=== PATIENT | female | born 1945 | race Caucasian/White ===

== ENCOUNTER 2016-04-16 10:14 | Emergency (ER) | payer MEDICARE, OTHER ==
[~2016-04-16] VITALS: Ht 165.1 cm; Wt 87.0 kg
[~2016-04-16 10:14] MED LIST: ADVI200C9 PO; NOVO7030P2 SQ
[2016-04-16 10:34] VITALS: BP 184/84; PULSE 76; RESP 18; TEMP 98; O2SAT 95
--- NOTE | 2016-04-16 10:34 | PD ---
HPI Chief Complaint: low blood sugar Time Seen by Provider: 10:22 Travel History International Travel<30 days: No Contact w/Intl Traveler<30days: No History of Present Illness HPI This is a 71-year-old female who has a history of dialysis dependence who presents to the emergency department having felt unwell at dialysis with palpitations, shortness of breath and tingling and numbness in her hands and face, constant, severe. Her blood sugar was checked at dialysis and it was 40. They had completed dialysis at that point. Patient was sent to the emergency department for further evaluation. Here she still reports that she doesn't feel well. History is obtained through her daughter who speaks Libyan. I offered the patient a creel hand but she declined. Patient denies any chest pain, fevers or chills and says she was feeling fine yesterday until dialysis. PFSH Past Medical History Arthritis: Yes (HANDS) Asthma: No Autoimmune Disease: No Blood Disorders: No Anxiety: No Depression: No Heart Rhythm Problems: No Cancer: No Cardiovascular Problems: Yes (CHEST PAIN, HTN) High Cholesterol: No Chest Pain: No Congestive Heart Failure: No Cerebrovascular Accident: No Diabetes: Yes Dialysis: Yes (M-W-) Diminished Hearing: No Endocrine: Yes (TYPE 2) Gastrointestinal Disorders: No GERD: No Glaucoma: No Genitourinary: No Headaches: No Hepatitis: No Hiatal Hernia: Yes ( ) Hypertension: Yes Immune Disorder: No Implanted Vascular Access Dvce: Yes Kidney Stones: No Musculoskeletal: No Neurologic: No Psychiatric: No Reproductive: No Immunizations Current: Yes Migraines: No Myocardial Infarction: No Radiation Therapy: No Renal Failure: Yes (DIALYSIS MWF) Seizures: No Sickle Cell Disease: No Thyroid Disease: Yes Ulcer: No Menopausal: Yes : 14 Para: 3 Miscarriage: 11 Past Surgical History Abdominal Surgery: Yes (HERNIA WITH MESH) AICD: No Appendectomy: No Arteriovenous Shunt: No Body Medical Devices: FISTULAS IN BOTH ARMS Cardiac Surgery: No Section: Yes Cholecystectomy: Yes Ear Surgery: No Endocrine Surgery: No Eye Surgery: No Genitourinary Surgery: No Gynecologic Surgery: No Insulin Pump: No Joint Replacement: No Neurologic Surgery: No Pacemaker: No Thoracic Surgery: No Tonsillectomy: Yes Other Surgery: Yes (RIGHT BKA, CHOLEY, HERNIA, 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, GLUCOMA SURG) Social History Alcohol Use: No Tobacco Use: No Substance Use: No Allergies-Medications (Allergen,Severity, Reaction): Coded Allergies: Contrast Media (Verified Allergy, Severe, CAN'T BREATHE, 09/17/15) Epogen (Verified Allergy, Severe, Headache, 09/17/15) Iodine (Verified Allergy, Severe, Hives, 09/17/15) PATIENT NEEDS TO BE PREMEDICATED Morphine (Verified Allergy, Severe, RESPIRATORY DISTRESS, 09/17/15) Vancomycin (Verified Allergy, Severe, 09/17/15) Uncoded Allergies: plastic tape (Allergy, Severe, 01/21/15) blisters Reported Meds & Prescriptions Reported Meds & Active Scripts Active Reported Lovenox Inj (Enoxaparin Sodium) 30 Mg/0.3 Ml Syr Unknown Dose SQ EVERY 15 DAYS Review of Systems Except as stated in HPI: all other systems reviewed are Neg Physical Exam Narrative GENERAL: Unwell appearing, moaning SKIN: Warm and dry. HEAD: Atraumatic. Normocephalic. EYES: Pupils equal and round. No injection or drainage. ENT: Moist mucous membranes NECK: Trachea midline. CARDIOVASCULAR: Regular rate and rhythm. No murmur appreciated. RESPIRATORY: Clear to auscultation. Breath sounds equal bilaterally. GASTROINTESTINAL: Abdomen soft, non-tender, nondistended. MUSCULOSKELETAL: Right BKA. NEUROLOGICAL: Awake and alert. No obvious cranial nerve deficits. Moving all extremities. PSYCHIATRIC: Appropriate mood and affect; insight and judgment normal. Data Data Last Documented VS Vital Signs Date Time Temp Pulse Resp B/P Pulse Ox O2 Delivery O2 Flow Rate FiO2 04/16/16 10:40 73 18 96 Nasal Cannula 2 04/16/16 10:34 98.0 184/84 Orders Electrocardiogram (04/16/16 ) Complete Blood Count With Diff (04/16/16 10:31) Comprehensive Metabolic Panel (04/16/16 10:31) Prothrombin Time / Inr (Pt) (04/16/16 10:31) Act Partial Throm Time (Ptt) (04/16/16 10:31) Troponin I (04/16/16 10:31) Urinalysis - C+S If Indicated (04/16/16 10:31) Chest, Single Ap (04/16/16 10:31) Ct Brain W/O Iv Contrast(Rout) (04/16/16 10:31) Blood Glucose (04/16/16 10:31) Ecg Monitoring (04/16/16 10:31) Iv Access Insert/Monitor (04/16/16 10:31) Oximetry (04/16/16 10:31) Sodium Chloride 0.9% Flush (Ns Flush) (04/16/16 10:45) Aspirin Chew (Aspirin Chew) (04/16/16 10:45) Labs Laboratory Tests Test 04/16/16 10:46 White Blood Count 7.8 TH/MM3 Red Blood Count 3.67 MIL/MM3 Hemoglobin 10.6 GM/DL Hematocrit 32.0 % Mean Corpuscular Volume 87.2 FL Mean Corpuscular Hemoglobin 28.7 PG Mean Corpuscular Hemoglobin 33.0 % Concent Red Cell Distribution Width 14.6 % Platelet Count 201 TH/MM3 Mean Platelet Volume 7.3 FL Neutrophils (%) (Auto) 65.2 % Lymphocytes (%) (Auto) 17.7 % Monocytes (%) (Auto) 5.3 % Eosinophils (%) (Auto) 10.7 % Basophils (%) (Auto) 1.1 % Neutrophils # (Auto) 5.1 TH/MM3 Lymphocytes # (Auto) 1.4 TH/MM3 Monocytes # (Auto) 0.4 TH/MM3 Eosinophils # (Auto) 0.8 TH/MM3 Basophils # (Auto) 0.1 TH/MM3 CBC Comment DIFF FINAL Differential Comment Prothrombin Time 10.4 SEC Prothromb Time International 0.9 RATIO Ratio Activated Partial 27.9 SEC Thromboplast Time Sodium Level 136 MEQ/L Potassium Level 3.8 MEQ/L Chloride Level 99 MEQ/L Carbon Dioxide Level 29.5 MEQ/L Anion Gap 8 MEQ/L Blood Urea Nitrogen 17 MG/DL Creatinine 2.80 MG/DL Estimat Glomerular Filtration 17 ML/MIN Rate Random Glucose 119 MG/DL Calcium Level 9.3 MG/DL Total Bilirubin 0.3 MG/DL Aspartate Amino Transf 9 U/L (AST/SGOT) Alanine Aminotransferase 15 U/L (ALT/SGPT) Alkaline Phosphatase 210 U/L Troponin I 0.02 NG/ML Total Protein 7.6 GM/DL Albumin 3.3 GM/DL [facility] Medical Decision Making Medical Screen Exam Complete: Yes Emergency Medical Condition: Yes Interpretation(s) Afebrile, no tachycardia, hypertensive Mild anemia Creatinine is 2.8 Troponin is 0.02 Normal EKG: Normal sinus rhythm, right bundle branch block, no ST changes CT of the head: No acute process Chest x-ray: No acute process Differential Diagnosis Arrhythmia, hypoglycemia, infection, acute coronary syndrome Narrative Course This is a 71-year-old female who presents the emergency department sent from dialysis for a blood sugar in the 40s. Patient is describing palpitations, numbness and tingling in her hands and generalized fatigue. She is very well- appearing on exam. Labs are all reassuring and she's had a normal blood sugar during her 2 hour stay in the emergency department. Electrolytes are all reassuring and she has no evidence of infection. Patient denies any chest pain. I suspect the patient had a transiently low blood sugar in the setting of dialysis. I advised her family to continue check her blood sugar every 4 hours at home for the rest of the day. I don't think the patient warrants admission at this time as she appears back to baseline. Diagnosis Primary Impression: Hypoglycemia Patient Instructions: General Instructions Additional Instructions: If you develop severe chest pain, shortness of breath, sweating, lightheadedness , dizziness or difficulty breathing return to the emergency department immediately. Followup with your primary care physician in 2-3 days if your symptoms are not resolved. Med/Other Pt SpecificInfo: No Change to Meds Disposition: 01 DISCHARGE HOME Condition: Stable Marly Chery MD Apr 16, 2016 10:34
[2016-04-16 10:39] VITALS: O2SAT 97
[2016-04-16] MEDS ORDERED: ASPIRIN 81 MG CHEW TAB CHEW ONE (10:45)
[2016-04-16] MEDS ORDERED: SODIUM CHLORIDE 0.9% FLUSH 5 ML FLUSH IVF PRN (10:45)
[2016-04-16] MEDS ORDERED: ENOX30P SQ (10:46)
[2016-04-16 11:00] LABS: AUTOMATED NEUTROPHIL # 5.1 TH/MM3 (1.8-7.7); BASOPHIL # 0.1 TH/MM3 (0-0.2); BASOPHIL % 1.1 % (0.0-2.0); EOSINOPHIL # 0.8 TH/MM3 (0-0.4); EOSINOPHIL % 10.7 % (0.0-4.0); HEMO FLAGS DIFF FINAL; LYMPH % 17.7 % (9.0-44.0); LYMPHOCYTE # 1.4 TH/MM3 (1.0-4.8); MEAN CELL VOLUME 87.2 FL (80.0-100.0); MEAN CORPUSCULAR HEMOGLOBIN 28.7 PG (27.0-34.0); MONO % 5.3 % (0.0-8.0); NEUT % 65.2 % (16.0-70.0); PLATELET COUNT 201 TH/MM3 (150-450); RED BLOOD COUNT 3.67 MIL/MM3 (4.00-5.30); RED CELL DISTRIBUTION WIDTH 14.6 % (11.6-17.2); WHITE BLOOD COUNT 7.8 TH/MM3 (4.0-11.0)
[2016-04-16 11:09] LABS: APTT (PATIENT) 27.9 SEC (24.3-30.1); INTERNATIONAL NORMALIZED RATIO 0.9 RATIO; PROTHROMBIN TIME - PATIENT 10.4 SEC (9.8-11.6)
[2016-04-16 11:16] LABS: ALT (GPT) 15 U/L (10-53); ANION GAP 8 MEQ/L (5-15); AST (GOT) 9 U/L (15-37); BICARBONATE 29.5 MEQ/L (21.0-32.0); BLOOD UREA NITROGEN 17 MG/DL (7-18); CHLORIDE 99 MEQ/L (98-107); GLOMERULAR FILTRATION RATE 17 ML/MIN (>89); POTASSIUM 3.8 MEQ/L (3.5-5.1); SODIUM (NA) 136 MEQ/L (136-145)
[2016-04-16 11:19] LABS: ALKALINE PHOSPHATASE 210 U/L (45-117); TOTAL BILIRUBIN ADULT 0.3 MG/DL (0.2-1.0)
--- NOTE | 2016-04-16 11:43 | RADRPT ---
EXAM DATE/TIME: 04/16/2016 10:53 [facility] COMPARISON: CT BRAIN W/O CONTRAST, May 28, 2015, 11:28. INDICATIONS : Sudden onset of numbness and tingling in hands and face during dialysis. RADIATION DOSE: 40.23 CTDIvol (mGy) MEDICAL HISTORY : Renal failure, chronic. Hypertension. Diabetes mellitus type 2. SURGICAL HISTORY : Tonsillectomy. ENCOUNTER: Initial ACUITY: 1 day PAIN SCALE: 0/10 LOCATION: cranial TECHNIQUE: Multiple contiguous axial images were obtained of the head. Using automated exposure control and adj ustment of the mA and/or kV according to patient size, radiation dose was kept as low as reasonably a chievable to obtain optimal diagnostic quality images. FINDINGS: CEREBRUM: The ventricles are normal for age. No evidence of midline shift, mass lesion, hemorrhage or acute in farction. No extra-axial fluid collections are seen. POSTERIOR FOSSA: The cerebellum and brainstem are intact. The 4th ventricle is midline. The cerebellopontine angle i s unremarkable. EXTRACRANIAL: The visualized portion of the orbits is intact. SKULL: The calvaria is intact. No evidence of skull fracture. CONCLUSION: 1. No acute intracranial abnormality. No change from May 2015. Fabrizio Hatfield MD on April 16, 2016 at 11:24 Board Certified Radiologist. This report was verified electronically.
--- NOTE | 2016-04-16 12:32 | RADRPT ---
EXAM DATE/TIME: 04/16/2016 11:33 [facility] COMPARISON: CHEST SINGLE AP, September 17, 2015, 6:33. INDICATIONS : Syncope MEDICAL HISTORY : None. SURGICAL HISTORY : None. ENCOUNTER: Initial ACUITY: 1 day PAIN SCORE: Non-responsive. LOCATION: Bilateral chest FINDINGS: A single view of the chest demonstrates minimal basilar atelectasis. No effusion. No pneumothorax. Ca rdiomegaly. CONCLUSION: 1. Minimal basilar atelectasis. No change from September 2015. Fabrizio Hatfield MD on April 16, 2016 at 12:29 Board Certified Radiologist. This report was verified electronically.
--- NOTE | 2016-04-16 14:35 | EKG ---
Date Performed: 04/16/2016 Time Performed: 10:36:59 PTAGE: 71 years EKG: Sinus rhythm RIGHT BUNDLE BRANCH BLOCK LEFT ANTERIOR FASCICULAR BLOCK ABNORMAL ECG PREVIOUS TRACING : 09/17/2015 07.25 Since previous tracing, no significant change noted DOCTOR: Zaria Chery Interpretating Date/Time 04/16/2016 14:27:26
== END 2016-04-16 13:20 | disposition home or self-care (01) ==
LOC: NEPE 10:14
DX: E16.2 Hypoglycemia, unspecified (principal); R94.31 Abnormal electrocardiogram [ECG] [EKG]; I10 Essential (primary) hypertension; E11.9 Type 2 diabetes mellitus without complications; Z99.2 Dependence on renal dialysis
CPT/HCPCS: 70450; 71010; 80053; 84484; 85025; 85610; 85730; 93005

== ENCOUNTER 2016-04-19 13:08 | Day surgery (SDC) | payer MEDICARE, OTHER ==
[~2016-04-19 13:08] MED LIST changes: -ADVI200C9 PO; +ENOX30P SQ; -NOVO7030P2 SQ
[2016-04-19 13:47] VITALS: BP 196/81; PULSE 86; RESP 20; TEMP 99; O2SAT 94
[2016-04-19 14:15] VITALS: BP 189/77; PULSE 84; RESP 16; TEMP 98.2; O2SAT 84
[2016-04-19 14:30] VITALS: BP 166/71; PULSE 83; RESP 18; O2SAT 98
--- NOTE | 2016-04-19 14:41 | RADRPT ---
EXAM DATE/TIME: 04/19/2016 13:39 [facility] COMPARISON: No previous studies available for comparison. EXTERNAL COMPARISON : [facility], US THYROID, September 20, 2015 INDICATIONS : Enlarged right thyroid. MEDICAL HISTORY : Hypertension. Thyroid disease. SURGICAL HISTORY : Tonsillectomy. Cholecystectomy. Right below knee amputation. Herniarrepair. Facial tumor. A-V fistu las bilateral arms. Glucoma surgery. Hx of blood transfusions. ENCOUNTER: Initial ACUITY: 1 day PAIN SCORE: 0/10 LOCATION: Right neck ORGAN: Right thyroid lobe SPECIMENS: Three fine needle aspirate(s) submitted for pathologic evaluation. DEVICE: 18 gauge needle Post procedure scanning reveals no hematoma or other complication. The possibility does exist that the tissue obtained will be non-diagnostic. If the sample is non-diag nostic, a repeat biopsy or surgical biopsy may need to be performed. TECHNIQUE: 1. Ultrasound guidance for needle biopsy. 2. Needle biopsy. The risks, benefits, and alternatives to ultrasound guided needle biopsy were explained to the patien t in detail including the risk of bleeding and infection. Written and verbal informed consent was ob tained. With the patient on the ultrasound table, images were obtained. Overlying skin was prepped and drape d in the usual sterile fashion and Lidocaine was utilized as a local anesthetic. Under direct ultrasound guidance 3 aspirates were obtained and submitted for pathologic evaluation. The patient tolerated the procedure well and left the ultrasound suite in stable condition. CONCLUSION: Uncomplicated ultrasound guided needle biopsy. Kin Balderas MD FACR on April 19, 2016 at 14:39 Board Certified Radiologist. This report was verified electronically.
[2016-04-19] MEDS ORDERED: SODIUM BICARBONATE 8.4% INJ 50 ML ONE (14:45)
[2016-04-19] MEDS ORDERED: LIDOCAINE HCL 1% 30 ML VIAL ONE (14:45)
== END 2016-04-19 14:45 | disposition home or self-care (01) ==
LOC: HRAD 13:08 → HRIP 13:14 → HRAD 14:45
PROVIDERS: ATTEND Surgery Vascular Surgery
DX: E04.2 Nontoxic multinodular goiter (principal); E07.9 Disorder of thyroid, unspecified; I10 Essential (primary) hypertension
CPT/HCPCS: 10022; 76942; 88172; 88173

== ENCOUNTER 2016-05-14 11:20 | Emergency (ER) | payer MEDICARE, OTHER ==
[~2016-05-14] VITALS: Ht 165.1 cm; Wt 85.0 kg
[2016-05-14 11:24] VITALS: BP 195/85; PULSE 78; RESP 20; TEMP 97.9; O2SAT 93
--- NOTE | 2016-05-14 15:32 | PD ---
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 However she mentioned to the nurse that she's been having pain in her fistula site. The dialysis nurse told her to come to the emergency room. No fever or injury. No bleeding. The dialysis went off without any problems. Duration is one day. PFSH Past Medical History Arthritis: Yes (HANDS) Asthma: No Autoimmune Disease: No Blood Disorders: No Anxiety: No Depression: No Heart Rhythm Problems: No Cancer: No Cardiovascular Problems: Yes (CHEST PAIN, HTN) High Cholesterol: No Chest Pain: No Congestive Heart Failure: No Cerebrovascular Accident: No Diabetes: Yes Patient Takes Glucophage: No Dialysis: Yes (--) Diminished Hearing: No Endocrine: Yes (TYPE 2) Gastrointestinal Disorders: No GERD: No Glaucoma: No Genitourinary: No Headaches: No Hepatitis: No Hiatal Hernia: Yes ( ) Hypertension: Yes Immune Disorder: No Implanted Vascular Access Dvce: Yes Kidney Stones: No Musculoskeletal: No Neurologic: No Psychiatric: No Reproductive: No Immunizations Current: Yes Migraines: No Myocardial Infarction: No Radiation Therapy: No Renal Failure: Yes (DIALYSIS MWF) Seizures: No Sickle Cell Disease: No Thyroid Disease: Yes Ulcer: No Tetanus Vaccination: < 5 Years ?: Not Menopausal: Yes : 14 Para: 3 Miscarriage: 11 Past Surgical History Abdominal Surgery: Yes (HERNIA WITH MESH) AICD: No Appendectomy: No Arteriovenous Shunt: No Body Medical Devices: FISTULAS IN BOTH ARMS Cardiac Surgery: No Section: Yes Cholecystectomy: Yes Ear Surgery: No Endocrine Surgery: No Eye Surgery: No Genitourinary Surgery: No Gynecologic Surgery: No Insulin Pump: No Joint Replacement: No Neurologic Surgery: No Pacemaker: No Thoracic Surgery: No Tonsillectomy: Yes Other Surgery: Yes (RIGHT BKA, CHOLEY, HERNIA, 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, GLUCOMA SURG) Social History Alcohol Use: No Tobacco Use: No Substance Use: No Allergies-Medications (Allergen,Severity, Reaction): Coded Allergies: Contrast Media (Verified Allergy, Severe, CAN'T BREATHE, 05/14/16) Epogen (Verified Allergy, Severe, Headache, 05/14/16) Iodine (Verified Allergy, Severe, Hives, 05/14/16) PATIENT NEEDS TO BE PREMEDICATED Morphine (Verified Allergy, Severe, RESPIRATORY DISTRESS, 05/14/16) Vancomycin (Verified Allergy, Severe, 05/14/16) Uncoded Allergies: plastic tape (Allergy, Severe, 01/21/15) blisters Reported Meds & Prescriptions Reported Meds & Active Scripts Active No Active Prescriptions or Reported Medications Review of Systems General / Constitutional: No: Fever HENT: No: Headaches Cardiovascular: No: Chest Pain or Discomfort Physical Exam Narrative SKIN: Inspection shows no rash or ulcers. Palpation shows no induration or nodules. Psych: Normal mood and affect. Normal insight and judgment. Right arm: Antecubital fossa shows no sign of infection or injury. There is no bruising or swelling or redness or warmth. No drainage or bleeding. Pain is located in the fistula itself Arm is neurovascularly intact Data Data Last Documented VS Vital Signs Date Time Temp Pulse Resp B/P Pulse Ox O2 Delivery O2 Flow Rate FiO2 05/14/16 11:24 97.9 78 20 195/85 93 Room Air MDM Medical Decision Making Medical Screen Exam Complete: Yes Emergency Medical Condition: Yes Medical Record Reviewed: Yes Differential Diagnosis Partial occlusion, soft tissue injury, cellulitis Narrative Course I have reviewed the patient's electronic medical record. No objective findings here. She seems basically asymptomatic and when she tries to straighten her arm out fully and then has some pain I reviewed the case in detail with nephrology coverage Dr. Banda He recommends an outpatient radiology consult for evaluation of fistula I discussed this with patient and bilingual case manager She researched and basically the patient's tree feller operator has to order this She has contacted her tree feller operator's office and they are working on it Stable for outpatient follow-up Diagnosis Primary Impression: Right arm pain Additional Impression: ESRD (end stage renal disease) on dialysis Additional Instructions: Follow-up tree feller operator and outpatient radiology evaluation of fistula Med/Other Pt SpecificInfo: Other Scripts No Active Prescriptions or Reported Meds Disposition: 01 DISCHARGE HOME Condition: Stable Farhat Narvaez MD May 14, 2016 15:32
== END 2016-05-14 16:49 | disposition home or self-care (01) ==
LOC: NEPD 11:20
DX: M79.601 Pain in right arm (principal); N18.6 End stage renal disease; I12.0 Hypertensive chronic kidney disease with stage 5 chronic kidney disease or end stage renal disease; E11.22 Type 2 diabetes mellitus with diabetic chronic kidney disease; Z99.2 Dependence on renal dialysis; Z95.828 Presence of other vascular implants and grafts
CPT/HCPCS: 99283

== ENCOUNTER 2016-06-15 07:14 | Inpatient (IN) | payer MEDICARE, OTHER ==
[~2016-06-15] VITALS: Ht 165.1 cm; Wt 89.6 kg
[2016-06-15] VITALS (9 sets, daily range): BP systolic 126–182; BP diastolic 60–65; PULSE 80–88; RESP 14–18; TEMP 98–99.5; O2SAT 99–100
[2016-06-15] MEDS ORDERED: SODIUM CHLORID 0.9% 500 ML IV SCH (07:45)
[2016-06-15] MEDS ORDERED: ceFAZolin 1,000 MG/NS 100 ML IV SCH ×2 (07:45)
[2016-06-15] MEDS ORDERED: METOPROLOL TARTRATE 25 MG TAB PO PRN (07:45)
[2016-06-15] MEDS ORDERED: LACTATED RINGER'S 1000 ML IV SCH (07:45)
[2016-06-15] MEDS ORDERED: INSULIN HUMAN REGULAR 1,000 UNITS/10 ML VIAL SQ PRN (07:45)
[2016-06-15 08:40] LABS: AUTOMATED NEUTROPHIL # 5.5 TH/MM3 (1.8-7.7); BASOPHIL # 0.1 TH/MM3 (0-0.2); BASOPHIL % 1.2 % (0.0-2.0); EOSINOPHIL # 2.8 TH/MM3 (0-0.4); EOSINOPHIL % 25.7 % (0.0-4.0); HEMO FLAGS DIFF FINAL; LYMPH % 17.3 % (9.0-44.0); LYMPHOCYTE # 1.9 TH/MM3 (1.0-4.8); MEAN CELL VOLUME 89.5 FL (80.0-100.0); MEAN CORPUSCULAR HEMOGLOBIN 29.2 PG (27.0-34.0); MEAN CORPUSCULAR HGB CONC 32.6 % (32.0-36.0); MONO % 4.7 % (0.0-8.0); NEUT % 51.1 % (16.0-70.0); PLATELET COUNT 199 TH/MM3 (150-450); RED BLOOD COUNT 3.01 MIL/MM3 (4.00-5.30); RED CELL DISTRIBUTION WIDTH 15.3 % (11.6-17.2); WHITE BLOOD COUNT 10.8 TH/MM3 (4.0-11.0)
[2016-06-15] MEDS ORDERED: SODIUM CHLORID 0.9% 500 ML INJ 500 ML IV ONE (08:51)
[2016-06-15] MEDS ORDERED: ONDANSETRON HCL 4 MG/2 ML VIAL IV PUSH ONE (08:51)
[2016-06-15] MEDS ORDERED: NEOSTIGMINE 3 MG/3 ML SYR IV ONE (08:51)
[2016-06-15] MEDS ORDERED: PROPOFOL 200 MG/20 ML AMP IV ONE (08:51)
[2016-06-15 09:08] LABS: BICARBONATE 26.5 MEQ/L (21.0-32.0); POTASSIUM 4.8 MEQ/L (3.5-5.1)
[2016-06-15] MEDS ORDERED: CINA30 PO (09:26)
[2016-06-15] MEDS ORDERED: NIFE60TA58 PO (09:26)
[2016-06-15] MEDS ORDERED: BUPIVACAINE/EPINEPHRINE 0.5% PF 30 ML VIAL ONE (10:08)
[2016-06-15] MEDS ORDERED: FAMOTIDINE 20 MG/2 ML VIAL ONE (10:26)
[2016-06-15] MEDS ORDERED: MIDAZOLAM HCL 2 MG/2 ML VIAL ONE (10:27)
[2016-06-15] MEDS ORDERED: DEXAMETHASONE SOD PHOS 4 MG/ML VIAL ONE (10:27)
[2016-06-15] MEDS ORDERED: *ENALAPRILAT 1.25 MG/ML VIAL PERIprocedural Use ONLY ONE ×2 (13:42→14:04)
[2016-06-15] MEDS ORDERED: fentaNYL CITRATE 250 MCG/5 ML AMP ONE (13:44)
[2016-06-15] MEDS ORDERED: *PROMETHAZINE 25 MG/ML VIAL PERIprocedural use ONLY ONE (13:46)
[2016-06-15] MEDS ORDERED: *ONDANSETRON 4 MG VIAL PERIprocedural Use ONLY ONE (13:47)
[2016-06-15] MEDS ORDERED: *HYDROmorphone PF 1 MG VIAL PERIprocedural Use ONLY ONE (13:53)
[2016-06-15] MEDS ORDERED: *LABETALOL HCL 100 MG/20 ML VIAL PERIprocedural Use ONLY ONE (14:04)
[2016-06-15] MEDS ORDERED: hydrALAZINE HCL 20 MG/ML VIAL ONE (14:48)
[2016-06-15] MEDS ORDERED: ONDANSETRON HCL 4 MG/2 ML VIAL IV PUSH PRN (18:15)
[2016-06-15] MEDS ORDERED: SODIUM CHLORIDE FLUSH PRN IVF (18:15)
[2016-06-15] MEDS ORDERED: LABETALOL HCL 100 MG/20 ML VIAL IV PRN (18:15)
[2016-06-15] MEDS ORDERED: CALCIUM CHLORIDE IV PRN ×4 (18:30)
[2016-06-15] MEDS ORDERED: WATE IV PRN ×4 (18:30)
[2016-06-15] MEDS ORDERED: DEXTROSE 5% IV PRN ×4 (18:30)
[2016-06-15] MEDS: CALCIUM CARBONATE 500 MG CHEWABLE TAB PO SCH (18:46)
[2016-06-15] MEDS: MEDIUM DOSE INSULIN NOVOLIN REGULAR SUPPLEMENTAL SCALE SQ SCH (21:00)
[2016-06-15] MEDS: SODIUM CHLORIDE FLUSH BID IVF SCH (21:09)
[2016-06-15] MEDS ORDERED: GLUCAGON 1 MG/ML VIAL OTHER PRN (21:15)
[2016-06-15] MEDS ORDERED: DEXTROSE 50% IN WATER 50 ML VIAL(D50) IV PUSH PRN (21:15)
[2016-06-16] VITALS (22 sets, daily range): BP systolic 113–161; BP diastolic 46–81; PULSE 78–105; RESP 16–18; TEMP 98.2–99.5; O2SAT 93–100
[2016-06-16] MEDS: HYDROmorphone HCL PF 1 MG/ML VIAL IV PRN ×4 (00:36→17:29)
[2016-06-16] MEDS: CALCIUM CARBONATE 500 MG CHEWABLE TAB PO SCH ×3 (02:02→18:21)
[2016-06-16] MEDS ORDERED: BENZOCAINE-MENTHOL (SUGAR FREE) 15 MG-3.6 MG LOZENGE BUCCAL PRN (03:30)
[2016-06-16] MEDS ORDERED: LEVOTHYROXINE SODIUM 100 MCG TAB PO SCH (06:00)
[2016-06-16] MEDS: MEDIUM DOSE INSULIN NOVOLIN REGULAR SUPPLEMENTAL SCALE SQ SCH ×3 (06:24→16:00)
[2016-06-16] MEDS: SODIUM CHLORIDE FLUSH BID IVF SCH (08:16)
[2016-06-16] MEDS ORDERED: NIFEdipine 60 MG SUSTAINED RELEASE TAB PO SCH (09:00)
[2016-06-16] MEDS ORDERED: SODIUM CHLOR 0.9% 1000 ML INJ 1,000 ML IV PRN ×3 (13:51)
[2016-06-16] MEDS ORDERED: NITROGLYCERIN 0.4 MG SL 25 TABS/BTL SL PRN (14:00)
[2016-06-16] MEDS ORDERED: cloNIDine HCL 0.1 MG TAB PO PRN (14:00)
[2016-06-16] MEDS ORDERED: HEPARIN SODIUM - IV 10,000 UNITS/10 ML VIAL PRN (14:00)
[2016-06-16] MEDS ORDERED: diphenhydrAMINE HCL 25 MG CAP PO PRN (14:00)
[2016-06-16] MEDS ORDERED: ONDANSETRON HCL 4 MG/2 ML VIAL IV PRN (14:00)
[2016-06-16] MEDS ORDERED: ACETAMINOPHEN 325 MG TAB PO PRN (14:00)
[2016-06-16] MEDS ORDERED: GENTAMICIN SULFATE (DIALYSIS USE ONLY) 20 MG/2 ML VIAL IV PRN (14:00)
[2016-06-16] MEDS ORDERED: ALBUMIN HUMAN 25% 25 GM/100 ML BAGP IV PRN (14:00)
[2016-06-16] MEDS ORDERED: GELATIN 12 MM/7 MM FOAM TOP PRN (14:00)
[2016-06-16] MEDS ORDERED: SODIUM CHLORIDE 0.9% FLUSH 5 ML FLUSH IVF PRN (14:00)
[2016-06-16] MEDS ORDERED: MANNITOL 12.5 GM/50 ML VIAL IV PRN (14:00)
[2016-06-16] MEDS ORDERED: HEPARIN SODIUM - IV 10,000 UNITS/10 ML VIAL IVF PRN (14:00)
[2016-06-16] MEDS ORDERED: TUMS500C CHEW (14:05)
[2016-06-16] MEDS ORDERED: NIFE60TA58 PO (14:05)
[2016-06-16] MEDS ORDERED: LEVO.05 PO (14:05)
[2016-06-16] MEDS ORDERED: HYDR2TAB PO (14:05)
--- NOTE | 2016-06-16 17:41 | MB ---
cc: KURTIS FISHER MD DATE OF CONSULTATION: 06/16/2016 REASON FOR CONSULTATION: End-stage renal disease on hemodialysis for management. HISTORY OF PRESENT ILLNESS This is a 71-year-old female known to me from before with past medical history of hypertension, diabetes mellitus, peripheral vascular disease post right below-knee amputation, history of end-stage renal disease on hemodialysis three times per week, history of chronic anemia, history of hyperparathyroidism was admitted for parathyroidectomy. I was called to see the patient for the management of dialysis. The patient was referred to Dr. Cottrell for parathyroidectomy since her parathyroid hormone level has been elevated despite all the treatment and Dr. Cottrell also found that her thyroid gland was enlarged and she underwent complete parathyroidectomy and partial thyroidectomy yesterday. The patient tolerated the procedure where she has drainage tube in her neck. She denies any shortness of breath. No chest pain. No palpitation. No nausea or vomiting. Her last calcium level was 7.3. The patient is now on hemodialysis. She has been getting hemodialysis Tuesday, Tuesday and Tuesday. She has history of anemia and she is allergic to Epogen so she is getting Aranesp in [facility], when she was seen by hematology/oncology. PAST MEDICAL HISTORY: 1. Hypertension. 2. Diabetes mellitus. 3. Peripheral vascular disease. 4. Hyperparathyroidism. 5. End-stage renal disease on hemodialysis 3x per week. 6. Chronic anemia. PAST SURGICAL HISTORY: 1. Left arm AV fistula surgery. 2. Right below-knee amputation. 3. Cholecystectomy. 4. section. 5. She just underwent complete parathyroidectomy and partial thyroidectomy. REVIEW OF SYSTEMS There is no history of fever. No sore throat. No headache, dizziness or blurring of vision. Denies any shortness of breath. She has some pain at the site of surgery. There is no nausea or vomiting. No history of diarrhea. No abdominal pain. SOCIAL HISTORY The patient is lives with and son. There is no history of smoking or alcoholism. FAMILY HISTORY: Noncontributory. ALLERGIES She is allergic to multiple medications including: CONTRAST MEDIA EPOGEN IODINE MORPHINE VANCOMYCIN MEDICATIONS: 1. Currently she is on cefazolin but she got one dose. 2. Nifedipine 60 milligrams once a day. 3. Levothyroxine 100 micrograms daily. 4. Tums one gram q8 hours. 5. Insulin sliding scale. 6. Labetalol p.r.n. PHYSICAL EXAMINATION: The patient is awake, alert. She is on hemodialysis right now, the last blood pressure recorded is 113/46, temperature is 98.4, oxygen saturation 97% on room air. HEENT: Pupils equally reacting to light. Nonicteric sclera. Conjunctiva pale. Neck: Supple. JVD is not elevated. Lungs: The patient has bilateral decreased air entry at the bases with occasional wheezing. Heart: S1-S2, regular. Abdomen is obese, soft, lax. There is no tenderness. Bowel sounds positive. Extremities: She has edema in the left leg. On the right she has below-knee amputation. INVESTIGATIONS: WBC count is 10.8, hemoglobin 8.8, platelet count 199. Sodium 137. Potassium 4.8, chloride 102, bicarb 26.5, BUN 48, creatinine 5.7. Calcium, the last we have is 7.3. ASSESSMENT/PLAN 1. Post parathyroidectomy and partial thyroidectomy. 2. End-stage renal disease on hemodialysis. 3. Hypocalcemia. 4. Anemia. 5. Hypertension 6. Diabetes mellitus The patient has severe hyperparathyroidism. The PTH level has been very high despite all the treatment. She was recommended to go and get parathyroidectomy. She underwent the procedure well and the thyroid was also removed. She had biopsy of the thyroid done in April and it shows normal thyroid follicular tissues. She was started on thyroxin and will need to monitor TSH level. Her hemoglobin is low. She is allergic to Epogen and has been getting Aranesp in the infusion center. Will continue that and will follow the hemoglobin. Will follow the calcium level, and phosphorus level as an outpatient. The patient will be discharged after dialysis. So far she is tolerating dialysis well and we will be removing only 1 liter. Continue the same medications that she was taking before except giving more Tums and calcium supplement and follow the calcium level. Thank you for the consultation. I will follow the patient once she is discharged. MD PEACE Alexander/BHAVYA /3:40 PM /5:28 PM
--- NOTE | 2016-06-16 21:13 | MP ---
cc: DIVYA HOLLIS M.D. DATE OF SURGERY: 06/15/2016 PREOPERATIVE DIAGNOSIS: Hyperparathyroidism secondary to chronic renal failure. Dysphagia secondary to goiter/markedly enlarged right thyroid lobe. POSTOPERATIVE DIAGNOSIS Hyperparathyroidism secondary to chronic renal failure. Dysphagia secondary to goiter/markedly enlarged right thyroid lobe. OPERATIVE PROCEDURE Total parathyroidectomy, right thyroid lobectomy. SURGEON Darryl Hollis MD. FREIGHT SORTER: MARCY Mcpherson. ANESTHESIA: General endotracheal anesthesia/local. DESCRIPTION OF OPERATIVE PROCEDURE: With the patient in the supine position, general endotracheal anesthesia was induced, the cervical spine extended and anterior cervical region prepped with Betadine and draped in a sterile fashion. Following a protocol time-out, the skin and subcutaneous tissue along the proposed incisional area was preemptively infiltrated with 0.5% Marcaine with epinephrine. A curvilinear "collar type" incision was performed along the anterior cervical region 2 cm cephalad to the suprasternal notch. Subplatysmal flaps were then dissected superiorly to the thyroid notch and inferiorly to the suprasternal notch. The strap muscle fascia was incised within the midline and strap muscles mobilized laterally. The right and left thyroid lobes were carefully mobilized superomedially. The right lower thyroid lobe was markedly enlarged consistent with benign goiter (as established by preoperative imaging studies and fine needle aspiration). The lobe extended posteriorly into the thyrocervical recess compressing both the esophagus, trachea and causing deviation to the left. All four parathyroid glands were identified in their usual anatomical locations. Each was mobilized on its vascular pedicle. The vascular pedicles were ligated with small hemoclips and all four glands removed, submitted for frozen section confirming parathyroid tissue which appeared to be hypercellular / hyperplastic. Attention was then directed to the right thyroid lobectomy. The superior and inferior pole arterial and venous branches were individually ligated as they entered the thyroid capsule with small hemoclips with free ties of 4-0 silk and divided. The lobe was mobilized superomedially upon its isthmus, care taken to identify and protect the recurrent laryngeal nerves. The isthmus was divided and bleeding controlled with electrocautery. Strict hemostasis was assured. A 7 mm Tyson-Allen drain was placed within the right thyrocervical recess. The strap muscle fascia was reapproximated in the midline with continuous 4-0 Monocryl. The platysmal fascia was reapproximated with continuous 4-0 Monocryl. Skin was reapproximated with continuous subcuticular 5-0 Monocryl, reinforced with Steri-Strips and covered with sterile gauze. Instrument, needle, sponge count were correct x2. No operative complications. The patient returned to the recovery room in stable condition having tolerated the procedure well. MD LILIANA Meadows/BHAVYA /8:05 AM /9:04 PM
== END 2016-06-16 20:28 | disposition home or self-care (01) | DRG 674 ==
LOC: HSDC 07:14 → HCIN 17:12
PROVIDERS: ADMIT Surgery Vascular Surgery; ATTEND Surgery Vascular Surgery
PROC: 0GBH0ZZ Excision of Right Thyroid Gland Lobe, Open Approach (ICD-10-PCS; 2016-06-15)
PROC: 0GTQ0ZZ Resection of Multiple Parathyroid Glands, Open Approach (ICD-10-PCS; principal; 2016-06-15 10:40)
PROC: 5A1D00Z (ICD-10-PCS; 2016-06-16)
DX: N25.81 Secondary hyperparathyroidism of renal origin (principal); I12.0 Hypertensive chronic kidney disease with stage 5 chronic kidney disease or end stage renal disease; N18.6 End stage renal disease; R13.10 Dysphagia, unspecified; E04.2 Nontoxic multinodular goiter; E11.22 Type 2 diabetes mellitus with diabetic chronic kidney disease; Z99.2 Dependence on renal dialysis; I73.9 Peripheral vascular disease, unspecified; Z89.511 Acquired absence of right leg below knee
CPT/HCPCS: 78808; 80048; 82310; 82948; 85025; 88305; 88307; 88331; 90935; A9500; J0360; J0690; J1100; J1170; J2250; J2405; J2550; J2710; J3010; J7040; J7060

== ENCOUNTER 2016-06-18 23:11 | Observation (INO) | payer MEDICARE, OTHER ==
[~2016-06-18] VITALS: Ht 160 cm; Wt 87.5 kg
[~2016-06-18 23:11] MED LIST changes: -ENOX30P SQ; +HYDR2TAB PO; +LEVO.05 PO; +NIFE60TA58 PO; +TUMS500C CHEW
[2016-06-18 23:13] VITALS: BP 191/79; PULSE 83; RESP 22; TEMP 98.2; O2SAT 97
[2016-06-18 23:24] VITALS: BP 154/70; PULSE 90; RESP 26; TEMP 99; O2SAT 98
[2016-06-18] MEDS ORDERED: SODIUM CHLORIDE 0.9% FLUSH 5 ML FLUSH IVF PRN (23:45)
[2016-06-18 23:50] VITALS: O2SAT 98
[2016-06-19] VITALS (10 sets, daily range): BP systolic 145–200; BP diastolic 60–84; PULSE 76–101; RESP 18–22; TEMP 98.5–99.5; O2SAT 93–99
[2016-06-19] LABS: AUTOMATED NEUTROPHIL # 6.7 TH/MM3 (1.8-7.7); BASOPHIL # 0.1 TH/MM3 (0-0.2); BASOPHIL % 0.6 % (0.0-2.0); EOSINOPHIL # 1.8 TH/MM3 (0-0.4); EOSINOPHIL % 16.5 % (0.0-4.0); HEMATOCRIT 22.7 % (35.0-46.0); HEMO FLAGS DIFF FINAL; LYMPH % 12.9 % (9.0-44.0); LYMPHOCYTE # 1.4 TH/MM3 (1.0-4.8); MEAN CELL VOLUME 89.4 FL (80.0-100.0); MEAN CORPUSCULAR HEMOGLOBIN 29.8 PG (27.0-34.0); MEAN CORPUSCULAR HGB CONC 33.4 % (32.0-36.0); MONO % 8.1 % (0.0-8.0); NEUT % 61.9 % (16.0-70.0); PLATELET COUNT 180 TH/MM3 (150-450); RED BLOOD COUNT 2.54 MIL/MM3 (4.00-5.30); RED CELL DISTRIBUTION WIDTH 15.8 % (11.6-17.2); WHITE BLOOD COUNT 10.8 TH/MM3 (4.0-11.0)
[2016-06-19 00:11] LABS: APTT (PATIENT) 30.6 SEC (24.3-30.1); PROTHROMBIN TIME - PATIENT 10.8 SEC (9.8-11.6)
[2016-06-19 00:35] LABS: ALKALINE PHOSPHATASE 200 U/L (45-117); ALT (GPT) 6 U/L (10-53); ANION GAP 11 MEQ/L (5-15); AST (GOT) 11 U/L (15-37); BICARBONATE 24.6 MEQ/L (21.0-32.0); BLOOD UREA NITROGEN 73 MG/DL (7-18); CHLORIDE 100 MEQ/L (98-107); CREATINE KINASE 102 U/L (26-192); GLOMERULAR FILTRATION RATE 4 ML/MIN (>89); MAGNESIUM 1.6 MG/DL (1.5-2.5); POTASSIUM 5.7 MEQ/L (3.5-5.1); SODIUM (NA) 136 MEQ/L (136-145); TOTAL BILIRUBIN ADULT 0.3 MG/DL (0.2-1.0)
[2016-06-19 00:38] LABS: CALCIUM-PROTEIN CORRECTED 5.3 MG/DL (8.5-10.1)
--- NOTE | 2016-06-19 00:46 | RADRPT ---
EXAM DATE/TIME: 06/19/2016 00:13 [facility] COMPARISON: CHEST SINGLE AP, April 16, 2016, 11:33. INDICATIONS : Shortness of breath. MEDICAL HISTORY : Hypertension. Arthritis. Diabetes mellitus type II. Renal failure. SURGICAL HISTORY : Tonsillectomy. ENCOUNTER: Initial ACUITY: 1 day PAIN SCORE: 0/10 LOCATION: Bilateral chest FINDINGS: The patient is rotated towards the left. There is increasing consolidation at the left base with los s of delineation left hemidiaphragm. The right lung is stable in appearance with indistinctness of t he central bronchopulmonary markings but no focal infiltrates. CONCLUSION: Interval development of consolidation left lower lung. William Toro MD on June 19, 2016 at 0:44 Board Certified Radiologist. This report was verified electronically.
[2016-06-19] MEDS ORDERED: CALCIUM GLUCONATE INJ 2 GM in DEXTROSE 5% IN WATER 100ML INJ 100 ML IV ONE ×2 (01:00)
[2016-06-19] MEDS: ACETAMINOPHEN 500 MG CPLT PO ONE ×2 (01:30→01:55)
[2016-06-19] MEDS: NIFEdipine 60 MG SUSTAINED RELEASE TAB PO SCH ×2 (02:00→09:52)
[2016-06-19] MEDS ORDERED: CALCIUM CARBONATE 500 MG CHEWABLE TAB CHEW PRN (02:15)
[2016-06-19] MEDS ORDERED: AZITHROMYCIN INJ 500 MG in SODIUM CHLOR 0.9% 250 ML INJ 250 ML IV ONE (02:15)
[2016-06-19] MEDS ORDERED: SODIUM CHLORIDE 0.9% FLUSH 5 ML FLUSH FLUSH PRN (02:15)
[2016-06-19] MEDS ORDERED: NALOXONE HCL 0.4 MG/ML AMP IV PRN (02:15)
[2016-06-19] MEDS ORDERED: cefTRIAXone INJ 1,000 MG in SODIUM CHLORIDE 0.9% INJ 100 ML IV ONE (02:15)
--- NOTE | 2016-06-19 03:10 | PD ---
HPI Chief Complaint: Respiratory Distress Time Seen by Provider: 23:41 Travel History International Travel<30 days: No Contact w/Intl Traveler<30days: No Traveled to known affect area: No History of Present Illness HPI This is a 71-year-old female who had a parathyroidectomy performed by Dr. Cottrell on June 15 also with a history of end-stage renal disease who presents to the emergency department with body aches, malaise and generalized weakness. Her family member reports that she spent most of today in bed. She feels aches and all of her joints, the pain is constant, severe and has been worsening throughout the week. Patient was discharged and instructed to take Tums but her family didn't fill it because they didn't realize what it was for so she's not been taking any calcium supplementation since her surgery. She was supposed to go to dialysis today but didn't feel well enough so she didn't. PFSH Past Medical History Arthritis: Yes (HANDS) Asthma: No Autoimmune Disease: No Blood Disorders: No Anxiety: No Depression: No Heart Rhythm Problems: No Cancer: No Cardiovascular Problems: No (CHEST PAIN per daughter usually related to dialysis) High Cholesterol: No Chest Pain: No Congestive Heart Failure: No Cerebrovascular Accident: No Diabetes: Yes (Type II) Patient Takes Glucophage: No Dialysis: Yes (-W-) Diminished Hearing: No Endocrine: Yes Gastrointestinal Disorders: No GERD: No Glaucoma: No Genitourinary: No Headaches: No Hepatitis: No Hiatal Hernia: Yes ( ) Immune Disorder: Yes (RA) Implanted Vascular Access Dvce: Yes Kidney Stones: No Musculoskeletal: Yes (rheumatoid arthritis hands) Neurologic: No Psychiatric: No Reproductive: No Immunizations Current: Yes Migraines: No Myocardial Infarction: No Radiation Therapy: No Renal Failure: Yes (DIALYSIS MWF) Seizures: No Sickle Cell Disease: No Thyroid Disease: Yes Ulcer: No ?: Not Menopausal: Yes : 14 Para: 3 Miscarriage: 11 Past Surgical History Abdominal Surgery: Yes (HERNIA WITH MESH, tu, ) AICD: No Appendectomy: No Arteriovenous Shunt: No Body Medical Devices: FISTULAS IN BOTH ARMS Cardiac Surgery: No Section: Yes Cholecystectomy: Yes Ear Surgery: No Endocrine Surgery: No Eye Surgery: Yes (L eye cataract and poss glaucoma? ) Genitourinary Surgery: No Gynecologic Surgery: No Insulin Pump: No Joint Replacement: No Neurologic Surgery: No Oral Surgery: Yes (for dentures, tonsillectomy) Pacemaker: No Thoracic Surgery: No Tonsillectomy: Yes Other Surgery: Yes (RIGHT BKA, CHOLEY, HERNIA, 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, GLUCOMA SURG) Social History Alcohol Use: No Tobacco Use: No Substance Use: No Allergies-Medications (Allergen,Severity, Reaction): Coded Allergies: Contrast Media (Verified Allergy, Severe, CAN'T BREATHE, 06/18/16) Epogen (Verified Allergy, Severe, Headache, 06/18/16) Iodine (Verified Allergy, Severe, Hives, 06/18/16) PATIENT NEEDS TO BE PREMEDICATED Morphine (Verified Allergy, Severe, RESPIRATORY DISTRESS, 06/18/16) Vancomycin (Verified Allergy, Severe, 06/18/16) Uncoded Allergies: plastic tape (Allergy, Severe, 01/21/15) blisters Reported Meds & Prescriptions Reported Meds & Active Scripts Active Reported Tums (Calcium Carbonate (Antacid)) 500 Mg Chew 1,000 Mg CHEW TID PRN Synthroid (Levothyroxine Sodium) 50 Mcg Tab 50 Mcg PO DAILY Hydromorphone (Hydromorphone HCl) 2 Mg Tab 1 Mg PO Q6H PRN Nifedipine ER 24 HR (Nifedipine) 60 Mg Tab 60 Mg PO DAILY Review of Systems Except as stated in HPI: all other systems reviewed are Neg Physical Exam Narrative History is obtained via family member translating. GENERAL: Chronically ill-appearing. SKIN: Small mid neck incisional wound which is well-appearing with no surrounding hematoma, erythema or induration. HEAD: Atraumatic. Normocephalic. EYES: Pupils equal and round. No injection or drainage. ENT: Moist mucous membranes NECK: Trachea midline. CARDIOVASCULAR: Regular rate and rhythm. No murmur appreciated. RESPIRATORY: Clear to auscultation. Breath sounds equal bilaterally. GASTROINTESTINAL: Abdomen soft, non-tender, nondistended. MUSCULOSKELETAL: No obvious deformities. NEUROLOGICAL: Awake and alert. No obvious cranial nerve deficits. Moving all extremities. PSYCHIATRIC: Appropriate mood and affect; insight and judgment normal. Data Data Last Documented VS Vital Signs Date Time Temp Pulse Resp B/P Pulse Ox O2 Delivery O2 Flow Rate FiO2 06/18/16 23:50 98 Nasal Cannula 2 06/18/16 23:28 26 06/18/16 23:24 99.0 90 Orders Complete Blood Count With Diff (06/18/16 23:41) Comprehensive Metabolic Panel (06/18/16:) B-Type Natriuretic Peptide (06/18/16:) Act Partial Throm Time (Ptt) (06/18/16:41) Prothrombin Time / Inr (Pt) (06/18/16:41) Magnesium (Mg) (06/18/16:) Troponin I (06/18/16:) Iv Access Insert/Monitor (06/18/16:) Ecg Monitoring (06/18/16) Oximetry (06/18/16:) Oxygen Administration (06/18/16:) Chest, Single Ap (06/18/16:) Sodium Chloride 0.9% Flush (Ns Flush) (06/18/16 23:45) Phosphorus (Po4) (06/18/16:) Creatine Kinase (Cpk) (06/18/16:41) Calcium Gluconate Inj (Calcium Gluconate (06/19/16 01:00) Admit Order (Ed Use Only) (06/19/16 01:08) Labs Laboratory Tests Test 06/18/16 23:45 White Blood Count 10.8 TH/MM3 Red Blood Count 2.54 MIL/MM3 Hemoglobin 7.6 GM/DL Hematocrit 22.7 % Mean Corpuscular Volume 89.4 FL Mean Corpuscular Hemoglobin 29.8 PG Mean Corpuscular Hemoglobin 33.4 % Concent Red Cell Distribution Width 15.8 % Platelet Count 180 TH/MM3 Mean Platelet Volume 8.0 FL Neutrophils (%) (Auto) 61.9 % Lymphocytes (%) (Auto) 12.9 % Monocytes (%) (Auto) 8.1 % Eosinophils (%) (Auto) 16.5 % Basophils (%) (Auto) 0.6 % Neutrophils # (Auto) 6.7 TH/MM3 Lymphocytes # (Auto) 1.4 TH/MM3 Monocytes # (Auto) 0.9 TH/MM3 Eosinophils # (Auto) 1.8 TH/MM3 Basophils # (Auto) 0.1 TH/MM3 CBC Comment DIFF FINAL Differential Comment Prothrombin Time 10.8 SEC Prothromb Time International 1.0 RATIO Ratio Activated Partial 30.6 SEC Thromboplast Time Sodium Level 136 MEQ/L Potassium Level 5.7 MEQ/L Chloride Level 100 MEQ/L Carbon Dioxide Level 24.6 MEQ/L Anion Gap 11 MEQ/L Blood Urea Nitrogen 73 MG/DL Creatinine 9.10 MG/DL Estimat Glomerular Filtration 4 ML/MIN Rate Random Glucose 116 MG/DL Calcium Level 5.3 MG/DL Protein Corrected Calcium 5.3 MG/DL Phosphorus Level 2.4 MG/DL Magnesium Level 1.6 MG/DL Total Bilirubin 0.3 MG/DL Aspartate Amino Transf 11 U/L (AST/SGOT) Alanine Aminotransferase 6 U/L (ALT/SGPT) Alkaline Phosphatase 200 U/L Total Creatine Kinase 102 U/L Troponin I LESS THAN 0.02 NG/ML B-Type Natriuretic Peptide 84 PG/ML Total Protein 7.1 GM/DL Albumin 3.0 GM/DL [place] Medical Decision Making Medical Screen Exam Complete: Yes Emergency Medical Condition: Yes Interpretation(s) Anemia which is chronic Hypocalcemia Mildly low phosphorus Magnesium is normal Mild hyperkalemia Differential Diagnosis Symptomatic hypocalcemia, electrolyte abnormality, hematoma, volume overload Narrative Course This is a 71-year-old female who has a history of end-stage renal disease and who recently had a parathyroidectomy who presents to the emergency department with body aches and fatigue. She failed to supplement her calcium at home following her surgery. She was placed on a monitor and an IV was established. Labs were obtained which demonstrate significant hypocalcemia as well as mild hyperkalemia. She has no EKG changes. I spoke to Dr. Cottrell who agrees the patient should be admitted for calcium supplementation to the hospitalist service. Dr. Doshi is the patient's central service tech. She was given 2 g of calcium gluconate and was admitted to the hospitalist. Diagnosis Primary Impression: Hypocalcemia Admitting Information Admitting Physician Requests: Admit Marly Chery MD Jun 19, 2016 03:10
[2016-06-19] MEDS: LEVOTHYROXINE SODIUM 50 MCG TAB PO SCH (07:01)
[2016-06-19] MEDS ORDERED: SODIUM CHLOR 0.9% 1000 ML INJ 1,000 ML IV PRN ×6 (08:46→09:00)
[2016-06-19] MEDS ORDERED: GELATIN 12 MM/7 MM FOAM TOP PRN ×2 (09:00)
[2016-06-19] MEDS ORDERED: NITROGLYCERIN 0.4 MG SL 25 TABS/BTL SL PRN ×2 (09:00)
[2016-06-19] MEDS ORDERED: HEPARIN SODIUM - IV 10,000 UNITS/10 ML VIAL PRN ×2 (09:00)
[2016-06-19] MEDS ORDERED: GENTAMICIN SULFATE (DIALYSIS USE ONLY) 20 MG/2 ML VIAL IV PRN ×2 (09:00)
[2016-06-19] MEDS ORDERED: SODIUM CHLORIDE 0.9% FLUSH 5 ML FLUSH IVF PRN ×2 (09:00)
[2016-06-19] MEDS ORDERED: ALBUMIN HUMAN 25% 25 GM/100 ML BAGP IV PRN ×2 (09:00)
[2016-06-19] MEDS ORDERED: diphenhydrAMINE HCL 25 MG CAP PO PRN ×2 (09:00)
[2016-06-19] MEDS ORDERED: ACETAMINOPHEN 325 MG TAB PO PRN ×2 (09:00)
[2016-06-19] MEDS ORDERED: ONDANSETRON HCL 4 MG/2 ML VIAL IV PRN ×2 (09:00)
[2016-06-19] MEDS ORDERED: MANNITOL 12.5 GM/50 ML VIAL IV PRN ×2 (09:00)
[2016-06-19] MEDS ORDERED: cloNIDine HCL 0.1 MG TAB PO PRN ×2 (09:00)
[2016-06-19] MEDS ORDERED: HEPARIN SODIUM - IV 10,000 UNITS/10 ML VIAL IVF PRN ×2 (09:00)
[2016-06-19] MEDS ORDERED: NIFEdipine 60 MG SUSTAINED RELEASE TAB PO SCH (09:00)
[2016-06-19] MEDS: SODIUM CHLORIDE 0.9% FLUSH 5 ML FLUSH FLUSH SCH ×2 (09:52→21:07)
[2016-06-19] MEDS: CALCIUM CARBONATE 500 MG CHEWABLE TAB CHEW SCH ×3 (09:52→17:00)
[2016-06-19 10:18] LABS: AUTOMATED NEUTROPHIL # 8.1 TH/MM3 (1.8-7.7); BASOPHIL # 0.1 TH/MM3 (0-0.2); BASOPHIL % 0.4 % (0.0-2.0); EOSINOPHIL # 1.4 TH/MM3 (0-0.4); EOSINOPHIL % 11.8 % (0.0-4.0); HEMO FLAGS DIFF FINAL; LYMPHOCYTE # 1.3 TH/MM3 (1.0-4.8); MEAN CELL VOLUME 90.4 FL (80.0-100.0); MEAN CORPUSCULAR HGB CONC 32.1 % (32.0-36.0); MONO % 7.4 % (0.0-8.0); NEUT % 69.4 % (16.0-70.0); PLATELET COUNT 180 TH/MM3 (150-450); RED BLOOD COUNT 2.55 MIL/MM3 (4.00-5.30); RED CELL DISTRIBUTION WIDTH 15.8 % (11.6-17.2); WHITE BLOOD COUNT 11.6 TH/MM3 (4.0-11.0)
--- NOTE | 2016-06-19 10:24 | MH ---
DATE OF ADMISSION: 06/19/2016 ADMITTING PHYSICIAN ENRIQUE PATRICK MD CHIEF COMPLAINT Generalised body aches malaise Acute weakness ESRD on dialysis HISTORY OF PRESENT ILLNESS This is a pleasant 71-year-old female who had a parathyroidectomy performed by Dr. Cottrell on June 15. The patient was sent home from the hospital and given outpatient medications which included Tums to be taken. The daughter picked up the patient's medicines but states that she did not realize that this was a medication. Within the past 24 hours the patient has started complaining of severe body aches generalized weakness and malaise. She felt so bad she was unable to get out of the bed. She states that all of her joints ached, and rated her pain a 10 out of 10. The patient was unable to sleep and was brought into the emergency room for evaluation. The patient still is complaining of severe body aches. Most of her medical information is being gathered from the record and her daughter who is at her side. The patient [place] language is Greek. Daughter is doing interpreting for her. The patient can answer simple questions yes or no. The patient is an end stage renal disease patient. She usually gets her diagnosis on Tuesday, Tuesday, Tuesday. She did not have dialysis yesterday because of her generalized weakness. PAST MEDICAL HISTORY: 1. end-stage renal disease dialysis Tuesday, Tuesday, Tuesday 2. osteoarthritis. 3. History of cardiovascular problems and chest pain. 4. Diabetes. 5. Rheumatoid arthritis 6. Thyroid disease. 7. Influenza. 8. Fluid and volume overload. PAST SURGICAL HISTORY 1. Abdominal hernia with mesh. 2. Fistulas for her dialysis in both arms 3. section 4. Cholecystectomy. 5. Left eye cataract 6. Tonsillectomy. 7. Oral surgery, right BKA ALLERGIES CONTRAST MEDIA. EPOGEN IODINE MORPHINE VANCOMYCIN PLASTIC TAPE. REPORTED MEDICATIONS: 1. Tums which she was not taking. 2. Synthroid. 3. Hydromorphone 4. Procardia REVIEW OF SYSTEMS Limited review secondary to patients language barrier and her current pain level. Positives are noted to be generalized weakness, malaise joint pain, generalized peripheral edema. Other systems negative or unremarkable. PHYSICAL EXAMINATION VITAL SIGNS: Temperature is 98.9, 99 on admission. Pulse 81, respirations 18, blood pressure 178/84. Initially on admission 154/70, O2 sat 95 on room air. The patient has used O2 at 2 liters during the night. IN GENERAL: Mild obese female looks to be her stated age resting in the bed, positive for facial grimace restless. HEAD, EYES, EARS, NOSE, AND THROAT: Atraumatic, normocephalic. Pupils equal, round, reactive to light and accommodation. Mucous membranes are pale, dry. NECK: The neck is supple. CARDIOVASCULAR SYSTEM: Heart sounds S1-S2 regular rate and rhythm. No murmurs, rubs or gallops. She does have some mild peripheral edema in her lower left leg and her hands. ABDOMEN: The abdomen is round, soft, nontender, nondistended. Active bowel sounds in all four quads. PULMONARY: Essentially clear in her anterior and upper baptiste, diminished breath sounds in her lower lobes. MUSCULOSKELETAL: She can move her extremities with purpose. She below-knee amputation right leg. NEUROLOGICALLY: She is alert, no neurological deficits. PSYCHIATRIC: Psychiatry appropriate mood for her current condition. DIAGNOSTIC DATA Sodium 136, potassium 5.7, chloride 100, carbon dioxide 24.6, amnion gap 11, BUN 73, creatinine 9.1, GFR 4, random glucose 116, calcium is 5.3, phosphorous 2.4, AST 11, ALT 6, alkaline phosphatase 200, troponin less than 0.02, albumin 3, total protein 7.1, BNP 84, PT/INR 1, hemoglobin, white count 10.8, RBC 2.54, hemoglobin 7.6, hematocrit 22.7, platelet count 180, monocyte auto count 8.1, eosinophils 16.5. IMAGING STUDIES Chest x-ray, some consolidation seen in the left lower lobe. ASSESSMENT/PLAN 1. Hypocalcemia severe 2. End-stage renal disease 3. Acute pain 4. hypocalcemia 5. Acute musculoskeletal pain 6. Hypertension. 7. Anemia. 8. Diabetes mellitus. PLAN: 1. The plan is to admit, the patients code status is full code, full aggressive care. 2. We will monitor her vital signs every 4 hours and note any abnormal. 3. We will monitor her labs. 4. In the emergency room the patient did receive IV calcium gluconate 2 grams. 5. We have also placed her back on her p.o. Tums three times a day. Patient's medications have been reconciled. 6. The patient was also given a dose of azithromycin and Rocephin in the emergency room. 7. We will consult nephrology for their expert opinion. 8. The patient missed her dialysis yesterday so we will need Nephrology to see if she possibly needs a dialysis treatment today. 9. The patient will be on renal diet. 10. DVT prophylaxis with SCDs 11. Cardiac monitoring 12. We will follow her needs. Dictated by MARK Miller MD MTDD
[2016-06-19 10:40] LABS: BICARBONATE 22.4 MEQ/L (21.0-32.0)
[2016-06-19 10:47] LABS: POTASSIUM 6.7 MEQ/L (3.5-5.1)
[2016-06-19] MEDS: CALCITRIOL 0.25 MCG CAP PO SCH (11:00)
[2016-06-19 11:04] LABS: CALCIUM-PROTEIN CORRECTED 5.2 MG/DL (8.5-10.1)
[2016-06-19] MEDS ORDERED: DEXTROSE 5% IV SCH ×2 (12:00)
[2016-06-19] MEDS ORDERED: WATE IV SCH ×2 (12:00)
[2016-06-19] MEDS ORDERED: CALCIUM CHLORIDE IV SCH ×2 (12:00)
[2016-06-19] MEDS ORDERED: SODIUM POLYSTYRENE SULFONATE SUSP 15 GM/60 ML CUP PO ONE (15:00)
[2016-06-19] MEDS ORDERED: cloNIDine HCL 0.3 MG TAB PO ONE (17:00)
[2016-06-19] MEDS ORDERED: hydrALAZINE HCL 25 MG TAB PO PRN (17:00)
[2016-06-19] MEDS ORDERED: ACETAMINOPHEN/HYDROcodone 325 MG/5 MG TAB PO PRN (17:00)
--- NOTE | 2016-06-19 17:00 | MB ---
cc: MICHAEL HAYNES MD DATE OF CONSULTATION 06/19/16 REASON FOR CONSULTATION Hypocalcemia and ESRD. HISTORY OF PRESENT ILLNESS This is a 71-year-old female with a history of end-stage renal disease on hemodialysis. She normally followed up Tuesday, Tuesday, Tuesday as an outpatient with Dr. Doshi. The patient was recently admitted on June 15 when she had a complete parathyroidectomy and partial thyroidectomy. 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 The patient was instructed to take Tums p.o. for calcium supplementation postoperatively when she went home. However, apparently the family and the patient did not understand that this was for calcium supplementation given that Tums was an [id number] drug. Subsequently, over the next two days she developed progressive weakness and muscle aches and got to the point where she actually missed her last hemodialysis treatment on Tuesday. She came to the emergency room with generalized fatigue and was found to have significant hypocalcemia with a corrected calcium level of 5.3 in the emergency room. The patient was given an infusion of 2 grams of calcium IV and nephrology was consulted for further evaluation. The patient apparently has had significant body aches for several days. However, she has reported some improvement since her arrival here to the hospital. She does speak [place]ian, but I did get the history from her in [place]ian. She reports she is feeling much better. Otherwise, she does have some ongoing nausea which has persisted, however, her muscle aches have improved. Her potassium was also elevated with a potassium of 6.7 on presentation here and I went ahead and ordered dialysis and she is tolerating dialysis at this point. Other laboratory findings were remarkable for a negative troponin value, otherwise, the patient was seen on dialysis and was tolerating dialysis at this point. REVIEW OF SYSTEMS The patient reports nausea, muscle weakness. No headaches. No dizziness or loss of consciousness. No chest pain, shortness of breath. However, has had some abdominal discomfort, otherwise, review of systems negative. PAST MEDICAL HISTORY 1. End-stage renal disease on hemodialysis Tuesday, Tuesday, Tuesday followed up with Dr. Doshi. 2. Osteoarthritis 3. History of chest pains in the past with cardiac history 4. Diabetes, 5. Rheumatoid arthritis, 6. Thyroid disease 7. Influenza 8. History of volume overload in the past PAST SURGICAL HISTORY 1. Abdominal hernia with mesh 2. Dialysis access fistulas 3. , 4. Cholecystectomy, 5. Left eye cataract 6. Tonsillectomy 7. Oral surgery 8. Right BKA 9. The patient also has complete parathyroidectomy and partial thyroidectomy performed on June 15. ALLERGIES CONTRAST MEDIA EPOGEN IODINE MORPHINE VANCOMYCIN PLASTIC TAPE MEDICATIONS At home included 1. Tums 2. Synthroid. 3. Hydromorphone. 4. Procardia. She was not taking her times apparently. 5. The patient had been receiving Aranesp in the outpatient infusion center with Hem/Onc for her anemia given her allergy to Epogen. PHYSICAL EXAMINATION VITAL SIGNS: At time of evaluation temperature 98.6, respiratory rate 18, pulse 76, blood pressure 149/60. GENERAL: Awake, alert, oriented in no apparent distress. HEENT/NECK: Neck soft supple. No lymphadenopathy. CARDIAC: Regular rate and rhythm. No murmurs, rubs, gallops. PULMONARY: Lungs clear to auscultation bilaterally. ABDOMEN: Soft, nontender, nondistended. EXTREMITIES: No edema. LABORATORY FINDINGS Sodium 135, potassium 6.7, chloride 101, bicarb 22.4, BUN 81, creatinine 9.49 with glucose 129, calcium of 5.2 corrected, phosphorus 2.4, magnesium 1.6, AST 11, ALT 6, alk phos 200, CK 102, troponin less than 0.02, albumin 3.0. White count 11.6, hemoglobin 7.4, hematocrit 23, platelet count of 180. IMAGING STUDIES Chest x-ray with some left lower consolidation noted. ASSESSMENT/PLAN 1. End-stage renal disease. The patient missed her last hemodialysis treatment on Tuesday. She has presented with significant hypocalcemia and hyperkalemia and is tolerating dialysis today. We will do dialysis today with increased calcium bath at 3.5 calcium and lower 1 K potassium. Volume status is otherwise stable. We will recheck labs tomorrow and plan for next dialysis on Tuesday. Continue to monitor and renal dose medications. 2. Hypocalcemia status post parathyroidectomy and partial thyroidectomy. The patient is presenting with apparent hungry bone syndrome and hypocalcemia, although this is primarily due to noncompliance with p.o. calcium supplementation. The patient was prescribed to take Tums, however, family did not realize the importance of calcium supplementation given that this was an [id number] drug and she had not been taking it. I suspect all of her muscle weakness and pain is due to this hypocalcemia and this is why she was dialysis yesterday. At this point, a calcium infusion has been ordered. The patient did earlier receive 2 grams of calcium IV and also did receive of 3.5 calcium bath with dialysis. Calcium infusion has been ordered with orders to check calcium levels every six hours and make adjustments as needed. Agree with this for now. Over the next 12-24 hours, should her calcium levels stabilize. Continue PO supplmentation as well for now, and will be weaned off calcium infusion as her levels stabilize. In addition, we will follow phosphorus and magnesium levels which were stable at this time. Continue p.o. medications otherwise and continue to monitor. 3. Anemia. The patient has a history of ALLERGY TO EPOGEN and apparently has been receiving Aranesp as an outpatient. Her hemoglobin is 7.6 today, which is slightly lower than her level of 9.4 several months ago and a level of 8.8 on June 15. Continue to monitor at this point. If here for more than several days , may need further Aranesp dosing here. 4. Hyperkalemia. This is likely due to missed dialysis. The patient had a 1 K potassium bath today. Continue to follow up electrolytes. 5. Status post parathyroidectomy and partial thyroidectomy. We will continue to monitor. Continue Synthroid. MD AGA Stoner/ /3:33 PM /4:33 PM [facility]
--- NOTE | 2016-06-19 17:06 | EKG ---
Date Performed: 06/18/2016 Time Performed: 23:32:22 PTAGE: 71 years EKG: Sinus rhythm MARKED LEFT AXIS DEVIATION RIGHT BUNDLE BRANCH BLOCK Compared to prior tracing no significant change ABNORMAL ECG PREVIOUS TRACING 04/16/16 @ 10.36.59 DOCTOR: Doug Barahona Interpretating Date/Time 06/19/2016 17:05:00
--- NOTE | 2016-06-19 20:35 | RADRPT ---
EXAM DATE/TIME: 06/19/2016 20:11 [facility] COMPARISON: No previous studies available for comparison. INDICATIONS : Swelling with pain MEDICAL HISTORY : Hypertension. Arthritis. Diabetes mellitus type II. Renal failure SURGICAL HISTORY : Tonsillectomy. ENCOUNTER: Subsequent ACUITY: 4 - 6 days PAIN SCORE: 10/10 LOCATION: Left Hand FINDINGS: Severe, Danisha of arthropathy is seen of the interphalangeal joints of the fingers, especially proximal third and fourth and distal second and third. The features are most typical of erosive osteoarthriti s. There is associated soft tissue swelling. No fracture or acute appearing malalignment. There is evidence of diffuse soft tissue swelling, nonsp ecific. No radiopaque foreign body seen. CONCLUSION: 1. Fairly generalized soft tissue swelling, nonspecific. 2. Chronic erosive osteoarthritis of the fingers, especially the pointer, long and ring fingers. 3. No fracture or acute subluxation demonstrated. Sumeet Calloway MD on June 19, 2016 at 20:31 Board Certified Radiologist. This report was verified electronically.
--- NOTE | 2016-06-19 22:25 | PD.CAR.PN ---
CVT Progress Note Subjective/Hospital Course: Patient with hypocalcemia status post total parathyroidectomy few days ago Patient has improved since the arrival here No tetany, not carpopedal spasm. Calcium 6 mEq per liter. Given 2 g of calcium gluconate Patient will probably need the permanent the vitamin D and by mouth calcium replacement therapy, but the acute calcium deficit is temporary Incision is clean and dry Patient doing very well at this time Objective: Vital Signs Date Time Temp Pulse Resp B/P Pulse Ox O2 Delivery O2 Flow Rate FiO2 06/19/16 18:10 159/69 06/19/16 16:30 98.5 101 22 200/84 96 06/19/16 12:00 98.6 76 18 149/60 95 06/19/16 11:29 95 21 06/19/16 08:00 Room Air 06/19/16 08:00 99.5 86 18 158/65 95 06/19/16 06:19 Room Air 06/19/16 06:19 81 18 178/84 95 06/19/16 06:15 98.9 93 20 145/66 93 06/19/16 03:51 80 20 188/84 99 Nasal Cannula 2 06/18/16 23:50 98 Nasal Cannula 2 06/18/16 23:50 98 Nasal Cannula 2 06/18/16 23:28 26 98 Room Air 06/18/16 23:24 99.0 90 26 154/70 98 06/18/16 23:13 98.2 83 22 191/79 97 Room Air Result Diagram: 06/19/16 1006 06/19/16 1006 Dagmar Hoyt MD Jun 19, 2016 22:25
[2016-06-19 23:08] LABS: ALKALINE PHOSPHATASE 235 U/L (45-117); ALT (GPT) 6 U/L (10-53); ANION GAP 11 MEQ/L (5-15); AST (GOT) 11 U/L (15-37); BICARBONATE 31.3 MEQ/L (21.0-32.0); BLOOD UREA NITROGEN 46 MG/DL (7-18); CHLORIDE 98 MEQ/L (98-107); GLOMERULAR FILTRATION RATE 6 ML/MIN (>89); POTASSIUM 4.3 MEQ/L (3.5-5.1); SODIUM (NA) 140 MEQ/L (136-145); TOTAL BILIRUBIN ADULT 0.4 MG/DL (0.2-1.0)
[2016-06-20] VITALS: BP 141/60; PULSE 80; RESP 18; TEMP 98.6; O2SAT 93
[2016-06-20 04:00] VITALS: BP 159/74; PULSE 70; RESP 18; TEMP 98; O2SAT 98
[2016-06-20] MEDS: LEVOTHYROXINE SODIUM 50 MCG TAB PO SCH (05:42)
[2016-06-20 08:02] VITALS: BP 159/70; PULSE 74; RESP 20; TEMP 98.7; O2SAT 95
[2016-06-20 08:31] LABS: HEMATOCRIT 24.1 % (35.0-46.0); MEAN CELL VOLUME 89.2 FL (80.0-100.0); MEAN CORPUSCULAR HEMOGLOBIN 29.5 PG (27.0-34.0); MEAN CORPUSCULAR HGB CONC 33.1 % (32.0-36.0); PLATELET COUNT 202 TH/MM3 (150-450); RED BLOOD COUNT 2.71 MIL/MM3 (4.00-5.30); RED CELL DISTRIBUTION WIDTH 15.2 % (11.6-17.2); WHITE BLOOD COUNT 9.1 TH/MM3 (4.0-11.0)
[2016-06-20] MEDS: CALCITRIOL 0.25 MCG CAP PO SCH (08:43)
[2016-06-20] MEDS: SODIUM CHLORIDE 0.9% FLUSH 5 ML FLUSH FLUSH SCH (08:43)
[2016-06-20] MEDS: CALCIUM CARBONATE 500 MG CHEWABLE TAB CHEW SCH ×2 (08:43→14:02)
[2016-06-20] MEDS: NIFEdipine 60 MG SUSTAINED RELEASE TAB PO SCH (08:43)
[2016-06-20 08:51] LABS: ALKALINE PHOSPHATASE 239 U/L (45-117); ALT (GPT) 7 U/L (10-53); ANION GAP 12 MEQ/L (5-15); AST (GOT) 11 U/L (15-37); BICARBONATE 28.8 MEQ/L (21.0-32.0); BLOOD UREA NITROGEN 49 MG/DL (7-18); CHLORIDE 99 MEQ/L (98-107); GLOMERULAR FILTRATION RATE 6 ML/MIN (>89); MAGNESIUM 1.8 MG/DL (1.5-2.5); POTASSIUM 4.3 MEQ/L (3.5-5.1); SODIUM (NA) 140 MEQ/L (136-145); TOTAL BILIRUBIN ADULT 0.5 MG/DL (0.2-1.0)
[2016-06-20 08:57] LABS: REVIEW FLAG FINAL
[2016-06-20 09:55] VITALS: O2SAT 95
--- NOTE | 2016-06-20 10:26 | HHI.PR ---
Subjective Remarks Up in chair Smiling, states she is feeling better Muscle cramps much improved Appetite good No nausea vomiting (Aiyana Saavedra) Objective Objective Results - Vital Signs Date Time Temp Pulse Resp B/P Pulse Ox O2 Delivery O2 Flow Rate FiO2 06/20/16 08:02 98.7 74 20 159/70 95 06/20/16 08:00 Room Air 06/20/16 04:00 Room Air 06/20/16 04:00 98.0 70 18 159/74 98 06/20/16 00:00 98.6 80 18 141/60 93 06/20/16 00:00 Room Air 06/19/16 20:04 85 06/19/16 20:00 98.6 88 18 161/71 93 06/19/16 20:00 Room Air 06/19/16 18:10 159/69 06/19/16 16:30 98.5 101 22 200/84 96 06/19/16 12:00 98.6 76 18 149/60 95 06/19/16 11:29 95 21 I/O 06/19/16 06/19/16 06/19/16 06/20/16 06/20/16 06/20/16 07:00 15:00 23:00 07:00 15:00 23:00 Intake Total 480 ml 169 ml 289 ml Output Total 2500 ml 0 ml Balance 480 ml -2331 ml 289 ml Intake Oral 480 ml 120 ml IV Total 169 ml 169 ml Output Urine Total 0 ml Hemodialysis 2500 ml # Voids 0 1 # Bowel Movements 0 0 (Aiyana Saavedra) Result Diagram: 06/20/16 0650 06/20/16 0650 Other Results Last Impressions Hand X-Ray 06/19/16 0000 Signed Impressions: Service Date/Time: Sunday, June 19, 2016 20:11 - CONCLUSION: 1. Fairly generalized soft tissue swelling, nonspecific. 2. Chronic erosive osteoarthritis of the fingers, especially the pointer, long and ring fingers. 3. No fracture or acute subluxation demonstrated. Sumeet Calloway MD Chest X-Ray 06/18/16 2341 Signed Impressions: Service Date/Time: Sunday, June 19, 2016 00:13 - CONCLUSION: Interval development of consolidation left lower lung. William Toro MD Medications and IVs Active Medications Acetaminophen/ Hydrocodone Bitart ([place] 5-325 Mg) 1 tab Q6H PRN PO Last administered on 06/19/16 21:07; Admin Dose 1 TAB; Start 06/19/16 at 17:00 Calcitriol (Rocaltrol) 0.25 mcg DAILY PO Last administered on 06/20/16 08:43; Admin Dose 0.25 MCG; Start 06/19/16 at 11:00 Calcium Chloride/ Dextrose (Calcium Chloride Inj/D5W 500 ml Inj) 600 ml @ 0 mls/ hr Q0M IV Last administered on 06/19/16 17:01; Admin Dose 0 MLS/HR; Start 06/19 at 12:00 Clonidine (Catapres) 0.3 mg NOW ONCE PO Last administered on 06/19/16 17:00; Admin Dose 0.3 MG; Start 06/19/16 at 17:00; Stop 06/19/16 at 17:01; Status DC Epoetin Nabil (Epogen Inj) 20,000 units MoWeFr SQ; Start 06/21/16 at 15:00; Status Cancel Hydralazine HCl (Apresoline) 25 mg Q6H PRN PO Last administered on 06/19/16 17 :00; Admin Dose 25 MG; Start 06/19/16 at 17:00 Sodium Polystyrene Sulfonate (Kayexalate Liq) 45 gm ONCE ONCE PO Last administered on 06/19/16 17:01; Admin Dose 45 GM; Start 06/19/16 at 15:00; Stop 06/19/16 at 15:01; Status DC (Aiyana Saavedra) Physical Exam Physical Exam PHYSICAL EXAMINATION GENERAL: This is a well-developed, well-nourished female who appears to be in no acute distress. She is alert and awake, smiling HEAD: Normocephalic without any lesion or mass noted. Facial features appear symmetric. OROPHARYNGEAL: Oropharynx without erythema or edema. NECK: Supple. No nuchal rigidity or lymphadenopathy. Trachea midline without deviation. Dry dressing over recent surgical incision, clean dry and intact CARDIAC: Regular rhythm, regular rate, S1 and S2 are heard. Murmur none; no gallops or rubs. LUNGS: Clear to auscultation bilaterally. No wheeze, no rhonchi or rale. No use of accessory muscles on inspiration or expiration. ABDOMEN: Soft, nontender, no organomegaly or masses. Bowel sounds are heard in all four quadrants. No rebound. No guarding. EXTREMITIES: Trace edema. Pulses equal bilateral. No cyanosis. NEUROLOGICAL: Patient mood and affect appropriate. No focal deficit SKIN:Warm and moist, dry to touch Objective Remarks I'm doing better today (Aiyana Saavedra) A/P Assessment and Plan ASSESSMENT/PLAN 1. Hypocalcemia severe 2. End-stage renal disease 3. Acute pain 4. hypocalcemia 5. Acute musculoskeletal pain 6. Hypertension. 7. Anemia. 8. Diabetes mellitus. PLAN: 1.code status is full code, full aggressive care. 2. vital signs at least every 4 hours and note any abnormal. Afebrile stable this a.m. 3. We will monitor her labs. Protein level 2.9 discussed nutritional status and the need to increase her protein intake when she goes home 4. Currently patient is on by mouth calcium, labs show normal calcium level today 5. Plan is for patient to hand picker her dialysis Tuesday echo on her schedule. Labs monitored, which included hyperkalemia. Nephrology aware 7. We will consult nephrology for their expert opinion. 8. No dialysis needed per nephrology yesterday 9. Patient's main language is Maltese. Daughter in to help with interpretation 10. The patient will be on renal diet. 11. DVT prophylaxis with SCDs 12. Cardiac monitoring, telemetry shows sinus rhythm bundle branch block 13. IV access 14. Patient is alert and up in chair this a.m. states her muscular aches are much improved. No facial grimace smiling and seems to feel better. Discharge soon. Discussed with nurse Discussed with patient, daughter in room sleeping Discussed with Dr. Moses, patient seen on her behalf (Aiyana Saavedra) Assessment and Plan 71yr old female seen and examined today. Improved calcium level. Improved potassium level: 4.3 Clinically patient is better. Requesting to go home. Daughter in room: would take her home. Will dc to home today. Follow-up with pcp in 1 week. Needs to have BMP repeated. Follow-up with nephrology as scheduled. Needs to be compliant with meds.dialysis. (Shane Moses MD) Aiyana Saavedra Jun 20, 2016 10:26 Shane Moses MD Jun 20, 2016 14:01
--- NOTE | 2016-06-20 16:37 | HHI.NPPN ---
Subjective Additional Remarks Feels better today Objective Data Data 06/19/16 06/20/16 19:00 07:00 Intake Total 480 ml 458 ml Output Total 2500 ml 0 ml Balance -2020 ml 458 ml Intake Oral 480 ml 120 ml IV Total 338 ml Output Urine Total 0 ml Hemodialysis 2500 ml # Voids 0 1 # Bowel Movements 0 0 Vital Signs Date Time Temp Pulse Resp B/P Pulse Ox O2 Delivery O2 Flow Rate FiO2 06/20/16 09:55 95 21 06/20/16 08:02 98.7 74 20 159/70 95 06/20/16 08:00 Room Air 06/20/16 04:00 Room Air 06/20/16 04:00 98.0 70 18 159/74 98 06/20/16 00:00 98.6 80 18 141/60 93 06/20/16 00:00 Room Air 06/19/16 20:04 85 06/19/16 20:00 98.6 88 18 161/71 93 06/19/16 20:00 Room Air 06/19/16 18:10 159/69 -: 06/20/16 0650 06/20/16 0650 Physical Exam General Appearance: Well Developed, Well Nourished, No Acute Distress Eyes Eye Exam: Pupils Equal Throat Throat Exam: Oral Mucosa Goodwell & Moist Neck Neck Exam: Neck Supple Pulmonary Resp Exam: Clear Bilaterally Cardiology CV Exam: Regular, Normal Sinus Rhythm Gastrointestinal/Abdomen GI Exam: Soft, Non-Tender, Bowel Sounds Present Musculoskeletal MS Exam: Joints Intact Integumentary Skin Exam: Warm, Dry, Intact Extremeties Extremities Exam: No Edema Neurologic Neuro Exam: Alert, Awake, Oriented, Speech Clear Assessment/Plan Problem List: (1) ESRD (end stage renal disease) on dialysis Plan: Missed HD Tuesday, HD done here yesterday. Plan for D/C today, continue MWF HD Volume status, electrolytes stable. 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 Educated on need for this over the counter medication to supplement calcium, in setting of hungry bone syndrome post parathroidectomy. Calcium levels stable off IV infusion, continue to follow outpatient. (3) Hyperkalemia Plan: Missed Tuesday HD due to muscle pains with hypocalcemia. K+ improved after HD yesterday. Ok for d/c, can follow as outpatient. For HD tomorrow. (4) DM (diabetes mellitus) Plan: continue to monitor glucose (5) Anemia Plan: Epogen allergy, continue Aranesp outpatient. Hgb stable today Problem Qualifiers (1) DM (diabetes mellitus): Qualified Code: E13.22 - Other specified diabetes mellitus with chronic kidney disease on chronic dialysis, unspecified terminal operations manager insulin use status (2) Anemia: Taqueria Montoya MD Jun 20, 2016 16:37
[2016-06-21] MEDS ORDERED: EPOETIN ALFA 20,000 UNITS/ML VIAL SQ SCH (15:00)
== END 2016-06-20 17:30 | disposition home or self-care (01) ==
LOC: NEPC 23:11 → INTOOBSV 06-19 01:09 → NEDA 06-19 01:09 → N04B 06-19 06:19 → UNDODISIN 06-20 17:30
PROVIDERS: ADMIT Specialist; ATTEND Specialist
DX: E11.22 Type 2 diabetes mellitus with diabetic chronic kidney disease (principal); R52 Pain, unspecified; I12.0 Hypertensive chronic kidney disease with stage 5 chronic kidney disease or end stage renal disease; N18.6 End stage renal disease; M79.1 Myalgia; D64.9 Anemia, unspecified; M19.042 Primary osteoarthritis, left hand; M19.041 Primary osteoarthritis, right hand; Z99.2 Dependence on renal dialysis; E07.9 Disorder of thyroid, unspecified; E89.0 Postprocedural hypothyroidism; E87.5 Hyperkalemia; E83.51 Hypocalcemia; M06.9 Rheumatoid arthritis, unspecified; M19.90 Unspecified osteoarthritis, unspecified site; E66.9 Obesity, unspecified; Z68.34 Body mass index [BMI] 34.0-34.9, adult; Z89.511 Acquired absence of right leg below knee; Z88.1 Allergy status to other antibiotic agents; Z91.041 Radiographic dye allergy status; Z88.5 Allergy status to narcotic agent; Z88.8 Allergy status to other drugs, medicaments and biological substances; Z91.048 Other nonmedicinal substance allergy status
CPT/HCPCS: 71010; 73120; 80048; 80053; 82310; 82330; 82550; 83735; 83880; 84100; 84155; 84484; 85025; 85027; 85610; 85730; 93005; 96374; 99285; G0257; J0456; J0610; J0696; J2405; J7030; J7050; J7060; 90935; G0378

== ENCOUNTER 2016-07-25 11:00 | Inpatient (IN) | payer MEDICARE, OTHER ==
[2016-07-25] VITALS (7 sets, daily range): BP systolic 161–198; BP diastolic 81–88; PULSE 74–90; RESP 17–20; TEMP 97.7–98.6; O2SAT 94–98
[~2016-07-25] VITALS: Ht 165.1 cm; Wt 86.0 kg
--- NOTE | 2016-07-25 11:13 | PD ---
HPI Chief Complaint: Pain: Acute or Chronic Time Seen by Provider: 11:13 Travel History International Travel<30 days: No Contact w/Intl Traveler<30days: No Traveled to known affect area: No History of Present Illness HPI 71-year-old female presents the emergency department with family with reports of right arm pain and swelling since receiving dialysis 2 days prior to arrival. Patient is Greek-speaking only, but refuses computer physician practice administrator and wants to use family. 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 Patient states increasing pain, swelling in the right forearm from the elbow to the hand and reports numbness in the fingers since receiving dialysis on Tuesday. Patient denies fever, chills, or other constitutional symptoms. Patient also has a wound to the left dorsal hand which has been present since an IV last week. Patient is currently using Bactroban to this area. The left hand is swollen and tender but not as bad as the right arm. Patient has multiple allergies including contrast media, Epogen, iodine, morphine, vancomycin, and plastic tape. Patient states morphine makes her itchy and makes her want to run from the building. Patient has had Dilaudid in the past for pain. Patient's pain is reported to be a 9 out of 10, and the patient's son states the patient does not normally complain of pain. PFSH Past Medical History Arthritis: Yes (HANDS) Asthma: No Autoimmune Disease: No Blood Disorders: No Anxiety: No Depression: No Heart Rhythm Problems: No Cancer: No Cardiovascular Problems: Yes High Cholesterol: No Chest Pain: Yes (WITH DIALYSIS) Congestive Heart Failure: No Cerebrovascular Accident: No Diabetes: Yes (Type II) Dialysis: Yes (M-W-) Diminished Hearing: No Endocrine: Yes Gastrointestinal Disorders: No GERD: No Glaucoma: No Genitourinary: Yes Headaches: No Hepatitis: No Immune Disorder: Yes (RA) Implanted Vascular Access Dvce: Yes Kidney Stones: No Musculoskeletal: Yes (rheumatoid arthritis hands) Neurologic: No Psychiatric: No Reproductive: No Respiratory: Yes ( ) Immunizations Current: Yes Migraines: No Myocardial Infarction: No Radiation Therapy: No Renal Failure: Yes (DIALYSIS MWF) Seizures: No Sickle Cell Disease: No Thyroid Disease: Yes Ulcer: No Menopausal: Yes : 14 Para: 3 Miscarriage: 11 Past Surgical History Abdominal Surgery: Yes (HERNIA WITH MESH, tu, ) AICD: No Appendectomy: No Arteriovenous Shunt: Yes Body Medical Devices: FISTULAS IN BOTH ARMS Cardiac Surgery: No Section: Yes Cholecystectomy: Yes Ear Surgery: No Endocrine Surgery: No Eye Surgery: Yes (L eye cataract and poss glaucoma? ) Genitourinary Surgery: No Gynecologic Surgery: No Insulin Pump: No Joint Replacement: No Neurologic Surgery: No Oral Surgery: Yes (for dentures, tonsillectomy) Pacemaker: No Thoracic Surgery: No Tonsillectomy: Yes Other Surgery: Yes (RIGHT BKA, CHOLEY, HERNIA, 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, GLUCOMA SURG) Social History Alcohol Use: No Tobacco Use: No Substance Use: No Allergies-Medications (Allergen,Severity, Reaction): Coded Allergies: Contrast Media (Verified Allergy, Severe, CAN'T BREATHE, 07/25/16) Epogen (Verified Allergy, Severe, Headache, 07/25/16) Iodine (Verified Allergy, Severe, Hives, 07/25/16) PATIENT NEEDS TO BE PREMEDICATED Morphine (Verified Allergy, Severe, RESPIRATORY DISTRESS, 07/25/16) Vancomycin (Verified Allergy, Severe, 07/25/16) Uncoded Allergies: plastic tape (Allergy, Severe, 01/21/15) blisters Reported Meds & Prescriptions Reported Meds & Active Scripts Active Reported Cipro (Ciprofloxacin HCl) Unknown Strength Tab 1 Tab PO BID Advil (Ibuprofen) 200 Mg Tab 200-400 Mg PO Q4H PRN Tums (Calcium Carbonate (Antacid)) 500 Mg Chew 1,000 Mg CHEW TID PRN Synthroid (Levothyroxine Sodium) 50 Mcg Tab 50 Mcg PO DAILY Nifedipine ER 24 HR (Nifedipine) 60 Mg Tab 60 Mg PO DAILY Review of Systems Except as stated in HPI: all other systems reviewed are Neg General / Constitutional: No: Fever, Chills Eyes: No: Visual changes HENT: No: Headaches Cardiovascular: No: Chest Pain or Discomfort Respiratory: No: Shortness of Breath Gastrointestinal: No: Abdominal Pain Genitourinary: No: Dysuria Musculoskeletal: Positive: Myalgias, Arthralgias, Limited ROM, Edema (see history present illness), Pain Skin: No Rash Neurologic: No: Weakness Psychiatric: No: Depression Endocrine: No: Polydipsia Hematologic/Lymphatic: No: Easy Bruising Physical Exam Narrative GENERAL: Patient appears in moderate distress. SKIN: Warm and dry. Normal color. Normal turgor. Patient has an open ulcerous type wound to the left dorsal hand measuring approximately 4 mm in diameter. No localized erythema is noted. Right arm appears normal without significant erythema, or signs of cellulitis. HEAD: Atraumatic. Normocephalic. EYES: Pupils equal and round. No scleral icterus. No injection or drainage. ENT: No nasal bleeding or discharge. Mucous membranes pink and moist. NECK: Trachea midline. No JVD. CARDIOVASCULAR: Regular rate and rhythm. Right AV fistula has a palpable from and pulse and is nontender with palpation. Right arm has bounding pulses in the right radial artery. RESPIRATORY: No accessory muscle use. Clear to auscultation. Breath sounds equal bilaterally. MUSCULOSKELETAL: Extremities without clubbing, cyanosis. No obvious deformities. The right arm from the elbow to the hand has generalized edema and induration with generalized tenderness with palpation or movement. Unit Receptionist strength is reduced secondary to pain not lito weakness. NEUROLOGICAL: Awake and alert. No obvious cranial nerve deficits. Motor grossly within normal limits. Five out of 5 muscle strength in the arms and legs except is limited by pain.. Normal speech. PSYCHIATRIC: Appropriate mood and affect; insight and judgment normal. Data Data Last Documented VS Vital Signs Date Time Temp Pulse Resp B/P Pulse Ox O2 Delivery O2 Flow Rate FiO2 07/25/16 12:58 75 17 192/87 97 Room Air 07/25/16 11:03 98.6 Orders Complete Blood Count With Diff (07/25/16 11:20) Comprehensive Metabolic Panel (07/25/16 11:20) Lactic Acid (07/25/16 11:20) Prothrombin Time / Inr (Pt) (07/25/16 11:20) Act Partial Throm Time (Ptt) (07/25/16 11:20) Iv Access Insert/Monitor (07/25/16 11:20) Oximetry (07/25/16 11:20) Ondansetron Inj (Zofran Inj) (07/25/16 11:30) Sodium Chloride 0.9% Flush (Ns Flush) (07/25/16 11:30) Hydromorphone Pf Inj (Dilaudid Pf Inj) (07/25/16 11:30) Blood Culture (07/25/16 11:20) Us Arm Venous Doppler (07/25/16 11:20) Wound Culture And Gram Stain (07/25/16 11:20) Vascular Access Team Consult PRN (07/25/16 12:02) Vascular Poc Ultrasound (07/25/16 ) Ondansetron Odt (Zofran Odt) (07/25/16 12:45) Hydromorphone Pf Inj (Dilaudid Pf Inj) (07/25/16 12:45) Calcium Gluconate Inj (Calcium Gluconate (07/25/16 14:00) Admit Order (Ed Use Only) (07/25/16 14:53) Labs Laboratory Tests Test 07/25/16 12:00 White Blood Count 11.5 TH/MM3 Red Blood Count 2.57 MIL/MM3 Hemoglobin 7.4 GM/DL Hematocrit 22.9 % Mean Corpuscular Volume 88.9 FL Mean Corpuscular Hemoglobin 28.9 PG Mean Corpuscular Hemoglobin 32.5 % Concent Red Cell Distribution Width 15.0 % Platelet Count 198 TH/MM3 Mean Platelet Volume 7.2 FL Neutrophils (%) (Auto) 70.5 % Lymphocytes (%) (Auto) 11.1 % Monocytes (%) (Auto) 4.4 % Eosinophils (%) (Auto) 13.5 % Basophils (%) (Auto) 0.5 % Neutrophils # (Auto) 8.1 TH/MM3 Lymphocytes # (Auto) 1.3 TH/MM3 Monocytes # (Auto) 0.5 TH/MM3 Eosinophils # (Auto) 1.6 TH/MM3 Basophils # (Auto) 0.1 TH/MM3 CBC Comment DIFF FINAL Differential Comment Prothrombin Time 11.2 SEC Prothromb Time International 1.0 RATIO Ratio Activated Partial 27.0 SEC Thromboplast Time Sodium Level 139 MEQ/L Potassium Level 4.5 MEQ/L Chloride Level 103 MEQ/L Carbon Dioxide Level 25.0 MEQ/L Anion Gap 11 MEQ/L Blood Urea Nitrogen 65 MG/DL Creatinine 7.88 MG/DL Estimat Glomerular Filtration 5 ML/MIN Rate Random Glucose 123 MG/DL Lactic Acid Level 1.0 mmol/L Calcium Level 6.0 MG/DL Protein Corrected Calcium 5.9 MG/DL Total Bilirubin 0.3 MG/DL Aspartate Amino Transf 9 U/L (AST/SGOT) Alanine Aminotransferase 15 U/L (ALT/SGPT) Alkaline Phosphatase 130 U/L Total Protein 7.4 GM/DL Albumin 3.1 GM/DL [place] Medical Decision Making Medical Screen Exam Complete: Yes Emergency Medical Condition: Yes Medical Record Reviewed: Yes Differential Diagnosis DVT. A fistula issue. Cellulitis. Electrolyte abnormality. Narrative Course Patient is medically stable at time of exam. Wound culture of the left hand is obtained. Labs ordered including CBC, CMP, lactic acid, blood cultures 2. PT PTT and INR. IV access is obtained patient is given 1 mg Dilantin IV as well as 4 mg Zofran IV. Ultrasound of the right upper extremity is ordered to rule out DVT. Patient is discussed with Dr. Enamorado who sees the patient as well. CBC shows slight leukocytosis of 11.5. Hemoglobin is somewhat decreased at 7.4 but this is typical for the patient. CMP shows BUN 65, creatinine of 7.88. Calcium is 6.0 with a corrected calcium of 5.9. This is typical for the patient. Coagulation studies are within normal limits. Ultrasound shows no DVT or other significant findings per radiologist. Patient is given 2 A of calcium bicarbonate IV. 1420 hrs. patient is reassessed and found to have no improvement in her pain, and the patient is discussed with Dr. Enamorado. Dr. Enamorado recommends admission for the patient for her hypocalcemia as well as intractable pain in the right arm. Call was placed to the [facility] hospitalist for admission. Dr. Enamorado spoke with the hospitalist who agreed to admit the patient. Diagnosis Primary Impression: Hypocalcemia Additional Impression: Right arm pain Admitting Information Admitting Physician Requests: Admit Condition: Stable Eriberto Cabrera Jul 25, 2016 11:13
[2016-07-25] MEDS ORDERED: HYDROmorphone HCL PF 1 MG/ML VIAL IVS ONE (11:30)
[2016-07-25] MEDS ORDERED: ONDANSETRON HCL 4 MG/2 ML VIAL IVP ONE (11:30)
[2016-07-25] MEDS ORDERED: SODIUM CHLORIDE 0.9% FLUSH 10 ML FLUSH IV FLUSH PRN (11:30)
[2016-07-25] MEDS ORDERED: CIPR250T52 PO (12:00)
[2016-07-25] MEDS ORDERED: IBUP-988 PO (12:00)
[2016-07-25 12:17] LABS: AUTOMATED NEUTROPHIL # 8.1 TH/MM3 (1.8-7.7); BASOPHIL # 0.1 TH/MM3 (0-0.2); BASOPHIL % 0.5 % (0.0-2.0); EOSINOPHIL # 1.6 TH/MM3 (0-0.4); EOSINOPHIL % 13.5 % (0.0-4.0); HEMATOCRIT 22.9 % (35.0-46.0); HEMO FLAGS DIFF FINAL; LYMPH % 11.1 % (9.0-44.0); LYMPHOCYTE # 1.3 TH/MM3 (1.0-4.8); MEAN CELL VOLUME 88.9 FL (80.0-100.0); MEAN CORPUSCULAR HEMOGLOBIN 28.9 PG (27.0-34.0); MEAN CORPUSCULAR HGB CONC 32.5 % (32.0-36.0); MONO % 4.4 % (0.0-8.0); NEUT % 70.5 % (16.0-70.0); PLATELET COUNT 198 TH/MM3 (150-450); RED BLOOD COUNT 2.57 MIL/MM3 (4.00-5.30); WHITE BLOOD COUNT 11.5 TH/MM3 (4.0-11.0)
[2016-07-25 12:28] LABS: PROTHROMBIN TIME - PATIENT 11.2 SEC (9.8-11.6)
[2016-07-25 12:42] LABS: POTASSIUM 4.5 MEQ/L (3.5-5.1); TOTAL BILIRUBIN ADULT 0.3 MG/DL (0.2-1.0)
[2016-07-25] MEDS ORDERED: HYDROmorphone HCL PF 1 MG/ML VIAL IV PUSH ONE ×2 (12:45→17:00)
[2016-07-25] MEDS ORDERED: ONDANSETRON ODT 4 MG TAB PO ONE (12:45)
[2016-07-25 12:56] LABS: CALCIUM-PROTEIN CORRECTED 5.9 MG/DL (8.5-10.1)
--- NOTE | 2016-07-25 13:10 | PD ---
Data Data Last Documented VS Vital Signs Date Time Temp Pulse Resp B/P Pulse Ox O2 Delivery O2 Flow Rate FiO2 07/25/16 12:58 75 17 192/87 97 Room Air 07/25/16 11:03 98.6 Orders Complete Blood Count With Diff (07/25/16 11:20) Comprehensive Metabolic Panel (07/25/16 11:20) Lactic Acid (07/25/16 11:20) Prothrombin Time / Inr (Pt) (07/25/16 11:20) Act Partial Throm Time (Ptt) (07/25/16 11:20) Iv Access Insert/Monitor (07/25/16 11:20) Oximetry (07/25/16 11:20) Ondansetron Inj (Zofran Inj) (07/25/16 11:30) Sodium Chloride 0.9% Flush (Ns Flush) (07/25/16 11:30) Hydromorphone Pf Inj (Dilaudid Pf Inj) (07/25/16 11:30) Blood Culture (07/25/16 11:20) Us Arm Venous Doppler (07/25/16 11:20) Wound Culture And Gram Stain (07/25/16 11:20) Vascular Access Team Consult PRN (07/25/16 12:02) Vascular Poc Ultrasound (07/25/16 ) Ondansetron Odt (Zofran Odt) (07/25/16 12:45) Hydromorphone Pf Inj (Dilaudid Pf Inj) (07/25/16 12:45) Calcium Gluconate Inj (Calcium Gluconate (07/25/16 13:15) Labs Laboratory Tests Test 07/25/16 12:00 White Blood Count 11.5 TH/MM3 Red Blood Count 2.57 MIL/MM3 Hemoglobin 7.4 GM/DL Hematocrit 22.9 % Mean Corpuscular Volume 88.9 FL Mean Corpuscular Hemoglobin 28.9 PG Mean Corpuscular Hemoglobin 32.5 % Concent Red Cell Distribution Width 15.0 % Platelet Count 198 TH/MM3 Mean Platelet Volume 7.2 FL Neutrophils (%) (Auto) 70.5 % Lymphocytes (%) (Auto) 11.1 % Monocytes (%) (Auto) 4.4 % Eosinophils (%) (Auto) 13.5 % Basophils (%) (Auto) 0.5 % Neutrophils # (Auto) 8.1 TH/MM3 Lymphocytes # (Auto) 1.3 TH/MM3 Monocytes # (Auto) 0.5 TH/MM3 Eosinophils # (Auto) 1.6 TH/MM3 Basophils # (Auto) 0.1 TH/MM3 CBC Comment DIFF FINAL Differential Comment Prothrombin Time 11.2 SEC Prothromb Time International 1.0 RATIO Ratio Activated Partial 27.0 SEC Thromboplast Time Sodium Level 139 MEQ/L Potassium Level 4.5 MEQ/L Chloride Level 103 MEQ/L Carbon Dioxide Level 25.0 MEQ/L Anion Gap 11 MEQ/L Blood Urea Nitrogen 65 MG/DL Creatinine 7.88 MG/DL Estimat Glomerular Filtration 5 ML/MIN Rate Random Glucose 123 MG/DL Lactic Acid Level 1.0 mmol/L Calcium Level 6.0 MG/DL Protein Corrected Calcium 5.9 MG/DL Total Bilirubin 0.3 MG/DL Aspartate Amino Transf 9 U/L (AST/SGOT) Alanine Aminotransferase 15 U/L (ALT/SGPT) Alkaline Phosphatase 130 U/L Total Protein 7.4 GM/DL Albumin 3.1 GM/DL MDM Supervised Visit with [facility]: Yes Narrative Course I, Dr. Neves, have reviewed the advance practice practioner's documentation and am in agreement, met with the patient face to face, made the diagnosis, and the medical decision making was done by me. *My assessment and Findings: 71-year-old female with history of ESRD on HD here with right arm pain since receiving dialysis 2 days ago. Notes increasing swelling. On exam the arm is swollen and diffusely tender but not erythematous. No palpable cords. Her AV fistula has palpable thrill and excellent distal pulses, capillary refill. Differential includes DVT, electrolyte abnormality, muscle cramps. There is no evidence of trauma and clinically her AV fistula appears to be properly functioning. Laboratory workup shows hypocalcemia, history of hypoparathyroidism, replaced with 2 g of calcium gluconate. Given the focality of her symptoms my suspicion that her hypocalcemia is causing her localize right upper extremity pain is low. Condition: Stable Reina Neves MD Jul 25, 2016 13:10
[2016-07-25] MEDS ORDERED: CALCIUM GLUCONATE 10% 1 GM/10 ML VIAL SLOW IVP ONE (13:15)
--- NOTE | 2016-07-25 13:55 | RADRPT ---
EXAM DATE/TIME: 07/25/2016 13:02 [place] COMPARISON: No previous studies available for comparison. INDICATIONS : Right arm pain. MEDICAL HISTORY : Hypothyroidism. Hypertension. Hernia, hiatal. Renal failure. Arthritis. Diabetes. Dialysis. SURGICAL HISTORY : Tonsillectomy. section. Cholecystectomy. AV shunt. AV Fistula right arm. ENCOUNTER: Initial ACUITY: 2 day PAIN SCORE: 10/10 LOCATION: Right arm. FINDINGS: There is spontaneous flow documented in the brachial, basilic, cephalic, axillary, and subclavian vei ns. The vessels are compressible and augmentation response is documented. No filling defects are se en. The flow is phasic with respiration. Direction of flow in the jugular vein is caudal. There is no DVT and there is arteriovenous fistula from brachial to cephalic vein appears patent. CONCLUSION: No DVT. Valerie Cool MD on July 25, 2016 at 13:53 Board Certified Radiologist. This report was verified electronically.
[2016-07-25] MEDS ORDERED: CALCIUM GLUCONATE INJ 2 GM in SODIUM CHLORIDE 0.9% INJ 100 ML IV ONE (14:00)
[2016-07-25] MEDS ORDERED: NALOXONE HCL 0.4 MG/ML AMP IV PRN (15:15)
[2016-07-25] MEDS ORDERED: DEXTROSE 50% IN WATER 50 ML VIAL(D50) IV PUSH PRN (15:15)
[2016-07-25] MEDS ORDERED: GLUCAGON 1 MG/ML VIAL OTHER PRN (15:15)
[2016-07-25] MEDS ORDERED: IBUPROFEN 400 MG TAB PO PRN (15:30)
--- NOTE | 2016-07-25 15:41 | HHI.HP ---
[facility] Eddie Collier MD Admission Diagnosis hypocalcemia, right upper extremity pain Diagnoses: Travel History International Travel<30 Days: No Contact w/Intl Traveler <30 Da: No Traveled to Known Affected Are: No History of Present Illness This 71-year-old female with a history of end-stage renal disease on hemodialysis who presented to the emergency department at [facility] with 2 days of right upper extremity pain. An ultrasound was done in the emergency department and was negative for DVT . She was seen by the undersigned in room 1718 earlier today. She is alert and verbal but in significant distress secondary to the nausea and severe pain in her right upper extremity. She received 3 different doses of intravenous Dilaudid 1 mg at bedtime earlier today. The patient had a recent parathyroidectomy. She was found to have a low calcium level with a corrected calcium of 5.9. She received 2 g intravenous calcium gluconate. No reported tetany. No reported spasm. No fever chills or diaphoresis. Review of Systems Other Severe right upper extremity pain, nausea with recurrent vomiting Past Family Social History Past Medical History End-stage renal disease, on hemodialysis Tuesday Anemia of chronic disease for which she receives erythropoietin Status post multiple transfusions Hyperparathyroidism, status post recent surgery Left eye cataract Possible glaucoma Hypertension Hernia Gallbladder disease obesity Rheumatoid arthritis Diabetes PTSD Past Surgical History AV fistula, both upper extremities Left cataract surgery Tonsillectomy Abdominal hernia with mesh placement Right BKA Parathyroidectomy Surgery for facial tumor Cholecystectomy Reported Medications Reported Meds & Active Scripts Active Reported Cipro (Ciprofloxacin HCl) Unknown Strength Tab 1 Tab PO BID Advil (Ibuprofen) 200 Mg Tab 200-400 Mg PO Q4H PRN Tums (Calcium Carbonate (Antacid)) 500 Mg Chew 1,000 Mg CHEW TID PRN Synthroid (Levothyroxine Sodium) 50 Mcg Tab 50 Mcg PO DAILY Nifedipine ER 24 HR (Nifedipine) 60 Mg Tab 60 Mg PO DAILY Allergies: Coded Allergies: Contrast Media (Verified Allergy, Severe, CAN'T BREATHE, 07/25/16) Epogen (Verified Allergy, Severe, Headache, 07/25/16) Iodine (Verified Allergy, Severe, Hives, 07/25/16) PATIENT NEEDS TO BE PREMEDICATED Morphine (Verified Allergy, Severe, RESPIRATORY DISTRESS, 07/25/16) Vancomycin (Verified Allergy, Severe, 07/25/16) Uncoded Allergies: plastic tape (Allergy, Severe, 01/21/15) blisters Family History Reviewed but not contributory Social History No current smoking alcohol or illicit drug use Physical Exam Vital Signs Vital Signs Date Time Temp Pulse Resp B/P Pulse Ox O2 Delivery O2 Flow Rate FiO2 07/25/16 12:58 75 17 192/87 97 Room Air 07/25/16 11:58 98 Room Air 07/25/16 11:03 98.6 76 18 198/82 98 Physical Exam GENERAL: This is a pleasant, obese, well-developed patient, in distress secondary to the pain and the nausea. SKIN: No rashes, ecchymoses or lesions. Cool and dry. HEAD: Atraumatic. Normocephalic. No temporal or scalp tenderness. EYES: Pupils equal round and reactive. Extraocular motions intact. No scleral icterus. No injection or drainage. ENT: Nose without bleeding, purulent drainage or septal hematoma. Throat without erythema, tonsillar hypertrophy or exudate. Uvula midline. Airway patent. NECK: Trachea midline. No JVD or lymphadenopathy. Supple, nontender, no meningeal signs. CARDIOVASCULAR: Regular rate and rhythm without murmurs, gallops, or rubs. RESPIRATORY: Clear to auscultation. Breath sounds equal bilaterally. No wheezes , rales, or rhonchi. GASTROINTESTINAL: Abdomen soft, non-tender, nondistended. No hepato-splenomegaly , or palpable masses. No guarding. MUSCULOSKELETAL: Right upper extremity very swollen, particularly refill is normal. The skin is warm throughout. Strong right radial pulse present. Strong thrill and bruit found over the right upper extremity AV fistula. Minimal movement of the right upper extremity induces severe pain The pain is throughout the arm from the shoulder down to the fingers NEUROLOGICAL: Awake and alert. Cranial nerves II through XII intact. Normal speech. Laboratory Laboratory Tests Test 07/25/16 12:00 White Blood Count 11.5 Red Blood Count 2.57 Hemoglobin 7.4 Hematocrit 22.9 Mean Corpuscular Volume 88.9 Mean Corpuscular Hemoglobin 28.9 Mean Corpuscular Hemoglobin 32.5 Concent Red Cell Distribution Width 15.0 Platelet Count 198 Mean Platelet Volume 7.2 Neutrophils (%) (Auto) 70.5 Lymphocytes (%) (Auto) 11.1 Monocytes (%) (Auto) 4.4 Eosinophils (%) (Auto) 13.5 Basophils (%) (Auto) 0.5 Neutrophils # (Auto) 8.1 Lymphocytes # (Auto) 1.3 Monocytes # (Auto) 0.5 Eosinophils # (Auto) 1.6 Basophils # (Auto) 0.1 CBC Comment DIFF FINAL Differential Comment Prothrombin Time 11.2 Prothromb Time International 1.0 Ratio Activated Partial 27.0 Thromboplast Time Sodium Level 139 Potassium Level 4.5 Chloride Level 103 Carbon Dioxide Level 25.0 Anion Gap 11 Blood Urea Nitrogen 65 Creatinine 7.88 Estimat Glomerular Filtration 5 Rate Random Glucose 123 Lactic Acid Level 1.0 Calcium Level 6.0 Protein Corrected Calcium 5.9 Total Bilirubin 0.3 Aspartate Amino Transf 9 (AST/SGOT) Alanine Aminotransferase 15 (ALT/SGPT) Alkaline Phosphatase 130 Total Protein 7.4 Albumin 3.1 Date/Time Procedure Status Source Growth 07/25/16 12:00 Gram Stain - Final Resulted Wound Hand 07/25/16 12:00 Wound Culture Resulted Wound Hand Pending 07/25/16 12:00 Aerobic Blood Culture Received Blood Peripheral Pending 07/25/16 12:00 Anaerobic Blood Culture Received Blood Peripheral Pending Result Diagram: 07/25/16 1200 07/25/16 1200 Assessment and Plan Assessment and Plan Assessment Severe hypocalcemia Recent parathyroidectomy Severe right upper extremity pain, no clear etiology Recurrent vomiting Intractable Nausea Management Patient was admitted to telemetry Already received 2 g of IV calcium gluconate Emergent MRI of the right upper extremity is ordered to investigate the reason for her pain pain control Anti-emetics Protonix intravenously X-ray abdomen Sliding scale of insulin Accu-Cheks Consult nephrology Consult to vascular surgery Follow calcium levels Discussed with patient Discussed with nurse Discussed with emergency physician 45 minutes Discussed With: Nurse Saray Wall MD Jul 25, 2016 15:41
[2016-07-25] MEDS: INSULIN ASPART SUPPLEMENTAL SCALE SQ SCH ×2 (16:00→21:00)
[2016-07-25] MEDS: HEPARIN SODIUM - SQ 10,000 UNITS/ML VIAL SQ SCH (16:26)
[2016-07-25] MEDS: NIFEdipine 60 MG SUSTAINED RELEASE TAB PO SCH (16:26)
[2016-07-25] MEDS: CALCIUM CARBONATE 500 MG CHEWABLE TAB CHEW SCH ×2 (16:26→21:12)
[2016-07-25] MEDS: ONDANSETRON HCL 4 MG/2 ML VIAL IV PUSH PRN (18:42)
--- NOTE | 2016-07-25 20:53 | PD.CAR.PN ---
CVT Progress Note Subjective/Hospital Course: 71-year-old female with multiple medical problems on long-term dialysis presents to the hospital with sudden onset of pain in her right arm radiating to her hand as the dialysis was started today. Physical exam reveals excellent flow in the right upper arm fistula, no swelling or bleeding. Patient has excellent radial and ulnar pulse and hand is warm and well perfused with normal capillary refill Patient is tender on extension of the arm and this is deep inside with radiating down the volar surface of the arm. This is consistent with inadvertent puncture injury to the median nerve as a technical issue during dialysis. This will resolve spontaneously and patient only needs supportive therapy with pain medication No other therapy is necessary for this and no further workup is warranted Thanks J Objective: Vital Signs Date Time Temp Pulse Resp B/P Pulse Ox O2 Delivery O2 Flow Rate FiO2 07/25/16 17:33 89 18 174/88 95 07/25/16 17:30 97.7 89 18 196/81 94 07/25/16 16:00 74 18 188/85 96 Room Air 07/25/16 12:58 75 17 192/87 97 Room Air 07/25/16 11:58 98 Room Air 07/25/16 11:03 98.6 76 18 198/82 98 Labs: Laboratory Tests Test 07/25/16 12:00 White Blood Count 11.5 TH/MM3 (4.0-11.0) Red Blood Count 2.57 MIL/MM3 (4.00-5.30) Hemoglobin 7.4 GM/DL (11.6-15.3) Hematocrit 22.9 % (35.0-46.0) Mean Corpuscular Volume 88.9 FL (80.0-100.0) Mean Corpuscular Hemoglobin 28.9 PG (27.0-34.0) Mean Corpuscular Hemoglobin 32.5 % Concent (32.0-36.0) Red Cell Distribution Width 15.0 % (11.6-17.2) Platelet Count 198 TH/MM3 (150-450) Mean Platelet Volume 7.2 FL (7.0-11.0) Neutrophils (%) (Auto) 70.5 % (16.0-70.0) Lymphocytes (%) (Auto) 11.1 % (9.0-44.0) Monocytes (%) (Auto) 4.4 % (0.0-8.0) Eosinophils (%) (Auto) 13.5 % (0.0-4.0) Basophils (%) (Auto) 0.5 % (0.0-2.0) Neutrophils # (Auto) 8.1 TH/MM3 (1.8-7.7) Lymphocytes # (Auto) 1.3 TH/MM3 (1.0-4.8) Monocytes # (Auto) 0.5 TH/MM3 (0-0.9) Eosinophils # (Auto) 1.6 TH/MM3 (0-0.4) Basophils # (Auto) 0.1 TH/MM3 (0-0.2) CBC Comment DIFF FINAL Differential Comment Prothrombin Time 11.2 SEC (9.8-11.6) Prothromb Time International 1.0 RATIO Ratio Activated Partial 27.0 SEC Thromboplast Time (24.3-30.1) Sodium Level 139 MEQ/L (136-145) Potassium Level 4.5 MEQ/L (3.5-5.1) Chloride Level 103 MEQ/L (98-107) Carbon Dioxide Level 25.0 MEQ/L (21.0-32.0) Anion Gap 11 MEQ/L (5-15) Blood Urea Nitrogen 65 MG/DL (7-18) Creatinine 7.88 MG/DL (0.50-1.00) Estimat Glomerular Filtration 5 ML/MIN (>89) Rate Random Glucose 123 MG/DL (74-106) Lactic Acid Level 1.0 mmol/L (0.4-2.0) Calcium Level 6.0 MG/DL (8.5-10.1) Protein Corrected Calcium 5.9 MG/DL (8.5-10.1) Total Bilirubin 0.3 MG/DL (0.2-1.0) Aspartate Amino Transf 9 U/L (15-37) (AST/SGOT) Alanine Aminotransferase 15 U/L (10-53) (ALT/SGPT) Alkaline Phosphatase 130 U/L (45-117) Total Protein 7.4 GM/DL (6.4-8.2) Albumin 3.1 GM/DL (3.4-5.0) Result Diagram: 07/25/16 1200 07/25/16 1200 Dagmar Hoyt MD Jul 25, 2016 20:53
[2016-07-25] MEDS: SCOPOLAMINE 1.5 MG PATCH T-DERMAL SCH (21:11)
[2016-07-25] MEDS: SODIUM CHLORIDE 0.9% FLUSH 10 ML FLUSH IV FLUSH SCH (21:13)
[2016-07-25] MEDS: PANTOPRAZOLE SODIUM 40 MG VIAL IV PUSH SCH (21:13)
[2016-07-25] MEDS ORDERED: LORazepam 2 MG/ML VIAL IV PRN (23:45)
[2016-07-26] VITALS: BP 156/82; PULSE 84; RESP 20; TEMP 97.8; O2SAT 96
[2016-07-26] MEDS: SODIUM CHLORIDE 0.9% FLUSH 10 ML FLUSH IV FLUSH PRN (03:23)
[2016-07-26] MEDS: HYDROmorphone HCL PF 1 MG/ML VIAL IV PRN ×2 (03:23→09:39)
[2016-07-26] MEDS: HEPARIN SODIUM - SQ 10,000 UNITS/ML VIAL SQ SCH ×2 (03:23→16:44)
[2016-07-26 06:25] LABS: BICARBONATE 22.9 MEQ/L (21.0-32.0); POTASSIUM 4.7 MEQ/L (3.5-5.1)
[2016-07-26] MEDS: LEVOTHYROXINE SODIUM 50 MCG TAB PO SCH (06:29)
[2016-07-26] MEDS: INSULIN ASPART SUPPLEMENTAL SCALE SQ SCH ×4 (06:30→21:00)
[2016-07-26 06:42] LABS: CALCIUM-PROTEIN CORRECTED 6.1 MG/DL (8.5-10.1)
[2016-07-26 08:00] VITALS: BP_SYST 134; BP_SYST 154; BP_DIAS 60; BP_DIAS 78; PULSE 81; PULSE 88; RESP 17; RESP 20; TEMP 98.4; TEMP 98.7; O2SAT 95; O2SAT 96
[2016-07-26] MEDS ORDERED: NIFEdipine 60 MG SUSTAINED RELEASE TAB PO SCH (09:00)
[2016-07-26] MEDS: NIFEdipine 60 MG SUSTAINED RELEASE TAB PO SCH (09:38)
[2016-07-26] MEDS: CALCIUM CARBONATE 500 MG CHEWABLE TAB CHEW SCH ×3 (09:38→23:06)
[2016-07-26] MEDS: SODIUM CHLORIDE 0.9% FLUSH 10 ML FLUSH IV FLUSH SCH ×2 (09:39→23:06)
[2016-07-26] MEDS ORDERED: CALCIUM GLUCONATE 10% 1 GM/10 ML VIAL IV ONE (10:45)
[2016-07-26 12:00] VITALS: BP 137/59; PULSE 76; RESP 17; TEMP 97.7; O2SAT 95
--- NOTE | 2016-07-26 12:39 | HHI.PR ---
Subjective Subjective Remarks Right antecubital area extremely painful, indicates she has shooting pain going up and down the arm Intact sensation It is painful to make fist Right radial pulses intact No fever No chest pain No shortness of breath Son at bedside Review of Systems Constitutional Constitutional Remarks 12 point review of systems completed, negative except as noted above Vitals/Results Intake & Output 07/25/16 07/25/16 07/26/16 15:00 23:00 07:00 Intake Total 360 ml 220 ml Output Total 550 ml 400 ml Balance -190 ml -180 ml Intake Oral 360 ml 220 ml Output Urine Total 500 ml 400 ml Emesis 50 ml # Bowel Movements 0 0 Vital Signs Vital Signs Date Time Temp Pulse Resp B/P Pulse Ox O2 Delivery O2 Flow Rate FiO2 07/26/16 08:00 98.7 81 17 134/60 96 07/26/16 00:00 97.8 84 20 156/82 96 07/25/16 20:00 98.0 90 20 161/81 95 07/25/16 17:33 89 18 174/88 95 07/25/16 17:30 97.7 89 18 196/81 94 07/25/16 16:00 74 18 188/85 96 Room Air 07/25/16 12:58 75 17 192/87 97 Room Air CBC/BMP: 07/25/16 1200 07/26/16 0534 Lab Results Laboratory Tests Test 07/26/16 05:34 Sodium Level 138 MEQ/L Potassium Level 4.7 MEQ/L Chloride Level 103 MEQ/L Carbon Dioxide Level 22.9 MEQ/L Anion Gap 12 MEQ/L Blood Urea Nitrogen 75 MG/DL Creatinine 8.60 MG/DL Estimat Glomerular Filtration 5 ML/MIN Rate Random Glucose 139 MG/DL Calcium Level 6.2 MG/DL Protein Corrected Calcium 6.1 MG/DL Total Protein 7.5 GM/DL Physical Exam General General Appearance: Well Developed, Well Nourished, Comfortable, Anxious, Painful, Obese Eyes Eye Exam: Pupils Equal, Pupils Reactive Ears & Nose Ears & Nose Exam: Nasal Mucosa [place] Throat Throat Exam: Oral Mucosa [place] & Moist Neck Neck Exam: Neck Supple, Trachea Midline Pulmonary Resp Exam: Clear Bilaterally, No Distress Cardiology CV Exam: Regular, Good Perfusion Gastrointestinal/Abdomen GI Exam: Soft, Non-Tender, Bowel Sounds Present, Non-Distended Musculoskeletal MS Remarks Right BKA Integumentary Skin Exam: Warm, Dry Extremeties Extremities Exam: Pedal Pulses Palpable, Trace Edema Extremeties Remarks Left pedal pulses 1+ Right upper extremity with AV fistula, positive bruit and thrill Right arm tender to palpation, very painful with any movement. There is some bruising over AV fistula, radial pulse 2+ Intact sensation to the right hand fingertips Neurologic Neuro Exam: Alert, Awake, Oriented, Speech Clear, No Focal Deficits Psychiatric Psych Exam: Appropriate Responses VTE Prophylaxis VTE Prophylaxis Meds: Heparin PUD Prophylasis PUD Prophylaxis: Protonix Assessment/Plan Problem List: (1) Right arm pain (2) Hypocalcemia (3) ESRD (end stage renal disease) on dialysis (4) Hypertension (5) Dialysis patient (6) DM (diabetes mellitus) (7) Anemia (8) Hx of parathyroidectomy Assessment/Plan Status post parathyroidectomy Remains hypocalcemic despite IV calcium gluconate and Tums Nephrology consultation in place for hemodialysis management in hypocalcemia, pending Right arm pain remains significant, continue with Dilaudid when necessary Ultrasound right arm negative for DVT Appreciate vascular input, per Dr. Aguirre's input -no vascular compromise to right arm, believes the pain is consistent with inadvertent puncture injury to the median nerve during hemodialysis access. This should resolve spontaneously, recommends to continue with supportive therapy with pain management. Initially with intractable nausea, now resolved Continue with antiemetics when necessary Protonix 40 mg IV daily KUB pending Blood glucose stable, continue with sliding scale and Accu-Cheks Anemia, hemoglobin 7.5, secondary to chronic kidney disease Follow H&H Labs in the morning Heparin for DVT prophylaxis Protonix for GI prophylaxis If pain is better control tomorrow, possible discharge Discussed with patient Discussed with nurse Discussed with Dr. Wall This patient was seen by myself and Dr. Wall, this note is written on his behalf Problem Qualifiers (1) Hypertension: Qualified Code: I10 - Essential hypertension (2) DM (diabetes mellitus): (3) Anemia: Priscilla Forte Jul 26, 2016 12:39
[2016-07-26] MEDS ORDERED: CALCIUM CARBONATE 500 MG CHEWABLE TAB CHEW SCH (13:00)
[2016-07-26] MEDS ORDERED: CALCIUM GLUCONATE INJ 1 GM in SODIUM CHLORIDE 0.9% INJ 100 ML IV ONE (13:00)
[2016-07-26] MEDS ORDERED: ACETAMINOPHEN 325 MG TAB PO PRN (15:30)
[2016-07-26] MEDS ORDERED: [UNRECOGNIZED DRUG - OTHER] SQ SCH (15:30)
[2016-07-26] MEDS ORDERED: diphenhydrAMINE HCL 25 MG CAP PO PRN (15:30)
[2016-07-26] MEDS ORDERED: MANNITOL 12.5 GM/50 ML VIAL IV PRN (15:30)
[2016-07-26] MEDS ORDERED: cloNIDine HCL 0.1 MG TAB PO PRN (15:30)
[2016-07-26] MEDS ORDERED: NITROGLYCERIN 0.4 MG SL 25 TABS/BTL SL PRN (15:30)
[2016-07-26] MEDS ORDERED: HEPARIN SODIUM - IV 10,000 UNITS/10 ML VIAL IVF PRN (15:30)
[2016-07-26] MEDS ORDERED: ONDANSETRON HCL 4 MG/2 ML VIAL IV PRN (15:30)
[2016-07-26] MEDS ORDERED: DARBEPOETIN ALFA SQ SCH ×3 (15:30→18:00)
[2016-07-26] MEDS ORDERED: SODIUM CHLOR 0.9% 1000 ML INJ 1,000 ML IV PRN ×3 (15:30)
[2016-07-26] MEDS ORDERED: ALBUMIN HUMAN 25% 25 GM/100 ML BAGP IV PRN (15:30)
[2016-07-26] MEDS ORDERED: SODIUM CHLORIDE 0.9% FLUSH 10 ML FLUSH IV FLUSH PRN (15:30)
[2016-07-26] MEDS ORDERED: GELATIN 12 MM/7 MM FOAM TOP PRN (15:30)
[2016-07-26 16:00] VITALS: BP 113/54; PULSE 75; RESP 20; TEMP 98.8; O2SAT 95
--- NOTE | 2016-07-26 16:15 | MB ---
cc: KURTIS FISHER MD DATE OF CONSULTATION 07/26/2016 REASON FOR CONSULTATION End-stage renal disease on hemodialysis for management. HISTORY OF PRESENT ILLNESS This is 71-year-old female known to me from before with past medical history of hypertension, history of diabetes mellitus, rheumatoid arthritis, hyperparathyroidism with post parathyroidectomy, history of hypothyroidism with partial thyroid removal came to the hospital with complaint of right arm pain and swelling. I was called to see the patient because for management of hemodialysis. She has been on hemodialysis Tuesday, Tuesday and Tuesday. She had hemodialysis done last week on Tuesday and she was supposed to go today but she came to the hospital because she has more pain in the right arm. The pain started after her last hemodialysis on Tuesday and the patient has this pain increasing and getting worse. She has more and more pain going from her right wrist and all the way to her shoulder and she is not able to move her arm at the shoulder and also has restricted movement in other hand. There is no history of trauma. There was no problem with access cannulation during her dialysis was reported on Tuesday. She does not have any shortness of breath, currently she is on room air. She has a history of parathyroidectomy and since been running low calcium and has been on calcium and vitamin D supplement. PAST MEDICAL HISTORY 1. Hypertension. 2. Diabetes mellitus. 3. Hyperparathyroidism. 4. Hypothyroidism. 5. Rheumatoid arthritis. PAST SURGICAL HISTORY 1. A-V fistula surgery in both arms. 2. Cataract surgery. 3. Tonsillectomy. 4. Parathyroidectomy. 5. Partial thyroidectomy. 6. Cholecystectomy. 7. Surgery for the facial tumor. REVIEW OF SYSTEMS The patient denies any headache, dizziness or blurring of vision. She has no shortness of breath. No chest pain. She has this pain in the right arm going all the way from her shoulder to her hand and increased with the movement especially at the shoulder. She has restricted movement at shoulder and also at her elbow and wrist joint. There is some swelling. There is no history of trauma. No abdominal pain. No nausea, vomiting. She has an IV line in the left arm. During her last admission there was some infection and she was given ciprofloxacin by her primary physician last week. SOCIAL HISTORY The patient is . There is no history of smoking or alcoholism. FAMILY HISTORY Noncontributory. ALLERGIES SHE HAS AN ALLERGY TO CONTRAST MEDIA, EPOGEN, IODINE, MORPHINE, VANCOMYCIN AND PLASTIC TAPE. MEDICATIONS Currently she is on following medications: 1. Nifedipine 60 mg once a day. 2. Levothyroxine 50 mcg daily. 3. Heparin 5000 units subcu q. 12-hour. 4. Protonix 40 mg q. 24-hour. 5. Tums 500 mg q.i.d. PHYSICAL EXAMINATION GENERAL: On examination the patient is awake, alert. She is not in acute distress. VITAL SIGNS: Her last blood pressure 137/59, temperature 97.7, oxygen saturation 95-96%. HEENT: Pupils equally reacting to light. Nonicteric sclera, conjunctiva pale. NECK: Supple. JVD is not elevated. LUNGS: The patient has bilateral good air entry with occasional wheezing. HEART: S1-S2, regular rhythm. ABDOMEN: Soft. Lax. There is no tenderness. EXTREMITIES: The right arm AV fistula site is having good bruit. There is no redness. The whole arm is swollen with some edema but there is no definite tenderness and no swelling at the wrist joint. She has restricted movement at the shoulder, elbow and the wrist joint. Also restricted movement of her fingers. The fingers are not cold and the radial pulse is palpable. LABORATORY DATA Investigation, WBC count 11.5, hemoglobin 7.4, platelet count of 198. Sodium 138, potassium 4.7, chloride 103, bicarb 22.9, BUN 75, creatinine 8.6 Calcium corrected is 6.2, AST 9. ALT is 15, alkaline phosphatase is 138, total protein 7.4. Albumin is 3.1. INR 1.0. IMAGING Ultrasound of the right arm done yesterday which shows there is no DVT. ASSESSMENT/PLAN 1. Right arm pain, possible neuropathy or nerve related. 2. End-stage renal disease on hemodialysis. 3. Anemia. 4. Diabetes mellitus. 5. Severe hypocalcemia with parathyroidectomy. 6. Hypothyroidism. The patient has low calcium and she was given IV calcium. I will increase her calcium supplement to 1 gram. Also give her PhosLo with the meal and calcitriol. I will also check the phosphorus level. For the right arm she has been seen by vascular surgery and the impression was it could be related to nerve pain. At this point there was no deep vein thrombosis. This arm needs to be rested for some time to see if the pain improves, so I will get her a PermCath and she has refused dialysis today because she does not want anybody to touch her arm because of the pain, so we will dialyze her tomorrow. Her potassium has been normal. She is not in fluid overload status. The hemoglobin has been low. She has been following with hematology and supposed to get Aranesp, the last dose apparently was given on July 06 and the recommendation to give every two weeks. I will give her one dose now. She is allergic to Epogen. Also I will get the iron studies. Thank you for the consultation. Kurtis Fisher MD AQJ/[id number] /3:28 PM /3:55 PM
[2016-07-26] MEDS: CALCIUM ACETATE 667 MG CAP PO SCH (16:44)
[2016-07-26] MEDS ORDERED: POLYSORBATE SQ SCH ×2 (17:06→18:00)
[2016-07-26 21:52] VITALS: O2SAT 98
[2016-07-26] MEDS: PANTOPRAZOLE SODIUM 40 MG VIAL IV PUSH SCH (23:06)
[2016-07-27] VITALS (7 sets, daily range): BP systolic 117–182; BP diastolic 56–77; PULSE 79–88; RESP 17–20; TEMP 97.7–98.7; O2SAT 93–96
[2016-07-27] MEDS: SODIUM CHLORIDE 0.9% FLUSH 10 ML FLUSH IV FLUSH PRN (04:33)
[2016-07-27] MEDS: HEPARIN SODIUM - SQ 10,000 UNITS/ML VIAL SQ SCH ×2 (04:33→14:47)
[2016-07-27] MEDS: HYDROmorphone HCL PF 1 MG/ML VIAL IV PRN ×2 (04:33→15:35)
[2016-07-27] MEDS: LEVOTHYROXINE SODIUM 50 MCG TAB PO SCH (04:33)
[2016-07-27 06:28] LABS: HEMO FLAGS DIFF FINAL; MEAN CELL VOLUME 88.4 FL (80.0-100.0); MEAN CORPUSCULAR HEMOGLOBIN 29.8 PG (27.0-34.0); MEAN CORPUSCULAR HGB CONC 33.7 % (32.0-36.0); PLATELET COUNT 213 TH/MM3 (150-450); RED BLOOD COUNT 2.38 MIL/MM3 (4.00-5.30); WHITE BLOOD COUNT 12.1 TH/MM3 (4.0-11.0)
[2016-07-27 06:29] LABS: AUTOMATED NEUTROPHIL # 8.9 TH/MM3 (1.8-7.7); BASOPHIL # 0.1 TH/MM3 (0-0.2); BASOPHIL % 0.7 % (0.0-2.0); EOSINOPHIL # 1.1 TH/MM3 (0-0.4); LYMPH % 11.5 % (9.0-44.0); LYMPHOCYTE # 1.4 TH/MM3 (1.0-4.8); MONO % 5.6 % (0.0-8.0); NEUT % 73.2 % (16.0-70.0)
[2016-07-27] MEDS: INSULIN ASPART SUPPLEMENTAL SCALE SQ SCH ×4 (06:41→21:00)
[2016-07-27 06:51] LABS: ALKALINE PHOSPHATASE 125 U/L (45-117); ALT (GPT) 11 U/L (10-53); ANION GAP 13 MEQ/L (5-15); AST (GOT) 6 U/L (15-37); BICARBONATE 24.1 MEQ/L (21.0-32.0); BLOOD UREA NITROGEN 89 MG/DL (7-18); CHLORIDE 100 MEQ/L (98-107); FERRITIN 910 NG/ML (8-252); GLOMERULAR FILTRATION RATE 4 ML/MIN (>89); POTASSIUM 4.9 MEQ/L (3.5-5.1); SODIUM (NA) 137 MEQ/L (136-145); TOTAL BILIRUBIN ADULT 0.3 MG/DL (0.2-1.0); TRANSFERRIN IRON PROFILE 122 MG/DL (200-360)
[2016-07-27 07:03] LABS: CALCIUM-PROTEIN CORRECTED 6.2 MG/DL (8.5-10.1)
[2016-07-27] MEDS: SODIUM CHLORIDE 0.9% FLUSH 10 ML FLUSH IV FLUSH SCH ×2 (09:00→21:37)
[2016-07-27] MEDS: CALCIUM CARBONATE 500 MG CHEWABLE TAB CHEW SCH ×4 (10:39→21:37)
[2016-07-27] MEDS: CALCIUM ACETATE 667 MG CAP PO SCH ×3 (10:40→17:42)
[2016-07-27] MEDS: NIFEdipine 60 MG SUSTAINED RELEASE TAB PO SCH (10:40)
[2016-07-27] MEDS: CALCITRIOL 0.25 MCG CAP PO SCH (10:41)
--- NOTE | 2016-07-27 15:05 | HHI.PR ---
Subjective Subjective Remarks c/o severe rt. arm pain with touch or movement speaks Samoan, family in rm, interpreting anxious Upset over having no IV meds for pain now no SOB ESRD pt. Review of Systems Constitutional Constitutional: Weakness Musculoskeletal MS: Weakness, Stiffness, Swelling (mild rt. arm, shunt inflamed possible,) Neurologic Neurologic Remarks anxious Psychiatric Psychiatric: Agitation, Anxiety Vitals/Results Intake & Output 07/26/16 07/26/16 07/27/16 15:00 23:00 07:00 Intake Total 360 ml 240 ml Output Total 200 ml Balance 160 ml 240 ml Intake Oral 360 ml 240 ml Output Urine Total 200 ml # Voids 0 # Bowel Movements 0 0 Vital Signs Vital Signs Date Time Temp Pulse Resp B/P Pulse Ox O2 Delivery O2 Flow Rate FiO2 07/27/16 12:00 97.9 82 17 134/63 93 07/27/16 08:37 93 21 07/27/16 08:00 97.7 80 18 127/62 93 07/27/16 00:00 98.7 79 18 117/56 95 07/26/16 21:52 98 21 07/26/16 16:00 98.8 75 20 113/54 95 CBC/BMP: 07/27/16 0602 07/27/16 0602 Lab Results Laboratory Tests Test 07/27/16 06:02 White Blood Count 12.1 TH/MM3 Red Blood Count 2.38 MIL/MM3 Hemoglobin 7.1 GM/DL Hematocrit 21.0 % Mean Corpuscular Volume 88.4 FL Mean Corpuscular Hemoglobin 29.8 PG Mean Corpuscular Hemoglobin 33.7 % Concent Red Cell Distribution Width 15.0 % Platelet Count 213 TH/MM3 Mean Platelet Volume 7.4 FL Neutrophils (%) (Auto) 73.2 % Lymphocytes (%) (Auto) 11.5 % Monocytes (%) (Auto) 5.6 % Eosinophils (%) (Auto) 9.0 % Basophils (%) (Auto) 0.7 % Neutrophils # (Auto) 8.9 TH/MM3 Lymphocytes # (Auto) 1.4 TH/MM3 Monocytes # (Auto) 0.7 TH/MM3 Eosinophils # (Auto) 1.1 TH/MM3 Basophils # (Auto) 0.1 TH/MM3 CBC Comment DIFF FINAL Differential Comment Sodium Level 137 MEQ/L Potassium Level 4.9 MEQ/L Chloride Level 100 MEQ/L Carbon Dioxide Level 24.1 MEQ/L Anion Gap 13 MEQ/L Blood Urea Nitrogen 89 MG/DL Creatinine 10.47 MG/DL Estimat Glomerular Filtration 4 ML/MIN Rate Random Glucose 117 MG/DL Calcium Level 6.2 MG/DL Protein Corrected Calcium 6.2 MG/DL Phosphorus Level 4.2 MG/DL Iron Level 38 MCG/DL Total Iron Binding Capacity 171 MCG/DL Percent Iron Saturation 22.2 % Ferritin 910 NG/ML Total Bilirubin 0.3 MG/DL Aspartate Amino Transf 6 U/L (AST/SGOT) Alanine Aminotransferase 11 U/L (ALT/SGPT) Alkaline Phosphatase 125 U/L Total Protein 7.3 GM/DL Albumin 3.0 GM/DL Imaging Remarks Last Impressions Upper Extremity Ultrasound 07/25/16 1120 Signed Impressions: Service Date/Time: Monday, July 25, 2016 13:02 - CONCLUSION: No DVT. K. Trey Cool MD Current Medications Active Medications Acetaminophen (Tylenol) 650 mg UNSCH PRN PO; Start 07/26/16 at 15:30 Albumin Human (Albumin 25% Inj) 25 gm UNSCH PRN IV; Start 07/26/16 at 15:30 Calcitriol (Rocaltrol) 1 mcg DAILY PO Last administered on 07/27/16 10:41; Admin Dose 1 MCG; Start 07/27/16 at 09:00 Calcium Acetate (Phoslo) 1,334 mg TID PO Last administered on 07/27/16 10:40; Admin Dose 1,334 MG; Start 07/26/16 at 18:00 Calcium Carbonate (Tums Chew) 1,000 mg QID CHEW Last administered on 07/27/16 10:39; Admin Dose 1,000 MG; Start 07/26/16 at 18:00 Cephalexin Monohydrate (Keflex) 250 mg Q12HR PO; Start 07/27/16 at 09:00 Clonidine (Catapres) 0.1 mg UNSCH PRN PO; Start 07/26/16 at 15:30 Darbepoetin Nabil (Aranesp Inj) 200 mcg Q14D SQ; Start 07/26/16 at 17:06; Status Cancel Darbepoetin Nabil (Aranesp Inj) 200 mcg Q14D SQ Last administered on 07/26/16 18 :00; Admin Dose 200 MCG; Start 07/26/16 at 18:00 Darbepoetin Nabil 200 mcg 200 mcg Q14D SQ; Start 07/26/16 at 15:30; Stop at 17:06; Status DC Diphenhydramine HCl (Benadryl) 25 mg UNSCH PRN PO; Start 07/26/16 at 15:30 Gelatin (Gelfoam 12 Mm/7 Mm Top) 1 foam UNSCH PRN TOP; Start 07/26/16 at 15:30 Gentamicin Sulfate (Gentamicin (Dialysis) Inj) 20 mg UNSCH PRN IV; Start at 15:30 Heparin Sodium (Porcine) (Heparin Inj) UNSCH PRN .XX; Start 07/26/16 at 15:30 Heparin Sodium (Porcine) 8000 units 8,000 units UNSCH PRN IVF; Start 07/26/16 at 15:30 Mannitol (Mannitol Inj) 12.5 gm UNSCH PRN IV; Start 07/26/16 at 15:30 Miscellaneous Information 1 Q3D T-DERMAL; Start 07/28/16 at 20:00 Nitroglycerin (Nitrostat Sl) 0.4 mg UNSCH PRN SL; Start 07/26/16 at 15:30 Ondansetron HCl (Zofran Inj) 4 mg UNSCH PRN IV; Start 07/26/16 at 15:30 Sodium Chloride 1,000 ml @ 200 mls/hr Q5H PRN IV; Start 07/26/16 at 15:30 Sodium Chloride (NS 1000 ml Inj) 1,000 ml @ 0 mls/hr Q0M PRN IV; Start at 15:30 Sodium Chloride (NS 1000 ml Inj) 1,000 ml @ 0 mls/hr Q0M PRN IV; Start at 15:30 Sodium Chloride (NS Flush) 5 ml UNSCH PRN IV FLUSH; Start 07/26/16 at 15:30 Physical Exam General General Appearance: Well Developed, Well Nourished, Comfortable, Anxious, Painful, Obese Eyes Eye Exam: Pupils Equal, Pupils Reactive Ears & Nose Ears & Nose Exam: Nasal Mucosa [place] Throat Throat Exam: Oral Mucosa [place] & Moist Neck Neck Exam: Neck Supple, Trachea Midline Pulmonary Resp Exam: Clear Bilaterally, No Distress Cardiology CV Exam: Regular, Good Perfusion Gastrointestinal/Abdomen GI Exam: Soft, Non-Tender, Bowel Sounds Present, Non-Distended Integumentary Skin Exam: Warm, Dry Extremeties Extremities Exam: Pedal Pulses Palpable, Trace Edema Neurologic Neuro Exam: Alert, Awake, Oriented, Speech Clear, No Focal Deficits Psychiatric Psych Exam: Appropriate Responses VTE Prophylaxis VTE Prophylaxis Meds: Heparin PUD Prophylasis PUD Prophylaxis: Protonix Assessment/Plan Problem List: (1) Right arm pain (2) Hypocalcemia (3) ESRD (end stage renal disease) on dialysis (4) Hypertension (5) Dialysis patient (6) DM (diabetes mellitus) (7) Anemia (8) Hx of parathyroidectomy Assessment/Plan Status post parathyroidectomy Nephrology consultation in place for hemodialysis management in hypocalcemia, plan for temporary access in am for dialysis. Rt. arm pain, severe tenderness and pain with movement, No DVT seen labs reviewed, still has hypocalemia with medical management. Per renal Appreciate vascular input, per Dr. Aguirre's input -no vascular compromise to right arm, believes the pain is consistent with inadvertent puncture injury to the median nerve during hemodialysis access. Transition to PO meds, non relieved. Initially with intractable nausea, now resolved Blood glucose stable, continue with sliding scale and Accu-Cheks Anemia, hemoglobin 7.1, secondary to chronic kidney disease Follow H&H, awaiting for dialysis tomorrow. Heparin for DVT prophylaxis Protonix for GI prophylaxis Pt. not ready for dc. pain management and dialysis for am. Discussed with patient Discussed with family Discussed with Dr. Wall Problem Qualifiers (1) Hypertension: Qualified Code: I10 - Essential hypertension (2) DM (diabetes mellitus): (3) Anemia: Aiynaa Saavedra Jul 27, 2016 15:05 Problem Qualifiers (1) Hypertension: Qualified Code: I10 - Essential hypertension (2) DM (diabetes mellitus): (3) Anemia: Aiyana Saavedra Jul 27, 2016 15:05
[2016-07-27] MEDS: CEPHALEXIN MONOHYDRATE 250 MG CAP PO SCH ×2 (15:36→21:37)
--- NOTE | 2016-07-27 17:18 | HHI.NPPN ---
Subjective General Problems: Anemia, Edema, Heart Disease, Hypertension Renal Failure: End Stage Renal Disease History of Present Illness 71-year-old female known to me from before with past medical history of hypertension, history of diabetes mellitus, rheumatoid arthritis, hyperparathyroidism with post parathyroidectomy, history of hypothyroidism with partial thyroid removal came to the hospital with complaint of right arm pain and swelling. I was called to see the patient because for management of hemodialysis. She has been on hemodialysis Tuesday, Tuesday and Tuesday. Additional Remarks Patient is alert, still has pain in Rt. arm, more on movement. Review of Systems General Constitutional: Fatigue Cardiovascular Cardiac: Edema, FUNK Objective Data Data 07/26/16 07/27/16 19:00 07:00 Intake Total 360 ml 240 ml Output Total 200 ml Balance 160 ml 240 ml Intake Oral 360 ml 240 ml Output Urine Total 200 ml # Voids 0 # Bowel Movements 0 0 Vital Signs Date Time Temp Pulse Resp B/P Pulse Ox O2 Delivery O2 Flow Rate FiO2 07/27/16 16:00 97.7 81 17 161/70 95 07/27/16 12:00 97.9 82 17 134/63 93 07/27/16 08:37 93 21 07/27/16 08:00 97.7 80 18 127/62 93 07/27/16 00:00 98.7 79 18 117/56 95 07/26/16 21:52 98 21 -: 07/27/16 0602 07/27/16 0602 Physical Exam General Appearance: Well Developed, Well Nourished, Comfortable, Anxious, Painful, Obese Eyes Eye Exam: Pupils Equal, Pupils Reactive Ears & Nose Ears & Nose Exam: Nasal Mucosa [place] Throat Throat Exam: Oral Mucosa [place] & Moist Neck Neck Exam: Neck Supple, Trachea Midline Pulmonary Resp Exam: Clear Bilaterally, No Distress Cardiology CV Exam: Regular, Normal Sinus Rhythm Gastrointestinal/Abdomen GI Exam: Soft, Non-Tender, Bowel Sounds Present, Non-Distended Integumentary Skin Exam: Warm, Dry Extremeties Extremities Exam: Trace Edema (Rt. arm is edmeatous, AVF with good Bruit, has good radial pulse.) Neurologic Neuro Exam: Alert, Awake, Oriented, Speech Clear, No Focal Deficits Psychiatric Psych Exam: Appropriate Responses PUD Prophylasis PUD Prophylaxis: Protonix Assessment/Plan Assessment Summary: Anemia of CKD, Hypertension, End Stage Renal Disease Electrolyte Assessment: Hypocalcemia Problem List: (1) CELLULITIS OF HAND (2) Hypocalcemia (3) Hypertension (4) Right arm pain (5) ESRD (end stage renal disease) on dialysis (6) DM (diabetes mellitus) (7) Anemia Plan Patient still has pain and swelling in Rt. arm. It is non vascular. Need to rule out nerve dysfunction. I will ask Neurology for evaluation. Also to get PermCath for HD. Not done today as she got Heparin. K was normal , and O2 sat. is normal. No urgent need for HD today. Will get HD going in AM, after the PermCath. Problem Qualifiers (1) Hypertension: Qualified Code: I10 - Essential hypertension (2) DM (diabetes mellitus): (3) Anemia: Jennie Doshi MD Jul 27, 2016 17:18
[2016-07-27] MEDS ORDERED: CALCIUM GLUCONATE INJ 1 GM in DEXTROSE 5% IN WATER 100ML INJ 100 ML IV PRN ×2 (18:15)
[2016-07-27] MEDS: PANTOPRAZOLE SODIUM 40 MG VIAL IV PUSH SCH (21:37)
[2016-07-28] VITALS (9 sets, daily range): BP systolic 144–190; BP diastolic 23–94; PULSE 78–98; RESP 16–20; TEMP 97.5–98.8; O2SAT 93–98
[2016-07-28] MEDS: LEVOTHYROXINE SODIUM 50 MCG TAB PO SCH (05:15)
[2016-07-28] MEDS: INSULIN ASPART SUPPLEMENTAL SCALE SQ SCH ×4 (05:15→21:00)
[2016-07-28] MEDS: CALCITRIOL 0.25 MCG CAP PO SCH (08:15)
[2016-07-28] MEDS: NIFEdipine 60 MG SUSTAINED RELEASE TAB PO SCH (08:15)
[2016-07-28] MEDS: CALCIUM CARBONATE 500 MG CHEWABLE TAB CHEW SCH ×4 (08:15→21:00)
[2016-07-28] MEDS: CEPHALEXIN MONOHYDRATE 250 MG CAP PO SCH ×2 (08:15→21:00)
[2016-07-28] MEDS: CALCIUM ACETATE 667 MG CAP PO SCH ×3 (08:15→17:56)
[2016-07-28] MEDS: SODIUM CHLORIDE 0.9% FLUSH 10 ML FLUSH IV FLUSH SCH ×2 (08:16→21:36)
[2016-07-28] MEDS ORDERED: GABAPENTIN 300 MG CAP PO SCH (09:30)
--- NOTE | 2016-07-28 10:03 | MB ---
cc: ROSA ELENA VIERA DATE OF CONSULTATION 07/28/2016 REASON FOR CONSULTATION This is a 71-year-old right-handed woman with a history of diabetes on dialysis, hypothyroidism. Since Tuesday when she had dialysis, she says the needle was put in the wrong way and she started to have pain and numbness in the right upper extremity, feels like it is heavy from the elbow down. She never had this before. I am asked to see her for the same. I am asked to see her for the same. She was admitted on 07/25/2016. She has never been seen by neurology here before. She came in on the with right arm pain and swelling. She had some parathyroid disease, anemia, hypocalcemia. Her daughter does not feel that the fistula site has any more changes in shape than it usually is. ALLERGIES ALLERGIC TO CONTRAST MEDIA, EPOGEN, IODINE, MORPHINE, AND VANCOMYCIN. MEDICATIONS Meds at home: 1. Cipro 2. Advil 3. TUMS 4. Synthroid 5. Nifedipine REVIEW OF SYSTEMS According to the daughter, no history of hypertension, hypercholesterolemia, HI, stenting, angioplasty, A. fib, Coumadin, hepatic or pulmonary disease, lupus, ulcer, cancer seizure, or stroke. SOCIAL HISTORY Not a smoker or a drinker. Lives with daughter. FAMILY HISTORY Negative for cancer, seizure, or stroke. PHYSICAL EXAM On exam, afebrile, blood pressure 184/79, respiratory rate 18, pulse 78. NECK: There were no carotid bruits. HEART: Regular rhythm. I did not detect a murmur. NEUROLOGIC: Pupils are equal. Visual baptiste are full. Extraocular intact without nystagmus. Face is symmetrical with normal sensation. Tongue was midline. She had normal strength in the left upper extremity occluding FDI an APB and bilateral lower extremities although the right lower extremity is a below-knee amp. Toe was equivocal on the left withdrawing. DTRs are absent throughout left upper and bilateral lower extremities. Pinprick was diminished just below the knee on the left and to about the knee on the right, but intact in the fingers and face bilaterally, intact in the chest region on the right, but from the shoulder down, she has decreased pinprick she says until I get to the hand where she says pinprick is intact in the median, ulnar and radial distribution. She has a good radial pulse on the right. She is in a lot of discomfort and cannot move the elbow very much. Also, the fingers, if you move the fingers too much, that is painful for her. She has some mild diffuse swelling of the arm from the elbow down. She can, however, wiggle her thumb and she can exert some force on the finger flexors. She can also pushed down into the bed slightly using a triceps and also seems to move her deltoid well. She says she cannot move the biceps and I cannot facilitate that as the arm is to painful which limits the exam overall. LABORATORY DATA She has some anemia. Hematocrit is only 21, platelet count normal, white count is 12,000. Basic metabolic profile shows a BUN of 89 and creatinine of 10. Corrected calcium 6.2, phosphorus 4.2, iron is low at 38, ferritin is high at 910. LFTs are normal. She had a normal S-PEP back in 2006. B12 was been generally low-normal in the past, not checked recently. Thyroid was normal back in 2006, not checked recently. CPK was normal last month. Sed rate was 75 this time last year and always has been up in the 70s. Coags normal. REBEKA has been negative. Rheumatoid factor has been negative in the past. Hepatitis screen has been normal in the past. She had an ultrasound of her right upper extremity that was negative for DVT. She had an x-ray of her hand and a chest x-ray. She had a left lower lung consolidation. This was done last month. She had an x-ray of the left hand which shows some soft tissue swelling last month. IMPRESSION She is not fit because of anatomically she is not really be numb above the elbow if she hit her nerve doing a dialysis. I would think there would not be pain all the nurse and not cause weakness per say. It does not in general fit nicely anatomically. I think the best thing we can do is try her on some Gabapentin to see if that helps her pain. I think a lot of her "weakness" is probably just pain limited. I can say 100% for sure. She certainly could not tolerate an EMG on the arm due to her dysesthesias and hypersensitivity. We will check a B12 level on her and we can check an MRI of her cervical spine and the right brachial plexus and of the right upper arm and elbow region. MD HERMANN Corbett/NED /9:11 AM /9:32 AM
[2016-07-28] MEDS ORDERED: fentaNYL CITRATE 250 MCG/5 ML AMP ONE (10:32)
[2016-07-28] MEDS ORDERED: MIDAZOLAM HCL 5 MG/5 ML VIAL ONE (10:32)
[2016-07-28] MEDS ORDERED: ceFAZolin 2 GM PREMIX 50 ML ONE (10:32)
[2016-07-28] MEDS ORDERED: LIDOCAINE 1%/EPINEPHrine 1:100,000 SOLN 20 ML VIAL ONE (10:43)
[2016-07-28] MEDS: ONDANSETRON HCL 4 MG/2 ML VIAL IV PUSH PRN ×3 (10:54→22:51)
--- NOTE | 2016-07-28 11:22 | PD.RAD ---
Post Procedure Progress Note Pre Procedure Diagnosis: (1) Renal failure (2) ESRD (end stage renal disease) on dialysis Post Procedure Diagnosis: (1) Renal failure (2) ESRD (end stage renal disease) on dialysis Procedure Date: Jul 28, 2016 Supervising Radiologist: Mick Mejia Proceduralist/Assist: Kimber Shah, RT(R)(CV), Brittany Hargrove RT(R)() Anesthesia: Local, Conscious Sedation Plan of Activity Patient to Unit: Nursing Unit Patient Condition: Fair See PACS Report for procedural detail/treatment Central Venous Access Device Procedure 1 Left Internal Jugular Hemodialysis Catheter Tunneled Placement dual lumen Mick Mejia MD Jul 28, 2016 11:22
--- NOTE | 2016-07-28 12:37 | RADRPT ---
EXAM DATE/TIME: 07/28/2016 10:56 [facility] COMPARISON: No previous studies available for comparison. INDICATIONS : Patient with Esrd. Right arm fistula painful. MEDICAL HISTORY : 1. ESRD 2. Anemia3. Hyperparathyoidism 3. HTN 4. Left eye cataract 5. PTSD 6. DM 7. RA SURGICAL HISTORY : 1. AV fistula 2. Cataract surgery 3. Right BKA 4. Cholecystectomy 5. Parathyroidectomy ENCOUNTER: Initial ACUITY: 4-6 days PAIN SCORE: 10/10 LOCATION: Right arm FLUORO TIME: 2.1 minutes IMAGE SERIES: 2 SEDATION TIME: 45 minutes ACCESS: Left internal jugular vein SEDATION: 1.) 0.5 mg midazolam (Versed) IV 2.) 25 mcg fentanyl (Sublimaze) IV Prophylactic antibiotics were administered with appropriate pre-procedure timing. Vancomycin within 2 hours of procedure, Ancef (or alternative) within 1 hour of procedure. DEVICE: 1. 15 Lao dual lumen 27 cm Sanchez II Plus catheter PROCEDURE : 1. Ultrasound-guided venipuncture. 2. PermaCath placement. 3. Conscious sedation with continuous EKG and oximetry monitoring. The risks, benefits and alternatives to the procedure were explained and verbal and written consent w as obtained. The site was prepped in sterile fashion. Full sterile technique was used, including ca p, mask, sterile gloves and gown and a large sterile sheet. Hand hygiene and 2% chlorhexidine and/or betadine/alcohol prep was utilized per protocol for cutaneous antisepsis. The skin and subcutaneous tissues were infiltrated with local anesthetic solution. With ultrasound and fluoroscopic guidance a dermatotomy was created over the prescribed vein. A micr opuncture set was used to access the targeted vein and serial dilatation was performed to accept the prescribed length catheter. A subcutaneous tunnel was created in a retrograde fashion the catheter w as pulled through the tunnel. The catheter was flushed and assembled and locked with heparin. The c atheter was sutured in place. Conscious sedation was performed with the prescribed dosages and duration as above in the presence of an independent trained radiology nurse to assist in the monitoring of the patient. EKG and oximetry remained stable throughout the procedure. The patient tolerated the procedure well and there were n o complications. The patient was sent to post anesthesia recovery in stable condition. CONCLUSION: Uncomplicated PermaCath placement as above. Mick Mejia MD on July 28, 2016 at 12:35 Board Certified Radiologist. This report was verified electronically.
--- NOTE | 2016-07-28 13:31 | HHI.PR ---
Subjective Subjective Remarks awake in dialysis rm. for hemodialysis low back pain labs reviewed no family present. afebrile Review of Systems Constitutional Constitutional: Weakness Musculoskeletal MS: Weakness, Stiffness, Swelling (mild rt. arm, shunt inflamed possible,) Neurologic Neurologic Remarks anxious Psychiatric Psychiatric: Agitation, Anxiety Vitals/Results Intake & Output 07/27/16 07/27/16 07/28/16 15:00 23:00 07:00 Intake Total 240 ml 0 ml Balance 240 ml 0 ml Intake Oral 240 ml IV Total 0 ml 0 ml # Voids 2 2 # Bowel Movements 0 0 Vital Signs Vital Signs Date Time Temp Pulse Resp B/P Pulse Ox O2 Delivery O2 Flow Rate FiO2 07/28/16 12:45 98 17 150/56 98 07/28/16 12:29 96 Nasal Cannula 2.00 07/28/16 12:15 96 18 149/52 96 07/28/16 11:45 96 20 144/23 98 07/28/16 11:30 98.3 96 20 148/55 94 07/28/16 08:00 97.5 78 18 184/79 95 07/28/16 00:00 98.8 82 20 157/70 95 07/27/16 20:00 97.7 88 20 182/77 96 07/27/16 18:21 95 Nasal Cannula 2.00 07/27/16 16:00 97.7 81 17 161/70 95 CBC/BMP: 07/27/16 0602 07/27/16 0602 Imaging Remarks Last Impressions Catheter Placement X-Ray 07/28/16 0000 Signed Impressions: Service Date/Time: Thursday, July 28, 2016 10:56 - CONCLUSION: Uncomplicated PermaCath placement as above. Mick Mejia MD Upper Extremity Ultrasound 07/25/16 1120 Signed Impressions: Service Date/Time: Monday, July 25, 2016 13:02 - CONCLUSION: No DVT. K. Trey Cool MD Current Medications Active Medications Calcium Gluconate/ Dextrose (Calcium Gluconate Inj/D5W 100 ml Inj) 110 ml @ 110 mls/hr DAILY PRN IV; Start 07/27/16 at 18:15 Cefazolin Sodium/ Dextrose (Ancef 2 Gm Premix) 50 ml @ As Directed STK-MED ONCE .ROUTE Last administered on 07/28/16t 10:32; Admin Dose 100 MLS/HR; Start at 10:32; Stop 07/28/16 at 10:33; Status DC Fentanyl Citrate (fentaNYL INJ) 250 mcg STK-MED ONCE .ROUTE Last administered on 07/28/16 10:32; Admin Dose 25 MCG; Start 07/28/16 at 10:32; Stop 07/28/16 at 10:33; Status DC Gabapentin 300 mg 300 mg DAILY PO; Start 07/28/16 at 09:30; Status UNV Heparin Sodium (Porcine) (*HEPARIN INJ Periprocedural ONLY) 10,000 units STK- MED ONCE .ROUTE Last administered on 07/28/16 10:43; Admin Dose 5,000 UNITS; Start 07/28/16 at 10:43; Stop 07/28/16 at 10:44; Status DC Lidocaine/ Epinephrine (Xylocaine-Epi 1%-1:100,000 Inj) 20 ml STK-MED ONCE .ROUTE Last administered on 07/28/16 10:43; Admin Dose 20 ML; Start 07/28/16 at 10:43; Stop 07/28/16 at 10:44; Status DC Midazolam HCl (Versed Inj) 5 mg STK-MED ONCE .ROUTE Last administered on 10:32; Admin Dose 0.5 MG; Start 07/28/16 at 10:32; Stop 07/28/16 at 10:33; Status DC Miscellaneous Information 1 1 Q3D T-DERMAL; Start 07/28/16 at 20:00 Physical Exam General General Appearance: Well Developed, Well Nourished, Comfortable, Anxious, Painful, Obese Eyes Eye Exam: Pupils Equal, Pupils Reactive Ears & Nose Ears & Nose Exam: Nasal Mucosa [place] Throat Throat Exam: Oral Mucosa [place] & Moist Neck Neck Exam: Neck Supple, Trachea Midline Pulmonary Resp Exam: Clear Bilaterally, No Distress Cardiology CV Exam: Regular, Normal Sinus Rhythm Gastrointestinal/Abdomen GI Exam: Soft, Non-Tender, Bowel Sounds Present, Non-Distended Integumentary Skin Exam: Warm, Dry Extremeties Extremities Exam: Trace Edema (Rt. arm is edmeatous, AVF with good Bruit, has good radial pulse.) Neurologic Neuro Exam: Alert, Awake, Oriented, Speech Clear, No Focal Deficits Psychiatric Psych Exam: Appropriate Responses VTE Prophylaxis VTE Prophylaxis Meds: Heparin PUD Prophylasis PUD Prophylaxis: Protonix Assessment/Plan Problem List: (1) Right arm pain (2) Hypocalcemia (3) ESRD (end stage renal disease) on dialysis (4) Hypertension (5) Dialysis patient (6) DM (diabetes mellitus) (7) Anemia (8) Hx of parathyroidectomy Assessment/Plan Status post parathyroidectomy Nephrology consultation in place for hemodialysis management in hypocalcemia, temporary access done this am dual lumen for dialysis today. Appreciate vascular input, per Dr. Aguirre's input -no vascular compromise to right arm, believes the pain is consistent with inadvertent puncture injury to the median nerve during hemodialysis access. Pain management back to IV meds. Acute pain management, IV pain meds prn. Blood glucose stable, continue with sliding scale and Accu-Cheks Anemia, hemoglobin 7.1, secondary to chronic kidney disease dialysis today Heparin for DVT prophylaxis Protonix for GI prophylaxis Pt. not ready for dc. pain management and dialysis today. Discussed with patient Discussed with family Discussed with Dr. Wall Problem Qualifiers (1) Hypertension: Qualified Code: I10 - Essential hypertension (2) DM (diabetes mellitus): (3) Anemia: Aiyana Saavedra Jul 28, 2016 13:31
--- NOTE | 2016-07-28 13:55 | RADRPT ---
EXAM DATE/TIME: 07/28/2016 13:08 [place] COMPARISON: [facility] ([facility]), January 31, 2013, 9:37. INDICATIONS : Right arm pain. MEDICAL HISTORY : Diabetes mellitus type 2. Renal failure, chronic. SURGICAL HISTORY : BKA right, AV fistula. ENCOUNTER: Subsequent ACUITY: 3 day PAIN SCORE: 6/10 LOCATION: Neck/Right arm. TECHNIQUE: Multiplanar, multisequence MRI examination of the cervical spine was performed. FINDINGS: Image quality is mildly degraded, presumably on the basis of body habitus. There is normal alignment of the vertebral bodies of the cervical spine. There is an abnormal appearance the C5-6 interspace with narrowing and possible Schmorl's node invagination into C5. No evidence of spondylolisthesis. There is some loss of CSF about the cervical cord from C3-C6. The visualized posterior fossa structu res are intact.. C2-C3: There is evidence of T2 prolongation and T1 shortening in the dens without signal abnormality within the dens on the STIR images. The contour of the dens appears to be intact. There is questionable ve rtical lucency through the dens on the axial T2 images, but no sternotomy seen on the axial gradient echo images. The thecal sac is normal in configuration. No evidence of disc bulge or protrusion. T he neural foramen are patent. C3-C4: The thecal sac has a normal configuration. There is no evidence of disc herniation or spinal canal s tenosis. The neural foramina are patent bilaterally. C4-C5: Minor central bulging of the dose which causes indentation on the thecal sac. No cord compression. There is mild right-sided bony neural foraminal stenosis. C5-C6: Broad-based bulging of the disc causes indentation on the thecal sac but no evidence of cord compress ion. There is mild bony neural foraminal narrowing on the right side. C6-C7: The thecal sac has a normal configuration. There is no evidence of disc herniation or spinal canal s tenosis. The neural foramina are patent bilaterally. C7-T1: The thecal sac has a normal configuration. There is no evidence of disc herniation or spinal canal s tenosis. The neural foramina are patent bilaterally. CONCLUSION: 1. There is signal abnormality in the dens without alteration of contour and without signal abnormali ty in the STIR images. This of uncertain significance. Recommend performing thin section CT specifi [place] to evaluate the integrity of the dens.. 2. Narrowing of the C5-6 interspace and possible Schmorl's node with broad-based bulging of the C4-5 and C5-6 discs causing narrowing of the bony spinal canal, but no definite cord compression. Recomme nd further assessment of the osseous structures at the C5-[address] 3. Multilevel bony neural foraminal stenosis, more severe on the right left. William Toro MD on July 28, 2016 at 13:46 Board Certified Radiologist. This report was verified electronically.
[2016-07-28] MEDS: GENTAMICIN SULFATE (DIALYSIS USE ONLY) 20 MG/2 ML VIAL IV PRN (17:18)
[2016-07-28] MEDS: HEPARIN SODIUM - IV 10,000 UNITS/10 ML VIAL PRN (17:19)
[2016-07-28] MEDS: HYDROmorphone HCL PF 1 MG/ML VIAL IV PRN (17:48)
--- NOTE | 2016-07-28 19:58 | HHI.NPPN ---
Subjective General Problems: Anemia, Edema, Heart Disease, Hypertension Renal Failure: End Stage Renal Disease History of Present Illness 71-year-old female known to me from before with past medical history of hypertension, history of diabetes mellitus, rheumatoid arthritis, hyperparathyroidism with post parathyroidectomy, history of hypothyroidism with partial thyroid removal came to the hospital with complaint of right arm pain and swelling. I was called to see the patient because for management of hemodialysis. She has been on hemodialysis Tuesday, Tuesday and Tuesday. Additional Remarks Patient is alert, still has pain in Rt. arm, with restricted movement. Review of Systems General Constitutional: Fatigue Cardiovascular Cardiac: Edema, FUNK Objective Data Data 07/27/16 07/28/16 19:00 07:00 Intake Total 240 ml Balance 240 ml Intake Oral 240 ml IV Total 0 ml # Voids 4 # Bowel Movements 0 Vital Signs Date Time Temp Pulse Resp B/P Pulse Ox O2 Delivery O2 Flow Rate FiO2 07/28/16 18:03 93 Nasal Cannula 2.00 07/28/16 12:45 98 17 150/56 98 07/28/16 12:29 96 Nasal Cannula 2.00 07/28/16 12:15 96 18 149/52 96 07/28/16 11:45 96 20 144/23 98 07/28/16 11:30 98.3 96 20 148/55 94 07/28/16 08:00 97.5 78 18 184/79 95 07/28/16 00:00 98.8 82 20 157/70 95 07/27/16 20:00 97.7 88 20 182/77 96 -: 07/27/16 0602 07/27/16 0602 Physical Exam General Appearance: Well Developed, Well Nourished, Comfortable, Anxious, Painful, Obese Eyes Eye Exam: Pupils Equal, Pupils Reactive Ears & Nose Ears & Nose Exam: Nasal Mucosa [place] Throat Throat Exam: Oral Mucosa [place] & Moist Neck Neck Exam: Neck Supple, Trachea Midline Pulmonary Resp Exam: Clear Bilaterally, No Distress Cardiology CV Exam: Regular, Normal Sinus Rhythm Gastrointestinal/Abdomen GI Exam: Soft, Non-Tender, Bowel Sounds Present, Non-Distended Integumentary Skin Exam: Warm, Dry Extremeties Extremities Exam: Trace Edema (Rt. arm is edmeatous, AVF with good Bruit, has good radial pulse.) Neurologic Neuro Exam: Alert, Awake, Oriented, Speech Clear, No Focal Deficits Psychiatric Psych Exam: Appropriate Responses PUD Prophylasis PUD Prophylaxis: Protonix Assessment/Plan Assessment Summary: Anemia of CKD, Hypertension, End Stage Renal Disease Electrolyte Assessment: Hypocalcemia Problem List: (1) CELLULITIS OF HAND (2) Hypocalcemia (3) Hypertension (4) Right arm pain (5) ESRD (end stage renal disease) on dialysis (6) DM (diabetes mellitus) (7) Anemia Plan Patient still has pain and swelling in Rt. arm. It is non vascular. Neurology consult noted. MRI of C-spine seen. Will wait for further neurology rec. HD done today after getting PermCath. D/W the son at bed side. Problem Qualifiers (1) Hypertension: Qualified Code: I10 - Essential hypertension (2) DM (diabetes mellitus): (3) Anemia: Jennie Doshi MD Jul 28, 2016 19:58
[2016-07-28] MEDS ORDERED: REMOVE OLD PATCH T-DERMAL SCH (20:00)
[2016-07-28] MEDS: SCOPOLAMINE 1.5 MG PATCH T-DERMAL SCH (21:34)
[2016-07-28] MEDS: PANTOPRAZOLE SODIUM 40 MG VIAL IV PUSH SCH (21:36)
[2016-07-28] MEDS: cloNIDine HCL 0.1 MG TAB PO PRN (22:51)
[2016-07-29] VITALS (9 sets, daily range): BP systolic 111–202; BP diastolic 60–82; PULSE 73–84; RESP 17–20; TEMP 96.4–99.9; O2SAT 93–98
[2016-07-29] MEDS: INSULIN ASPART SUPPLEMENTAL SCALE SQ SCH ×4 (05:03→21:09)
[2016-07-29] MEDS: LEVOTHYROXINE SODIUM 50 MCG TAB PO SCH (05:03)
[2016-07-29 05:33] LABS: HEMATOCRIT 24.5 % (35.0-46.0); MEAN CELL VOLUME 87.6 FL (80.0-100.0); MEAN CORPUSCULAR HEMOGLOBIN 29.2 PG (27.0-34.0); MEAN CORPUSCULAR HGB CONC 33.3 % (32.0-36.0); PLATELET COUNT 248 TH/MM3 (150-450); RED CELL DISTRIBUTION WIDTH 14.5 % (11.6-17.2); REVIEW FLAG FINAL; WHITE BLOOD COUNT 9.9 TH/MM3 (4.0-11.0)
[2016-07-29] MEDS: cloNIDine HCL 0.1 MG TAB PO PRN ×2 (05:38→18:26)
[2016-07-29 05:59] LABS: BICARBONATE 26.7 MEQ/L (21.0-32.0); POTASSIUM 4.6 MEQ/L (3.5-5.1)
[2016-07-29 06:00] LABS: TOTAL BILIRUBIN ADULT 0.3 MG/DL (0.2-1.0)
[2016-07-29 06:09] LABS: CALCIUM-PROTEIN CORRECTED 6.4 MG/DL (8.5-10.1)
--- NOTE | 2016-07-29 07:43 | HHI.PR ---
Subjective Remarks pain much better Objective Vital Signs Date Time Temp Pulse Resp B/P Pulse Ox O2 Delivery O2 Flow Rate FiO2 07/29/16 04:00 98.8 73 20 185/72 93 07/29/16 00:00 99.9 84 18 192/76 93 07/28/16 20:00 98.8 81 16 190/94 95 07/28/16 18:03 93 Nasal Cannula 2.00 07/28/16 12:45 98 17 150/56 98 07/28/16 12:29 96 Nasal Cannula 2.00 07/28/16 12:15 96 18 149/52 96 07/28/16 11:45 96 20 144/23 98 07/28/16 11:30 98.3 96 20 148/55 94 07/28/16 08:00 97.5 78 18 184/79 95 I/O 07/28/16 07/28/16 07/28/16 07/29/16 07/29/16 07/29/16 07:00 15:00 23:00 07:00 15:00 23:00 Intake Total 0 ml 0 ml 2400 ml 240 ml Output Total 0 ml 4800 ml Balance 0 ml 0 ml -2400 ml 240 ml Intake Oral 0 ml 2400 ml 240 ml IV Total 0 ml 0 ml 0 ml Output Urine Total 0 ml Hemodialysis 4800 ml # Voids 2 2 2 # Bowel Movements 0 0 0 0 Result Diagram: 07/29/16 0517 07/29/16 0510 Other Results mri c spine ok esr>140 Objective Remarks much less pain but still some moving bicep now and making half fist finger flexor strength appears nl Assessment and Plan Assessment and Plan imp much better on neurontin as pain wanes can dc it esr> 140 defer to med team if indicates infxt vs esrd Marcello Gómez MD Jul 29, 2016 07:43
[2016-07-29] MEDS: NIFEdipine 60 MG SUSTAINED RELEASE TAB PO SCH (10:02)
[2016-07-29] MEDS: SODIUM CHLORIDE 0.9% FLUSH 10 ML FLUSH IV FLUSH SCH ×2 (10:02→21:00)
[2016-07-29] MEDS: CALCIUM CARBONATE 500 MG CHEWABLE TAB CHEW SCH ×4 (10:02→20:56)
[2016-07-29] MEDS: CEPHALEXIN MONOHYDRATE 250 MG CAP PO SCH ×2 (10:02→20:56)
[2016-07-29] MEDS: CALCIUM ACETATE 667 MG CAP PO SCH ×3 (10:03→17:29)
[2016-07-29] MEDS: CALCITRIOL 0.25 MCG CAP PO SCH (10:03)
--- NOTE | 2016-07-29 15:40 | HHI.PR ---
Subjective Subjective Remarks Right antecubital area less painful, able to flex and extend arm, able to make fist. Intact sensation Right radial pulses intact No fever No chest pain No shortness of breath Blood pressure elevated, was given clonidine Review of Systems Constitutional Constitutional: Weakness Constitutional Remarks 12 point review of systems completed, negative except as noted above Musculoskeletal MS: Weakness, Stiffness, Swelling (mild rt. arm, shunt inflamed possible,) Psychiatric Psychiatric: Agitation, Anxiety Vitals/Results Intake & Output 07/28/16 07/28/16 07/29/16 15:00 23:00 07:00 Intake Total 0 ml 2400 ml 240 ml Output Total 0 ml 4800 ml Balance 0 ml -2400 ml 240 ml Intake Oral 0 ml 2400 ml 240 ml IV Total 0 ml 0 ml Output Urine Total 0 ml Hemodialysis 4800 ml # Voids 2 2 # Bowel Movements 0 0 0 Vital Signs Vital Signs Date Time Temp Pulse Resp B/P Pulse Ox O2 Delivery O2 Flow Rate FiO2 07/29/16 12:32 95 21 07/29/16 12:00 98.8 79 17 168/72 95 07/29/16 09:06 82 18 170/60 07/29/16 08:00 98.2 78 17 202/82 96 07/29/16 04:00 98.8 73 20 185/72 93 07/29/16 00:00 99.9 84 18 192/76 93 07/28/16 20:00 98.8 81 16 190/94 95 07/28/16 18:03 93 Nasal Cannula 2.00 CBC/BMP: 07/29/16 0517 07/29/16 0510 Lab Results Laboratory Tests Test 07/29/16 07/29/16 05:10 05:17 Sodium Level 136 MEQ/L Potassium Level 4.6 MEQ/L Chloride Level 98 MEQ/L Carbon Dioxide Level 26.7 MEQ/L Anion Gap 11 MEQ/L Blood Urea Nitrogen 55 MG/DL Creatinine 7.68 MG/DL Estimat Glomerular Filtration 5 ML/MIN Rate Random Glucose 123 MG/DL Calcium Level 6.8 MG/DL Protein Corrected Calcium 6.4 MG/DL Total Bilirubin 0.3 MG/DL Aspartate Amino Transf 11 U/L (AST/SGOT) Alanine Aminotransferase 10 U/L (ALT/SGPT) Alkaline Phosphatase 128 U/L Total Protein 8.1 GM/DL Albumin 3.2 GM/DL Vitamin B12 Level 482 PG/ML White Blood Count 9.9 TH/MM3 Red Blood Count 2.80 MIL/MM3 Hemoglobin 8.2 GM/DL Hematocrit 24.5 % Mean Corpuscular Volume 87.6 FL Mean Corpuscular Hemoglobin 29.2 PG Mean Corpuscular Hemoglobin 33.3 % Concent Red Cell Distribution Width 14.5 % Platelet Count 248 TH/MM3 Mean Platelet Volume 7.2 FL Erythrocyte Sedimentation Rate GREATER THAN 140 mm/hr Physical Exam General General Appearance: Well Developed, Well Nourished, Comfortable, Obese Eyes Eye Exam: Pupils Equal, Pupils Reactive Ears & Nose Ears & Nose Exam: Nasal Mucosa [place] Throat Throat Exam: Oral Mucosa [place] & Moist Neck Neck Exam: Neck Supple, Trachea Midline Pulmonary Resp Exam: Clear Bilaterally, No Distress Cardiology CV Exam: Regular, Normal Sinus Rhythm Gastrointestinal/Abdomen GI Exam: Soft, Non-Tender, Bowel Sounds Present, Non-Distended Musculoskeletal MS Remarks Right BKA Integumentary Skin Exam: Warm, Dry Extremeties Extremeties Remarks Left pedal pulses 1+ Right upper extremity with AV fistula, positive bruit and thrill Right arm is tender, able to flex and extend, able to make a fist There is some bruising over AV fistula, radial pulse 2+ Intact sensation to the right hand fingertips Neurologic Neuro Exam: Alert, Awake, Oriented, Speech Clear, No Focal Deficits Psychiatric Psych Exam: Appropriate Responses VTE Prophylaxis VTE Prophylaxis Meds: Heparin PUD Prophylasis PUD Prophylaxis: Protonix Assessment/Plan Problem List: (1) Right arm pain (2) Hypocalcemia (3) ESRD (end stage renal disease) on dialysis (4) Hypertension (5) Dialysis patient (6) DM (diabetes mellitus) (7) Anemia (8) Hx of parathyroidectomy Assessment/Plan Status post parathyroidectomy Nephrology input appreciated Continue with calcium supplement-Calcitriol and Tums chews slight improvement, remains hypocalcemic follow calcium daily Continue with dialysis per renal management Patient refusing to have dialysis done through AV fistula due to pain Status post permacath placement, 07/28/2016 Continue with hemodialysis per schedule Right arm pain better Ultrasound right arm negative for DVT Appreciate vascular input, per Dr. Aguirre's input -no vascular compromise to right arm, believes the pain is consistent with inadvertent puncture injury to the median nerve during hemodialysis access. This should resolve spontaneously, recommends to continue with supportive therapy with pain management. Evaluated per Dr. Claudio. Cervical spine MRI, no significant findings, no cord compression Right arm pain markedly improved Has been started on gabapentin 300 mg daily, dosing has not been cleared by nephrology Initially with intractable nausea, now resolved Continue with antiemetics when necessary Continue with PPI Blood glucose stable, continue with sliding scale and Accu-Cheks Anemia, stable, hemoglobin 8, secondary to chronic kidney disease Follow H&H No active bleeding Blood pressure at times elevated, continue with home medication as well as when necessary clonidine Heparin for DVT prophylaxis Protonix for GI prophylaxis Overall patient improved, pain is lessened considerably, able to move right arm better, intact sensation and pulses Will discharge tomorrow Discussed with patient Discussed with nurse Discussed with Dr. Wall This patient was seen by myself and Dr. Wall, this note is written on his behalf Problem Qualifiers (1) Hypertension: Qualified Code: I10 - Essential hypertension (2) DM (diabetes mellitus): (3) Anemia: Priscilla Forte Jul 29, 2016 15:40
--- NOTE | 2016-07-29 18:36 | HHI.NPPN ---
Subjective General Problems: Anemia, Edema, Heart Disease, Hypertension Renal Failure: End Stage Renal Disease History of Present Illness 71-year-old female known to me from before with past medical history of hypertension, history of diabetes mellitus, rheumatoid arthritis, hyperparathyroidism with post parathyroidectomy, history of hypothyroidism with partial thyroid removal came to the hospital with complaint of right arm pain and swelling. I was called to see the patient because for management of hemodialysis. She has been on hemodialysis Tuesday, Tuesday and Tuesday. Additional Remarks Patient is alert, Rt. arm pain is much better, no SOB. Review of Systems General Constitutional: Fatigue Cardiovascular Cardiac: Edema, FUNK Objective Data Data 07/28/16 07/29/16 19:00 07:00 Intake Total 0 ml 2640 ml Output Total 4800 ml Balance -4800 ml 2640 ml Intake Oral 0 ml 2640 ml IV Total 0 ml Output Urine Total 0 ml Hemodialysis 4800 ml # Voids 4 # Bowel Movements 0 0 Vital Signs Date Time Temp Pulse Resp B/P Pulse Ox O2 Delivery O2 Flow Rate FiO2 07/29/16 16:00 96.4 77 17 165/80 97 07/29/16 12:32 95 21 07/29/16 12:00 98.8 79 17 168/72 95 07/29/16 09:06 82 18 170/60 07/29/16 08:00 98.2 78 17 202/82 96 07/29/16 04:00 98.8 73 20 185/72 93 07/29/16 00:00 99.9 84 18 192/76 93 07/28/16 20:00 98.8 81 16 190/94 95 -: 07/29/16 0517 07/29/16 0510 Physical Exam General Appearance: Well Developed, Well Nourished, Comfortable, Obese Eyes Eye Exam: Pupils Equal, Pupils Reactive Ears & Nose Ears & Nose Exam: Nasal Mucosa [place] Throat Throat Exam: Oral Mucosa [place] & Moist Neck Neck Exam: Neck Supple, Trachea Midline Pulmonary Resp Exam: Clear Bilaterally, No Distress Cardiology CV Exam: Regular, Normal Sinus Rhythm Gastrointestinal/Abdomen GI Exam: Soft, Non-Tender, Bowel Sounds Present, Non-Distended Integumentary Skin Exam: Warm, Dry Neurologic Neuro Exam: Alert, Awake, Oriented, Speech Clear, No Focal Deficits Psychiatric Psych Exam: Appropriate Responses PUD Prophylasis PUD Prophylaxis: Protonix Assessment/Plan Assessment Summary: Anemia of CKD, Hypertension, End Stage Renal Disease Electrolyte Assessment: Hypocalcemia Problem List: (1) CELLULITIS OF HAND (2) Hypocalcemia (3) Hypertension (4) Right arm pain (5) ESRD (end stage renal disease) on dialysis (6) DM (diabetes mellitus) (7) Anemia Plan Patient has significant improvement in Rt. arm pain. BP is elevated, will increase Nifedipine. HD is due in AM. Will use PermCath for 2 weeks , and then get AVF mapping before using again. Problem Qualifiers (1) Hypertension: Qualified Code: I10 - Essential hypertension (2) DM (diabetes mellitus): (3) Anemia: Jennie Doshi MD Jul 29, 2016 18:36
[2016-07-29] MEDS: PANTOPRAZOLE SODIUM 40 MG VIAL IV PUSH SCH (20:56)
[2016-07-30] MEDS: LEVOTHYROXINE SODIUM 50 MCG TAB PO SCH (05:17)
[2016-07-30] MEDS: INSULIN ASPART SUPPLEMENTAL SCALE SQ SCH ×2 (06:13→11:00)
--- NOTE | 2016-07-30 07:49 | HHI.PR ---
Subjective Remarks pain essentiall gone Objective Vital Signs Date Time Temp Pulse Resp B/P Pulse Ox O2 Delivery O2 Flow Rate FiO2 07/29/16 23:44 97.3 75 18 141/65 96 07/29/16 20:00 98.9 74 18 111/64 98 07/29/16 16:00 96.4 77 17 165/80 97 07/29/16 12:32 95 21 07/29/16 12:00 98.8 79 17 168/72 95 07/29/16 09:06 82 18 170/60 07/29/16 08:00 98.2 78 17 202/82 96 I/O 07/29/16 07/29/16 07/29/16 07/30/16 07/30/16 07/30/16 07:00 15:00 23:00 07:00 15:00 23:00 Intake Total 240 ml 338 ml 480 ml 240 ml Balance 240 ml 338 ml 480 ml 240 ml Intake Oral 240 ml 240 ml 480 ml 240 ml IV Total 0 ml 98 ml # Voids 2 1 1 1 # Bowel Movements 0 0 0 0 Result Diagram: 07/29/16 0517 07/29/16 0510 Objective Remarks minimal pain moving bicep near nl strength now and makingfist finger flexor strength appears nl tricep ok picks up well Assessment and Plan Assessment and Plan imp much better and i will dc neurontin and if pain returns med team can always restart it will signoff esr> 140 defer to med team if indicates infxt vs esrd Marcello Gómez MD Jul 30, 2016 07:49
[2016-07-30 08:00] VITALS: BP 155/69; PULSE 70; RESP 18; TEMP 97.5; O2SAT 99
[2016-07-30 08:50] VITALS: O2SAT 99
[2016-07-30] MEDS: CEPHALEXIN MONOHYDRATE 250 MG CAP PO SCH (09:00)
[2016-07-30] MEDS: SODIUM CHLORIDE 0.9% FLUSH 10 ML FLUSH IV FLUSH SCH (09:00)
[2016-07-30] MEDS: CALCITRIOL 0.25 MCG CAP PO SCH (09:00)
[2016-07-30] MEDS: CALCIUM CARBONATE 500 MG CHEWABLE TAB CHEW SCH ×2 (09:00→13:00)
[2016-07-30] MEDS: CALCIUM ACETATE 667 MG CAP PO SCH ×2 (09:00→13:00)
[2016-07-30] MEDS ORDERED: NIFEdipine 90 MG SUSTAINED RELEASE TAB PO SCH (09:00)
[2016-07-30] MEDS: HEPARIN SODIUM - IV 10,000 UNITS/10 ML VIAL PRN (12:31)
[2016-07-30] MEDS: GENTAMICIN SULFATE (DIALYSIS USE ONLY) 20 MG/2 ML VIAL IV PRN (12:32)
[2016-07-30] MEDS ORDERED: NIFE90TA2 PO (13:55)
[2016-07-30] MEDS ORDERED: CALC.25 PO (13:55)
[2016-07-30] MEDS ORDERED: CALC500C16 CHEW (13:55)
--- NOTE | 2016-07-30 13:56 | HHI.DCPOC ---
Discharge Care Plan Diagnosis: (1) Hypertension (2) Right arm pain (3) Hx of parathyroidectomy Your Health Problems Are: Anxiety Difficulty with ADL Inflammation Swelling Goals to Promote Your Health * To prevent worsening of your condition and complications * To maintain your health at the optimal level Directions to Meet Your Goals Take your medications as prescribed Follow your dietary instruction Follow activity as directed Keep your appointments as scheduled Take your immunizations and boosters as scheduled If your symptoms worsen call your PCP, if no PCP go to Urgent Care Center or Emergency Room Smoking is Dangerous to Your Health. Avoid second hand smoke Call the 24-hour hour crisis hotline for domestic abuse at Priscilla Forte. [facility] Jul 30, 2016 13:56
[2016-07-30] MEDS ORDERED: CEPH250C PO (13:58)
[2016-07-30] MEDS ORDERED: CALC667C PO (14:01)
--- NOTE | 2016-07-30 14:05 | HHI.PR ---
Subjective Subjective Remarks able to more right arm, pain markedly improved no fever no cp no sob daughter at [facility] anxious to go home Review of Systems Constitutional Constitutional: Weakness Constitutional Remarks 12 point review of systems completed, negative except as noted above Musculoskeletal MS: Weakness, Stiffness, Swelling (mild rt. arm, shunt inflamed possible,) Psychiatric Psychiatric: Agitation, Anxiety Vitals/Results Intake & Output 07/29/16 07/29/16 07/30/16 15:00 23:00 07:00 Intake Total 338 ml 480 ml 240 ml Balance 338 ml 480 ml 240 ml Intake Oral 240 ml 480 ml 240 ml IV Total 98 ml # Voids 1 1 1 # Bowel Movements 0 0 0 Vital Signs Vital Signs Date Time Temp Pulse Resp B/P Pulse Ox O2 Delivery O2 Flow Rate FiO2 07/30/16 08:50 99 07/30/16 08:00 97.5 70 18 155/69 99 07/29/16 23:44 97.3 75 18 141/65 96 07/29/16 20:00 98.9 74 18 111/64 98 07/29/16 16:00 96.4 77 17 165/80 97 CBC/BMP: 07/29/16 0517 07/29/16 0510 Physical Exam General General Appearance: Well Developed, Well Nourished, Comfortable, Obese Eyes Eye Exam: Pupils Equal, Pupils Reactive Ears & Nose Ears & Nose Exam: Nasal Mucosa [place] Throat Throat Exam: Oral Mucosa [place] & Moist Neck Neck Exam: Neck Supple, Trachea Midline Pulmonary Resp Exam: Clear Bilaterally, No Distress Cardiology CV Exam: Regular, Normal Sinus Rhythm Gastrointestinal/Abdomen GI Exam: Soft, Non-Tender, Bowel Sounds Present, Non-Distended Musculoskeletal MS Remarks Right BKA Integumentary Skin Exam: Warm, Dry Extremeties Extremeties Remarks Left pedal pulses 1+ Right upper extremity with AV fistula, positive bruit and thrill Right arm is tender, able to flex and extend, able to make a fist There is some bruising over AV fistula, radial pulse 2+ Intact sensation to the right hand fingertips Neurologic Neuro Exam: Alert, Awake, Oriented, Speech Clear, No Focal Deficits Psychiatric Psych Exam: Appropriate Responses VTE Prophylaxis VTE Prophylaxis Meds: Heparin PUD Prophylasis PUD Prophylaxis: Protonix Assessment/Plan Problem List: (1) Right arm pain (2) Hypocalcemia (3) ESRD (end stage renal disease) on dialysis (4) Hypertension (5) Dialysis patient (6) DM (diabetes mellitus) (7) Anemia (8) Hx of parathyroidectomy Assessment/Plan Status post parathyroidectomy Nephrology input appreciated Continue with calcium supplement-Calcitriol and Tums chews slight improvement, remains hypocalcemic Continue with dialysis per renal management Patient refusing to have dialysis done through AV fistula due to pain Status post permacath placement, 07/28/2016 Continue with hemodialysis per schedule Right arm pain better Ultrasound right arm negative for DVT Appreciate vascular input, per Dr. Aguirre's input -no vascular compromise to right arm, believes the pain is consistent with inadvertent puncture injury to the median nerve during hemodialysis access. This should resolve spontaneously, recommends to continue with supportive therapy with pain management. Evaluated per Dr. Claudio. Cervical spine MRI, no significant findings, no cord compression Right arm pain markedly improved ok to DC gabapentin per neuro right arm culture, anaerobic gram neg. taylor, stated on Keflex per renal per nephrology, will use permacath x 2 weeks, and then will do AVF mapping before using. N/V resolved Continue with antiemetics when necessary and PPI Blood glucose stable, continue with sliding scale and Accu-Cheks Anemia, stable, hemoglobin 8, secondary to chronic kidney disease Follow H&H No active bleeding Blood pressure at times elevated, continue with home medication as well as when necessary clonidine Meds adjusted per nephrology Refused PT eval, ambulating in room. Lives with family Heparin for DVT prophylaxis Protonix for GI prophylaxis Plan to discharge home today keep permacath covered F/U Dr. Doshi next week Diet-renal Activity as tolerated. Discussed with patient Discussed with nurse Discussed with Dr. Wall This patient was seen by myself and Dr. Wall, this note is written on his behalf Discharge Minutes: 45 Problem Qualifiers (1) Hypertension: Qualified Code: I10 - Essential hypertension (2) DM (diabetes mellitus): (3) Anemia: Priscilla Forte Jul 30, 2016 14:05
--- NOTE | 2016-07-30 14:08 | HHI.DS ---
Discharge Summary Admission Date Jul 25, 2016 at 14:55 Discharge Date: Jul 30, 2016 Admitting Diagnosis hypocalcemia, right upper extremity pain (1) Right arm pain (2) Hypocalcemia (3) Hypertension (4) ESRD (end stage renal disease) on dialysis (5) CELLULITIS OF HAND (6) DM (diabetes mellitus) (7) Renal failure (8) Dialysis patient (9) Anemia (10) Hx of parathyroidectomy CBC/BMP: 07/29/16 0517 07/29/16 0510 Significant Findings Laboratory Tests Test 07/29/16 07/29/16 05:10 05:17 Blood Urea Nitrogen 55 MG/DL (7-18) Creatinine 7.68 MG/DL (0.50-1.00) Estimat Glomerular Filtration 5 ML/MIN (>89) Rate Random Glucose 123 MG/DL (74-106) Calcium Level 6.8 MG/DL (8.5-10.1) Protein Corrected Calcium 6.4 MG/DL (8.5-10.1) Aspartate Amino Transf 11 U/L (15-37) (AST/SGOT) Alkaline Phosphatase 128 U/L (45-117) Albumin 3.2 GM/DL (3.4-5.0) Red Blood Count 2.80 MIL/MM3 (4.00-5.30) Hemoglobin 8.2 GM/DL (11.6-15.3) Hematocrit 24.5 % (35.0-46.0) Erythrocyte Sedimentation Rate GREATER THAN 140 mm/hr (0-30) Hospital Course This 71-year-old female with a history of end-stage renal disease on hemodialysis who presented to the emergency department at [facility] with 2 days of right upper extremity pain. An ultrasound was done in the emergency department and was negative for DVT . She was alert and verbal but in significant distress secondary to the nausea and severe pain in her right upper extremity. She received 3 different doses of intravenous Dilaudid 1 mg at bedtime earlier today. The patient had a recent parathyroidectomy. She was found to have a low calcium level with a corrected calcium of 5.9. She received 2 g intravenous calcium gluconate.No reported tetany. No reported spasm. No fever chills or diaphoresis. Request was made to admit. Pt. admitted for the following: (1) Right arm pain (2) Hypocalcemia (3) ESRD (end stage renal disease) on dialysis (4) Hypertension (5) Dialysis patient (6) DM (diabetes mellitus) (7) Anemia (8) Hx of parathyroidectomy During the course of the hospitalization, the following took place: Patient admitted, she was put on appropriate pain management. Nephrology was consulted for hemodialysis management and Status post parathyroidectomy with hypocalcemia calcium supplement adjusted her nephrology.-Calcitriol and Tums chews slight improvement, remained hypocalcemic, no tetany Continue with dialysis per renal management Patient refused to have dialysis done through AV fistula due to pain Patient went to IR for permacath placement Status post permacath placement, 07/28/2016 Continued with hemodialysis per schedule Right arm pain, consultations put in place for neurology and vascular surgery Ultrasound right arm negative for DVT Appreciate vascular input, per Dr. Aguirre's input -no vascular compromise to right arm, believed the pain was consistent with inadvertent puncture injury to the median nerve during hemodialysis access. This should resolve spontaneously, recommended to continue with supportive therapy with pain management. Evaluated per Dr. Claudio. Recommended further workup. Had Cervical spine MRI, no significant findings, no cord compression Right arm pain markedly improved Initially neurology had recommended gabapentin, he was not started because of dosing and renal dysfunction. ok to DC gabapentin per neuro Had culture right arm. Right arm culture, anaerobic gram neg. taylor, stated on Keflex per renal per nephrology, will use permacath x 2 weeks, and then will do AVF mapping before using. N/V resolved Continued with antiemetics when necessary and PPI Blood glucose stable, continue with sliding scale and Accu-Cheks Anemia, stable, hemoglobin 8, secondary to chronic kidney disease Follow H&H No active bleeding Blood pressure at times elevated, continued with home medication as well as when necessary clonidine Meds adjusted per nephrology Refused PT eval, ambulating in room. Lives with family Heparin for DVT prophylaxis Protonix for GI prophylaxis Patient stable, right arm pain improved. No fever, WBC stable. Patient stable for discharge Patient discharge home in stable condition Instructed to: keep permacath site covered F/U Dr. Doshi next week Diet-renal Activity as tolerated. Pt Condition on Discharge: Stable Discharge Disposition: Discharge Home Discharge Instructions DIET: Follow Instructions for: Renal Failure Diet Speech Therapy-Diet Recommends: Regular Activities you can perform: Weight Bearing as Shala Other Activity Instructions: no weight bearing to right arm Follow up Referrals: Nephrology PCP Follow-up New Medications: Calcitriol (Rocaltrol) 0.25 Mcg Cap 1 MCG PO DAILY low calcium #30 Ref 1 CAP Calcium Acetate (Phosphate Bin (Calcium Acetate) 667 Mg Cap 1334 MG PO TID Calcium Supplement #90 Ref 1 CAP Calcium Carbonate (Antacid) (Calcium Carbonate (Antacid)) 500 Mg Chew 1000 MG CHEW QID low calcium #120 Ref 1 EA Cephalexin (Cephalexin) 250 Mg Cap 250 MG PO Q12HR Infection #14 Ref 0 CAP Nifedipine (Nifedipine ER) 90 Mg Tab 90 MG PO DAILY Blood Pressure Management #30 Ref 1 TAB Continued Medications: Levothyroxine (Synthroid) 50 Mcg Tab 50 MCG PO DAILY Thyroid #30 Ref 0 TAB Discontinued Medications: Calcium Carbonate (Antacid) (Tums) 500 Mg Chew 1000 MG CHEW TID PRN HEARTBURN Ref 0 TAB Ciprofloxacin (Cipro) Unknown Strength Tab 1 TAB PO BID Infection Ref 0 TAB Ibuprofen (Advil) 200 Mg Tab 200-400 MG PO Q4H PRN Ref 0 TAB Nifedipine ER 24 HR (Nifedipine ER 24 HR) 60 Mg Tab 60 MG PO DAILY #30 Ref 0 TAB Priscilla Forte Jul 30, 2016 14:08 Priscilla Forte Jul 30, 2016 14:08
[2016-07-31 10:28] LABS: TOTAL PROTEIN SPE 7.2 GM/DL (6.0-7.6)
[2016-08-02 13:18] LABS: ALBUMIN SPE 3.27 GM/DL (3.50-5.00); ALPHA 1 GLOBULIN 0.3 GM/DL (0.11-0.29); ALPHA 2 GLOBULIN 0.96 GM/DL (0.22-1.00); BETA GLOBULINS (SPE) 0.76 GM/DL (0.53-1.03)
== END 2016-07-30 16:07 | disposition home or self-care (01) | DRG 73 ==
LOC: NEPE 11:00 → NEDA 14:54 → OBSVTOIN 14:55 → UNDOADMOB 14:55 → INTOOBSV 14:55 → NEDA 14:55 → N07B 17:23 → NEDA 17:23 → N07B 17:23 → UNDODISIN 07-30 16:07
PROVIDERS: ADMIT Specialist; ATTEND Specialist
PROC: 05HN33Z Insertion of Infusion Device into Left Internal Jugular Vein, Percutaneous Approach (ICD-10-PCS; principal; 2016-07-28)
PROC: 5A1D00Z (ICD-10-PCS; 2016-07-28)
DX: S54.11XA Injury of median nerve at forearm level, right arm, initial encounter (principal); N18.6 End stage renal disease; E11.22 Type 2 diabetes mellitus with diabetic chronic kidney disease; I12.0 Hypertensive chronic kidney disease with stage 5 chronic kidney disease or end stage renal disease; E83.51 Hypocalcemia; D63.1 Anemia in chronic kidney disease; M06.9 Rheumatoid arthritis, unspecified; Z99.2 Dependence on renal dialysis; E66.9 Obesity, unspecified; M19.041 Primary osteoarthritis, right hand; M19.042 Primary osteoarthritis, left hand; E89.0 Postprocedural hypothyroidism; R11.2 Nausea with vomiting, unspecified; Z68.31 Body mass index [BMI] 31.0-31.9, adult; Z89.511 Acquired absence of right leg below knee; Y65.8 Other specified misadventures during surgical and medical care; Y73.1 Therapeutic (nonsurgical) and rehabilitative gastroenterology and urology devices associated with adverse incidents
CPT/HCPCS: 36558; 72141; 76937; 77001; 80048; 80053; 82607; 82728; 82948; 83540; 83550; 83605; 84100; 84155; 84165; 84425; 85025; 85027; 85610; 85652; 85730; 86403; 87040; 87070; 87185; 90935; 93971; 96365; 96374; 96375; 99152; 99153; C1750; C1769; C9113; G0257; J0610; J0690; J0881; J1170; J1580; J1644; J1815; J2060; J2250; J2405; J3010

== ENCOUNTER 2016-08-02 09:28 | Emergency (ER) | payer MEDICARE, OTHER ==
[~2016-08-02] VITALS: Ht 165.1 cm; Wt 86.0 kg
[~2016-08-02 09:28] MED LIST changes: +CALC.25 PO; +CALC500C16 CHEW; +CALC667C PO; +CEPH250C PO; -HYDR2TAB PO; -NIFE60TA58 PO; +NIFE90TA2 PO; -TUMS500C CHEW
[2016-08-02 09:31] VITALS: BP 233/102; PULSE 83; RESP 18; TEMP 98.2; O2SAT 98
== END 2016-08-02 11:47 | disposition left against medical advice (07) ==
LOC: NED 09:28
DX: M79.662 Pain in left lower leg (principal); Z95.828 Presence of other vascular implants and grafts
CPT/HCPCS: 99281

== ENCOUNTER 2016-08-02 17:51 | Inpatient (IN) | payer MEDICARE, OTHER ==
[~2016-08-02] VITALS: Ht 165.1 cm; Wt 93.1 kg
[2016-08-02 17:55] VITALS: BP 102/48; PULSE 88; RESP 28; TEMP 99.4; O2SAT 97
--- NOTE | 2016-08-02 18:04 | PD ---
Physical Exam Time Seen by Provider: 18:03 Narrative 71yo F c/o left arm and left vas cath pain since Tuesday. Denies fever, vomiting. Patient stable. Patient seen in triage. Awaiting bed placement. Data Data Last Documented VS Vital Signs Date Time Temp Pulse Resp B/P Pulse Ox O2 Delivery O2 Flow Rate FiO2 08/02/16 17:55 99.4 88 28 102/48 97 MDM Supervised Visit with TIRSO: Pat Marte Aug 02, 2016 18:04
[2016-08-02] MEDS ORDERED: SODIUM CHLORIDE 0.9% FLUSH 10 ML FLUSH IV FLUSH PRN ×2 (18:30→21:45)
[2016-08-02 18:34] VITALS: BP 153/87; PULSE 82; RESP 18; O2SAT 95
--- NOTE | 2016-08-02 18:40 | PD ---
HPI Chief Complaint: Pain: Acute or Chronic Time Seen by Provider: 18:26 Travel History International Travel<30 days: No Contact w/Intl Traveler<30days: No Traveled to known affect area: No History of Present Illness HPI Patient is a 71-year-old female with history of chronic hypocalcemia, ESRD on HD here with complaint of left upper extremity pain. Daughter used as ED deaf interpreter for this encounter per patient request. Patient seen by myself and admitted recently with a right upper extremity pain around her AV fistula site. She had duplex ultrasound that was negative. It was felt that she may have had a median nerve injury when been accessed during hemodialysis. Because they wanted to rest her right upper extremity and AV fistula she had a tunneled hemodialysis catheter placed in the left subclavian. Patient last dialyzed on Tuesday. She presents today with complaint of now left upper extremity pain, swelling very similar to her right upper extremity. She has an old AV fistula in the left upper extremity but this has not been accessed for 2+ years. Patient has been compliant with her calcium supplementation since home. She also states that ever since her time on catheter was placed she has been having pain. PFSH Past Medical History Arthritis: Yes Asthma: No Autoimmune Disease: No Blood Disorders: No Anxiety: No Depression: No Heart Rhythm Problems: No Cancer: No Cardiovascular Problems: Yes High Cholesterol: No Chest Pain: Yes Congestive Heart Failure: No Cerebrovascular Accident: No Diabetes: Yes Dialysis: Yes (M-W-F) Diminished Hearing: No Endocrine: Yes Gastrointestinal Disorders: No GERD: No Glaucoma: No Genitourinary: Yes Headaches: No Hepatitis: No Immune Disorder: Yes (RA) Implanted Vascular Access Dvce: Yes Kidney Stones: No Musculoskeletal: Yes (rheumatoid arthritis hands) Neurologic: No Psychiatric: No Reproductive: No Immunizations Current: Yes Migraines: No Myocardial Infarction: No Radiation Therapy: No Renal Failure: Yes Seizures: No Sickle Cell Disease: No Thyroid Disease: Yes Ulcer: No ?: Not Menopausal: Yes : 14 Para: 3 Miscarriage: 11 Past Surgical History Abdominal Surgery: Yes (HERNIA WITH MESH) AICD: No Appendectomy: No Arteriovenous Shunt: Yes Body Medical Devices: FISTULAS IN BOTH ARMS Cardiac Surgery: No Section: Yes Cholecystectomy: Yes Ear Surgery: No Endocrine Surgery: No Eye Surgery: Yes (L eye cataract and poss glaucoma? ) Genitourinary Surgery: No Gynecologic Surgery: No Insulin Pump: No Joint Replacement: No Neurologic Surgery: No Oral Surgery: Yes (for dentures, tonsillectomy) Pacemaker: No Thoracic Surgery: No Tonsillectomy: Yes Other Surgery: Yes (RIGHT BKA, CHOLEY, HERNIA, 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, GLUCOMA SURG) Social History Alcohol Use: No Tobacco Use: No Substance Use: No Allergies-Medications (Allergen,Severity, Reaction): Coded Allergies: Contrast Media (Verified Allergy, Severe, CAN'T BREATHE, 08/02/16) Epogen (Verified Allergy, Severe, Headache, 08/02/16) Iodine (Verified Allergy, Severe, Hives, 08/02/16) PATIENT NEEDS TO BE PREMEDICATED Morphine (Verified Allergy, Severe, RESPIRATORY DISTRESS, 08/02/16) Vancomycin (Verified Allergy, Severe, 08/02/16) Uncoded Allergies: plastic tape (Allergy, Severe, 01/21/15) blisters Reported Meds & Prescriptions Reported Meds & Active Scripts Active Calcium Acetate (Calcium Acetate (Phosphate Bin) 667 Mg Cap 1,334 Mg PO TID Cephalexin 250 Mg Cap 250 Mg PO Q12HR Nifedipine ER (Nifedipine) 90 Mg Tab 90 Mg PO DAILY Calcium Carbonate (Antacid) 500 Mg Chew 1,000 Mg CHEW QID Rocaltrol (Calcitriol) 0.25 Mcg Cap 1 Mcg PO DAILY Reported Synthroid (Levothyroxine Sodium) 50 Mcg Tab 50 Mcg PO DAILY Review of Systems Except as stated in HPI: all other systems reviewed are Neg Physical Exam Narrative GENERAL: Elderly Female in no acute distress SKIN: Focused skin assessment warm/dry. HEAD: Normocephalic. EYES: No scleral icterus. No injection or drainage. ENT: Mucous membranes pink and moist. NECK: Supple CARDIOVASCULAR: Regular rate and rhythm. No murmur appreciated. RESPIRATORY: No accessory muscle use. Clear to auscultation. Breath sounds equal bilaterally. GASTROINTESTINAL: Abdomen soft, non-tender, nondistended. MUSCULOSKELETAL: Bilateral upper extremity with AV fistulas a palpable thrill. Child catheter in the left subclavian. Left upper extremity with diffuse swelling compared to right, multiple small old ecchymoses. Distal sensation, pulses intact. Patient has exquisite pain with any range of motion of the left upper extremity, even with light touch. NEUROLOGICAL: Awake and alert. Normal speech. PSYCHIATRIC: Appropriate mood and affect; insight and judgment normal. Data Data Last Documented VS Vital Signs Date Time Temp Pulse Resp B/P Pulse Ox O2 Delivery O2 Flow Rate FiO2 08/02/16 18:34 82 18 153/87 95 Room Air 08/02/16 17:55 99.4 Orders Basic Metabolic Panel (Bmp) (08/02/16 18:26) Complete Blood Count With Diff (08/02/16 18:26) Iv Access Insert/Monitor (08/02/16 18:26) Ecg Monitoring (08/02/16 18:26) Oximetry (08/02/16 18:26) Sodium Chloride 0.9% Flush (Ns Flush) (08/02/16 18:30) Chest, Single Ap (08/02/16 ) Electrocardiogram (08/02/16 18:27) MDM Medical Decision Making Medical Screen Exam Complete: Yes Emergency Medical Condition: Yes Medical Record Reviewed: Yes Differential Diagnosis 71-year-old female with history of parathyroidectomy, chronic hypocalcemia, ESRD on HD here with left upper extremity pain, swelling, and pain around her tunneled catheter in the left chest wall. Differential includes DVT, venous congestion from indwelling catheter, pneumothorax, electrolyte abnormality. There is no evidence of infectious signs around the tunneled catheter. Narrative Course Patient placed on monitor, given 1 mg IM Dilaudid. IV established, blood obtained. X-ray of the chest, ultrasound the left upper extremity, CBC, BMP obtained and are pending at the time of dictation. Patient signed out to oncoming provider waiting results of same. Reina Neves MD Aug 02, 2016 18:40
[2016-08-02] MEDS ORDERED: HYDROmorphone HCL PF 1 MG/ML VIAL IM ONE (18:45)
--- NOTE | 2016-08-02 19:10 | RADRPT ---
EXAM DATE/TIME: 08/02/2016 18:47 [facility] COMPARISON: CHEST SINGLE AP, June 19, 2016, 0:13. INDICATIONS : Chest pain. MEDICAL HISTORY : Diabetes mellitus type II. Renal failure, chronic. SURGICAL HISTORY : Av fistula. Below knee amputation, right. ENCOUNTER: Subsequent ACUITY: 1 day PAIN SCORE: 4/10 LOCATION: Left upper chest FINDINGS: Dialysis catheter from a left subclavian approach with tip overlying expected location of the right a trium. Cardiomegaly. Clear lungs. CONCLUSION: No acute disease. David Dahl MD on August 02, 2016 at 19:08 Board Certified Radiologist. This report was verified electronically.
[2016-08-02 20:05] VITALS: BP 127/56; PULSE 78; RESP 16; O2SAT 97
--- NOTE | 2016-08-02 20:18 | PD ---
Physical Exam Date Seen by Provider: Aug 02, 2016 Time Seen by Provider: 20:17 Narrative 71-year-old female came to the emergency room with history of left-sided upper extremity pain. Patient recently had a vas catheter inserted on the left side for hemodialysis. She was seen by the previous ER physician. Please refer to her history and physical for additional information. The sign out was to follow -up on her labs and ultrasound of her upper extremity. As per the previous ER physician she thought patient would require to be admitted. Still waiting for the blood test and the ultrasound to be done and resulted. Data Data Last Documented VS Vital Signs Date Time Temp Pulse Resp B/P Pulse Ox O2 Delivery O2 Flow Rate FiO2 08/02/16 20:05 78 16 127/56 97 Nasal Cannula 2 08/02/16 17:55 99.4 Orders Basic Metabolic Panel (Bmp) (08/02/16 18:26) Complete Blood Count With Diff (08/02/16 18:26) Iv Access Insert/Monitor (08/02/16 18:26) Ecg Monitoring (08/02/16 18:26) Oximetry (08/02/16 18:26) Sodium Chloride 0.9% Flush (Ns Flush) (08/02/16 18:30) Chest, Single Ap (08/02/16 ) Electrocardiogram (08/02/16 18:27) Hydromorphone Pf Inj (Dilaudid Pf Inj) (08/02/16 18:45) Us Arm Venous Doppler (08/02/16 ) Ondansetron Inj (Zofran Inj) (08/02/16 20:30) Protein Corrected Calcium(Pcc) (08/02/16 19:55) Calcium Gluconate Inj (Calcium Gluconate (08/02/16 21:15) Insulin Human Regular Inj (Novolin R Inj (08/02/16 21:15) Dextrose 50% In [place] (Vial) Inj (D50w (Vi (08/02/16 21:15) Sodium Bicarbonate 8.4% Inj (Sodium Bica (08/02/16 21:15) Albuterol Concentrated Neb (Albuterol Co (08/02/16 21:15) Sodium Polysty Sulfate Liq (Kayexalate L (08/02/16 21:15) Blood Culture (08/02/16 21:03) Lactic Acid (08/02/16 21:03) Piperacil-Tazo 4.5 Gm Premix (Zosyn 4.5 (08/02/16 21:15) Linezolid 600 Mg Premix (Zyvox 600 Mg Pr (08/02/16 21:15) Sodium Bicarbonate 8.4% Inj (Sodium Bica (08/02/16 21:34) Admit Order (Ed Use Only) (08/02/16 21:37) Labs Laboratory Tests Test 08/02/16 19:55 White Blood Count 15.9 TH/MM3 Red Blood Count 2.56 MIL/MM3 Hemoglobin 7.4 GM/DL Hematocrit 22.7 % Mean Corpuscular Volume 88.8 FL Mean Corpuscular Hemoglobin 29.1 PG Mean Corpuscular Hemoglobin 32.8 % Concent Red Cell Distribution Width 15.0 % Platelet Count 276 TH/MM3 Mean Platelet Volume 7.3 FL Neutrophils (%) (Auto) 81.9 % Lymphocytes (%) (Auto) 7.5 % Monocytes (%) (Auto) 5.3 % Eosinophils (%) (Auto) 4.7 % Basophils (%) (Auto) 0.6 % Neutrophils # (Auto) 13.0 TH/MM3 Lymphocytes # (Auto) 1.2 TH/MM3 Monocytes # (Auto) 0.8 TH/MM3 Eosinophils # (Auto) 0.7 TH/MM3 Basophils # (Auto) 0.1 TH/MM3 CBC Comment DIFF FINAL Differential Comment Sodium Level 133 MEQ/L Potassium Level 6.5 MEQ/L Chloride Level 96 MEQ/L Carbon Dioxide Level 26.3 MEQ/L Anion Gap 11 MEQ/L Blood Urea Nitrogen 95 MG/DL Creatinine 11.29 MG/DL Estimat Glomerular Filtration 3 ML/MIN Rate Random Glucose 183 MG/DL Calcium Level 6.5 MG/DL Protein Corrected Calcium 6.3 MG/DL Total Protein 7.7 GM/DL MDM Supervised Visit with T[facility]SO: No Interpretation(s) Twelve-lead EKG was reviewed by me. Normal sinus rhythm, right axis deviation, right bundle branch block. Heart rate of 78 bpm. Narrative Course 9:25 PM blood test results is back and grossly abnormal. Patient has hyperkalemia and hypocalcemia. I have ordered correction as well as replacement to take care of both. Patient currently is getting her upper extremity ultrasound done. I was told by the prosthetics lab technician that so far they have found blood clot in the cephalic vein which is a superficial vein of the upper extremity. I am waiting for the official report once the studies completed. Patient will need to be dialyzed as urgently as possible. She had her last dialysis on Tuesday and was due for her dialysis today but could not be done due to her upper extremity pain. She seems uncomfortable still. I'll order something more for her pain. The pain is probably related to the superficial thrombophlebitis at this point. I have added antibiotic for wide spectrum coverage given the leukocytosis. Awaiting for the hospitalist to call back for admission. I will also put a call out for the boxing trainer Dr. Doshi. 9:34 PM I discussed the case with Dr. Doshi and he agreed with urgent dialysis. He is putting some orders in for that. I discussed the case with Sumeet Story from [facility] hospitalist group. Patient will be admitted. Critical Care Narrative Aggregate critical care time was 45 minutes. Time to perform other separately billable procedures was not included in the critical care time. My time did not include minutes spent treating any other patients simultaneously or on activities that did not directly contribute to the patient's treatment. The services I provided to this patient were to treat and/or prevent clinically significant deterioration that could result in: Hyperkalemia, hypocalcemia, leukocytosis I provided critical care services requiring my management, as noted below: Chart data review, documentation time, medication orders and management, vital sign assessments/reviewing monitor data, ordering and reviewing lab tests, ordering and interpreting/reviewing x-rays and diagnostic studies, care of the patient and discussion of the patient with the admitting physicians. Physician Communication Physician Communication Dr. Doshi Diagnosis Primary Impression: Superficial thrombophlebitis Qualified Code: I80.8 - Superficial thrombophlebitis of left upper extremity Additional Impressions: Hyperkalemia Hypocalcemia Upper extremity pain, diffuse Qualified Code: M79.602 - Upper extremity pain, diffuse, left Leukocytosis Qualified Code: D72.829 - Leukocytosis, unspecified type Anemia Qualified Code: D64.9 - Anemia, unspecified type Admitting Information Admitting Physician Requests: Admit Claire Fernández MD Aug 02, 2016 20:18 Claire Fernández MD Aug 02, 2016 20:18
[2016-08-02 20:29] LABS: BASOPHIL # 0.1 TH/MM3 (0-0.2); BASOPHIL % 0.6 % (0.0-2.0); EOSINOPHIL # 0.7 TH/MM3 (0-0.4); EOSINOPHIL % 4.7 % (0.0-4.0); HEMATOCRIT 22.7 % (35.0-46.0); HEMO FLAGS DIFF FINAL; LYMPH % 7.5 % (9.0-44.0); LYMPHOCYTE # 1.2 TH/MM3 (1.0-4.8); MEAN CELL VOLUME 88.8 FL (80.0-100.0); MEAN CORPUSCULAR HEMOGLOBIN 29.1 PG (27.0-34.0); MEAN CORPUSCULAR HGB CONC 32.8 % (32.0-36.0); MONO % 5.3 % (0.0-8.0); NEUT % 81.9 % (16.0-70.0); PLATELET COUNT 276 TH/MM3 (150-450); RED BLOOD COUNT 2.56 MIL/MM3 (4.00-5.30); WHITE BLOOD COUNT 15.9 TH/MM3 (4.0-11.0)
[2016-08-02] MEDS ORDERED: ONDANSETRON HCL 4 MG/2 ML VIAL IV PUSH ONE (20:30)
[2016-08-02 20:38] LABS: BICARBONATE 26.3 MEQ/L (21.0-32.0); POTASSIUM 6.5 MEQ/L (3.5-5.1)
[2016-08-02 21:07] LABS: CALCIUM-PROTEIN CORRECTED 6.3 MG/DL (8.5-10.1)
[2016-08-02] MEDS ORDERED: SODIUM BICARBONATE 8.4% SOLN 50 MEQ/50 ML VIAL SLOW IVP ONE (21:15)
[2016-08-02] MEDS ORDERED: RESP: ALBUTEROL CONC 2.5 MG/0.5 ML NEB INH ONE (21:15)
[2016-08-02] MEDS ORDERED: CALCIUM GLUCONATE 10% 1 GM/10 ML VIAL SLOW IVP ONE (21:15)
[2016-08-02] MEDS ORDERED: PIPERACIL-TAZO 4.5 GM PREMIX 100 ML IV ONE (21:15)
[2016-08-02] MEDS ORDERED: INSULIN HUMAN REGULAR 1,000 UNITS/10 ML VIAL IV PUSH ONE (21:15)
[2016-08-02] MEDS ORDERED: SODIUM POLYSTYRENE SULFONATE SUSP 15 GM/60 ML CUP PO ONE (21:15)
[2016-08-02] MEDS ORDERED: DEXTROSE 50% IN WATER 50 ML VIAL(D50) IV PUSH ONE (21:15)
[2016-08-02] MEDS ORDERED: LINEZOLID 600 MG PREMIX 300 ML IV ONE (21:15)
[2016-08-02] MEDS ORDERED: SODIUM BICARBONATE 8.4% INJ 50 MEQ/50 ML SYR ONE (21:34)
[2016-08-02] MEDS ORDERED: SODIUM CHLOR 0.9% 1000 ML INJ 1,000 ML IV PRN ×3 (21:43)
[2016-08-02] MEDS ORDERED: diphenhydrAMINE HCL 25 MG CAP PO PRN (21:45)
[2016-08-02] MEDS ORDERED: HEPARIN SODIUM - IV 10,000 UNITS/10 ML VIAL IVF PRN (21:45)
[2016-08-02] MEDS ORDERED: NITROGLYCERIN 0.4 MG SL 25 TABS/BTL SL PRN (21:45)
[2016-08-02] MEDS ORDERED: ACETAMINOPHEN 325 MG TAB PO PRN (21:45)
[2016-08-02] MEDS ORDERED: GELATIN 12 MM/7 MM FOAM TOP PRN (21:45)
[2016-08-02] MEDS ORDERED: MANNITOL 12.5 GM/50 ML VIAL IV PRN (21:45)
--- NOTE | 2016-08-02 21:57 | RADRPT ---
EXAM DATE/TIME: 08/02/2016 20:50 [facility] COMPARISON: US ARM LEFT VENOUS DOPPLER, January 23, 2014, 14:42. INDICATIONS : Left arm pain. MEDICAL HISTORY : Hypothyroidism. Hypertension. Hernia, hiatal. Renal failure. Rheumatoid arthritis. Diabetes. Dialysis . . SURGICAL HISTORY : Tonsillectomy. Cholecystectomy. section. AV fistula. Left cataract removal. Right below the knee amputation. ENCOUNTER: Subsequent ACUITY: 1 day PAIN SCORE: 8/10 LOCATION: Left arm. FINDINGS: There is spontaneous flow documented in the brachial, basilic, axillary, and subclavian veins. The v essels are compressible and augmentation response is documented. No filling defects are seen. The f low is phasic with respiration. Direction of flow in the jugular vein is caudal. There is occlusive thrombus in the cephalic vein. The patient has a nonfunctional fistula which is incompletely imaged on this study. CONCLUSION: Cephalic vein thrombosis. David Dahl MD on August 02, 2016 at 21:54 Board Certified Radiologist. This report was verified electronically.
[2016-08-02 22:05] VITALS: BP 134/56; PULSE 87; RESP 18; O2SAT 96
[2016-08-02] MEDS ORDERED: RESP: ALBUTEROL 2.5 MG/3 ML NEB (SCH) INH (22:30)
[2016-08-02] MEDS ORDERED: RESP: ALBUTEROL 2.5 MG/3 ML NEB (SCH) INH ONE (22:30)
[2016-08-03] VITALS (8 sets, daily range): BP systolic 129–164; BP diastolic 56–69; PULSE 83–93; RESP 16–22; TEMP 98–99.5; O2SAT 94–100
[2016-08-03] MEDS ORDERED: ACETAMINOPHEN 325 MG TAB PO PRN
[2016-08-03] MEDS ORDERED: BISACODYL 10 MG SUPP RECTAL PRN
[2016-08-03] MEDS ORDERED: SENNOSIDES 8.6 MG TAB PO PRN
[2016-08-03] MEDS ORDERED: NALOXONE HCL 0.4 MG/ML AMP IV PRN
[2016-08-03] MEDS ORDERED: Custom Consult Pharmacy 1 EA OTHER SCH
[2016-08-03] MEDS ORDERED: LINEZOLID 600 MG PREMIX 300 ML IV SCH
[2016-08-03] MEDS ORDERED: HYDROmorphone HCL PF 1 MG/ML VIAL IV PRN ×2 (00:15)
[2016-08-03] MEDS: HEPARIN SODIUM - IV 10,000 UNITS/10 ML VIAL PRN (00:15)
[2016-08-03] MEDS: GENTAMICIN SULFATE (DIALYSIS USE ONLY) 20 MG/2 ML VIAL IV PRN (00:16)
[2016-08-03 03:29] LABS: AUTOMATED NEUTROPHIL # 12.8 TH/MM3 (1.8-7.7); BASOPHIL # 0.1 TH/MM3 (0-0.2); BASOPHIL % 0.5 % (0.0-2.0); EOSINOPHIL % 0.2 % (0.0-4.0); HEMATOCRIT 21.8 % (35.0-46.0); HEMO FLAGS DIFF FINAL; LYMPH % 3.4 % (9.0-44.0); LYMPHOCYTE # 0.5 TH/MM3 (1.0-4.8); MEAN CELL VOLUME 89.5 FL (80.0-100.0); MEAN CORPUSCULAR HGB CONC 32.4 % (32.0-36.0); MONO % 5.9 % (0.0-8.0); PLATELET COUNT 222 TH/MM3 (150-450); RED BLOOD COUNT 2.43 MIL/MM3 (4.00-5.30); RED CELL DISTRIBUTION WIDTH 14.4 % (11.6-17.2); WHITE BLOOD COUNT 14.2 TH/MM3 (4.0-11.0)
[2016-08-03] MEDS: ONDANSETRON HCL 4 MG/2 ML VIAL IV PRN ×3 (03:47→18:32)
[2016-08-03 04:01] LABS: BICARBONATE 29.1 MEQ/L (21.0-32.0); POTASSIUM 3.7 MEQ/L (3.5-5.1)
[2016-08-03 04:15] LABS: CALCIUM-PROTEIN CORRECTED 7.3 MG/DL (8.5-10.1)
[2016-08-03] MEDS: SODIUM CHLORIDE 0.9% FLUSH 10 ML FLUSH IV FLUSH SCH ×2 (08:29→21:00)
[2016-08-03] MEDS: CALCIUM CARBONATE 1.25 GM (CA 500 MG) TAB PO SCH ×2 (08:29→21:00)
[2016-08-03] MEDS: HEPARIN SODIUM - SQ 10,000 UNITS/ML VIAL SQ SCH ×2 (08:29→21:00)
--- NOTE | 2016-08-03 08:50 | EKG ---
Date Performed: 08/02/2016 Time Performed: 20:13:51 PTAGE: 71 years EKG: Sinus rhythm RIGHT BUNDLE BRANCH BLOCK LEFT ANTERIOR FASCICULAR BLOCK ABNORMAL ECG PREVIOUS TRACING : 06/18/2016 23.32 No significant change from previous tracing noted. DOCTOR: Ernesto Cowan Interpretating Date/Time 08/03/2016 08:49:37
--- NOTE | 2016-08-03 10:41 | HHI.PR ---
Objective Objective Results - Vital Signs Date Time Temp Pulse Resp B/P Pulse Ox O2 Delivery O2 Flow Rate FiO2 08/03/16 08:20 96 Nasal Cannula 3.00 08/03/16 08:06 99.5 93 20 164/69 98 08/03/16 06:35 94 Nasal Cannula 3.00 08/03/16 04:37 16 08/03/16 04:06 83 08/03/16 04:00 99.5 93 20 129/56 96 08/03/16 02:05 88 22 134/58 99 Nasal Cannula 3 08/02/16 22:05 87 18 134/56 96 Nasal Cannula 3 08/02/16 20:05 78 16 127/56 97 Nasal Cannula 2 08/02/16 19:15 16 08/02/16 18:34 82 18 153/87 95 Room Air 08/02/16 18:34 83 18 08/02/16 17:55 99.4 88 28 102/48 97 I/O 08/02/16 08/02/16 08/02/16 08/03/16 08/03/16 08/03/16 07:00 15:00 23:00 07:00 15:00 23:00 Intake Total 120 ml Output Total 2000 ml Balance -1880 ml Intake Oral 120 ml Output Hemodialysis 2000 ml Result Diagram: 08/03/16 0302 08/03/16 0302 Other Results Laboratory Tests Test 08/02/16 08/02/16 08/03/16 19:55 22:00 03:02 White Blood Count 15.9 14.2 Red Blood Count 2.56 2.43 Hemoglobin 7.4 7.1 Hematocrit 22.7 21.8 Mean Corpuscular Volume 88.8 89.5 Mean Corpuscular Hemoglobin 29.1 29.0 Mean Corpuscular Hemoglobin 32.8 32.4 Concent Red Cell Distribution Width 15.0 14.4 Platelet Count 276 222 Mean Platelet Volume 7.3 7.2 Neutrophils (%) (Auto) 81.9 90.0 Lymphocytes (%) (Auto) 7.5 3.4 Monocytes (%) (Auto) 5.3 5.9 Eosinophils (%) (Auto) 4.7 0.2 Basophils (%) (Auto) 0.6 0.5 Neutrophils # (Auto) 13.0 12.8 Lymphocytes # (Auto) 1.2 0.5 Monocytes # (Auto) 0.8 0.8 Eosinophils # (Auto) 0.7 0.0 Basophils # (Auto) 0.1 0.1 CBC Comment DIFF FINAL DIFF FINAL Differential Comment Sodium Level 133 136 Potassium Level 6.5 3.7 Chloride Level 96 98 Carbon Dioxide Level 26.3 29.1 Anion Gap 11 9 Blood Urea Nitrogen 95 40 Creatinine 11.29 5.80 Estimat Glomerular Filtration 3 7 Rate Random Glucose 183 218 Calcium Level 6.5 7.3 Protein Corrected Calcium 6.3 7.3 Total Protein 7.7 7.3 Lactic Acid Level 0.9 Date/Time Procedure Status Source Growth 08/02/16 22:00 Aerobic Blood Culture Received Blood Peripheral Pending 08/02/16 22:00 Anaerobic Blood Culture Received Blood Peripheral Pending Physical Exam Physical Exam pt is seen & examined d/w PT , language barrier L arm superficial thrombophlebitis/ possible cellulitis Vanco allergy Hx L arm Permacath , prev left arm fistula prev R arm AVF recent Neuropathy R arm ESRD on HD Anemia of ch disease , [allergic to Epogen] HTN obesity d/w Aiyana d/w Dr gómez see orders see H&P will f/u Romina Quintana MD Aug 03, 2016 10:41
[2016-08-03] MEDS: LINEZOLID 600 MG PREMIX 300 ML IV SCH (12:00)
--- NOTE | 2016-08-03 12:54 | MH ---
cc: ANDRE STARK MD DATE OF ADMISSION: 08/02/2016 CHIEF COMPLAINT Left upper extremity and left arm pain, No travel in the last 30 days. HISTORY OF PRESENT ILLNESS This is a 71 year-old female who speaks very little Lithuanian, currently there is no family in the room. Most of the information that I am obtaining is coming from the record. She can answer simple questions and is given some basic information. The patient is a chronic end-stage renal disease patient, proceed with hemodialysis. She also has issues with chronic hypocalcemia and was recently hospitalized for right upper extremity pain around her AV site, it was felt that she had some median nerve injury and therefore had a temporary catheter placed in for dialysis on 08/03/2016. According to the patient the patient as dialyzed this past Tuesday but now complains of pain in the left upper extremity, similar to the right extremity pain last admission. Please note that the left upper extremity has not been accessed for two years. The patient is moving that arm, is not complaining of any acute pain on the right side. Left upper arm is bruised 2+ edema throughout the left arm including the hand, it is very painful to touch. She is guarding that left arm and is not moving it hardly at all. The patient is noted to have a low grade fever, 99.5, in the past 24 hours. Denies any chest pain, no shortness of breath or cough. No headache. No other symptoms nonrelated to her current left arm pain. The patient states that she does pee a little, her bowels moved approximately two days ago. She does hae a current right above-knee amputation and does note some nausea but no vomiting from the pain medications. PAST MEDICAL HISTORY: 1. Arthritis. 2. Peripheral vascular disease. 3. End-stage renal disease renal failure with hemodialysis on Tuesday, Tuesday and Tuesday. 4. Diabetes type 2. 5. History of cardiovascular disease and chest pain. 6. Implanted vascular accesses. 7. Rheumatoid arthritis in her hands. 8. Thyroid disease. PAST SURGICAL HISTORY: 1. Abdominal hernia with mesh. 2. AV shunts. 3. Fistulas in both arms. 4. section. 5. Cholecystectomy, right eye cataract. 6. Tonsillectomy. 7. Oral surgery for dentures. 8. Right below-knee amputation. 9. Cholecystectomy. 10. Facial tumor. 11. Glaucoma surgery. SOCIAL HISTORY: The patient currently has children with family support. She denies any alcohol, tobacco or illicit drug use. O MEDICATIONS: 1. Her active medication records show calcium. 2. Nifedipine 3. Calcium carbonate. 4. Calcitriol 5. Synthroid 6. Cephalexin antibiotic 250 mg p.o. q 12 I do not know how long she has been on that. REVIEW OF SYSTEMS A 12 point review was attempted, minimal information was obtained secondary to patients Lithuanian. The patient does note fever, pain in the left arm, bruising in the left arm, edema in the left arm, bowel movement times two days ago. Mild fever at 99.5, other systems are negative or unremarkable. PHYSICAL EXAMINATION: VITAL SIGNS: Temperature 99.5, pulse 93, respirations 20, blood pressure 164/69. Pulse oximetry 98.0, three liters nasal cannula. IN GENERAL: Mildly obese, female looks to be her stated age, resting on stretcher, no facial grimace for now. Guarding her left arm. SKIN: Pale pink mucous membranes. NECK: Neck is supple. CARDIOVASCULAR SYSTEM: S1, s2, distant heart sounds, no murmurs, rubs or gallops audible. RESPIRATORY: Essentially clear, anteriorly and posteriorly with no wheezes, rales or rhonchi. ABDOMEN: The abdomen is round, soft, obese, nontender, nondistended. MUSCULOSKELETAL: The patient can move her legs. Both legs. The patient has right above-knee amputation, she has 2+ edema in left lower extremity with very dry cracked skin. Bilateral upper extremity AV fistulas with thrills on the right arm, did not check the left Catheter in the left subclavian area for hemodialysis. Upper extremity swelling in the left arm with some ecchymosis and bruising. The patient grimaces with pain with any touch or movement to the left arm. NEUROLOGIC: She is alert and oriented, her speech is clear. PSYCHIATRIC: Slight anxiety but appropriate mood. DIAGNOSTIC DATA: On 08/03/2016 White blood cell count 14.2, red blood cells, 2.43, hemoglobin 7.1, hematocrit 21.8, Neutrophil count 90. Lymphocytes 3.4. Sodium 136, potassium 3.7, chloride 98, carbon dioxide 29.1. Amnion gap 9, BUN 40, creatinine 5.8. Glomerular filtration rate 7, glucose 218, calcium 7.3. Total protein 7.3. IMAGING STUDIES: Show chest x-ray to be essentially clear with no acute process. Left upper extremity, shows cephalic vein thrombosis. ASSESSMENT AND PLAN: 1. Left arm cephalic vein thrombosis, lactic acid sepsis. 2. End-stage renal disease. 3. Hypocalcemia. 4. Anemia. 5. Hyperkalemia. 6. Hypertension. 7. Hyperparathyroidism due to renal insufficiency and renal failure. 8. Noncompliance with her renal dialysis. 9. Low grade fever. PLAN: 1. Our plan is to admit to in patient status, her vital signs will be Q four hours and as needed. Cardiac monitoring. Renal diet, IV access, blood cultures. The patient will be on Accu-checks with sliding scale. Her medications will be reconciled in the emergency room, the patient received Zosyn, Linezolid IV once. Pain management. Blood cultures are pending. Calcium gluconate has been given IV. As needed medications for any blood pressure issues, chest pain, nausea, vomiting and bowel regimen. Deep venous thrombosis Prophylaxis with heparin. Nephrology consultation for dialysis and his expert opinion to follow for renal failure needs. The patient will be maintained on p.o. calcium as well as IV until her levels are corrected. To my knowledge the patient is full code, full aggressive care and we will continue to follow her needs. DICTATED BY: MARK Miller MD ABY Arrieta/julius /8:56 AM /12:53 PM
[2016-08-03] MEDS: ACETAMINOPHEN/HYDROcodone 325 MG/7.5 MG TAB PO PRN (16:23)
[2016-08-03] MEDS ORDERED: HYDROmorphone HCL PF 1 MG/ML VIAL IV PUSH PRN (19:00)
[2016-08-03] MEDS: GABAPENTIN 100 MG CAP PO SCH (21:00)
[2016-08-04] VITALS (12 sets, daily range): BP systolic 107–200; BP diastolic 51–101; PULSE 72–82; RESP 18–20; TEMP 97.9–98.6; O2SAT 98–100
[2016-08-04] MEDS: cloNIDine HCL 0.1 MG TAB PO PRN ×3 (04:27→23:35)
[2016-08-04] MEDS: ACETAMINOPHEN/HYDROcodone 325 MG/7.5 MG TAB PO PRN (04:31)
[2016-08-04] MEDS: ONDANSETRON HCL 4 MG/2 ML VIAL IV PRN (04:35)
[2016-08-04 05:39] LABS: MEAN CELL VOLUME 89.1 FL (80.0-100.0); MEAN CORPUSCULAR HEMOGLOBIN 30.4 PG (27.0-34.0); MEAN CORPUSCULAR HGB CONC 34.1 % (32.0-36.0); PLATELET COUNT 240 TH/MM3 (150-450); RED BLOOD COUNT 2.25 MIL/MM3 (4.00-5.30); RED CELL DISTRIBUTION WIDTH 14.6 % (11.6-17.2); WHITE BLOOD COUNT 12.5 TH/MM3 (4.0-11.0)
[2016-08-04 05:45] LABS: REVIEW FLAG FINAL
[2016-08-04 05:47] LABS: HEMATOCRIT 20.1 % (35.0-46.0)
--- NOTE | 2016-08-04 08:34 | HHI.PR ---
Subjective Remarks Alert, awake, responsive Listening to music on phone and talking to family Smiling today, states feeling better Able to raise left arm up Anemia, one unit of blood today Nausea HTN , uncontrolled (Aiyana Saavedra) Objective Objective Results - Vital Signs Date Time Temp Pulse Resp B/P Pulse Ox O2 Delivery O2 Flow Rate FiO2 08/04/16 07:50 170/90 08/04/16 07:18 98.5 77 18 115/55 100 08/04/16 06:04 18 08/04/16 02:47 99 Nasal Cannula 3.00 08/04/16 02:39 81 08/04/16 00:46 82 20 166/87 100 08/03/16 19:20 18 08/03/16 12:15 84 08/03/16 11:20 98.0 85 16 140/65 100 (Aiyana Saavedra) Result Diagram: 08/04/16 0311 08/03/16 0302 ROS General: Fatigue, Weakness, Other (10 point ROS done, positives noted anemia requiring transfusion, left arm edema from thrombus, generalized weakness and fatigue, constipation, systems negative or unremarkable) GI: N/V (nausea), Other (constipation) /SENIOR 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 She is alert and awake, . HEAD: Normocephalic without any lesion or mass noted. Facial features appear symmetric. OROPHARYNGEAL: Oropharynx without erythema or edema. NECK: Supple. No nuchal rigidity or lymphadenopathy. Trachea midline without deviation. CARDIAC: Regular rhythm, regular rate, S1 and S2 are heard. LUNGS: Clear to auscultation bilaterally at rest, no rhonchi no wheeze ABDOMEN: Soft, nontender, no organomegaly or masses. Bowel sounds are heard in all four quadrants. EXTREMITIES: Trace edema. Previous AKA. Left arm with 3+ edema, bruising, able to lift today NEUROLOGICAL: Patient mood and affect appropriate. SKIN:Warm and moist, jonathan Objective Remarks My Arm feels better (Aiyana Saavedra) A/P Assessment and Plan 1. Left arm cephalic vein thrombosis, lactic acid sepsis. Left arm still has 3-4+ edema with ecchymosis. Patient is unable to lift arm today. DVT prophylaxis 2. End-stage renal disease. Appreciate nephrology consult. Patient has a temporary subclavian catheter in and had dialysis yesterday. Plan for 3 times a week 3. Hypocalcemia. Renal diet good appetite, nausea at times, when necessary Zofran Persist. Increased calcium dose to 4 times a day. Continue to monitor labs , BMP in the morning 4. Anemia. Hemoglobin consistently low today 6.8. One unit of blood ordered, type and screen, recheck hemoglobin and hematocrit at 1500, Recheck CBC in a.m. 5. Hyperkalemia. Resolved with dialysis, 6. Hypertension. Monitor, tends to run on the high side. Discussed with nurse options which include manual pressures. BPs are being taken on 1 existing good leg. No BP to be done in left or right arm. HTn has continued to be uncontrolled. We will rely on manual blood pressures for now since they are aken in the leg. Increased Clonidine dose prn HTN. monitor 7. Hyperparathyroidism due to renal insufficiency and renal failure. Extra supplements for calcium doses and monitor 8. Noncompliance with her renal dialysis. Appreciate nephrology consult, dialysis 3 times a week 9. Low grade fever. Resolved, blood cultures pending and negative so far Discussed With: Nurse, Family (patient), Other (Dr. Quintana, seen on his behalf) (Aiyana Saavedra) Assessment and Plan pt is seen & Examined d/w PT & at bedside via ham stripper [floor RN] in detail feels better today /pain is better , pain meds are helping , also cause some nausea eating ok No melena or BRBPR\ No abd pain H/H dropped . will tx PRBC during HD blood c/s neg cont empiric abx PT eval ss for d/c planning (Romina Quintana MD) Aiyana Saavedra Aug 04, 2016 08:34 Romina Quintana MD Aug 04, 2016 10:29
[2016-08-04] MEDS: CALCIUM CARBONATE 1.25 GM (CA 500 MG) TAB PO SCH ×4 (09:32→21:00)
[2016-08-04] MEDS: SODIUM CHLORIDE 0.9% FLUSH 10 ML FLUSH IV FLUSH SCH ×2 (09:32→21:00)
[2016-08-04] MEDS: HEPARIN SODIUM - SQ 10,000 UNITS/ML VIAL SQ SCH ×2 (09:32→21:00)
[2016-08-04] MEDS: GABAPENTIN 100 MG CAP PO SCH ×2 (09:32→21:00)
--- NOTE | 2016-08-04 10:13 | MB ---
cc: KURTIS FISHER MD DATE OF CONSULTATION 08/03/16 REASON FOR CONSULTATION End-stage renal disease on hemodialysis for management. HISTORY OF PRESENT ILLNESS This is a 71-year-old female with past medical history of hypertension, diabetes mellitus, chronic anemia, peripheral vascular disease, hypocalcemia with history of parathyroidectomy, end-stage renal disease on hemodialysis three times per week who came to the hospital because of left arm pain. I was called to see the patient for management of dialysis. She has been on hemodialysis Tuesday, Tuesday, Tuesday. She was supposed to go for dialysis yesterday, but she came to the emergency department because of the pain in the left arm. The patient was recently discharged from the hospital. She was in the hospital last week with right arm pain . She was seen and evaluated by vascular and she was evaluated by neurology. Neurology workup was done and most of them were negative. She had improvement in the pain and she was discharged. She was supposed to go for dialysis yesterday, but she came to the hospital because now she has pain in the left arm. She had a left-sided PermCath which was done during last admission for hemodialysis and she is not using the AV fistula at present. PAST MEDICAL HISTORY 1. Hypertension, 2. Diabetes mellitus, 3. Peripheral vascular disease, 4. Osteoarthritis. 5. End-stage renal disease on hemostasis 6. History of parathyroidectomy. PAST SURGICAL HISTORY 1. Recent history of parathyroidectomy 2. Right arm AV fistula surgery 3. Right below-knee amputation 4. Cholecystectomy, 5. section 6. Abdominal hernia surgery with mesh 7. Cataract surgery. REVIEW OF SYSTEMS The patient has generalized weakness, feeling tired. She has mild shortness of breath. She has pain in the left arm and the left shoulder, the whole arm and hand hurt and she is not able to move because of the pain. There is no history of trauma. Denies any nausea or vomiting. She has mild cough with no chest pain or palpitations. No abdominal pain. No history of diarrhea. SOCIAL HISTORY The patient is . She lives with her family. There is no history of smoking or alcoholism. FAMILY HISTORY Noncontributory. ALLERGIES CONTRAST MEDIA EPOGEN IODINE MORPHINE VANCOMYCIN MEDICATIONS Currently she is on 1. OsCal 500 mg b.i.d. 2. Linezolid 600 mg IV b.i.d. 3. Heparin 5000 units subcu q. 12-hour. 4. Zofran as needed PHYSICAL EXAMINATION GENERAL: The patient is awake, alert. She is not in acute distress. VITAL SIGNS: Last blood pressure is 140/65, temperature 98, oxygen saturation 96-100+ on three liters nasal cannula. HEENT: Pupils equal reacting to light. Nonicteric sclerae, conjunctivae pale. NECK: Supple. JVD is not elevated. LUNGS: The patient has bilateral decreased air entry with occasional wheezing. HEART: S1, S2 regular rhythm. ABDOMEN: Soft, distended, nontender. Bowel sounds positive. EXTREMITIES: She has mild edema in the left leg. the right arm has an AV fistula with good bruit and there is no tenderness or any restriction of movement. The left arm, she has edema in the whole arm which is almost the same at the right arm, but there is restriction of movement at the shoulder joint and also in the joint in the hand. There is some ecchymosis and bruises in the right axillary area which is possibly due to the PermCath. The radial pulse on the left side is palpable. LABORATORY DATA WBC count 14.2, hemoglobin 7.1, platelet count of 222. Sodium 136, potassium 3.7, chloride 98, bicarb 29.1, BUN 40, creatinine of 5.8, calcium corrected is 7.3, INR is 1.0, blood cultures done showing no growth so far. IMAGING STUDIES The patient has ultrasound of the upper extremity done which shows that she has cephalic vein thrombosis. Chest x-ray was done which shows lung baptiste clear. ASSESSMENT/PLAN 1. Left arm pain with cephalic vein thrombosis, possibly thrombophlebitis 2. Leukocytosis 3. Hypocalcemia with history of parathyroidectomy. 4. Rule-out sepsis 5. End-stage renal disease on hemodialysis. 6. Hyperkalemia. 7. Anemia The patient has been covered with antibiotic. Blood cultures so far are negative. The WBC count is improving. The patient had hemodialysis last night because of the high potassium level and she will continue the dialysis on Tuesday, Tuesday and Tuesday, next dialysis tomorrow. Her hemoglobin has been on the lower side. She is ALLERGIC TO EPOGEN and has been getting Aranesp by hematology. The last dose was given when she was here last week. She was started on gabapentin during last admission and it helped her arm pain to some extent, so it will be started again. Follow the blood cultures. Thank you for the consultation and I will follow the patient while she is in the hospital. MD PEACE Alexander/ /7:31 PM /9:58 AM [email or web address]
[2016-08-04] MEDS: LINEZOLID 600 MG PREMIX 300 ML IV SCH ×3 (12:00→23:36)
[2016-08-04] MEDS ORDERED: ONDANSETRON HCL 4 MG/2 ML VIAL IV PRN (14:00)
[2016-08-04] MEDS: HEPARIN SODIUM - IV 10,000 UNITS/10 ML VIAL PRN (16:53)
[2016-08-04] MEDS: GENTAMICIN SULFATE (DIALYSIS USE ONLY) 20 MG/2 ML VIAL IV PRN (16:53)
--- NOTE | 2016-08-04 17:07 | HHI.NPPN ---
Subjective History of Present Illness 71-year-old female with past medical history of hypertension, diabetes mellitus, chronic anemia, peripheral vascular disease, hypocalcemia with history of parathyroidectomy, end-stage renal disease on hemodialysis three times per week who came to the hospital because of left arm pain. I was called to see the patient for management of dialysis. She has been on hemodialysis Tuesday, Tuesday, Tuesday. Additional Remarks Patient is alert, no SOB, not in distress. Review of Systems General Constitutional: Fatigue Cardiovascular Cardiac: Edema, FUNK Objective Data Data Vital Signs Date Time Temp Pulse Resp B/P Pulse Ox O2 Delivery O2 Flow Rate FiO2 08/04/16 13:25 79 20 200/101 190/88 08/04/16 11:17 97.9 74 20 107/51 100 08/04/16 09:21 99 Nasal Cannula 2.00 08/04/16 07:50 170/90 08/04/16 07:18 98.5 77 18 115/55 100 08/04/16 06:04 18 08/04/16 02:47 99 Nasal Cannula 3.00 08/04/16 02:39 81 08/04/16 00:46 82 20 166/87 100 08/03/16 19:20 18 -: 08/04/16 0311 08/03/16 0302 Physical Exam General Appearance: No Acute Distress, Comfortable Eyes Eye Exam: Pupils Equal Throat Throat Exam: Oral Mucosa [place] & Moist Pulmonary Resp Exam: Breath Sounds Equal, No Distress, Rhonchi, Decreased Bases Cardiology CV Exam: Regular, Normal Sinus Rhythm Gastrointestinal/Abdomen GI Exam: Soft, Non-Tender, Bowel Sounds Present Extremeties Extremities Exam: Trace Edema Neurologic Neuro Exam: Alert, Awake, Oriented Psychiatric Psych Exam: Appropriate Responses Assessment/Plan Assessment Summary: Hypertension, End Stage Renal Disease Problem List: (1) CELLULITIS OF HAND (2) Leukocytosis (3) Superficial thrombophlebitis (4) Upper extremity pain, diffuse (5) Hypocalcemia (6) Hyperkalemia (7) DM (diabetes mellitus) (8) Anemia (9) ESRD (end stage renal disease) on dialysis Plan Patient now on HD, try to remove more fluid. Calcium is low, on replacement. BP is elevated, add Labetalol. Hgb. dropped for transfusion. She is Allergic to Epogen, on Aranesp, last dose was last week. Left arm pain is better. Problem Qualifiers (1) Leukocytosis: Qualified Code: D72.829 - Leukocytosis, unspecified type (2) Superficial thrombophlebitis: Qualified Code: I80.8 - Superficial thrombophlebitis of left upper extremity (3) Upper extremity pain, diffuse: Qualified Code: M79.602 - Upper extremity pain, diffuse, left (4) Anemia: Qualified Code: D64.9 - Anemia, unspecified type Jennie Doshi MD Aug 04, 2016 17:07
[2016-08-04] MEDS: ENALAPRILAT 1.25 MG/ML VIAL IV PUSH PRN (18:40)
[2016-08-04] MEDS ORDERED: cloNIDine HCL 0.2 MG TAB PO PRN (18:45)
[2016-08-04] MEDS: LABETALOL HCL 100 MG TAB PO SCH (21:00)
[2016-08-05] VITALS (14 sets, daily range): BP systolic 130–179; BP diastolic 60–82; PULSE 67–80; RESP 16–20; TEMP 98–100.1; O2SAT 96–100
[2016-08-05] MEDS ORDERED: amLODIPine BESYLATE 5 MG TAB PO SCH (09:00)
--- NOTE | 2016-08-05 09:43 | HHI.NPPN ---
Subjective History of Present Illness 71-year-old female with past medical history of hypertension, diabetes mellitus, chronic anemia, peripheral vascular disease, hypocalcemia with history of parathyroidectomy, end-stage renal disease on hemodialysis three times per week who came to the hospital because of left arm pain. I was called to see the patient for management of dialysis. She has been on hemodialysis Tuesday, Tuesday, Tuesday. Additional Remarks Patient is alert, no SOB, left arm pain is better. Review of Systems General Constitutional: Fatigue Cardiovascular Cardiac: Edema, FUNK Objective Data Data 08/04/16 08/05/16 19:00 07:00 Intake Total 1128 ml Output Total 3000 ml Balance -3000 ml 1128 ml Intake Oral 480 ml IV Total 420 ml Packed Cells 228 ml Output Hemodialysis 3000 ml Vital Signs Date Time Temp Pulse Resp B/P Pulse Ox O2 Delivery O2 Flow Rate FiO2 08/05/16 08:00 98.8 67 18 168/74 99 08/05/16 06:55 98.4 74 16 160/72 98 08/05/16 05:55 98.4 80 18 138/78 98 08/05/16 05:20 98.1 74 16 131/72 98 08/05/16 04:55 98.0 72 18 130/82 98 08/05/16 04:35 98.0 68 16 131/60 98 08/05/16 04:00 98.3 68 18 130/60 100 08/05/16 00:00 100.1 77 20 179/73 98 08/04/16 23:00 79 08/04/16 19:31 98.6 72 20 98 08/04/16 19:22 170/70 08/04/16 18:36 200/90 08/04/16 18:09 2.00 08/04/16 13:25 79 20 200/101 190/88 08/04/16 11:17 97.9 74 20 107/51 100 -: 08/04/16 0311 08/03/16 0302 Physical Exam General Appearance: No Acute Distress, Comfortable Eyes Eye Exam: Pupils Equal Throat Throat Exam: Oral Mucosa [place] & Moist Pulmonary Resp Exam: Breath Sounds Equal, No Distress, Rhonchi, Decreased Bases Cardiology CV Exam: Regular, Normal Sinus Rhythm Gastrointestinal/Abdomen GI Exam: Soft, Non-Tender, Bowel Sounds Present Extremeties Extremities Exam: Trace Edema Neurologic Neuro Exam: Alert, Awake, Oriented Psychiatric Psych Exam: Appropriate Responses Assessment/Plan Assessment Summary: Hypertension, End Stage Renal Disease Problem List: (1) CELLULITIS OF HAND (2) Leukocytosis (3) Superficial thrombophlebitis (4) Upper extremity pain, diffuse (5) Hypocalcemia (6) Hyperkalemia (7) DM (diabetes mellitus) (8) Anemia (9) ESRD (end stage renal disease) on dialysis Plan Patient now on HD, try to remove more fluid. Calcium is low, on replacement. Increase calcium and add Calcitriol, was on it before. BP is better, on Labetalol and also started Amlodipine. Hgb. dropped transfused yesterday with HD. She is Allergic to Epogen, on Aranesp, last dose was last week. Left arm pain is better. Follow repeat labs. Problem Qualifiers (1) Leukocytosis: Qualified Code: D72.829 - Leukocytosis, unspecified type (2) Superficial thrombophlebitis: Qualified Code: I80.8 - Superficial thrombophlebitis of left upper extremity (3) Upper extremity pain, diffuse: Qualified Code: M79.602 - Upper extremity pain, diffuse, left (4) Anemia: Qualified Code: D64.9 - Anemia, unspecified type Jennie Doshi MD Aug 05, 2016 09:43
[2016-08-05] MEDS: SODIUM CHLORIDE 0.9% FLUSH 10 ML FLUSH IV FLUSH SCH ×2 (10:03→20:53)
[2016-08-05] MEDS: GABAPENTIN 100 MG CAP PO SCH ×2 (10:03→20:52)
[2016-08-05] MEDS: HEPARIN SODIUM - SQ 10,000 UNITS/ML VIAL SQ SCH ×2 (10:04→20:52)
[2016-08-05] MEDS: LABETALOL HCL 100 MG TAB PO SCH ×2 (10:08→20:52)
[2016-08-05] MEDS: CALCITRIOL 0.25 MCG CAP PO SCH (10:08)
[2016-08-05 10:10] LABS: HEMATOCRIT 24.2 % (35.0-46.0); MEAN CELL VOLUME 89.2 FL (80.0-100.0); MEAN CORPUSCULAR HEMOGLOBIN 28.7 PG (27.0-34.0); MEAN CORPUSCULAR HGB CONC 32.2 % (32.0-36.0); PLATELET COUNT 259 TH/MM3 (150-450); RED BLOOD COUNT 2.71 MIL/MM3 (4.00-5.30); RED CELL DISTRIBUTION WIDTH 14.2 % (11.6-17.2); REVIEW FLAG FINAL; WHITE BLOOD COUNT 11.1 TH/MM3 (4.0-11.0)
[2016-08-05 10:31] LABS: BICARBONATE 31.8 MEQ/L (21.0-32.0); POTASSIUM 4.8 MEQ/L (3.5-5.1)
[2016-08-05 11:03] LABS: CALCIUM-PROTEIN CORRECTED 6.6 MG/DL (8.5-10.1)
[2016-08-05] MEDS: LINEZOLID 600 MG PREMIX 300 ML IV SCH (11:55)
[2016-08-05] MEDS: CALCIUM CARBONATE 1.25 GM (CA 500 MG) TAB PO SCH ×2 (12:01→16:52)
--- NOTE | 2016-08-05 12:32 | HHI.PR ---
Subjective Remarks left hand swelling minimal right ac pain no cp no sob no fever had HD today, tolerated well Objective Objective Results - Vital Signs Date Time Temp Pulse Resp B/P Pulse Ox O2 Delivery O2 Flow Rate FiO2 08/05/16 10:17 67 08/05/16 08:00 98.8 67 18 168/74 99 08/05/16 06:55 98.4 74 16 160/72 98 08/05/16 05:55 98.4 80 18 138/78 98 08/05/16 05:20 98.1 74 16 131/72 98 08/05/16 04:55 98.0 72 18 130/82 98 08/05/16 04:35 98.0 68 16 131/60 98 08/05/16 04:00 98.3 68 18 130/60 100 08/05/16 00:00 100.1 77 20 179/73 98 08/04/16 23:00 79 08/04/16 19:31 98.6 72 20 98 08/04/16 19:22 170/70 08/04/16 18:36 200/90 08/04/16 18:09 2.00 08/04/16 13:25 79 20 200/101 190/88 I/O 08/04/16 08/04/16 08/04/16 08/05/16 08/05/16 08/05/16 07:00 15:00 23:00 07:00 15:00 23:00 Intake Total 1128 ml Output Total 3000 ml Balance -3000 ml 1128 ml Intake Oral 480 ml IV Total 420 ml Packed Cells 228 ml Output Hemodialysis 3000 ml Result Diagram: 08/05/1692908/05/16929 Other Results Laboratory Tests Test 08/04/16 08/05/16 23:04 09:30 Blood Type O POSITIVE Crossmatch Leukocyte-Reduced Red Blood Cells Blood Bank Comment White Blood Count 11.1 Red Blood Count 2.71 Hemoglobin 7.8 Hematocrit 24.2 Mean Corpuscular Volume 89.2 Mean Corpuscular Hemoglobin 28.7 Mean Corpuscular Hemoglobin 32.2 Concent Red Cell Distribution Width 14.2 Platelet Count 259 Mean Platelet Volume 7.2 Sodium Level 134 Potassium Level 4.8 Chloride Level 94 Carbon Dioxide Level 31.8 Anion Gap 8 Blood Urea Nitrogen 36 Creatinine 5.69 Estimat Glomerular Filtration 7 Rate Random Glucose 216 Calcium Level 6.6 Protein Corrected Calcium 6.6 Total Protein 7.3 Date/Time Procedure Status Source Growth 08/02/16 22:00 Aerobic Blood Culture - Preliminary Resulted Blood Peripheral NO GROWTH IN 3 DAYS 08/02/16 22:00 Anaerobic Blood Culture - Preliminary Resulted Blood Peripheral NO GROWTH IN 3 DAYS ROS General: Other (12 point ROS completed, negative except as noted above ) Physical Exam Physical Exam PHYSICAL EXAMINATION GENERAL: well developed, well nourished HEAD: Normocephalic without any lesion or mass noted. Facial features appear symmetric. EYES: Perrla, Normal eye movement, no Icterus. no Conj congestion. OROPHARYNGEAL: Oropharynx without erythema or edema. MOUTH/THROAT: Tongue midline []. Buccal mucosa is moist []. NECK: Supple. No nuchal rigidity or lymphadenopathy. Trachea midline without deviation. Thyroid not palpable, no bruits appreciated. CARDIAC: Regular rhythm, regular rate, S1 and S2 are heard. Murmur none; no gallops or rubs. LUNGS:Clear. ABDOMEN: Soft, nontender, no organomegaly or masses. Bowel sounds are heard in all four quadrants. No rebound. No guarding. EXTREMITIES: LUE edema, scabbed area to dorsum of left hand. Right arm with AVF , + B/T, mild swelling and bruising to right AC. Right BKA. Trace ankle edema to left leg NEUROLOGICAL: Awake, oriented x 3. No focal deficits. SKIN:Warm and moist PSYCH: Mood and affect appropriate Urinary Catheter: No Vascular Central Line Catheter: No A/P Diagnosis: (1) Superficial thrombophlebitis (2) DVT of upper extremity (deep vein thrombosis) Plan: cephalic (3) CELLULITIS OF HAND (4) ESRD (end stage renal disease) on dialysis (5) Hypocalcemia (6) Hypertension (7) Hx of parathyroidectomy (8) DM (diabetes mellitus) (9) Anemia Assessment and Plan Left arm cephalic vein thrombosis with underlying cellulitis, has scab on dorsum left hand -WBC trending down -follow cultures, negative so far -DC Zyvox, start Keflex and Doxycycline PO -no need for anticoagulation, apply warm compresses, elevate arm. ESRD on HD -Appreciate nephrology input -HD per schedule, had tx today -has permacath, which is being used. Can't use right arm AVF yet Recent nerve injury to right AC during HD access, now resolving, minimal pain -monitor right arm AVF -don't use right arm for IV, BP Hypocalcemia, recent parathyroidectomy -continue with Calcitriol, Calcium carbonate -monitor calcium, asymptomatic -appreciate nephrology input Anemia, Hgb dropped to 6.8-today 7.8 -PRBC x 1 yesterday with HD -HH stable today Hyperkalemia. -Resolved with dialysis Hypertension, uncontrolled at times -BP being checked on leg, not reliable -Resume Procardia -started on Norvasc, continue Labelatol -Continue home and PRN meds SCDs in am poss discharge tomorrow D/W RN D/W Dr. Quintana D/W pt This patient was seen by myself and Dr. Quintana, this note is written on his behalf. Problem Qualifiers (1) Superficial thrombophlebitis: Qualified Code: I80.8 - Superficial thrombophlebitis of left upper extremity (2) DVT of upper extremity (deep vein thrombosis): Qualified Code: I82.622 - Acute deep vein thrombosis (DVT) of left upper extremity, unspecified vein (3) Hypertension: Qualified Code: I10 - Essential hypertension (4) DM (diabetes mellitus): (5) Anemia: Priscilla Forte Aug 05, 2016 12:32
[2016-08-05] MEDS: CEPHALEXIN MONOHYDRATE 250 MG CAP PO SCH ×2 (17:41→20:52)
[2016-08-05] MEDS: DOXYCYCLINE HYCLATE 100 MG CAP PO SCH (20:52)
[2016-08-05] MEDS: cloNIDine HCL 0.1 MG TAB PO PRN (20:52)
[2016-08-06] VITALS (9 sets, daily range): BP systolic 124–179; BP diastolic 58–77; PULSE 69–78; RESP 16–20; TEMP 97.7–98.3; O2SAT 96–98
[2016-08-06] MEDS: ENALAPRILAT 1.25 MG/ML VIAL IV PUSH PRN (04:16)
[2016-08-06] MEDS: CEPHALEXIN MONOHYDRATE 250 MG CAP PO SCH ×2 (05:22→14:50)
[2016-08-06 07:19] LABS: HEMATOCRIT 22.7 % (35.0-46.0); MEAN CORPUSCULAR HEMOGLOBIN 29.6 PG (27.0-34.0); MEAN CORPUSCULAR HGB CONC 32.9 % (32.0-36.0); PLATELET COUNT 249 TH/MM3 (150-450); RED BLOOD COUNT 2.53 MIL/MM3 (4.00-5.30); RED CELL DISTRIBUTION WIDTH 14.4 % (11.6-17.2); REVIEW FLAG FINAL; WHITE BLOOD COUNT 11.7 TH/MM3 (4.0-11.0)
[2016-08-06 07:35] LABS: BICARBONATE 30.5 MEQ/L (21.0-32.0); POTASSIUM 5.6 MEQ/L (3.5-5.1); TOTAL BILIRUBIN ADULT 0.3 MG/DL (0.2-1.0)
[2016-08-06 07:43] LABS: CALCIUM-PROTEIN CORRECTED 6.8 MG/DL (8.5-10.1)
[2016-08-06] MEDS: HEPARIN SODIUM - SQ 10,000 UNITS/ML VIAL SQ SCH ×2 (08:48→21:13)
[2016-08-06] MEDS: LABETALOL HCL 100 MG TAB PO SCH ×2 (08:48→21:13)
[2016-08-06] MEDS: DOXYCYCLINE HYCLATE 100 MG CAP PO SCH ×2 (08:48→21:13)
[2016-08-06] MEDS: NIFEdipine 90 MG SUSTAINED RELEASE TAB PO SCH (08:48)
[2016-08-06] MEDS: GABAPENTIN 100 MG CAP PO SCH ×2 (08:48→21:13)
[2016-08-06] MEDS: SODIUM CHLORIDE 0.9% FLUSH 10 ML FLUSH IV FLUSH SCH ×2 (08:49→21:14)
[2016-08-06] MEDS: CALCIUM CARBONATE 1.25 GM (CA 500 MG) TAB PO SCH ×3 (08:49→17:01)
[2016-08-06] MEDS: CALCITRIOL 0.25 MCG CAP PO SCH (08:49)
[2016-08-06] MEDS: NYSTATIN SUSP 500,000 U/5 ML CUP SWISH-SWAL SCH ×4 (10:00→21:13)
[2016-08-06] MEDS ORDERED: DEXTROSE 50% IN WATER 50 ML VIAL(D50) IV PUSH PRN (10:15)
[2016-08-06] MEDS ORDERED: GLUCAGON 1 MG/ML VIAL OTHER PRN (10:15)
[2016-08-06] MEDS: ALBUMIN HUMAN 25% 25 GM/100 ML BAGP IV PRN ×2 (11:17→11:26)
--- NOTE | 2016-08-06 11:38 | HHI.PR ---
Subjective Remarks left hand swelling improving minimal right ac pain c/o sob today, noted with facial swelling felt that lips and tongue were swollen, swallowing okay, no aspiration symptoms no cp on oxygen at 2L/NC Objective Objective Results - Vital Signs Date Time Temp Pulse Resp B/P Pulse Ox O2 Delivery O2 Flow Rate FiO2 08/06/16 08:18 69 08/06/16 08:00 98.3 69 20 172/71 98 08/06/16 04:00 98.1 70 16 179/77 96 08/06/16 00:01 98.1 70 16 173/74 98 08/05/16 22:30 96 Nasal Cannula 2.00 08/05/16 20:00 98.3 72 16 176/74 97 08/05/16 20:00 68 08/05/16 16:00 98.5 71 18 164/69 96 08/05/16 12:00 98.6 68 18 173/75 97 I/O 08/05/16 08/05/16 08/05/16 08/06/16 08/06/16 08/06/16 07:00 15:00 23:00 07:00 15:00 23:00 Intake Total 1128 ml 1200 ml 240 ml 60 ml Balance 1128 ml 1200 ml 240 ml 60 ml Intake Oral 480 ml 1200 ml 240 ml 60 ml IV Total 420 ml Packed Cells 228 ml # Voids 0 1 # Bowel Movements 0 Result Diagram: 08/06/16 0655 08/06/16 0655 Other Results Laboratory Tests Test 08/06/16 06:55 White Blood Count 11.7 Red Blood Count 2.53 Hemoglobin 7.5 Hematocrit 22.7 Mean Corpuscular Volume 90.0 Mean Corpuscular Hemoglobin 29.6 Mean Corpuscular Hemoglobin 32.9 Concent Red Cell Distribution Width 14.4 Platelet Count 249 Mean Platelet Volume 7.2 Sodium Level 135 Potassium Level 5.6 Chloride Level 96 Carbon Dioxide Level 30.5 Anion Gap 9 Blood Urea Nitrogen 57 Creatinine 7.05 Estimat Glomerular Filtration 6 Rate Random Glucose 209 Calcium Level 6.8 Protein Corrected Calcium 6.8 Total Bilirubin 0.3 Aspartate Amino Transf 12 (AST/SGOT) Alanine Aminotransferase 8 (ALT/SGPT) Alkaline Phosphatase 114 Total Protein 7.1 Albumin 2.5 Date/Time Procedure Status Source Growth 08/02/16 22:00 Aerobic Blood Culture - Preliminary Resulted Blood Peripheral NO GROWTH IN 4 DAYS 08/02/16 22:00 Anaerobic Blood Culture - Preliminary Resulted Blood Peripheral NO GROWTH IN 4 DAYS ROS General: Weakness, Other (facial swelling) HEENT: No: Sore Throat, Dysphagia Cardiac: Edema, No: Chest Pain, Palpitations, Other Pulmonary: SOB, No: Cough, Wheezing, Other GI: No: Abdominal Pain, BM, Diarrhea, N/V /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 Facial features appear symmetric. Facial swelling. EYES: Perrla, Normal eye movement, no Icterus. no Conj congestion. OROPHARYNGEAL: Oropharynx without erythema or edema. MOUTH/THROAT: Tongue midline []. Buccal mucosa is moist []. NECK: Supple. No nuchal rigidity or lymphadenopathy. Trachea midline without deviation. Thyroid not palpable, no bruits appreciated. CARDIAC: Regular rhythm, regular rate, S1 and S2 are heard. Murmur none; no gallops or rubs. LUNGS:Clear. ABDOMEN: Soft, nontender, no organomegaly or masses. Bowel sounds are heard in all four quadrants. No rebound. No guarding. EXTREMITIES: LUE edema, scabbed area to dorsum of left hand. Right arm with AVF , + B/T, mild swelling and bruising to right AC. Right BKA. Trace ankle edema to left leg NEUROLOGICAL: Awake, oriented x 3. No focal deficits. SKIN:Warm and moist PSYCH: Mood and affect appropriate Urinary Catheter: No Vascular Central Line Catheter: No A/P Diagnosis: (1) Superficial thrombophlebitis (2) DVT of upper extremity (deep vein thrombosis) Plan: cephalic (3) CELLULITIS OF HAND (4) ESRD (end stage renal disease) on dialysis (5) Hypocalcemia (6) Hypertension (7) Hx of parathyroidectomy (8) DM (diabetes mellitus) (9) Anemia Assessment and Plan Left arm cephalic vein thrombosis with underlying cellulitis, has scab on dorsum left hand -WBC trending down -follow cultures, negative so far -Continue Keflex and Doxycycline PO -no need for anticoagulation, apply warm compresses, elevate arm. C/O oral pain, tongue swelling. None noted, swallowing okay -Nystatin DM, II, increase blood glucose in BMP. Used to take 70/30 but stopped. -Start accuchecks AC/HS with ISS -Hgb A1C in am -Discussed need for compliance. ESRD on HD-fluid overload, BP elevated, SOB, gen. edema. -Appreciate nephrology input -Had HD yesterday, going today for scheduled time. -has permacath, which is being used. Can't use right arm AVF yet Recent nerve injury to right AC during HD access, now resolving, minimal pain -monitor right arm AVF -don't use right arm for IV, BP Hypocalcemia, recent parathyroidectomy -continue with Calcitriol, Calcium carbonate -monitor calcium, asymptomatic -appreciate nephrology input Anemia, Hgb dropped to 6.8-today 7.5/22.7 -PRBC x 1 with HD -may need more blood,defer to nephrology Hyperkalemia. -going for HD today Hypertension, uncontrolled at times -BP being checked on leg, not reliable -continue Procardia -continue Labelatol -Continue home and PRN meds not ready for discharge, SOB, going for HD today. Had extra treatment yesterday. Labs in am D/W RN D/W Dr. Quintana D/W pt and family at lengthy, emphasized compliance with meds, HD treatment. They don't seem to have an understanding of the chronicity and progression of her renal disease. This patient was seen by myself and Dr. Quintana, this note is written on his behalf. Problem Qualifiers (1) Superficial thrombophlebitis: Qualified Code: I80.8 - Superficial thrombophlebitis of left upper extremity (2) DVT of upper extremity (deep vein thrombosis): Qualified Code: I82.622 - Acute deep vein thrombosis (DVT) of left upper extremity, unspecified vein (3) Hypertension: Qualified Code: I10 - Essential hypertension (4) DM (diabetes mellitus): (5) Anemia: Priscilla Forte Aug 06, 2016 11:38
[2016-08-06] MEDS: INSULIN ASPART SUPPLEMENTAL SCALE SQ SCH ×3 (12:00→21:24)
--- NOTE | 2016-08-06 12:28 | HHI.NPPN ---
Subjective History of Present Illness 71-year-old female with past medical history of hypertension, diabetes mellitus, chronic anemia, peripheral vascular disease, hypocalcemia with history of parathyroidectomy, end-stage renal disease on hemodialysis three times per week who came to the hospital because of left arm pain. I was called to see the patient for management of dialysis. She has been on hemodialysis Tuesday, Tuesday, Tuesday. Additional Remarks Patient is alert, no SOB, left arm pain is better. Review of Systems General Constitutional: Fatigue Cardiovascular Cardiac: Edema, FUNK Objective Data Data 08/05/16 08/06/16 19:00 07:00 Intake Total 1200 ml 300 ml Balance 1200 ml 300 ml Intake Oral 1200 ml 300 ml # Voids 0 1 # Bowel Movements 0 Vital Signs Date Time Temp Pulse Resp B/P Pulse Ox O2 Delivery O2 Flow Rate FiO2 08/06/16 08:18 69 08/06/16 08:00 98.3 69 20 172/71 98 08/06/16 04:00 98.1 70 16 179/77 96 08/06/16 00:01 98.1 70 16 173/74 98 08/05/16 22:30 96 Nasal Cannula 2.00 08/05/16 20:00 98.3 72 16 176/74 97 08/05/16 20:00 68 08/05/16 16:00 98.5 71 18 164/69 96 -: 08/06/16 0655 08/06/16 0655 Physical Exam General Appearance: No Acute Distress, Comfortable Eyes Eye Exam: Pupils Equal Throat Throat Exam: Oral Mucosa [place] & Moist Pulmonary Resp Exam: Breath Sounds Equal, No Distress, Rhonchi, Decreased Bases Cardiology CV Exam: Regular, Normal Sinus Rhythm Gastrointestinal/Abdomen GI Exam: Soft, Non-Tender, Bowel Sounds Present Extremeties Extremities Exam: Trace Edema Neurologic Neuro Exam: Alert, Awake, Oriented Psychiatric Psych Exam: Appropriate Responses Assessment/Plan Assessment Summary: Hypertension, End Stage Renal Disease Problem List: (1) CELLULITIS OF HAND (2) Leukocytosis (3) Superficial thrombophlebitis (4) Upper extremity pain, diffuse (5) Hypocalcemia (6) Hyperkalemia (7) DM (diabetes mellitus) (8) Anemia (9) ESRD (end stage renal disease) on dialysis Plan Patient now on HD, try to remove more fluid. Calcium is low, on replacement. Increase calcium and add Calcitriol, was on it before. BP is better, on Labetalol and also started Amlodipine. Hgb. dropped transfused yesterday with HD. She is Allergic to Epogen, on Aranesp, last dose was last week. Left arm pain is better. Follow repeat labs. Problem Qualifiers (1) Leukocytosis: Qualified Code: D72.829 - Leukocytosis, unspecified type (2) Superficial thrombophlebitis: Qualified Code: I80.8 - Superficial thrombophlebitis of left upper extremity (3) Upper extremity pain, diffuse: Qualified Code: M79.602 - Upper extremity pain, diffuse, left (4) DM (diabetes mellitus): (5) Anemia: Jennie Doshi MD Aug 06, 2016 12:28
[2016-08-06] MEDS: GENTAMICIN SULFATE (DIALYSIS USE ONLY) 20 MG/2 ML VIAL IV PRN (14:02)
[2016-08-06] MEDS: HEPARIN SODIUM - IV 10,000 UNITS/10 ML VIAL PRN (14:02)
[2016-08-06] MEDS ORDERED: diphenhydrAMINE HCL 50 MG CAP PO PRN (16:15)
[2016-08-06] MEDS ORDERED: DIPH50CA PO (16:17)
[2016-08-06] MEDS ORDERED: LABE100T2 PO (16:17)
[2016-08-06] MEDS ORDERED: HYDR-3580 PO (16:17)
[2016-08-06] MEDS ORDERED: CALC.25 PO (16:17)
[2016-08-06] MEDS ORDERED: GABA100C4 PO (16:17)
[2016-08-06] MEDS ORDERED: DOXY100C PO (16:17)
--- NOTE | 2016-08-06 16:18 | HHI.FF ---
Face to Face Verification Diagnosis: (1) Superficial thrombophlebitis (2) Upper extremity pain, diffuse (3) Hypertensive urgency (4) ESRD (end stage renal disease) on dialysis (5) CELLULITIS OF HAND (6) Hyperparathyroidism due to renal insufficiency Physical Therapy Order: Evaluate and Treat, Improve ambulation Occupational Therapy Order: Evaluate and Treat, Gross motor coordination I have seen patient Tom Adan on 08/06/16. My clinical findings support the need for the requested home health care services because: Ltd mobility - disease progression Deconditioned w/ increased weakness Limited ability to care for self I certify that my clinical findings support that this patient is homebound because: Unsteady gait/balance Unsafe to leave home unassisted Unable to use public transportation Romina Quintana MD Aug 06, 2016 16:18
[2016-08-07] VITALS (9 sets, daily range): BP systolic 95–157; BP diastolic 42–70; PULSE 67–76; RESP 19–20; TEMP 96.5–98.8; O2SAT 96–100
[2016-08-07] MEDS: INSULIN ASPART SUPPLEMENTAL SCALE SQ SCH ×4 (05:35→20:33)
[2016-08-07] MEDS: NIFEdipine 90 MG SUSTAINED RELEASE TAB PO SCH (09:30)
[2016-08-07] MEDS: DOXYCYCLINE HYCLATE 100 MG CAP PO SCH ×2 (09:30→20:32)
[2016-08-07] MEDS: GABAPENTIN 100 MG CAP PO SCH ×2 (09:30→20:32)
[2016-08-07] MEDS: LABETALOL HCL 100 MG TAB PO SCH ×2 (09:30→20:32)
[2016-08-07] MEDS: NYSTATIN SUSP 500,000 U/5 ML CUP SWISH-SWAL SCH ×4 (09:31→20:32)
[2016-08-07] MEDS: CALCITRIOL 0.25 MCG CAP PO SCH (09:31)
[2016-08-07] MEDS: HEPARIN SODIUM - SQ 10,000 UNITS/ML VIAL SQ SCH ×2 (09:31→20:32)
[2016-08-07] MEDS: CALCIUM CARBONATE 1.25 GM (CA 500 MG) TAB PO SCH ×3 (09:31→18:00)
[2016-08-07] MEDS: SODIUM CHLORIDE 0.9% FLUSH 10 ML FLUSH IV FLUSH SCH ×2 (09:38→20:33)
[2016-08-07 10:21] LABS: MEAN CELL VOLUME 90.1 FL (80.0-100.0); MEAN CORPUSCULAR HEMOGLOBIN 30.3 PG (27.0-34.0); MEAN CORPUSCULAR HGB CONC 33.7 % (32.0-36.0); PLATELET COUNT 246 TH/MM3 (150-450); RED BLOOD COUNT 2.44 MIL/MM3 (4.00-5.30); REVIEW FLAG FINAL; WHITE BLOOD COUNT 11.8 TH/MM3 (4.0-11.0)
[2016-08-07 10:36] LABS: ANION GAP 8 MEQ/L (5-15); BLOOD UREA NITROGEN 54 MG/DL (7-18); CHLORIDE 99 MEQ/L (98-107); GLOMERULAR FILTRATION RATE 7 ML/MIN (>89); POTASSIUM 5.2 MEQ/L (3.5-5.1); SODIUM (NA) 140 MEQ/L (136-145)
--- NOTE | 2016-08-07 15:07 | HHI.PR ---
Subjective Remarks left hand swelling improving minimal right arm pain Started on procardia today. Became hypotensive in am. Was diaphoretic per RN. on oxygen at 2L/NC Objective Objective Results - Vital Signs Date Time Temp Pulse Resp B/P Pulse Ox O2 Delivery O2 Flow Rate FiO2 08/07/16 12:27 97.9 67 19 95/42 96 08/07/16 11:49 96 Nasal Cannula 2.00 08/07/16 08:39 98.7 69 20 156/70 98 08/07/16 05:20 98.8 76 20 157/67 97 08/07/16 00:35 96.5 75 20 139/61 100 08/06/16 20:45 75 08/06/16 20:00 98.1 77 20 138/64 96 08/06/16 17:32 96 Nasal Cannula 2.00 08/06/16 16:00 97.7 78 20 124/58 96 I/O 08/06/16 08/06/16 08/06/16 08/07/16 08/07/16 08/07/16 07:00 15:00 23:00 07:00 15:00 23:00 Intake Total 60 ml 482 ml Output Total 2000 ml Balance 60 ml -1518 ml Intake Oral 60 ml 480 ml IV Total 2 ml Output Hemodialysis 2000 ml # Voids 1 0 Result Diagram: 08/07/1615 08/07/16 0815 Other Results Laboratory Tests Test 08/07/16 08:15 White Blood Count 11.8 Red Blood Count 2.44 Hemoglobin 7.4 Hematocrit 22.0 Mean Corpuscular Volume 90.1 Mean Corpuscular Hemoglobin 30.3 Mean Corpuscular Hemoglobin 33.7 Concent Red Cell Distribution Width 14.0 Platelet Count 246 Mean Platelet Volume 7.5 Sodium Level 140 Potassium Level 5.2 Chloride Level 99 Carbon Dioxide Level 33.0 Anion Gap 8 Blood Urea Nitrogen 54 Creatinine 5.86 Estimat Glomerular Filtration 7 Rate Random Glucose 110 Calcium Level 8.5 Date/Time Procedure Status Source Growth 08/02/16 22:00 Aerobic Blood Culture - Final Complete Blood Peripheral NO GROWTH IN 5 DAYS 08/02/16 22:00 Anaerobic Blood Culture - Final Complete Blood Peripheral NO GROWTH IN 5 DAYS ROS General: Weakness HEENT: No: Sore Throat, Dysphagia, Other Cardiac: No: Chest Pain, Edema, Palpitations, Other Pulmonary: No: Cough, SOB, Wheezing, Other GI: No: Abdominal Pain, BM, Diarrhea, N/V, 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 She is alert and awake, HEAD: Normocephalic without any lesion or mass noted. EYES: Perrla, Normal eye movement OROPHARYNGEAL: Oropharynx without erythema or edema. MOUTH/THROAT: Tongue midline NECK: Supple. N CARDIAC: Regular rhythm, regular rate, S1 and S2 are heard. LUNGS: Clear to auscultation bilaterally. ABDOMEN: Soft, nontender, no organomegaly or masses. Bowel sounds are heard in all four quadrants. EXTREMITIES: LUE edema, scabbed area to dorsum of left hand. Right arm with AVF , + B/T, mild swelling and bruising to right AC. Right BKA. Trace ankle edema to left leg NEUROLOGICAL: Patient mood and affect appropriate. SKIN:Warm and moist PSYCH: Mood and affect appropriate A/P Assessment and Plan Diagnosis: (1) Superficial thrombophlebitis (2) DVT of upper extremity (deep vein thrombosis) (3) CELLULITIS OF HAND (4) ESRD (end stage renal disease) on dialysis (5) Hypocalcemia (6) Hypertension (7) Hx of parathyroidectomy (8) DM (diabetes mellitus) (9) Anemia Assessment and Plan Left arm cephalic vein thrombosis with underlying cellulitis, has scab on dorsum left hand -WBC trending down -follow cultures, negative so far -Doxycycline PO -no need for anticoagulation, apply warm compresses, elevate arm. C/O oral pain, tongue swelling. None noted, swallowing okay -Nystatin DM, II, -accuchecks AC/HS with ISS -Hgb A1C pending. -Discussed need for compliance. ESRD on HD-fluid overload, BP elevated, SOB, gen. edema. -Appreciate nephrology input -Had HD yesterday. -has permacath, which is being used. Can't use right arm AVF yet Recent nerve injury to right AC during HD access, now resolving, minimal pain -monitor right arm AVF -don't use right arm for IV, BP Hypocalcemia, recent parathyroidectomy -continue with Calcitriol, Calcium carbonate -monitor calcium, asymptomatic -appreciate nephrology input Anemia, Hgb dropped to 6.8-today 7.4 -PRBC x 1 with HD -may need more blood,defer to nephrology Hyperkalemia. - potassium better: 5.2: was 5.6yday. - Hypertension with an episode of hypotension today. -Hold procardia today. -continue Labelatol - monitoer BP closely -Continue home and PRN meds not ready for discharge, symptomatic hypotension today. Labs in am D/W RN D/W pt and family at lengthy, emphasized compliance with meds, HD treatment. They don't seem to have an understanding of the chronicity and progression of her renal disease. observe overnight/possible d/c home in am on po doxycyline , if remained stable Shane Moses MD Aug 07, 2016 15:07 Shane Moses MD Aug 07, 2016 15:07
[2016-08-08] VITALS (8 sets, daily range): BP systolic 132–187; BP diastolic 62–79; PULSE 72–88; RESP 18–20; TEMP 97.5–99; O2SAT 92–99
[2016-08-08] MEDS: INSULIN ASPART SUPPLEMENTAL SCALE SQ SCH ×4 (05:49→21:00)
[2016-08-08] MEDS: DOXYCYCLINE HYCLATE 100 MG CAP PO SCH ×2 (08:59→21:56)
[2016-08-08] MEDS: CALCITRIOL 0.25 MCG CAP PO SCH (08:59)
[2016-08-08] MEDS: GABAPENTIN 100 MG CAP PO SCH ×2 (08:59→21:56)
[2016-08-08] MEDS: CALCIUM CARBONATE 1.25 GM (CA 500 MG) TAB PO SCH ×3 (08:59→17:07)
[2016-08-08] MEDS: LABETALOL HCL 100 MG TAB PO SCH ×2 (08:59→21:56)
[2016-08-08] MEDS: SODIUM CHLORIDE 0.9% FLUSH 10 ML FLUSH IV FLUSH SCH ×2 (08:59→21:00)
[2016-08-08] MEDS: HEPARIN SODIUM - SQ 10,000 UNITS/ML VIAL SQ SCH ×2 (09:00→21:57)
[2016-08-08] MEDS: NYSTATIN SUSP 500,000 U/5 ML CUP SWISH-SWAL SCH ×4 (09:00→21:56)
[2016-08-08 10:46] LABS: HEMATOCRIT 22.1 % (35.0-46.0); MEAN CELL VOLUME 90.7 FL (80.0-100.0); MEAN CORPUSCULAR HEMOGLOBIN 29.1 PG (27.0-34.0); MEAN CORPUSCULAR HGB CONC 32.1 % (32.0-36.0); PLATELET COUNT 252 TH/MM3 (150-450); RED BLOOD COUNT 2.44 MIL/MM3 (4.00-5.30); RED CELL DISTRIBUTION WIDTH 14.4 % (11.6-17.2); WHITE BLOOD COUNT 14.8 TH/MM3 (4.0-11.0)
[2016-08-08 10:47] LABS: HEMOGLOBIN A1a 1.4 %; HEMOGLOBIN Ao 82.5 %; HEMOGLOBIN LA1C 2.6 %; HEMOGLOBIN P3 6.6 %
[2016-08-08 10:57] LABS: REVIEW FLAG FINAL
[2016-08-08 11:00] LABS: BICARBONATE 30.3 MEQ/L (21.0-32.0); POTASSIUM 6.4 MEQ/L (3.5-5.1)
--- NOTE | 2016-08-08 15:04 | HHI.PR ---
Subjective Remarks left hand swelling improving minimal right arm pain C/o constipation. No abdominal pain/distension. Objective Objective Results - Vital Signs Date Time Temp Pulse Resp B/P Pulse Ox O2 Delivery O2 Flow Rate FiO2 08/08/16 08:00 94 Nasal Cannula 1.00 08/08/16 08:00 97.5 74 20 170/74 99 08/08/16 07:50 98 Nasal Cannula 2.00 08/08/16 04:00 97.6 80 20 152/67 96 08/08/16 00:15 96 Nasal Cannula 1.00 08/08/16 00:00 86 Room Air 08/08/16 00:00 97.8 72 20 132/62 92 08/07/16 20:00 97.9 74 20 144/60 98 08/07/16 20:00 Room Air 08/07/16 19:27 73 08/07/16 16:26 98.3 72 19 116/56 99 I/O 08/07/16 08/07/16 08/07/16 08/08/16 08/08/16 08/08/16 07:00 15:00 23:00 07:00 15:00 23:00 Intake Total 720 ml 240 ml 240 ml 720 ml Balance 720 ml 240 ml 240 ml 720 ml Intake Oral 720 ml 240 ml 240 ml 720 ml # Voids 0 2 2 1 3 # Bowel Movements 0 Result Diagram: 08/08/16 0851 08/08/16 0851 Other Results Laboratory Tests Test 08/08/16 08:51 White Blood Count 14.8 Red Blood Count 2.44 Hemoglobin 7.1 Hematocrit 22.1 Mean Corpuscular Volume 90.7 Mean Corpuscular Hemoglobin 29.1 Mean Corpuscular Hemoglobin 32.1 Concent Red Cell Distribution Width 14.4 Platelet Count 252 Mean Platelet Volume 7.7 Sodium Level 137 Potassium Level 6.4 Chloride Level 99 Carbon Dioxide Level 30.3 Anion Gap 8 Blood Urea Nitrogen 77 Creatinine 7.78 Estimat Glomerular Filtration 5 Rate Random Glucose 124 Calcium Level 8.2 ROS General: Fatigue, Weakness, No: Other HEENT: No: Sore Throat, Dysphagia, Other Cardiac: No: Chest Pain, Edema, Palpitations, Other Pulmonary: No: Cough, SOB, Wheezing, Other GI: No: Abdominal Pain, BM, Diarrhea, N/V, 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 She is alert and awake, HEAD: Normocephalic without any lesion or mass noted. EYES: Perrla, Normal eye movement OROPHARYNGEAL: Oropharynx without erythema or edema. MOUTH/THROAT: Tongue midline NECK: Supple. N CARDIAC: Regular rhythm, regular rate, S1 and S2 are heard. LUNGS: Clear to auscultation bilaterally. ABDOMEN: Soft, nontender, no organomegaly or masses. Bowel sounds are heard in all four quadrants. EXTREMITIES: LUE edema, scabbed area to dorsum of left hand. Right arm with AVF , + B/T, mild swelling and bruising to right AC. Right BKA. Trace ankle edema to left leg NEUROLOGICAL: Patient mood and affect appropriate. SKIN:Warm and moist PSYCH: Mood and affect appropriate A/P Assessment and Plan Diagnosis: (1) Superficial thrombophlebitis (2) DVT of upper extremity (deep vein thrombosis) (3) CELLULITIS OF HAND (4) ESRD (end stage renal disease) on dialysis (5) Hypocalcemia (6) Hypertension (7) Hx of parathyroidectomy (8) DM (diabetes mellitus) (9) Anemia (10)Constipation Assessment and Plan Left arm cephalic vein thrombosis with underlying cellulitis, has scab on dorsum left hand -WBC trending down -follow cultures, negative so far -Doxycycline PO -no need for anticoagulation, apply warm compresses, elevate arm. C/O oral pain, tongue swelling. None noted, swallowing okay -Nystatin DM, II, -accuchecks AC/HS with ISS -Hgb A1C 5.9% ESRD on HD-fluid overload, BP elevated, SOB, gen. edema. -Appreciate nephrology input -HD per nephro. -has permacath, which is being used. Can't use right arm AVF yet Recent nerve injury to right AC during HD access, now resolving, minimal pain -monitor right arm AVF -don't use right arm for IV, BP Hypocalcemia, recent parathyroidectomy -continue with Calcitriol, Calcium carbonate -monitor calcium, asymptomatic -appreciate nephrology input Anemia, Hgb dropped to 6.8-today 7.1 -PRBC x 1 with HD -may need more blood,defer to nephrology Hyperkalemia. - Kayexalate 30mg enema x1. - monitor BMP. - Hypertension with an episode of hypotension y'day. -Hold procardia today. -continue Labelatol - monitor BP closely -Continue home and PRN meds Constipation -add miralax. -add colace. -senna prn. not ready for discharge. Labs in am D/W RN D/W pt and family at lengthy, emphasized compliance with meds, HD treatment. They don't seem to have an understanding of the chronicity and progression of her renal disease. observe overnight/possible d/c home in am on po doxycyline , if remained stable Shane Moses MD Aug 08, 2016 15:04
[2016-08-08] MEDS ORDERED: SODIUM POLYSTYRENE SULFONATE 30 GM/120 ML ENEMA RECTAL ONE (16:00)
[2016-08-08] MEDS: POLYETHYLENE GLYCOL 17 GM PKG PO SCH (16:00)
[2016-08-08] MEDS: DOCUSATE SODIUM 100 MG/10 ML UDC PO SCH (21:56)
[2016-08-09] VITALS: BP 194/80; PULSE 81; RESP 20; TEMP 96.8; O2SAT 96
[2016-08-09 04:00] VITALS: BP 172/70; PULSE 70; RESP 18; TEMP 98; O2SAT 90
[2016-08-09] MEDS: INSULIN ASPART SUPPLEMENTAL SCALE SQ SCH ×3 (06:30→16:00)
[2016-08-09 08:00] VITALS: BP 148/68; PULSE 72; RESP 18; TEMP 98.5; O2SAT 97
[2016-08-09 08:02] VITALS: PULSE 69
[2016-08-09 08:49] LABS: HEMATOCRIT 22.5 % (35.0-46.0); MEAN CELL VOLUME 91.4 FL (80.0-100.0); MEAN CORPUSCULAR HEMOGLOBIN 28.6 PG (27.0-34.0); MEAN CORPUSCULAR HGB CONC 31.3 % (32.0-36.0); PLATELET COUNT 267 TH/MM3 (150-450); RED BLOOD COUNT 2.46 MIL/MM3 (4.00-5.30); REVIEW FLAG FINAL
[2016-08-09] MEDS: CALCIUM CARBONATE 1.25 GM (CA 500 MG) TAB PO SCH ×3 (09:00→17:08)
[2016-08-09] MEDS: POLYETHYLENE GLYCOL 17 GM PKG PO SCH (09:00)
[2016-08-09] MEDS: DOCUSATE SODIUM 100 MG/10 ML UDC PO SCH (09:00)
[2016-08-09 09:20] LABS: BICARBONATE 27.9 MEQ/L (21.0-32.0); POTASSIUM 5.8 MEQ/L (3.5-5.1)
[2016-08-09] MEDS: SODIUM CHLORIDE 0.9% FLUSH 10 ML FLUSH IV FLUSH SCH (09:42)
[2016-08-09] MEDS: NYSTATIN SUSP 500,000 U/5 ML CUP SWISH-SWAL SCH ×3 (09:44→17:08)
[2016-08-09] MEDS: HEPARIN SODIUM - IV 10,000 UNITS/10 ML VIAL PRN (10:25)
[2016-08-09] MEDS: GENTAMICIN SULFATE (DIALYSIS USE ONLY) 20 MG/2 ML VIAL IV PRN (10:26)
--- NOTE | 2016-08-09 10:49 | HHI.NPPN ---
Subjective History of Present Illness 71-year-old female with past medical history of hypertension, diabetes mellitus, chronic anemia, peripheral vascular disease, hypocalcemia with history of parathyroidectomy, end-stage renal disease on hemodialysis three times per week who came to the hospital because of left arm pain. I was called to see the patient for management of dialysis. She has been on hemodialysis Tuesday, Tuesday, Tuesday. Additional Remarks Patient is alert, now on HD, feeling better, has BM. Review of Systems General Constitutional: Fatigue Cardiovascular Cardiac: Edema, FUNK Objective Data Data 08/08/16 08/09/16 19:00 07:00 Intake Total 720 ml 240 ml Balance 720 ml 240 ml Intake Oral 720 ml 240 ml # Voids 3 2 # Bowel Movements 3 1 Vital Signs Date Time Temp Pulse Resp B/P Pulse Ox O2 Delivery O2 Flow Rate FiO2 08/09/16 08:02 69 08/09/16 08:00 98.5 72 18 148/68 97 08/09/16 07:43 Room Air 08/09/16 04:00 Room Air 08/09/16 04:00 98.0 70 18 172/70 90 08/09/16 00:00 96.8 81 20 194/80 96 08/09/16 00:00 Room Air 08/08/16 20:07 88 08/08/16 20:00 99.0 83 18 187/77 92 08/08/16 20:00 Room Air 08/08/16 18:45 93 21 08/08/16 16:00 98.2 76 20 179/79 95 -: 08/09/16 0755 08/09/16 0755 Physical Exam General Appearance: No Acute Distress, Comfortable Eyes Eye Exam: Pupils Equal Throat Throat Exam: Oral Mucosa [place] & Moist Pulmonary Resp Exam: Breath Sounds Equal, No Distress, Rhonchi, Decreased Bases Cardiology CV Exam: Regular, Normal Sinus Rhythm Gastrointestinal/Abdomen GI Exam: Soft, Non-Tender, Bowel Sounds Present Extremeties Extremities Exam: Trace Edema Neurologic Neuro Exam: Alert, Awake, Oriented Psychiatric Psych Exam: Appropriate Responses Assessment/Plan Assessment Summary: Hypertension, End Stage Renal Disease Problem List: (1) CELLULITIS OF HAND (2) Leukocytosis (3) Superficial thrombophlebitis (4) Upper extremity pain, diffuse (5) Hypocalcemia (6) Hyperkalemia (7) DM (diabetes mellitus) (8) Anemia (9) ESRD (end stage renal disease) on dialysis Plan Patient now on HD, try to remove more fluid. Calcium is better, on replacement. BP was elevated, now is better, on Labetalol . Hgb. dropped but now stable She is Allergic to Epogen, on Aranesp. Left arm pain is better. Possible D/C today if remain stable. Problem Qualifiers (1) Leukocytosis: Qualified Code: D72.829 - Leukocytosis, unspecified type (2) Superficial thrombophlebitis: Qualified Code: I80.8 - Superficial thrombophlebitis of left upper extremity (3) Upper extremity pain, diffuse: Qualified Code: M79.602 - Upper extremity pain, diffuse, left (4) DM (diabetes mellitus): (5) Anemia: Jennie Doshi MD August 09, 2016 10:49
[2016-08-09 13:55] VITALS: BP 159/71; PULSE 73; RESP 20
[2016-08-09] MEDS: DOXYCYCLINE HYCLATE 100 MG CAP PO SCH (13:57)
[2016-08-09] MEDS: CALCITRIOL 0.25 MCG CAP PO SCH (13:57)
[2016-08-09] MEDS: HEPARIN SODIUM - SQ 10,000 UNITS/ML VIAL SQ SCH (13:57)
[2016-08-09] MEDS: GABAPENTIN 100 MG CAP PO SCH (13:57)
[2016-08-09] MEDS: LABETALOL HCL 100 MG TAB PO SCH (13:57)
[2016-08-09] MEDS ORDERED: BISACODYL 10 MG SUPP RECTAL ONE (15:00)
--- NOTE | 2016-08-09 15:03 | HHI.PR ---
Subjective Remarks Alert, awake, responsive post HD today Smiling today, states feeling better Able to raise left arm up constipation Objective Objective Results - Vital Signs Date Time Temp Pulse Resp B/P Pulse Ox O2 Delivery O2 Flow Rate FiO2 08/09/16 13:55 73 20 159/71 08/09/16 12:00 08/09/16 08:02 69 08/09/16 08:00 98.5 72 18 148/68 97 08/09/16 07:43 Room Air 08/09/16 04:00 Room Air 08/09/16 04:00 98.0 70 18 172/70 90 08/09/16 00:00 96.8 81 20 194/80 96 08/09/16 00:00 Room Air 08/08/16 20:07 88 08/08/16 20:00 99.0 83 18 187/77 92 08/08/16 20:00 Room Air 08/08/16 18:45 93 21 08/08/16 16:00 98.2 76 20 179/79 95 I/O 08/08/16 08/08/16 08/08/16 08/09/16 08/09/16 08/09/16 07:00 15:00 23:00 07:00 15:00 23:00 Intake Total 240 ml 720 ml 240 ml Output Total 3000 ml Balance 240 ml 720 ml 240 ml -3000 ml Intake Oral 240 ml 720 ml 240 ml Hemodialysis 3000 ml # Voids 1 3 2 # Bowel Movements 3 1 Result Diagram: 08/09/16 0755 08/09/16 0755 ROS General: Weakness (improved), Other (10 point ROS done, constipation, otherwise neg.) GI: BM (constipation) Physical Exam Physical Exam PHYSICAL EXAMINATION GENERAL: This is a well-developed, well-nourished female who appears to be in no acute distress. She is alert and awake, speaks very little azeri HEAD: Normocephalic without any lesion or mass noted. Facial features appear symmetric. OROPHARYNGEAL: Oropharynx without erythema or edema. NECK: Supple. No nuchal rigidity or lymphadenopathy. Trachea midline without deviation. CARDIAC: Regular rhythm, S1 and S2 LUNGS: Clear to auscultation bilaterally. ABDOMEN: Soft, nontender, no organomegaly or masses. Bowel sounds are heard in all four quadrants. No rebound. No guarding. EXTREMITIES: mild edema left arm, and fingers NEUROLOGICAL: Patient mood and affect appropriate. No focal deficit SKIN:Warm and moist Objective Remarks Im better A/P Assessment and Plan Left arm cephalic vein thrombosis with underlying cellulitis, has scab on dorsum left hand stable with good movement, minimal edema , elevate DM, II, -accuchecks AC/HS with ISS ESRD on HD-today -Appreciate nephrology input -HD per nephro. stable Recent nerve injury to right AC during HD access, now resolving, minimal pain Hypocalcemia, resolved Anemia, chronic disease, Hypertension , stable today Constipation continues, says its stuck check for impaction, afterwards give Ducolax before dc. DC planning today, stable D/W RN D/W pt d/w dr. lopez, seen on his behalf Aiyana Saavedra August 09, 2016 15:03
[2016-08-09 16:00] VITALS: BP 166/75; PULSE 90; RESP 20; TEMP 99.2; O2SAT 90
--- NOTE | 2016-08-14 16:29 | HHI.DS ---
Discharge Summary Admission Date Aug 02, 2016 at 21:39 Discharge Date: August 09, 2016 Admitting Diagnosis hyperkalemia, hyponatremia, leukocytosis, left upper extremity pain (1) Superficial thrombophlebitis Diagnosis: Principal (2) DVT of upper extremity (deep vein thrombosis) Diagnosis: Principal (3) CELLULITIS OF HAND Diagnosis: Principal (4) ESRD (end stage renal disease) on dialysis Diagnosis: Secondary (5) Hypocalcemia Diagnosis: Principal (6) Hypertension Diagnosis: Principal (7) Hx of parathyroidectomy Diagnosis: Secondary (8) DM (diabetes mellitus) Diagnosis: Secondary (9) Anemia Diagnosis: Principal Procedures dialysis Brief History This is a 71 year-old female who speaks very little Togolese, currently there is no family in the room. Most of the information that Marixa obtained was coming from the record. She could answer simple questions and has given some basic information. The patient is a chronic end-stage renal disease patient, proceed with hemodialysis. She also had issues with chronic hypocalcemia and was recently hospitalized for right upper extremity pain around her AV site, it was felt that she had some median nerve injury and therefore had a temporary catheter placed in for dialysis on 08/03/2016. According to the patient the patient was dialyzed this past Tuesday , complaints of pain in the left upper extremity, similar to the right extremity pain last admission. She is guarding that left arm and was not moving it hardly at all. The patient was noted to have a low grade fever, 99.5, in the past 24 hours. Imaging Last Impressions Upper Extremity Ultrasound 08/02/16 0000 Signed Impressions: Service Date/Time: Tuesday, August 02, 2016 20:50 - CONCLUSION: Cephalic vein thrombosis. David Dahl MD Chest X-Ray 08/02/16 0000 Signed Impressions: Service Date/Time: Tuesday, August 02, 2016 18:47 - CONCLUSION: No acute disease. David Dahl MD PE at Discharge GENERAL: well developed, well nourished HEAD: Normocephalic without any lesion or mass noted. Facial features appear symmetric. Facial swelling. EYES: Perr[place], Normal eye movement, no Icterus. no Conj congestion. OROPHARYNGEAL: Oropharynx without erythema or edema. MOUTH/THROAT: Tongue midline Buccal mucosa is moist NECK: Supple. No nuchal rigidity or lymphadenopathy. Trachea midline without deviation. Thyroid not palpable, no bruits appreciated. CARDIAC: Regular rhythm, regular rate, S1 and S2 are heard. Murmur none; no gallops or rubs. LUNGS:Clear. ABDOMEN: Soft, nontender, no organomegaly or masses. Bowel sounds are heard in all four quadrants. No rebound. No guarding. EXTREMITIES: LUE edema, scabbed area to dorsum of left hand. Right arm with AVF , + B/T, mild swelling and bruising to right AC. Right BKA. Trace ankle edema to left leg NEUROLOGICAL: Awake, oriented x 3. No focal deficits. SKIN:Warm and moist PSYCH: Mood and affect appropriate Urinary Catheter: No Vascular Central Line Catheter: No Hospital Course These are the dx used to treat patient during this hospital stay. (1) Superficial thrombophlebitis (2) DVT of upper extremity (deep vein thrombosis) Plan: cephalic (3) CELLULITIS OF HAND (4) ESRD (end stage renal disease) on dialysis (5) Hypocalcemia (6) Hypertension (7) Hx of parathyroidectomy (8) DM (diabetes mellitus) (9) Anemia Left arm cephalic vein thrombosis with underlying cellulitis, has scab on dorsum left hand -WBC initally elevated, but now trending down blood cultures done on admission, negative so far started on Keflex and Doxycycline PO -no need for anticoagulation, apply warm compresses, elevate arm constant for edema and pain control. C/O oral pain, tongue swelling. None noted, swallowing okay, possible viral or fungal, -Nystatin DM, II, increase blood glucose in BMP. Used to take 70/30 but stopped. -Start accuchecks AC/HS with ISS -Hgb A1C in am done, elevated -Discussed need for compliance and control of blood sugars. ESRD on HD-fluid overload, BP elevated, SOB, gen. edema. -Appreciate nephrology input. Followed throughout hospital stay -Had HD yesterday, going today for scheduled time. -has permacath, which is being used. Can't use right arm AVF yet Recent nerve injury to right AC during HD access, now resolving, minimal pain -monitor right arm AVF -don't use right arm for IV, BP Hypocalcemia, recent parathyroidectomy -continue with Calcitriol, Calcium carbonate -monitor calcium, asymptomatic , but levels are low on admission. Patient was treated with daily ca doses and labs were monitored until levels normalized -appreciate nephrology input, followed and treated her labs, vitals and systoms through hospital stay. Anemia, Hgb dropped to 6.8-today 7.5/22.7 -PRBC x 1 with HD -may need more blood,defer to nephrology Levels related to her ESRD and chronic disease,. Hyperkalemia. -going for HD today , will be filtered through HD. Hypertension, uncontrolled at times -BP being checked on leg, not reliable -continue Procardia -continue Labelatol -Continue home and PRN meds , Reviewed and stablized per Nephrology. Added Spirolactone PO Dyspnea with some probable fluid overload. Extra HD treatment given for body fluid balance. Once patient could move lt. arm with acute pain, and edema controlled, patient was medicallt stable for discharge. Medical compliance discussed with patient and her family. Follow up with PCP and nephrology as OP bases. Pt Condition on Discharge: Stable Discharge Disposition: Disch w/ Home Health Serv Discharge Instructions DIET: Follow Instructions for: Heart Healthy Diet, Renal Failure Diet Fluid Restrictions: 1500cc/day Activities you can perform: Weight Bearing as Shala Other Activity Instructions: fall precautions Follow up Referrals: Nephrology - 3 Weeks PCP Follow-up - 1 Week New Medications: Calcitriol (Rocaltrol) 0.25 Mcg Cap 1 MCG PO DAILY LOW CALCIUM #30 CAP Diphenhydramine HCl (Diphenhydramine HCl) 50 Mg Cap 50 MG PO Q6H PRN itching/swelling #15 CAP Doxycycline Hyclate (Doxycycline Hyclate) 100 Mg Cap 100 MG PO BID infection #14 CAP Gabapentin (Gabapentin) 100 Mg Cap 100 MG PO BID neuropathy #60 CAP Hydrocodone-Acetaminophen (Hydrocodone-Acetaminophen) 7.5-325 mg Tab 1 TAB PO Q6H PRN pain 5 to 10 #30 TAB Labetalol (Labetalol) 100 Mg Tab 100 MG PO Q12HR HTN #60 TAB Continued Medications: Calcium Carbonate (Antacid) (Calcium Carbonate (Antacid)) 500 Mg Chew 1000 MG CHEW QID low calcium #120 Ref 1 EA Levothyroxine (Synthroid) 50 Mcg Tab 50 MCG PO DAILY Thyroid #30 Ref 0 TAB Nifedipine (Nifedipine ER) 90 Mg Tab 90 MG PO DAILY Blood Pressure Management #30 Ref 1 TAB Discontinued Medications: Cephalexin (Cephalexin) 250 Mg Cap 250 MG PO Q12HR Infection #14 Ref 0 Aiyana Loyd August 14, 2016 16:29
== END 2016-08-09 18:17 | disposition home or self-care (01) | DRG 299 ==
LOC: NEPE 17:51 → NEDA 21:39 → NEPFCDU 08-03 03:27 → N04A 08-04 22:28
PROVIDERS: ADMIT Specialist; ATTEND Specialist
PROC: 5A1D60Z (ICD-10-PCS; principal; 2016-08-02)
PROC: 30233N1 Transfusion of Nonautologous Red Blood Cells into Peripheral Vein, Percutaneous Approach (ICD-10-PCS; 2016-08-04)
DX: I82.612 Acute embolism and thrombosis of superficial veins of left upper extremity (principal); N18.6 End stage renal disease; L03.114 Cellulitis of left upper limb; I95.9 Hypotension, unspecified; E11.22 Type 2 diabetes mellitus with diabetic chronic kidney disease; N25.81 Secondary hyperparathyroidism of renal origin; I12.0 Hypertensive chronic kidney disease with stage 5 chronic kidney disease or end stage renal disease; E83.51 Hypocalcemia; I80.8 Phlebitis and thrombophlebitis of other sites; E87.5 Hyperkalemia; D63.8 Anemia in other chronic diseases classified elsewhere; I45.10 Unspecified right bundle-branch block; Z99.2 Dependence on renal dialysis; M79.601 Pain in right arm; I25.10 Atherosclerotic heart disease of native coronary artery without angina pectoris; M06.9 Rheumatoid arthritis, unspecified; M19.041 Primary osteoarthritis, right hand; M19.042 Primary osteoarthritis, left hand; Z89.611 Acquired absence of right leg above knee; E07.9 Disorder of thyroid, unspecified; Z91.15 Patient's noncompliance with renal dialysis; M19.90 Unspecified osteoarthritis, unspecified site; Z88.8 Allergy status to other drugs, medicaments and biological substances; E87.70 Fluid overload, unspecified; K59.00 Constipation, unspecified
CPT/HCPCS: 36430; 71010; 80048; 80053; 82948; 83036; 83605; 84155; 85025; 85027; 86850; 86900; 86901; 86902; 86920; 86922; 87040; 90935; 93005; 93971; 94664; 96372; 96374; 96375; J0610; J1170; J1580; J1644; J1815; J2020; J2405; J2543; J7030; J7611; P9016; P9047

== ENCOUNTER 2017-06-03 10:10 | Emergency (ER) | payer MEDICARE, OTHER ==
[~2017-06-03] VITALS: Ht 165.1 cm; Wt 83.0 kg
[~2017-06-03 10:10] MED LIST changes: -CALC.25 PO; +CALC0.5C PO; -CALC500C16 CHEW; -CEPH250C PO; +CINA30 PO; -LEVO.05 PO; +NEPHTAB3 PO; +NIFE60TA58 PO; -NIFE90TA2 PO
[2017-06-03 10:22] VITALS: BP 200/86; PULSE 67; RESP 18; TEMP 98.3; O2SAT 98
[2017-06-03 10:47] VITALS: PULSE 67; RESP 18; O2SAT 98
[2017-06-03 11:10] LABS: AUTOMATED NEUTROPHIL # 3.8 TH/MM3 (1.8-7.7); BASOPHIL # 0.1 TH/MM3 (0-0.2); BASOPHIL % 1.2 % (0.0-2.0); EOSINOPHIL # 0.3 TH/MM3 (0-0.4); EOSINOPHIL % 5.6 % (0.0-4.0); LYMPH % 21.6 % (9.0-44.0); LYMPHOCYTE # 1.3 TH/MM3 (1.0-4.8); MEAN CORPUSCULAR HEMOGLOBIN 31.4 PG (27.0-34.0); MEAN CORPUSCULAR HGB CONC 34.5 % (32.0-36.0); MEAN PLATELET VOLUME 8.1 FL (7.0-11.0); MONO % 7.3 % (0.0-8.0); MONOCYTE # 0.4 TH/MM3 (0-0.9); NEUT % 64.3 % (16.0-70.0); PLATELET COUNT 157 TH/MM3 (150-450); RED BLOOD COUNT 2.86 MIL/MM3 (4.00-5.30); RED CELL DISTRIBUTION WIDTH 13.8 % (11.6-17.2); WHITE BLOOD COUNT 5.8 TH/MM3 (4.0-11.0)
[2017-06-03 11:15] LABS: BACTERIA, URINE MOD /hpf; BILIRUBIN, URINE NEG (NEG); BLOOD, URINE TRACE (NEG); GLUCOSE,URINE 70 mg/dL (NEG); KETONE, URINE NEG (NEG); MUCUS URINE FEW /lpf (OCC); NITRITE,URINE NEG (NEG); PH, URINE 8.5 (5.0-8.5); SQUAMOUS EPITHELIAL CELL URINE 67 /hpf (0-5); URINE COLOR LIGHT-YELLOW (YELLW/STRAW); URINE LEUKOCYTE ESTERASE LARGE (NEG)
[2017-06-03 11:28] LABS: ALBUMIN 3.2 GM/DL (3.4-5.0); ALKALINE PHOSPHATASE 68 U/L (45-117); ALT (GPT) 16 U/L (10-53); AST (GOT) 21 U/L (15-37); BICARBONATE 30.7 MEQ/L (21.0-32.0); BLOOD UREA NITROGEN 10 MG/DL (7-18); CALCIUM 7.9 MG/DL (8.5-10.1); CHLORIDE 99 MEQ/L (98-107); CREATININE 3.03 MG/DL (0.50-1.00); GLOMERULAR FILTRATION RATE 15 ML/MIN (>89); GLUCOSE,RANDOM 95 MG/DL (74-106); MAGNESIUM 1.9 MG/DL (1.5-2.5); PHOSPHORUS 1.9 MG/DL (2.5-4.9); SODIUM (NA) 136 MEQ/L (136-145); TOTAL BILIRUBIN ADULT 0.3 MG/DL (0.2-1.0); TOTAL PROTEIN 7.2 GM/DL (6.4-8.2)
--- NOTE | 2017-06-03 12:03 | PD ---
HPI Chief Complaint: Dizziness Time Seen by Provider: 10:41 Travel History International Travel<30 days: No Contact w/Intl Traveler<30days: No Traveled to known affect area: No History of Present Illness HPI 72-year-old female with history of renal failure, dialysis dependent, diabetes mellitus, hypertension, peripheral vascular disease, presents here today with complaints of dizziness and lightheadedness while receiving dialysis. Patient reports that she had a low-grade fever 2 days ago and also was noted to have a fever. She states she had a low-grade fever today at dialysis. The patient denies any pain. She reports that she felt calm and relaxed. She also reported that she had an episode where she had excellent vision but that has since resolved. There is no chest pain, chest pressure. There is no nausea vomiting diarrhea. Patient does make urine despite being a dialysis patient. She denies any shortness of breath or cough. PFSH Past Medical History Arthritis: Yes Asthma: No Autoimmune Disease: No Blood Disorders: No Anxiety: No Depression: No Heart Rhythm Problems: No Cancer: No Cardiovascular Problems: Yes High Cholesterol: No Chest Pain: Yes Congestive Heart Failure: No Cerebrovascular Accident: No Diabetes: Yes (CONTROLLED) Patient Takes Glucophage: No Dialysis: Yes (-W-) Diminished Hearing: No Endocrine: Yes Gastrointestinal Disorders: Yes GERD: No Glaucoma: No Genitourinary: Yes Headaches: No Hepatitis: No Hiatal Hernia: Yes Hypertension: Yes (had htn, but resolved at this time) Immune Disorder: No Implanted Vascular Access Dvce: Yes Kidney Stones: No Medical other: No Musculoskeletal: Yes Neurologic: No Psychiatric: No Reproductive: No Respiratory: No ( ) Immunizations Current: Yes Migraines: No Myocardial Infarction: No Radiation Therapy: No Renal Failure: Yes (DIALYSIS) Seizures: No Sickle Cell Disease: No Thyroid Disease: Yes Ulcer: No ?: Not Menopausal: Yes : 14 Para: 3 Miscarriage: 11 Past Surgical History Abdominal Surgery: Yes (GALLBLADDER) AICD: No Appendectomy: No Arteriovenous Shunt: Yes Body Medical Devices: FISTULAS Cardiac Surgery: No Section: Yes Cholecystectomy: Yes Ear Surgery: No Endocrine Surgery: Yes (PARATHYROID) Eye Surgery: Yes (CATARACT RIGHT) Genitourinary Surgery: No Gynecologic Surgery: No Insulin Pump: No Joint Replacement: No Neurologic Surgery: No Oral Surgery: Yes (for dentures, tonsillectomy) Pacemaker: No Thoracic Surgery: No Tonsillectomy: Yes Other Surgery: Yes (RIGHT BKA, CHOLEY, HERNIA, 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, GLUCOMA SURG) Social History Alcohol Use: No Tobacco Use: No Substance Use: No Allergies-Medications (Allergen,Severity, Reaction): Coded Allergies: diatrizoate meglumine (Unverified Allergy, Severe, CAN'T BREATHE, 06/03/17) epoetin mirta (Unverified Allergy, Severe, Headache, 06/03/17) gadobenic acid (Unverified Allergy, Severe, CAN'T BREATHE, 06/03/17) gadodiamide (Unverified Allergy, Severe, CAN'T BREATHE, 06/03/17) gadoteridol (Unverified Allergy, Severe, CAN'T BREATHE, 06/03/17) iodine (Unverified Allergy, Severe, Hives, 06/03/17) PATIENT NEEDS TO BE PREMEDICATED iodixanol (Unverified Allergy, Severe, CAN'T BREATHE, 06/03/17) iohexol (Unverified Allergy, Severe, CAN'T BREATHE, 06/03/17) morphine (Unverified Allergy, Severe, RESPIRATORY DISTRESS, 06/03/17) potassium iodide (Unverified Allergy, Severe, Hives, 06/03/17) PATIENT NEEDS TO BE PREMEDICATED povidone-iodine (Unverified Allergy, Severe, Hives, 06/03/17) PATIENT NEEDS TO BE PREMEDICATED sodium iodide (Unverified Allergy, Severe, Hives, 06/03/17) PATIENT NEEDS TO BE PREMEDICATED sodium iodide (Unverified Allergy, Severe, Hives, 06/03/17) PATIENT NEEDS TO BE PREMEDICATED vancomycin (Unverified Allergy, Severe, 06/03/17) Uncoded Allergies: plastic tape (Allergy, Severe, 01/21/15) blisters Reported Meds & Prescriptions Reported Meds & Active Scripts Active Levaquin (Levofloxacin) 250 Mg Tablet 250 Mg PO DAILY Reported Calcium Acetate (Calcium Acetate (Phosphate Bin) 667 Mg Cap 667 Mg PO TID Sensipar (Cinacalcet) 30 Mg Tab 30 Mg PO DAILY Nifedipine ER 24 HR (Nifedipine) 60 Mg Tab 60 Mg PO ON DIALYSIS DAYS Nephro-Cher (B-Complex W/ C & Folic Acid) 1 Tab 1 Tab PO DAILY Calcitriol 0.5 Mcg Cap 1 Mcg PO DAILY Review of Systems Except as stated in HPI: all other systems reviewed are Neg General / Constitutional: Positive: Fever, No: Chills HENT: No: Headaches, Lightheadedness, Neck Pain Cardiovascular: No: Chest Pain or Discomfort, Palpitations Respiratory: No: Cough, Shortness of Breath Gastrointestinal: No: Nausea, Vomiting, Abdominal Pain Genitourinary: No: Dysuria, Incontinence Musculoskeletal: No: Weakness, Pain Neurologic: Positive: Dizziness (Not true dizziness but she states she felt different as though she was more relaxed than she should be.), No: Weakness, Focal Abnormalities, Headache, Change in Mentation Physical Exam Narrative GENERAL: Well-developed well-nourished female in no acute respiratory distress. SKIN: Focused skin assessment warm/dry. HEAD: Atraumatic. Normocephalic. EYES: No scleral icterus. No injection or drainage. ENT: No nasal bleeding or discharge. Mucous membranes pink and moist. NECK: Trachea midline. Supple. CARDIOVASCULAR: Regular rate and rhythm. No murmur appreciated. No ectopy. RESPIRATORY: No accessory muscle use. Clear to auscultation. Breath sounds equal bilaterally. GASTROINTESTINAL: Abdomen soft, non-tender, nondistended. Hepatic and splenic margins not palpable. MUSCULOSKELETAL: No obvious deformities. No clubbing. No cyanosis. No edema. Right BKA. NEUROLOGICAL: Awake and alert. No obvious cranial nerve deficits. Motor grossly within normal limits. Normal speech. Data Data Last Documented VS Vital Signs Date Time Temp Pulse Resp B/P (MAP) Pulse Ox O2 Delivery O2 Flow Rate FiO2 06/03/17 15:43 68 16 144/67 (92) 94 Room Air 06/03/17 10:22 98.3 Orders Orders Electrocardiogram (06/03/17 10:18) Complete Blood Count With Diff (06/03/17 10:41) Comprehensive Metabolic Panel (06/03/17 10:41) Urinalysis - C+S If Indicated (06/03/17 10:41) Magnesium (Mg) (06/03/17 10:41) Phosphorus (Po4) (06/03/17 10:41) Chest, Single Ap (06/03/17 10:41) Ct Brain W/O Iv Contrast(Rout) (06/03/17 10:41) Iv Access Insert/Monitor (06/03/17 10:41) Ecg Monitoring (06/03/17 10:41) Oximetry (06/03/17 10:41) Urine Culture (06/03/17 10:49) Hydralazine Inj (Apresoline Inj) (06/03/17 14:15) Levofloxacin 500 Mg Premix Inj (Levaquin (06/03/17 14:15) Labs Laboratory Tests Test 06/03/17 10:49 White Blood Count 5.8 TH/MM3 Red Blood Count 2.86 MIL/MM3 Hemoglobin 9.0 GM/DL Hematocrit 26.0 % Mean Corpuscular Volume 91.0 FL Mean Corpuscular Hemoglobin 31.4 PG Mean Corpuscular Hemoglobin Concent 34.5 % Red Cell Distribution Width 13.8 % Platelet Count 157 TH/MM3 Mean Platelet Volume 8.1 FL Neutrophils (%) (Auto) 64.3 % Lymphocytes (%) (Auto) 21.6 % Monocytes (%) (Auto) 7.3 % Eosinophils (%) (Auto) 5.6 % Basophils (%) (Auto) 1.2 % Neutrophils # (Auto) 3.8 TH/MM3 Lymphocytes # (Auto) 1.3 TH/MM3 Monocytes # (Auto) 0.4 TH/MM3 Eosinophils # (Auto) 0.3 TH/MM3 Basophils # (Auto) 0.1 TH/MM3 CBC Comment DIFF FINAL Differential Comment Urine Color LIGHT-YELLOW Urine Turbidity HAZY Urine pH 8.5 Urine Specific [place] 1.007 Urine Protein 300 mg/dL Urine Glucose (UA) 70 mg/dL Urine Ketones NEG mg/dL Urine Occult Blood TRACE Urine Nitrite NEG Urine Bilirubin NEG Urine Urobilinogen LESS THAN 2.0 MG/DL Urine Leukocyte Esterase LARGE Urine RBC 7 /hpf Urine WBC 43 /hpf Urine Squamous Epithelial Cells 67 /hpf Urine Bacteria MOD /hpf Urine Mucus FEW /lpf Urine Yeast (Budding) OCC Microscopic Urinalysis Comment CULTURE INDICATED Blood Urea Nitrogen 10 MG/DL Creatinine 3.03 MG/DL Random Glucose 95 MG/DL Total Protein 7.2 GM/DL Albumin 3.2 GM/DL Calcium Level 7.9 MG/DL Phosphorus Level 1.9 MG/DL Magnesium Level 1.9 MG/DL Alkaline Phosphatase 68 U/L Aspartate Amino Transf (AST/SGOT) 21 U/L Alanine Aminotransferase (ALT/SGPT) 16 U/L Total Bilirubin 0.3 MG/DL Sodium Level 136 MEQ/L Potassium Level 4.1 MEQ/L Chloride Level 99 MEQ/L Carbon Dioxide Level 30.7 MEQ/L Anion Gap 6 MEQ/L Estimat Glomerular Filtration Rate 15 ML/MIN MDM Medical Decision Making Medical Screen Exam Complete: Yes Emergency Medical Condition: Yes Differential Diagnosis Infection versus metabolic derangement versus anemia versus over dialysis Narrative Course 72-year-old female presents after having dialysis where she became lightheaded and not feeling right. Patient had low-grade fever. Patient has a urinary tract infection. Cultures have been sent off. Patient's white blood cell count 5.8. Her vital signs are stable. She was hypertensive and had been given hydralazine which brought her blood pressure down nicely. She had had a mild headache which she does not have at this time. She has been given 500 mg of IV Levaquin. She will be discharged with a prescription for Levaquin 250 p.o. daily 7 days. She will follow-up for dialysis as scheduled. She is instructed to return if she develops any worsening symptoms. Diagnosis Primary Impression: Cystitis Additional Impressions: ESRD (end stage renal disease) on dialysis Hypertension DM (diabetes mellitus) Additional Instructions: Return if feeling worse. Check your blood pressure twice daily and record. Med/Other Pt SpecificInfo: Prescription(s) given Scripts Levofloxacin (Levaquin) 250 Mg Tablet 250 MG PO DAILY for Infection, #7 TAB 0 Refills Prov: Gerald Heredia MD 06/03/17 Disposition: DISCHARGE HOME Condition: Stable Gerald Heredia MD Jun 03, 2017 12:03
[2017-06-03 12:06] VITALS: BP 199/94; PULSE 65; RESP 16; O2SAT 99
--- NOTE | 2017-06-03 12:20 | RADRPT ---
EXAM DATE/TIME: 06/03/2017 11:11 [facility] COMPARISON: CT BRAIN W/O CONTRAST, April 16, 2016, 10:53. INDICATIONS : Dizziness. RADIATION DOSE: 56.35 CTDIvol (mGy) MEDICAL HISTORY : Cardiovascular disease. Hypertension. Renal failure, chronic.AV shunt SURGICAL HISTORY : Cholecystectomy. ENCOUNTER: Initial ACUITY: 1 day PAIN SCALE: 0/10 LOCATION: cranial TECHNIQUE: Multiple contiguous axial images were obtained of the head. Using automated exposure control and adj ustment of the mA and/or kV according to patient size, radiation dose was kept as low as reasonably a chievable to obtain optimal diagnostic quality images. DICOM format image data is available electro nically for review and comparison. FINDINGS: CEREBRUM: The ventricles are normal for age. No evidence of midline shift, mass lesion, hemorrhage or acute in farction. No extra-axial fluid collections are seen. POSTERIOR FOSSA: The cerebellum and brainstem are intact. The 4th ventricle is midline. The cerebellopontine angle i s unremarkable. EXTRACRANIAL: The visualized portion of the orbits is intact. SKULL: The calvaria is intact. No evidence of skull fracture. CONCLUSION: No acute disease. William Whitt Jr., MD on June 03, 2017 at 12:17 Board Certified Radiologist. This report was verified electronically.
--- NOTE | 2017-06-03 12:35 | RADRPT ---
EXAM DATE/TIME: 06/03/2017 11:55 [facility] COMPARISON: CHEST SINGLE AP, August 02, 2016, 18:47. INDICATIONS : Syncope at dialysis MEDICAL HISTORY : Hypothyroidism. Hypertension, Dialysis, diabetes, renal failure, rheumatoid arthritis. SURGICAL HISTORY : AV fistula ENCOUNTER: Initial ACUITY: 1 day PAIN SCORE: 0/10 LOCATION: Bilateral chest FINDINGS: There is minimal atelectatic change at the left lung base. The lungs are otherwise clear. The dialysi s catheter has been removed. No pneumothorax is present. The visualized bony structures are grossly i ntact. CONCLUSION: 1. Minimal atelectasis at the left lung base. No acute abnormality. Taqueria Balderas MD on June 03, 2017 at 12:20 Board Certified Radiologist. This report was verified electronically.
[2017-06-03 13:20] VITALS: BP 191/83; PULSE 64; RESP 16; O2SAT 98
[2017-06-03] MEDS ORDERED: hydrALAZINE HCL 20 MG/ML VIAL IV PUSH ONE (14:15)
[2017-06-03] MEDS ORDERED: LEVOFLOXACIN 500 MG PREMIX INJ 100 ML IV ONE (14:15)
--- NOTE | 2017-06-03 14:28 | EKG ---
Date Performed: 06/03/2017 Time Performed: 10:18:51 PTAGE: 72 years EKG: Sinus rhythm RIGHT BUNDLE BRANCH BLOCK LEFT ANTERIOR FASCICULAR BLOCK MODERATE T-WAVE ABNORMALITY, CONSIDER INFER IOR ISCHEMIA ABNORMAL ECG PREVIOUS TRACING : 08/02/2016 20.13 Since the prior tracing, the inferolateral ST-T wave change s are increased and myocardial ischemia should be excluded clinically. DOCTOR: Erika Bean Interpretating Date/Time 06/03/2017 14:26:45
[2017-06-03 15:43] VITALS: BP 144/67; PULSE 68; RESP 16; O2SAT 94
[2017-06-03] MEDS ORDERED: LEVA250T14 PO (16:38)
== END 2017-06-03 17:21 | disposition home or self-care (01) ==
LOC: NEPE 10:10
DX: N30.90 Cystitis, unspecified without hematuria (principal); E11.22 Type 2 diabetes mellitus with diabetic chronic kidney disease; I12.0 Hypertensive chronic kidney disease with stage 5 chronic kidney disease or end stage renal disease; N18.6 End stage renal disease; R42 Dizziness and giddiness; I45.10 Unspecified right bundle-branch block; I44.4 Left anterior fascicular block; R94.31 Abnormal electrocardiogram [ECG] [EKG]; Z99.2 Dependence on renal dialysis
CPT/HCPCS: 70450; 71045; 80053; 81001; 83735; 84100; 85025; 87086; 93005; 96374; 96375; 99285; J0360; J1956

== ENCOUNTER 2018-01-16 10:27 | Inpatient (IN) ==
[2018-01-16 12:02] LABS: Baso # (Auto) 0.1 th/mm3 (0.0-0.2); Eos # (Auto) 0.3 th/mm3 (0.0-0.4); Eos % (Auto) 3.1 % (0.0-4.0); Hematocrit 23.6 % (35.0-46.0); Hemoglobin 7.9 gm/dL (11.6-15.3); Lymph # (Auto) 1.1 th/mm3 (1.0-4.8); Lymph % (Auto) 12.8 % (9.0-44.0); Mean Corpuscular HGB Conc 33.2 % (32.0-36.0); Mean Corpuscular Volume 96.2 fL (80.0-100.0); Mean Platelet Volume 8.5 fL (7.0-11.0); Mono # (Auto) 0.5 th/mm3 (0.0-0.9); Mono % (Auto) 5.8 % (0.0-8.0); Neut # (Auto) 6.8 th/mm3 (1.8-7.7); Neut % (Auto) 77.3 % (16.0-70.0); Platelet Count 211 th/mm3 (150-450); Red Blood Count 2.46 mil/mm3 (4.00-5.30); Red Cell Distribution Width 14.8 % (11.6-17.2); White Blood Count 8.8 th/mm3 (4.0-11.0)
--- NOTE | 2018-01-16 12:07 | XR ---
EXAM DATE: 01/16/2018 11:22 AM EDT AGE/SEX: 72 years / Female INDICATIONS: Shortness of breath. CLINICAL DATA: This is the patient's initial encounter. Patient reports that signs and symptoms have been present for 3 days and indicates a pain score of 0/10. MEDICAL/SURGICAL HISTORY: None. Hypothyroidism. Hypertension, Dialysis, diabetes, renal failure , rheumatoid arthritis. None. COMPARISON: Chest x-ray 06/03/2017. FINDINGS: A single AP view of the chest demonstrates mild cardiomegaly. Pulmonary vascular engorgement noted. P atchy interstitial prominence within the bases. No effusions. A degenerative spine. CONCLUSION: Cardiomegaly with mild interstitial edema. Electronically signed by: William Whitt MD 01/16/2018 12:05 PM EDT
--- NOTE | 2018-01-16 13:15 | ED ---
HPI General Chief Complaint: Chest Pain Stated Complaint: tightness in chest/problem breathing/vomitting Time Seen by Provider: 01/16/18 11:04 Source: patient and family Mode of arrival: ambulatory Limitations: language barrier History of Present Illness HPI narrative: Is a 72-year-old female, past medical history significant for diabetes and end-stage renal disease on dialysis, last dialyzed last Tuesday, who presents with complaint of substernal tightness and dyspnea that worsens when she lies flat. She felt too ill to make it to dialysis this morning secondary to the symptoms. She has had chills 2 days ago but no fever. No cough nor congestion. No abdominal pain, headache, numbness, weakness. No leg swelling or immobilization. The pain does not change with exertion or rest. MD complaint: Reports chest pain and other STEMI Alert: No Onset (ago): hour(s) Duration: constant Pain location: Reports substernal Severity: mild Quality: Reports tightness Pain radiation: Reports none Exacerbating factors: supine Associated symptoms: Reports dyspnea Treatments prior to arrival chest pain: Reports none Related Data Home Medications Medication Instructions Recorded Confirmed calcitriol 1 mcg PO DAILY 01/16/18 01/16/18 calcium acetate 1,334 mg PO TID 01/16/18 01/16/18 clonidine HCl 0.3 mg PO BID 01/16/18 01/16/18 doxycycline hyclate 100 mg PO BID 01/16/18 01/16/18 hydralazine 50 mg PO TID 01/16/18 01/16/18 mupirocin 1 applic TOPICAL BID 01/16/18 01/16/18 Allergies Allergy/AdvReac Type Severity Reaction Status Date / Time diatrizoate meglumine Allergy Severe CAN'T Verified 01/16/18 14:45 BREATHE epoetin mirta Allergy Severe Headache Verified 01/16/18 14:45 gadobenic acid Allergy Severe CAN'T Verified 01/16/18 14:45 BREATHE gadodiamide Allergy Severe CAN'T Verified 01/16/18 14:45 BREATHE gadoteridol Allergy Severe CAN'T Verified 01/16/18 14:45 BREATHE iodine Allergy Severe Hives Verified 01/16/18 14:45 iodixanol Allergy Severe CAN'T Verified 01/16/18 14:45 BREATHE iohexol Allergy Severe CAN'T Verified 01/16/18 14:45 BREATHE morphine Allergy Severe RESPIRATORY Verified 01/16/18 14:45 DISTRESS potassium iodide Allergy Severe Hives Verified 01/16/18 14:45 povidone-iodine Allergy Severe Hives Verified 01/16/18 14:45 sodium iodide Allergy Severe Hives Verified 01/16/18 14:45 sodium iodide Allergy Severe Hives Verified 01/16/18 14:45 vancomycin Allergy Severe Hives Verified 01/16/18 14:45 plastic tape Allergy Severe Hives Uncoded 01/16/18 14:45 Review of Systems ROS: all other systems reviewed are negative [facility] Medical History Medical History A-V fistula (Acute) Dialysis AV fistula malfunction (Acute) Kidney disease (Acute) Family History Family History Other No family history of cardiac disease Social History Social History Substance History: No History of Abuse Second Hand Smoke Exposure: No Smoking Status: Never smoker How Often Do You Have a Drink Containing Alcohol: Never Recent Travel in [facility] within the Last 8 Weeks: No Recent Out of Country Travel within the Last 8 Weeks: No Immunization History Tetanus Immunization: >5 Years Exam Narrative Exam Narrative: GENERAL: Chronically ill-appearing female in no acute distress SKIN: Focused skin assessment warm/dry. HEAD: Atraumatic. Normocephalic. EYES: Pupils equal and round. No scleral icterus. No injection or drainage. ENT: No nasal bleeding or discharge. Mucous membranes pink and moist. NECK: Trachea midline. No JVD. CARDIOVASCULAR: Regular rate and rhythm. No murmur appreciated. Intact and equal peripheral pulses (on present extremities). Positive thrill in the right upper extremity RESPIRATORY: Decreased breath sounds throughout with crackles in the bases bilaterally. GASTROINTESTINAL: Abdomen soft, non-tender, nondistended. Hepatic and splenic margins not palpable. MUSCULOSKELETAL: No obvious deformities. No clubbing. No cyanosis. No edema. Left lower extremity amputation. NEUROLOGICAL: Awake and alert. No obvious cranial nerve deficits. Motor grossly within normal limits. Normal speech. PSYCHIATRIC: Appropriate mood and affect; insight and judgment normal. Course Initial Documented Vital Signs Temperature 98.1 F 01/16/18 10:41 Pulse Rate 75 01/16/18 10:41 Respiratory Rate 19 01/16/18 10:41 Blood Pressure 215/91 H 1008/18 10:41 Pulse Oximetry 95 01/16/18 10:41 Last Documented Vital Signs Temperature 98 F 01/16/18 12:47 Pulse Rate 70 01/16/18 14:37 Respiratory Rate 20 01/16/18 14:37 Blood Pressure 216/93 H 01/16/18 14:37 Pulse Oximetry 100 01/16/18 14:37 Medical Decision Making MDM Narrative Medical decision making narrative: Patient is a 72-year-old female with complaint of chest pain and shortness of breath. She did not go to dialysis secondary to her ill feeling. EKG is without acute ischemic changes. Chest x- ray shows fluid overload. Labs show a slightly elevated potassium which is hemolyzed and has been redrawn in addition to an elevated BNP. I spoke with Dr. 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 She has been admitted to Dr. Oneil, hospitalist on-call, for further evaluation and management. Medical Screen Exam Complete: Yes Emergency Medical Condition: Yes Differential Diagnosis Differential Diagnosis: Differential diagnosis includes but is not limited to pneumonia, electrolyte abnormality, fluid overload. Medical Records Medical records reviewed: Yes I reviewed the patient's medical records. Lab Data Lab results reviewed: Yes I reviewed the patient's lab results. Result diagrams: 01/16/18 11:45 01/16/18 12:43 Lab Results 01/16/18 01/16/18 01/16/18 Range/Units 11:45 11:45 12:43 WBC 8.8 (4.0-11.0) th/mm3 RBC 2.46 L (4.00-5.30) mil/mm3 Hgb 7.9 L (11.6-15.3) gm/dL Hct 23.6 L (35.0-46.0) % MCV 96.2 (80.0-100.0) fL MCH 32.0 (27.0-34.0) pg MCHC 33.2 (32.0-36.0) % RDW 14.8 (11.6-17.2) % Plt Count 211 (150-450) th/mm3 MPV 8.5 (7.0-11.0) fL Neut % (Auto) 77.3 H (16.0-70.0) % Lymph % (Auto) 12.8 (9.0-44.0) % [place] % (Auto) 5.8 (0.0-8.0) % Eos % (Auto) 3.1 (0.0-4.0) % Baso % (Auto) 1.0 (0.0-2.0) % Neut # (Auto) 6.8 (1.8-7.7) th/mm3 Lymph # (Auto) 1.1 (1.0-4.8) th/mm3 [place] # (Auto) 0.5 (0.0-0.9) th/mm3 Eos # (Auto) 0.3 (0.0-0.4) th/mm3 Baso # (Auto) 0.1 (0.0-0.2) th/mm3 WBC Differential . Differential Comment Auto diff final Sodium 141 (136-145) meq/L Potassium 5.7 H (3.5-5.1) meq/L Chloride 104 (98-107) meq/L Carbon Dioxide 25.6 (21.0-32.0) meq/L Anion Gap 11 (5-15) meq/L BUN 70 H (7-18) mg/dL Creatinine 8.60 H (0.50-1.00) mg/dL Estimated GFR 5 L (>89) mL/min Random Glucose 214 H (74-106) mg/dL Calcium 6.2 L* (8.5-10.1) mg/dL Prot Corrected Calcium 6.4 L* (8.5-10.1) mg/dL Total Bilirubin 0.3 (0.2-1.0) mg/dL AST 11 L (15-37) U/L ALT 13 (10-53) U/L Alkaline Phosphatase 123 H (45-117) U/L Troponin I Less than 0.02 L (0.02-0.05) ng/mL B-Natriuretic Peptide 1320 H (0-100) pg/mL Total Protein 6.7 (6.4-8.2) g/dL Albumin 2.9 L (3.4-5.0) g/dL Imaging Data Attestation: I personally reviewed and interpreted this imaging study as follows : My impression: Cardiomegaly with edema. Radiologist's impression: Chest X-Ray 01/16/18 11:22 CONCLUSION: Cardiomegaly with mild interstitial edema. ECG Data EKG Prior to Arrival: No Attestation: I personally reviewed and interpreted this ECG as follows: (Sinus rhythm at a rate of 69 bpm. Right bundle branch block present. T wave flattening in lead III but no other ST or T wave changes.) Discharge Plan Discharge Disposition Patient Disposition: 30 Still Patient Discharge Condition Condition: Fair Discharge Details Diagnosis: Atypical chest pain, Hypervolemia Physicians Team ED Provider: Lilia Campbell Primary Care Provider: Ty Collier Attending Provider: Jordi Oneil Other Providers: Aria Doshi Discharge Interventions Interventions: Vital Signs Last Done: 01/16/18 14:00 Status ED Status: Admitted Observation Patient
[2018-01-16 13:17] LABS: Alanine Aminotransferase 13 U/L (10-53); Albumin 2.9 g/dL (3.4-5.0); Alkaline Phosphatase 123 U/L (45-117); Anion Gap 11 meq/L (5-15); Blood Urea Nitrogen 70 mg/dL (7-18); Calcium 6.2 mg/dL (8.5-10.1); Carbon Dioxide 25.6 meq/L (21.0-32.0); Chloride 104 meq/L (98-107); Glomerular Filtration Rate 5 mL/min (>89); Glucose,Random 214 mg/dL (74-106); Sodium 141 meq/L (136-145); Total Protein 6.7 g/dL (6.4-8.2)
[2018-01-16 13:24] LABS: Aspartate Aminotransferase 11 U/L (15-37); Potassium 5.7 meq/L (3.5-5.1)
[2018-01-16] MEDS ORDERED: Aspirin 325 MG Tablet PO ONE (14:36)
--- NOTE | 2018-01-16 14:47 | P.HP ---
History of Present Illness Primary Care Physician: Ty Collier MD History of Present Illness: 72-year-old female being admitted for chest pain and shortness of breath. Patient is [place]-speaking, I conversed with her in [place]. Patient was in her usual state of health until earlier this morning when she woke up having severe chest pain that was 10/10 intensity accompanied with shortness of breath nausea and vomiting. Emesis was nonbloody. Patient did not take any medications to treat her pain, just decided come to the emergency department with her son and . Patient was originally scheduled for dialysis today but felt too weak and came to the ER. Patient reports having subjective fevers throughout the weekend. Denies having any cough. Denies having any lower extremity swelling recently. Son is at the bedside and he denies her ever having any heart cardiac catheterization or bypass surgery. Says that she has end-stage renal disease as well as a history of a right leg amputation secondary to uncontrolled diabetes in the past, now she does not require medications to keep her blood sugars control. The emergency department patient had uncontrolled blood pressures hitting the systolic 200s, she had an EKG done which and apparently reviewed and I see no acute ST segment changes concerning for ischemia or infarction. Troponins are negative, BNP is elevated around 13,000. Chest x-ray which independently reviewed shows very minimal pulmonary edema. Patient states she recently completed treatment for a MRSA skin infection in her axilla, last antibiotic dose completed yesterday. Review of Systems All other systems reviewed negative except as stated in HPI PMFSH - History History Provided By: Patient, Family Member - Medical History Medical History: Medical History (Last Reviewed 01/16/18 @ 14:44 by Jordi Oneil MD) A-V fistula Dialysis AV fistula malfunction Kidney disease - Family History Family History: Family History (Last Updated 01/16/18 @ 14:44 by Jordi Oneil MD) Other No family history of cardiac disease - Social History I have reviewed the patient's Social History: Yes - Tobacco History Second Hand Smoke Exposure: No Smoking Status: Never smoker - Alcohol History How Often Do You Have a Drink Containing Alcohol: Never - Substance Use History Substance History: No History of Abuse - Travel History Recent Travel in the [place] Within the Last 8 Weeks: No Recent Travel Out of the Country Within the Last 8 Weeks: No - Immunization History Tetanus Immunization: >5 Years Medications and Allergies Active Medications: Active Medications Aspirin (Aspirin) 325 mg PO ONCE ONE Stop: 01/16/18 14:37 Aspirin (Ecotrin) 81 mg PO DAILY MELIDA Allergies Allergy/AdvReac Type Severity Reaction Status Date / Time diatrizoate meglumine Allergy Severe CAN'T Verified 01/16/18 14:45 BREATHE epoetin mirta Allergy Severe Headache Verified 01/16/18 14:45 gadobenic acid Allergy Severe CAN'T Verified 01/16/18 14:45 BREATHE gadodiamide Allergy Severe CAN'T Verified 01/16/18 14:45 BREATHE gadoteridol Allergy Severe CAN'T Verified 01/16/18 14:45 BREATHE iodine Allergy Severe Hives Verified 01/16/18 14:45 iodixanol Allergy Severe CAN'T Verified 01/16/18 14:45 BREATHE iohexol Allergy Severe CAN'T Verified 01/16/18 14:45 BREATHE morphine Allergy Severe RESPIRATORY Verified 01/16/18 14:45 DISTRESS potassium iodide Allergy Severe Hives Verified 01/16/18 14:45 povidone-iodine Allergy Severe Hives Verified 01/16/18 14:45 sodium iodide Allergy Severe Hives Verified 01/16/18 14:45 sodium iodide Allergy Severe Hives Verified 01/16/18 14:45 vancomycin Allergy Severe Hives Verified 01/16/18 14:45 plastic tape Allergy Severe Hives Uncoded 01/16/18 14:45 Home Medications Medication Instructions Recorded Confirmed Type calcitriol 1 mcg PO DAILY 01/16/18 01/16/18 History calcium acetate 1,334 mg PO TID 01/16/18 01/16/18 History clonidine HCl 0.3 mg PO BID 01/16/18 01/16/18 History doxycycline hyclate 100 mg PO BID 01/16/18 01/16/18 History hydralazine 50 mg PO TID 01/16/18 01/16/18 History mupirocin 1 applic TOPICAL BID 01/16/18 01/16/18 History Exam Vital signs: Vital Signs 01/16/18 10:41 01/16/18 11:40 01/16/18 11:41 Temperature 98.1 F Pulse Rate 75 68 68 Respiratory Rate 19 21 Blood Pressure 215/91 H 214/92 H Pulse Oximetry 95 100 100 01/16/18 12:47 01/16/18 14:00 Temperature 98 F Pulse Rate 66 66 Respiratory Rate 16 17 Blood Pressure 189/79 H 208/92 H Pulse Oximetry 97 94 L Intake & Output 01/15/18 01/16/18 01/16/18 18:59 06:59 18:59 Weight 78 kg Narrative: VS: afebrile GENERAL: Elderly female, appears fatigued SKIN: Warm and dry. EYES: No scleral icterus. No injection or drainage. ENT: No nasal bleeding or discharge. Mucous membranes pink and moist. CARDIOVASCULAR: Regular rate and rhythm. no murmurs RESPIRATORY: No accessory muscle use. Has bibasilar rales GASTROINTESTINAL: Abdomen soft, non-tender, nondistended. Extremities: No clubbing, cyanosis, or edema. Prosthetic right lower leg. MUSCULOSKELETAL: adequate muscle bulk and tone for age and habitus NEUROLOGICAL: Awake and alert. No obvious cranial nerve deficits. No facial droop nor slurred speech noted. PSYCHIATRIC: Appropriate mood and affect; insight and judgment normal. Results - Labs CBC & Chem 7: 01/16/18 11:45 01/16/18 12:43 Labs: Laboratory Results - last 24 hr 01/16/18 01/16/18 01/16/18 11:45 11:45 12:43 WBC 8.8 RBC 2.46 L Hgb 7.9 L Hct 23.6 L MCV 96.2 MCH 32.0 MCHC 33.2 RDW 14.8 Plt Count 211 MPV 8.5 Neut % (Auto) 77.3 H Lymph % (Auto) 12.8 [place] % (Auto) 5.8 Eos % (Auto) 3.1 Baso % (Auto) 1.0 Neut # (Auto) 6.8 Lymph # (Auto) 1.1 [place] # (Auto) 0.5 Eos # (Auto) 0.3 Baso # (Auto) 0.1 WBC Differential . Differential Comment Auto diff final Sodium 141 Potassium 5.7 H Chloride 104 Carbon Dioxide 25.6 Anion Gap 11 BUN 70 H Creatinine 8.60 H Estimated GFR 5 L Random Glucose 214 H Calcium 6.2 L* Prot Corrected Calcium 6.4 L* Total Bilirubin 0.3 AST 11 L ALT 13 Alkaline Phosphatase 123 H Troponin I Less than 0.02 L B-Natriuretic Peptide 1320 H Total Protein 6.7 Albumin 2.9 L - Imaging Impressions Chest X-Ray 01/16/18 11:22 CONCLUSION: Cardiomegaly with mild interstitial edema. Caprini VTE Risk Assessment Caprini VTE Risk Assessment: Moderate/High Risk (score >= 2) Caprini Risk Assessment Model: Point Value = 1 Point Value = 2 Point Value = 3 Point Value = 5 Age 41-60 Minor surgery BMI > 25 kg/m2 Swollen legs Varicose veins or History of unexplained or recurrent spontaneous Oral contraceptives or hormone replacement Sepsis (< 1 month) Serious lung disease, including pneumonia (< 1 month) Abnormal pulmonary function Acute myocardial infarction Congestive heart failure (< 1 month) History of inflammatory bowel disease Medical patient at bed rest Age 61-74 Arthroscopic surgery Major open surgery (> 45 min) Laparoscopic surgery (> 45 min) Malignancy Confined to bed (> 72 hours) Immobilizing plaster cast Central venous access Age >= 75 History of VTE Family history of VTE Factor V Leiden Prothrombin [id number] Lupus anticoagulant Anticardiolipin antibodies Elevated serum homocysteine Heparin-induced thrombocytopenia Other congenital or acquired thrombophilia Stroke (< 1 month) Elective arthroplasty Hip, pelvis, or leg fracture Acute spinal cord injury (< 1 month) Prophylaxis Regimen: Total Risk Factor Score Risk Level Prophylaxis Regimen 0-1 Low Early ambulation 2 Moderate Order ONE of the following: *Sequential Compression Device (SCD) *Heparin 5000 units SQ BID 3-4 Higher Order ONE of the following medications: *Heparin 5000 units SQ TID *Enoxaparin/Lovenox 40 mg SQ daily (WT < 150 kg, CrCl > 30 mL/min) *Enoxaparin/Lovenox 30 mg SQ daily (WT < 150 kg, CrCl > 10-29 mL/min) *Enoxaparin/Lovenox 30 mg SQ BID (WT < 150 kg, CrCl > 30 mL/min) AND/OR *Sequential Compression Device (SCD) 5 or more Highest Order ONE of the following medications: *Heparin 5000 units SQ TID (Preferred with Epidurals) *Enoxaparin/Lovenox 40 mg SQ daily (WT < 150 kg, CrCl > 30 mL/min) *Enoxaparin/Lovenox 30 mg SQ daily (WT < 150 kg, CrCl > 10-29 mL/min) *Enoxaparin/Lovenox 30 mg SQ BID (WT < 150 kg, CrCl > 30 mL/min) AND *Sequential Compression Device (SCD) Assessment and Plan - Plan 72-year-old female being admitted for chest pain shortness of breath Chest pain Shortness of breath Likely from pulmonary edema based on exam and CXR as well as possible hypertensive emergency, but need to rule out ACS -Improve fluid balance first today with dialysis then pursue aggressive ACS workup -Trend troponins, repeat EKG, give aspirin 325 today, 81 mg starting tomorrow, consider Lexiscan tomorrow - echo ordered ESRD - nephro consulted, dialysis anticipated today w/ calcium supplements being restarted Uncontrolled hypertension Likely secondary to renal disease, continue home clonidine and hydralazine
[2018-01-16] MEDS ORDERED: Sod Chloride 0.9% Inj 1,000 ML OTHER PRN ×2 (16:06)
[2018-01-16] MEDS ORDERED: Gelatin 12 MM/7 MM Topical Foam TOPICAL PRN (16:06)
[2018-01-16] MEDS ORDERED: Sod Chloride 0.9% Inj 1,000 ML IV.CONT PRN (16:06)
[2018-01-16] MEDS ORDERED: Acetaminophen 325 MG Tablet PO PRN (16:06)
[2018-01-16] MEDS ORDERED: Heparin 10,000 UNITS/10 ML Vial (for IV use) OTHER PRN ×2 (16:06)
[2018-01-16] MEDS ORDERED: Albumin Human 25% Inj 100 ML IV.SIG PRN (16:06)
--- NOTE | 2018-01-16 16:51 | ECG ---
Date Performed: 01/16/2018 Time Performed: 11:05:22 PTAGE: 72 years EKG: Sinus rhythm RIGHT BUNDLE BRANCH BLOCK LEFT ANTERIOR FASCICULAR BLOCK ABNORMAL ECG Since previous tracing, no sig nificant change noted NO PREVIOUS TRACING DOCTOR: Zaria Chery Interpretating Date/Time 01/16/2018 16:50:30
--- NOTE | 2018-01-16 18:59 | MB ---
cc: Aria Doshi MD DATE: 01/16/2018 REASON FOR CONSULTATION: End-stage renal disease, on hemodialysis, for management. HISTORY OF PRESENT ILLNESS: This is a 72-year-old female with past medical history of hypertension, chronic anemia, ischemic heart disease, end-stage renal disease on hemodialysis 3 times per week, came to the hospital complaining of chest pain. I was called to see the patient for the management of dialysis. She has been on hemodialysis Tuesday, Tuesday and Tuesday. She had her last dialysis treatment done on Tuesday. The patient started having shortness of breath and chest pain, which was mainly retrosternal. It improved after she came to the hospital and given oxygen and some medications. When I saw her, she is now starting dialysis and she denies any chest pain. She still has some shortness of breath. There is no history of vomiting. She has mild nausea. The patient was found to have some pulmonary edema on the chest x-ray and elevated BNP. PAST MEDICAL HISTORY: Hypertension, ischemic heart disease, end-stage renal disease on hemodialysis 3 times per week. PAST SURGICAL HISTORY: AV fistula surgery, right below-knee amputation, cardiac catheterization. REVIEW OF SYSTEMS: Denies any history of fever. No headache or dizziness. She has worsening shortness of breath, more with exertion, has chest pain mainly retrosternal, occasional nausea. There is no vomiting, no abdominal pain. No history of diarrhea. SOCIAL HISTORY: The patient is and lives with her and her son. There is no history of smoking or heavy alcoholism. FAMILY HISTORY: Noncontributory. ALLERGIES: SHE IS ALLERGIC TO MULTIPLE MEDICATIONS INCLUDING DIATRIZOATE MEGLUMINE, EPOGEN, GADOBENIC ACID, IODINE. MEDICATIONS: Currently, she is on the following medications: 1. Tylenol. 2. Ecotrin 81 mg once a day. 3. Rocaltrol 1 mcg daily. 4. PhosLo 1334 mg t.i.d. 5. Clonidine 0.3 mg b.i.d. 6. Benadryl p.r.n. 7. Hydralazine p.r.n. 8. Zofran p.r.n. PHYSICAL EXAMINATION: GENERAL: Patient is awake, alert. She is currently now on dialysis. VITAL SIGNS: Her last blood pressure is 216/93. Temperature is 98. Oxygen saturation on room air is 94% to 100%. HEENT: Pupils are mid constricted. Nonicteric sclerae. Conjunctivae are pale. NECK: Supple. JVD is slightly elevated. LUNGS: The patient has bilateral decreased air entry with basal rales and scattered wheezing. HEART: S1, S2. Regular rate and rhythm. ABDOMEN: Distended, soft, lax. There is no tenderness. EXTREMITIES: She has a right below-knee amputation. Left arm AV fistula with good bruit. LABORATORY DATA: WBC count is 8.8, hemoglobin 7.9, platelet count 211, neutrophil 77.3. Sodium 141, potassium 5.7, chloride 104, bicarbonate 25.6, BUN is 70, creatinine is 8.6, calcium is corrected 6.4. AST is 11, ALT is 13. BNP is 1320, albumin is 2.9, total protein 6.7. IMAGING STUDIES: The patient had a chest x-ray done which shows increased vascular marking and cardiomegaly. ASSESSMENT: 1. Chest pain, rule out acute ischemia. 2. Hypertension, uncontrolled. 3. Fluid overload status. 4. End-stage renal disease on hemodialysis. 5. Anemia. 6. History of ischemic heart disease. The patient has been on hemodialysis Tuesday, Tuesday and Tuesday. She has last dialysis treatment on Tuesday. Blood pressure on the higher side and the patient is fluid overloaded status on the chest x-ray starting now dialysis and try to remove more fluid and watch her blood pressure. SHE IS ALLERGIC TO EPOGEN and has been getting Aranesp from Hematology. Her calcium is on the lower side. She has history of parathyroidectomy. I will get her phosphorus level and she has been on calcitriol and PhosLo. I will also put her on calcium with vitamin D supplement. Thank you for the consultation and I will follow the patient while she is in the hospital. MD PEACE Alexander/princess , 04:15 PM , 04:27 PM
[2018-01-16] MEDS ORDERED: Labetalol HCl Inj 100 MG/20 ML Vial IV.PUSH ONE (19:04)
[2018-01-16] MEDS: hydrALAZINE 50 MG Tablet PO SCH (20:41)
[2018-01-16] MEDS: Calcium/Vitamin D 250/125 MG Tablet PO SCH (20:41)
[2018-01-16] MEDS: Heparin - SQ 10,000 UNITS/ML Vial SQ SCH (20:41)
[2018-01-16] MEDS: Calcium Acetate 667 MG Capsule PO SCH (20:41)
[2018-01-16] MEDS ORDERED: hydrALAZINE HCl Inj 20 MG/ML Vial IV.PUSH ONE (22:36)
[2018-01-17 02:13] LABS: Calcium 6.7 mg/dL (8.5-10.1); Phosphorus 3.2 mg/dL (2.5-4.9); Potassium 3.6 meq/L (3.5-5.1); Troponin I 0.02 ng/mL (0.02-0.05)
[2018-01-17 02:29] LABS: Total Protein 7.3 g/dL (6.4-8.2)
[2018-01-17] MEDS: Heparin - SQ 10,000 UNITS/ML Vial SQ SCH ×3 (03:03→16:03)
[2018-01-17] MEDS: Metoprolol Tartrate 25 MG Tablet PO SCH ×3 (07:18→16:02)
[2018-01-17] MEDS: hydrALAZINE 50 MG Tablet PO SCH ×2 (08:56→16:02)
[2018-01-17] MEDS: Calcium Acetate 667 MG Capsule PO SCH ×2 (08:56→16:03)
[2018-01-17] MEDS: Calcium/Vitamin D 250/125 MG Tablet PO SCH ×2 (08:56→16:02)
[2018-01-17] MEDS ORDERED: Calcitriol 0.25 MCG Capsule PO SCH (09:00)
[2018-01-17 09:57] VITALS: TEMP 98.2
--- NOTE | 2018-01-17 10:02 | P.PNNP ---
Subjective Interval history: Resting comfortably this morning. Shortness of breath has improved. Hemodialysis yesterday tolerated well. Plan for stress test today. <Ashlee Joshua - Last Filed: 01/17/18 09:54> Physical Exam Vital signs: Vital Signs 01/16/18 10:41 01/16/18 11:40 01/16/18 11:41 Temperature 98.1 F Pulse Rate 75 68 68 Respiratory Rate 19 21 Blood Pressure 215/91 H 214/92 H Pulse Oximetry 95 100 100 01/16/18 12:47 01/16/18 14:00 01/16/18 14:37 Temperature 98 F Pulse Rate 66 66 70 Respiratory Rate 16 17 20 Blood Pressure 189/79 H 208/92 H 216/93 H Pulse Oximetry 97 94 L 100 01/16/18 20:00 01/17/18 00:00 01/17/18 01:45 Temperature 97.4 F L 97.6 F Pulse Rate 72 75 Respiratory Rate 20 12 Blood Pressure 191/78 H Pulse Oximetry 100 99 01/17/18 02:00 01/17/18 03:00 01/17/18 04:00 Temperature 97.5 F L Pulse Rate 74 72 71 Respiratory Rate 12 13 13 Blood Pressure 177/75 H 178/75 H 190/81 H Pulse Oximetry 99 99 100 01/17/18 05:00 01/17/18 06:00 01/17/18 09:09 Temperature Pulse Rate 72 76 Respiratory Rate 7 L 17 Blood Pressure 169/73 H 177/71 H Pulse Oximetry 94 L 92 L 94 L Intake & Output 01/16/18 01/17/18 01/17/18 18:59 06:59 18:59 Intake Total 320 / 320 Output Total 3000 / 3000 Balance -2680 / -2680 Weight 78 kg 83.5 kg Intake: Oral 320 / 320 Output: Urine 0 / 0 Hemodialysis Amount 3000 / 3000 Other: Weight On Admission 83.5 kg Narrative: GENERAL: Alert and oriented. NAD. SKIN: Warm and dry. CARDIOVASCULAR: Regular rate and rhythm. no murmurs. Right arm AVF with positive thrill and bruit. RESPIRATORY: No accessory muscle use. Lungs sounds clear bilaterally. GASTROINTESTINAL: Abdomen soft, non-tender, nondistended. Extremities: No clubbing, cyanosis, or edema. Prosthetic right lower leg PSYCHIATRIC: Appropriate mood and affect; insight and judgment normal. <Ashlee Joshua - Last Filed: 01/17/18 09:54> Assessment and Plan - Assessment (1) End-stage renal disease on hemodialysis Code(s): N18.6 - End stage renal disease; Z99.2 - Dependence on renal dialysis Status: Acute Plan: End stage renal disease on hemodialysis on Tuesday, and Tuesday. right arm AVF with positive thrill and bruit. Plan Avoid gadolinium Hypocalcemia, on oral replacement will also give 1 dose of calcium gluconate IV Continue PhosLo Hemodialysis done yesterday, tolerated well with removal of 3 liters of fluid Hemodialysis tomorrow. (2) Hypertension Code(s): I10 - Essential (primary) hypertension Status: Acute Plan: Remains hypertensive but improving, metoprolol has been added. On clonidine and hydralazine. (3) Anemia Code(s): D64.9 - Anemia, unspecified Status: Acute Plan: Hgb of 7.9, will add Epogen with dialysis. (4) Atypical chest pain Code(s): R07.89 - Other chest pain Status: Acute - Plan Stress test planned for today. <Ashlee Joshua - Last Filed: 01/17/18 09:54> - Assessment (1) End-stage renal disease on hemodialysis Code(s): N18.6 - End stage renal disease; Z99.2 - Dependence on renal dialysis Status: Acute Plan: Patient seen and examined, agree with above. Calcium replaced, to continue oral calcium. HD in AM. (2) Hypertension Code(s): I10 - Essential (primary) hypertension Status: Acute (3) Anemia Code(s): D64.9 - Anemia, unspecified Status: Acute (4) Atypical chest pain Code(s): R07.89 - Other chest pain Status: Acute <Aria Doshi - Last Filed: 01/24/18 17:10>
--- NOTE | 2018-01-17 10:22 | P.PN ---
Subjective Interval history: Nursing denies any deterioration since last night. Patient herself says she feels much better and really wants to go home today. Denies any shortness of breath or chest pain today. Had dialysis yesterday. Physical Exam Vital signs: Vital Signs 01/16/18 10:41 01/16/18 11:40 01/16/18 11:41 Temperature 98.1 F Pulse Rate 75 68 68 Respiratory Rate 19 21 Blood Pressure 215/91 H 214/92 H Pulse Oximetry 95 100 100 01/16/18 12:47 01/16/18 14:00 01/16/18 14:37 Temperature 98 F Pulse Rate 66 66 70 Respiratory Rate 16 17 20 Blood Pressure 189/79 H 208/92 H 216/93 H Pulse Oximetry 97 94 L 100 01/16/18 20:00 01/17/18 00:00 01/17/18 01:45 Temperature 97.4 F L 97.6 F Pulse Rate 72 75 Respiratory Rate 20 12 Blood Pressure 191/78 H Pulse Oximetry 100 99 01/17/18 02:00 01/17/18 03:00 01/17/18 04:00 Temperature 97.5 F L Pulse Rate 74 72 71 Respiratory Rate 12 13 13 Blood Pressure 177/75 H 178/75 H 190/81 H Pulse Oximetry 99 99 100 01/17/18 05:00 01/17/18 06:00 01/17/18 07:00 Temperature Pulse Rate 72 76 81 Respiratory Rate 7 L 17 22 Blood Pressure 169/73 H 177/71 H Pulse Oximetry 94 L 92 L 93 L 01/17/18 07:01 01/17/18 08:00 01/17/18 09:00 Temperature 98.2 F Pulse Rate 80 79 81 Respiratory Rate 26 H 12 30 H Blood Pressure 208/86 H 206/83 H 204/85 H Pulse Oximetry 92 L 91 L 92 L 01/17/18 09:03 01/17/18 09:09 01/17/18 09:30 Temperature Pulse Rate 80 80 Respiratory Rate 21 17 Blood Pressure 203/84 H 205/85 H Pulse Oximetry 93 L 94 L 91 L 01/17/18 10:00 Temperature Pulse Rate 80 Respiratory Rate 26 H Blood Pressure 200/110 H Pulse Oximetry 93 L Intake & Output 01/16/18 01/17/18 01/17/18 18:59 06:59 18:59 Intake Total 320 / 320 Output Total 3000 / 3000 Balance -2680 / -2680 Weight 78 kg 83.5 kg Intake: Oral 320 / 320 Output: Urine 0 / 0 Hemodialysis Amount 3000 / 3000 Other: Weight On Admission 83.5 kg Narrative: Heart sounds regular rate and rhythm, no murmurs Clear lungs bilaterally, unlabored breathing Results - Labs CBC & Chem 7: 01/16/18 11:45 01/17/18 01:20 Laboratory Results - last 24 hr 01/16/18 01/16/18 01/16/18 11:45 11:45 12:43 WBC 8.8 RBC 2.46 L Hgb 7.9 L Hct 23.6 L MCV 96.2 MCH 32.0 MCHC 33.2 RDW 14.8 Plt Count 211 MPV 8.5 Neut % (Auto) 77.3 H Lymph % (Auto) 12.8 [place] % (Auto) 5.8 Eos % (Auto) 3.1 Baso % (Auto) 1.0 Neut # (Auto) 6.8 Lymph # (Auto) 1.1 [place] # (Auto) 0.5 Eos # (Auto) 0.3 Baso # (Auto) 0.1 WBC Differential . Differential Comment Auto diff final Sodium 141 Potassium 5.7 H Chloride 104 Carbon Dioxide 25.6 Anion Gap 11 BUN 70 H Creatinine 8.60 H Estimated GFR 5 L Random Glucose 214 H Calcium 6.2 L* Prot Corrected Calcium 6.4 L* Phosphorus Total Bilirubin 0.3 AST 11 L ALT 13 Alkaline Phosphatase 123 H Troponin I Less than 0.02 L B-Natriuretic Peptide 1320 H Total Protein 6.7 Albumin 2.9 L 01/16/18 01/17/18 20:17 01:20 WBC RBC Hgb Hct MCV MCH MCHC RDW Plt Count MPV Neut % (Auto) Lymph % (Auto) [place] % (Auto) Eos % (Auto) Baso % (Auto) Neut # (Auto) Lymph # (Auto) [place] # (Auto) Eos # (Auto) Baso # (Auto) WBC Differential Differential Comment Sodium 141 Potassium 3.6 D Chloride 100 Carbon Dioxide 30.0 Anion Gap 11 BUN 29 H Creatinine 5.00 H Estimated GFR 9 L Random Glucose 159 H Calcium 6.7 L* Prot Corrected Calcium 6.7 L* Phosphorus 3.2 Total Bilirubin AST ALT Alkaline Phosphatase Troponin I Less than 0.02 L 0.02 B-Natriuretic Peptide Total Protein 7.3 D Albumin - Imaging Impressions Chest X-Ray 01/16/18 11:22 CONCLUSION: Cardiomegaly with mild interstitial edema. Assessment and Plan - Plan 72-year-old female being admitted for chest pain shortness of breath Chest pain -resolved Shortness of breath -resolved post dialysis Rule out ACS -Stress test pending today, pending echo results as well ESRD- nephro following Uncontrolled hypertension Likely secondary to renal disease, continue home clonidine and hydralazine, Lopressor Addendum: Stress test negative. Patient has met maximal benefit from hospitalization is clinically stable for discharge.
[2018-01-17] MEDS ORDERED: Labetalol HCl Inj 100 MG/20 ML Vial IV.PUSH ONE ×2 (10:33→12:20)
[2018-01-17] MEDS ORDERED: Labetalol HCl Inj 100 MG/20 ML Vial ONE (10:35)
[2018-01-17] MEDS ORDERED: Calcium Gluconate Inj 1 GM in Sodium Chlor 0.9% Inj 100 ML IV.SIG ONE (12:00)
--- NOTE | 2018-01-17 13:27 | ECHRPT ---
Indication: CHEST PAIN CONCLUSIONS Normal left ventricular size. Mild concentric left ventricular hypertrophy. The left ventricular systolic function is normal with an estimated ejection fraction in the range of 55-60%. The left atrial size is mildly dilated. Mild mitral annular calcification. Trace mitral valve regurgitation. Aortic valve sclerosis is present. There is mild tricuspid valve regurgitation. The estimated pulmonary arterial pressure is 27 mmHg. BP: / HR: Rhythm: MEASUREMENTS (Male / Female) Normal Values Technical Quality: 2D ECHO LV Diastolic Diameter PLAX 5.3 cm 4.2 - 5.9 / 3.9 - 5.3 cm LV Systolic Diameter PLAX 3.7 cm IVS Diastolic Thickness 1.4 cm 0.6 - 1.0 / 0.6 - 0.9 cm LVPW Diastolic Thickness 1.6 cm 0.6 - 1.0 / 0.6 - 0.9 cm LV Relative Wall Thickness 0.6 RV Internal Dim ED PLAX 2.9 cm LVOT Diameter 1.9 cm LV Ejection Fraction MOD 4C 49.2 % LV Ejection Fraction 4C AL 51.3 % M-MODE Aortic Root Diameter MM 2.9 cm LA Systolic Diameter MM 5.3 cm LA Ao Ratio MM 1.8 AV Cusp Separation MM 1.7 cm DOPPLER AV Peak Velocity 170.0 cm/s AV Peak Gradient 11.6 mmHg LVOT Peak Velocity 133.0 cm/s LVOT Peak Gradient 7.1 mmHg AV Area Cont Eq pk 2.2 cm Mitral E Point Velocity 93.3 cm/s Mitral A Point Velocity 80.9 cm/s Mitral E to A Ratio 1.2 LV E' Lateral Velocity 5.1 cm/s Mitral E to LV E' Lateral Ratio 18.4 LV E' Septal Velocity 4.7 cm/s Mitral E to LV E' Septal Ratio 19.9 TR Peak Velocity 208.0 cm/s TR Peak Gradient 17.3 mmHg Right Atrial Pressure 10.0 mmHg Pulmonary Artery Systolic Pressu 27.3 mmHg Right Ventricular Systolic Press 27.3 mmHg PV Peak Velocity 137.0 cm/s PV Peak Gradient 7.5 mmHg FINDINGS LEFT VENTRICLE Normal left ventricular size. Mild concentric left ventricular hypertrophy. The left ventricular systolic function is normal with an estimated ejection fraction in the range of 55-60%. RIGHT VENTRICLE Normal right ventricular size and systolic function. LEFT ATRIUM The left atrial size is mildly dilated. RIGHT ATRIUM The right atrial size is normal. ATRIAL SEPTUM Normal atrial septal thickness without atrial level shunting by limited color doppler interrogation. AORTA The aortic root and proximal ascending aorta are normal in size on limited imaging. MITRAL VALVE Mild mitral annular calcification. Trace mitral valve regurgitation. AORTIC VALVE Aortic valve sclerosis is present. Trileaflet aortic valve. No aortic valve stenosis or regurgitation. TRICUSPID VALVE There is mild tricuspid valve regurgitation. The estimated pulmonary arterial pressure is 27 mmHg. PULMONARY VALVE No pulmonary valve regurgitation or stenosis. VESSELS The inferior vena cava is normal in size. PERICARDIUM No pericardial effusion. Demario Blount MD (Electronically Signed) Final Date:17 January 2018 13:25
[2018-01-17] MEDS ORDERED: Regadenoson Inj 0.4 MG/5 ML Syringe IV.PUSH ONE (14:55)
--- NOTE | 2018-01-17 16:18 | NM ---
EXAM DATE: 01/17/2018 12:39 PM EDT AGE/SEX: 72 years / Female INDICATIONS:Coronary artery disease. . Chest pain. CLINICAL DATA: This is the patient's initial encounter. Patient reports that signs and symptoms have been present for 1 day and indicates a pain score of 10/10. MEDICAL/SURGICAL HISTORY: Renal disease. . Right leg amputation. COMPARISON: No prior exams available for comparison. DOSE: 8.5 mCi Tc 99m Myoview at rest 26.5 mCi [id number] at stress 0.4 mg Lexiscan STRESS SYMPTOMS: Short of breath and back pain. EJECTION FRACTION: 52 % TECHNIQUE: The patient underwent pharmacologic stress with infusion of prescribed dose. Continuous ECG tracing was monitored during stress. Gated SPECT imaging was performed after stress and conventi onal SPECT imaging was performed at rest. The examination was performed on a SPECT/CT scanner, both attenuation and non-corrected datasets were reviewed. FINDINGS: Distribution: The maximum perfused segment at stress is in the septal wall. Perfusion Study: The pattern of perfusion at stress is within normal limits. Gated Study: There are intact wall motion and wall thickening without hypokinetic or dyskinetic segm ents. The ejection fraction is calculated at 52%. RISK CATEGORY: Low (<1% Annual Motality Rate) CONCLUSION: 1. Unremarkable myocardial perfusion examination. Electronically signed by: Aubrey Coyle MD 01/17/2018 4:17 PM EDT
[2018-01-17 16:51] VITALS: BP 140/64; PULSE 80; RESP 13; O2SAT 91
== END 2018-01-17 16:55 | disposition home or self-care (01) ==
LOC: NEPE 10:27 → INTOOBSV 14:33 → NEDA 14:33 → HIMC 19:40
PROVIDERS: ADMIT Hospitalist; ATTEND Hospitalist

== ENCOUNTER 2018-02-01 07:39 | Inpatient (IN) ==
--- NOTE | 2018-02-01 10:00 | XR ---
EXAM DATE: 02/01/2018 9:28 AM EDT AGE/SEX: 72 years / Female INDICATIONS: Shortness of breath. CLINICAL DATA: This is the patient's initial encounter. Patient reports that signs and symptoms have been present for 2 days and indicates a pain score of 0/10. MEDICAL/SURGICAL HISTORY: Renal disease. None. [place] [facility] [place]16/[place]. . FINDINGS: Improved interstitial prominence and central pulmonary vascularity. Persistent mild left lower lung z one airspace disease. Cardiac silhouette remains enlarged. Remainder of the exam is unchanged. CONCLUSION: 1. Cardiomegaly with improved vascular congestion. 2. Mild left lower lobe airspace disease, presumably atelectasis. Electronically signed by: Jacob Menjivar MD 02/01/2018 9:59 AM EDT
[2018-02-01 10:01] LABS: Baso # (Auto) 0.1 th/mm3 (0.0-0.2); Baso % (Auto) 0.9 % (0.0-2.0); Eos # (Auto) 0.2 th/mm3 (0.0-0.4); Eos % (Auto) 1.6 % (0.0-4.0); Hematocrit 25.4 % (35.0-46.0); Hemoglobin 8.4 gm/dL (11.6-15.3); Lymph % (Auto) 8.7 % (9.0-44.0); Mean Corpuscular Hemoglobin 32.4 pg (27.0-34.0); Mean Corpuscular Volume 98.2 fL (80.0-100.0); Mean Platelet Volume 7.3 fL (7.0-11.0); Mono # (Auto) 0.6 th/mm3 (0.0-0.9); Mono % (Auto) 5.2 % (0.0-8.0); Neut # (Auto) 9.3 th/mm3 (1.8-7.7); Neut % (Auto) 83.6 % (16.0-70.0); Platelet Count 227 th/mm3 (150-450); Red Blood Count 2.58 mil/mm3 (4.00-5.30); White Blood Count 11.1 th/mm3 (4.0-11.0)
[2018-02-01 10:05] LABS: Prothrombin Time 10.4 sec (9.8-11.6)
--- NOTE | 2018-02-01 10:19 | ED ---
HPI General Chief complaint: Weakness Stated complaint: breathing problems/vomitting/pain all over Time Seen by Provider: 02/01/18 09:17 Source: patient and family Mode of arrival: ambulatory Limitations: no limitations History of Present Illness HPI Narrative: 72-year-old female with history of diabetes, hypertension, end- stage renal disease currently on hemodialysis every Mondays, Wednesdays and Fridays by Dr. Doshi - presents to the ER with complaints of generalized weakness. Patient reports that she has not been feeling well since Tuesday, she had missed her dialysis on Tuesday as she was feeling short of breath and overall generalized weakness. Patient reports no chest pain, denies any abdominal pain, reports that she does have a headache. Denies fevers, reports chills. Patient does report that she makes a little urine daily. Patient also with complaints of nausea and vomiting since yesterday. Related Data Home Medications Medication Instructions Recorded Confirmed calcitriol 1 mcg PO DAILY 01/16/18 01/16/18 calcium acetate 1,334 mg PO TID 01/16/18 01/16/18 clonidine HCl 0.3 mg PO BID 01/16/18 01/16/18 hydralazine 50 mg PO TID 01/16/18 01/16/18 mupirocin 1 applic TOPICAL BID 01/16/18 01/16/18 Previous Rx's Medication Instructions Recorded metoprolol tartrate 12.5 mg PO TID #90 tab 01/17/18 Allergies Allergy/AdvReac Type Severity Reaction Status Date / Time diatrizoate meglumine Allergy Severe CAN'T Verified 02/01/18 09:29 BREATHE epoetin mirta Allergy Severe Headache Verified 02/01/18 09:29 gadobenic acid Allergy Severe CAN'T Verified 02/01/18 09:29 BREATHE gadodiamide Allergy Severe CAN'T Verified 02/01/18 09:29 BREATHE gadoteridol Allergy Severe CAN'T Verified 02/01/18 09:29 BREATHE iodine Allergy Severe Hives Verified 02/01/18 09:29 iodixanol Allergy Severe CAN'T Verified 02/01/18 09:29 BREATHE iohexol Allergy Severe CAN'T Verified 02/01/18 09:29 BREATHE morphine Allergy Severe RESPIRATORY Verified 02/01/18 09:29 DISTRESS potassium iodide Allergy Severe Hives Verified 10/24/18 09:29 povidone-iodine Allergy Severe Hives Verified 02/01/18 09:29 sodium iodide Allergy Severe Hives Verified 02/01/18 09:29 sodium iodide Allergy Severe Hives Verified 02/01/18 09:29 vancomycin Allergy Severe Hives Verified 02/01/18 09:29 plastic tape Allergy Severe Hives Uncoded 02/01/18 09:29 Review of Systems ROS: all other systems reviewed are negative [facility] Medical History Medical History A-V fistula (Acute) Dialysis AV fistula malfunction (Acute) Kidney disease (Acute) Right BKA infection (Acute) Family History Family History Other No family history of cardiac disease Social History Social History Substance History: No History of Abuse Second Hand Smoke Exposure: No Smoking Status: Never smoker How Often Do You Have a Drink Containing Alcohol: Never Recent Travel in [facility] within the Last 8 Weeks: No Recent Out of Country Travel within the Last 8 Weeks: No Immunization History Tetanus Immunization: <5 Years Exam Narrative Exam Narrative: GENERAL: moderate distress SKIN: Focused skin assessment warm/dry. HEAD: Atraumatic. Normocephalic. EYES: Pupils equal and round. No scleral icterus. No injection or drainage. ENT: No nasal bleeding or discharge. Mucous membranes pink and moist. NECK: Trachea midline. No JVD. CARDIOVASCULAR: Tachycardic. No murmur appreciated. RESPIRATORY: No accessory muscle use. Clear to auscultation. Breath sounds equal bilaterally. GASTROINTESTINAL: Abdomen soft, non-tender, nondistended. Hepatic and splenic margins not palpable. MUSCULOSKELETAL: right sided bka, No clubbing. No cyanosis. No edema, patient with right sided av fistula with good thrill NEUROLOGICAL: Awake and alert. No obvious cranial nerve deficits. Motor grossly within normal limits. Normal speech. PSYCHIATRIC: Appropriate mood and affect; insight and judgment normal. Course Initial Documented Vital Signs Temperature 98.5 F 02/01/18 07:41 Pulse Rate 102 H 02/01/18 07:41 Respiratory Rate 20 02/01/18 07:41 Blood Pressure 179/75 H 02/01/18 07:41 Pulse Oximetry 95 02/01/18 07:41 Last Documented Vital Signs Temperature 98.5 F 02/01/18 07:41 Pulse Rate 102 H 02/01/18 07:41 Respiratory Rate 20 02/01/18 07:41 Blood Pressure 179/75 H 02/01/18 07:41 Pulse Oximetry 95 02/01/18 07:41 Medical Decision Making MDM Narrative Medical decision making narrative: During the course of the patients emergency department visit, the patients history, examination, and differential diagnosis were reviewed with the patient. The patient was placed on a traveling freight agent with oximetry and frequent blood pressure monitoring. The patient had an IV access obtained and blood work sent for analysis. The patient was initially provided The patients laboratory studies were reviewed and remarkable for BUN 99, creatinine 10.21. Patient is uremic, past BUN and creatinine are 29 and 5.0 and this was on January 17, 2018. In addition, patient with potassium 6.0, patient did not have hyperacute T waves on her EKG, I did give her a dose of Kayexalate, sodium bicarb, calcium, insulin as well as glucose for treatment of her hyperkalemia I did place a call out to Dr. Doshi, her oven tender as she will need dialysis today. X-ray of the chest shows cardiomegaly with improved vascular congestion, there is mild left lower airspace disease, presumably atelectasis. Patient will require admission to the hospital given her uremia as well as for hyperkalemia case reviewed with Dr. Rendon who will see patient in the ER case reviewed with Dr. Parker who accepts patient on behalf of Dr Morales Medical Screen Exam Complete: Yes Emergency Medical Condition: Yes Differential Diagnosis Differential Diagnosis: electrolyte abnormality, fluid overload, uti, sepsis, pneumonia, CHF exacerbation, ACS, arrythmia Medical Records Medical records reviewed: Yes I reviewed the patient's medical records. Lab Data Result diagrams: 02/01/18 09:37 02/01/18 09:37 Lab Results 02/01/18 02/01/18 02/01/18 Range/Units 09:28 09:37 09:37 WBC 11.1 H (4.0-11.0) th/mm3 RBC 2.58 L (4.00-5.30) mil/mm3 Hgb 8.4 L (11.6-15.3) gm/dL Hct 25.4 L (35.0-46.0) % MCV 98.2 (80.0-100.0) fL MCH 32.4 (27.0-34.0) pg MCHC 33.0 (32.0-36.0) % RDW 16.0 (11.6-17.2) % Plt Count 227 (150-450) th/mm3 MPV 7.3 (7.0-11.0) fL Neut % (Auto) 83.6 H (16.0-70.0) % Lymph % (Auto) 8.7 L (9.0-44.0) % [place] % (Auto) 5.2 (0.0-8.0) % Eos % (Auto) 1.6 (0.0-4.0) % Baso % (Auto) 0.9 (0.0-2.0) % Neut # (Auto) 9.3 H (1.8-7.7) th/mm3 Lymph # (Auto) 1.0 (1.0-4.8) th/mm3 [place] # (Auto) 0.6 (0.0-0.9) th/mm3 Eos # (Auto) 0.2 (0.0-0.4) th/mm3 Baso # (Auto) 0.1 (0.0-0.2) th/mm3 WBC Differential . Differential Comment Auto diff final PT 10.4 (9.8-11.6) sec INR 1.0 Ratio Sodium (136-145) meq/L Potassium (3.5-5.1) meq/L Chloride (98-107) meq/L Carbon Dioxide (21.0-32.0) meq/L Anion Gap (5-15) meq/L BUN (7-18) mg/dL Creatinine (0.50-1.00) mg/dL Estimated GFR (>89) mL/min POC Glucose 119 H (68-110) mg/dl Random Glucose (74-106) mg/dL Calcium (8.5-10.1) mg/dL Prot Corrected Calcium (8.5-10.1) mg/dL Magnesium (1.5-2.5) mg/dL Total Bilirubin (0.2-1.0) mg/dL AST (15-37) U/L ALT (10-53) U/L Alkaline Phosphatase (45-117) U/L Total Creatine Kinase (26-192) U/L Troponin I (0.02-0.05) ng/mL B-Natriuretic Peptide (0-100) pg/mL Total Protein (6.4-8.2) g/dL Albumin (3.4-5.0) g/dL Urine Color (Yellw/Straw) Urine Clarity (Clear) Urine pH (5.0-8.5) Ur Specific [place] (1.002-1.035) Urine Protein (Neg-Trace) mg/dL Urine Glucose (UA) (Negative) mg/dL Urine Ketones (Negative) mg/dL Urine Occult Blood (Negative) Urine Nitrate (Negative) Urine Bilirubin (Negative) Urine Urobilinogen (Less than 2) mg/dL Ur Leukocyte Esterase (Negative) Urine RBC (0-3) /hpf Urine WBC (0-5) /hpf Urine Bacteria (None) /hpf Micro UA Comment Ur Microscopic Review Urine Culture Comments 02/01/18 02/01/18 02/01/18 Range/Units 09:37 09:37 09:37 WBC (4.0-11.0) th/mm3 RBC (4.00-5.30) mil/mm3 Hgb (11.6-15.3) gm/dL Hct (35.0-46.0) % MCV (80.0-100.0) fL MCH (27.0-34.0) pg MCHC (32.0-36.0) % RDW (11.6-17.2) % Plt Count (150-450) th/mm3 MPV (7.0-11.0) fL Neut % (Auto) (16.0-70.0) % Lymph % (Auto) (9.0-44.0) % [place] % (Auto) (0.0-8.0) % Eos % (Auto) (0.0-4.0) % Baso % (Auto) (0.0-2.0) % Neut # (Auto) (1.8-7.7) th/mm3 Lymph # (Auto) (1.0-4.8) th/mm3 [place] # (Auto) (0.0-0.9) th/mm3 Eos # (Auto) (0.0-0.4) th/mm3 Baso # (Auto) (0.0-0.2) th/mm3 WBC Differential Differential Comment PT (9.8-11.6) sec INR Ratio Sodium 139 (136-145) meq/L Potassium 6.0 H (3.5-5.1) meq/L Chloride 110 H (98-107) meq/L Carbon Dioxide 16.7 L (21.0-32.0) meq/L Anion Gap 12 (5-15) meq/L BUN 99 H (7-18) mg/dL Creatinine 10.21 H* (0.50-1.00) mg/dL Estimated GFR 4 L (>89) mL/min POC Glucose (68-110) mg/dl Random Glucose 110 H (74-106) mg/dL Calcium 6.4 L* (8.5-10.1) mg/dL Prot Corrected Calcium 6.3 L* (8.5-10.1) mg/dL Magnesium 2.0 (1.5-2.5) mg/dL Total Bilirubin 0.4 (0.2-1.0) mg/dL AST 11 L (15-37) U/L ALT 16 (10-53) U/L Alkaline Phosphatase 92 (45-117) U/L Total Creatine Kinase 66 Cancelled (26-192) U/L Troponin I 0.05 (0.02-0.05) ng/mL B-Natriuretic Peptide 572 H (0-100) pg/mL Total Protein 7.5 (6.4-8.2) g/dL Albumin 3.4 (3.4-5.0) g/dL Urine Color (Yellw/Straw) Urine Clarity (Clear) Urine pH (5.0-8.5) Ur Specific [place] (1.002-1.035) Urine Protein (Neg-Trace) mg/dL Urine Glucose (UA) (Negative) mg/dL Urine Ketones (Negative) mg/dL Urine Occult Blood (Negative) Urine Nitrate (Negative) Urine Bilirubin (Negative) Urine Urobilinogen (Less than 2) mg/dL Ur Leukocyte Esterase (Negative) Urine RBC (0-3) /hpf Urine WBC (0-5) /hpf Urine Bacteria (None) /hpf Micro UA Comment Ur Microscopic Review Urine Culture Comments 02/01/18 Range/Units 10:07 WBC (4.0-11.0) th/mm3 RBC (4.00-5.30) mil/mm3 Hgb (11.6-15.3) gm/dL Hct (35.0-46.0) % MCV (80.0-100.0) fL MCH (27.0-34.0) pg MCHC (32.0-36.0) % RDW (11.6-17.2) % Plt Count (150-450) th/mm3 MPV (7.0-11.0) fL Neut % (Auto) (16.0-70.0) % Lymph % (Auto) (9.0-44.0) % [place] % (Auto) (0.0-8.0) % Eos % (Auto) (0.0-4.0) % Baso % (Auto) (0.0-2.0) % Neut # (Auto) (1.8-7.7) th/mm3 Lymph # (Auto) (1.0-4.8) th/mm3 [place] # (Auto) (0.0-0.9) th/mm3 Eos # (Auto) (0.0-0.4) th/mm3 Baso # (Auto) (0.0-0.2) th/mm3 WBC Differential Differential Comment PT (9.8-11.6) sec INR Ratio Sodium (136-145) meq/L Potassium (3.5-5.1) meq/L Chloride (98-107) meq/L Carbon Dioxide (21.0-32.0) meq/L Anion Gap (5-15) meq/L BUN (7-18) mg/dL Creatinine (0.50-1.00) mg/dL Estimated GFR (>89) mL/min POC Glucose (68-110) mg/dl Random Glucose (74-106) mg/dL Calcium (8.5-10.1) mg/dL Prot Corrected Calcium (8.5-10.1) mg/dL Magnesium (1.5-2.5) mg/dL Total Bilirubin (0.2-1.0) mg/dL AST (15-37) U/L ALT (10-53) U/L Alkaline Phosphatase (45-117) U/L Total Creatine Kinase (26-192) U/L Troponin I (0.02-0.05) ng/mL B-Natriuretic Peptide (0-100) pg/mL Total Protein (6.4-8.2) g/dL Albumin (3.4-5.0) g/dL Urine Color Yellow (Yellw/Straw) Urine Clarity Clear (Clear) Urine pH 6.0 (5.0-8.5) Ur Specific [place] 1.010 (1.002-1.035) Urine Protein 100 H (Neg-Trace) mg/dL Urine Glucose (UA) 50 (Negative) mg/dL Urine Ketones Negative (Negative) mg/dL Urine Occult Blood Small H (Negative) Urine Nitrate Negative (Negative) Urine Bilirubin Negative (Negative) Urine Urobilinogen Less than 2 (Less than 2) mg/dL Ur Leukocyte Esterase Small H (Negative) Urine RBC Less than 1 (0-3) /hpf Urine WBC 4 (0-5) /hpf Urine Bacteria Rare H (None) /hpf Micro UA Comment Cath-culture ind Ur Microscopic Review Not Reportable Urine Culture Comments Cath-cult indicated Imaging Data Radiologist's impression: Chest X-Ray 02/01/18 09:28 CONCLUSION: 1. Cardiomegaly with improved vascular congestion. 2. Mild left lower lobe airspace disease, presumably atelectasis. ECG Data EKG Prior to Arrival: No Attestation: I personally reviewed and interpreted this ECG as follows: Interpretation: EKG at 0924: NSR at 98bpm, qt/qtc: 409/464, rbbb Discharge Plan Discharge Disposition Patient Disposition: 30 Still Patient Discharge Condition Condition: Fair Discharge Details Diagnosis: Acute uremia, Acute hyperkalemia Physicians Team ED Provider: Stacia Madison Rxs /Orders / Referrals /Forms Prescriptions: No Action clonidine HCl 0.3 mg Tablet 0.3 mg PO BID RF: 0 hydralazine 50 mg Tablet 50 mg PO TID RF: 0 mupirocin 2 % Ointment 1 applic TOPICAL BID RF: 0 calcitriol 0.25 mcg Capsule 1 mcg PO DAILY RF: 0 calcium acetate 667 mg Capsule 1,334 mg PO TID RF: 0 metoprolol tartrate 25 mg Tablet 12.5 mg PO TID Qty: 90 RF: 0 Status ED Status: With Doctor
[2018-02-01 10:21] LABS: Albumin 3.4 g/dL (3.4-5.0); Calcium 6.4 mg/dL (8.5-10.1); Carbon Dioxide 16.7 meq/L (21.0-32.0)
[2018-02-01 10:25] LABS: Total Protein 7.5 g/dL (6.4-8.2); Troponin I 0.05 ng/mL (0.02-0.05)
[2018-02-01 10:26] LABS: Bacteria,Urine Rare /hpf; Bilirubin,Urine Negative (Negative); Clarity,Urine Clear (Clear); Color,Urine Yellow (Yellw/Straw); Glucose,Urine (UA) 50 mg/dL (Negative); Leukocyte Esterase,Urine Small (Negative); Nitrite,Urine Negative (Negative)
[2018-02-01] MEDS ORDERED: Dextrose 50% in Water 50 ML Vial IV.PUSH ONE (10:38)
[2018-02-01] MEDS ORDERED: Calcium Gluconate Inj 1 GM in Sodium Chlor 0.9% Inj 100 ML IV.SIG ONE (10:38)
[2018-02-01] MEDS ORDERED: Sodium Polystyrene Sulfonate/Sorbitol Liq 15 GM/60 ML UDC PO ONE (10:42)
--- NOTE | 2018-02-01 11:13 | P.HPFP ---
History of Present Illness Primary Care Physician: UNKNOWN <Aubrey Morales - 02/01/18 15:02> Chief Complaint: weakness, SOB <EricArianna 02/01/18 11:13> History of Present Illness: 72-year-old female presenting to the emergency department with complaints of generalized weakness associated with shortness of breath. She has a history of end-stage renal disease and receives dialysis on Tuesday/Tuesday/Tuesday. She began feeling ill late last week and states that she missed her dialysis 2 days ago due to her generalized weakness. She has progressively been getting weaker and thus presents to the emergency department. She endorses subjective fevers and chills, she endorses nausea with vomiting, and she endorses generalized malaise. She denies chest pain, denies palpitations, denies cough or sputum production. <Aubrey Morales - 02/01/18 15:02> This is a 72-year-old female with history of end-stage renal disease, receives dialysis on MWF schedule via right AV fistula, and hypertension who presented to the emergency room with weakness and increased shortness of breath since last night. History was reported by her son, because she did not want to respond to questions during interview. She reportedly missed dialysis on Tuesday due to weakness. She also complains of fatigue, and all over body aches for the past couple of days. She notes subjective fevers and chills, but has not taken her temperature. She has been nauseated, and vomited multiple times in the past 24 hours, most recently this morning before coming to the ED. Denies chest pain, sore throat, cough, nasal congestion or discharge, diarrhea, constipation, dysuria, hematuria or leg pain. No known sick contacts. She received the flu shot this year. PMhx: ESRD on HD HTN DM, resolved, she is not on medications and she checks her blood glucose weekly. 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 Social hx: Never smoker. Does not drink alcohol. No other drug use. Dye Expert Dr. Doshi <Arianna Reyes 02/01/18 13:35> - Diagnosis (1) End-stage renal disease on hemodialysis (2) Acute uremia (3) Acute hyperkalemia (4) Hypocalcemia (5) Nausea & vomiting (6) Hypertension (7) Anemia (8) Hx of right BKA (9) Nutrition, metabolism, and development symptoms (10) DVT prophylaxis <Aubrey Morales 02/01/18 15:02> (1) End-stage renal disease on hemodialysis (2) Acute uremia (3) Acute hyperkalemia (4) Hypocalcemia (5) Nausea & vomiting (6) Hypertension (7) Anemia (8) Hx of right BKA (9) Nutrition, metabolism, and development symptoms (10) DVT prophylaxis <Arianna Reyes 02/01/18 13:36> PMFSH - History History Provided By: Patient, Family Member <Arianna Reyes 02/01/18 11:13> - Medical History Medical History: Medical History (Last Reviewed 02/01/18 @ 13:38 by Arianna Reyes DO, R1) A-V fistula Dialysis AV fistula malfunction Kidney disease Right BKA infection <Aubrey Morales 02/01/18 15:02> Medical History (Last Reviewed 02/01/18 @ 13:38 by Arianna Reyes DO, R1) A-V fistula Dialysis AV fistula malfunction Kidney disease Right BKA infection <Arianna Reyes 02/01/18 13:38> - Family History Family History: Family History (Last Reviewed 02/01/18 @ 10:24 by Stacia Madison) Other No family history of cardiac disease <Aubrey Morales 02/01/18 15:02> Family History (Last Reviewed 02/01/18 @ 10:24 by Stacia Madison) Other No family history of cardiac disease <Arianna Reyes 02/01/18 11:13> - Tobacco History Second Hand Smoke Exposure: No <Arianna Reyes 02/01/18 11:13> Smoking Status: Never smoker <Arianna eRyes 02/01/18 11:13> - Alcohol History How Often Do You Have a Drink Containing Alcohol: Never <Arianna Reyes 11:13> - Substance Use History Substance History: No History of Abuse <Arianna Reyes 02/01/18 11:13> - Travel History Recent Travel in the [facility] Within the Last 8 Weeks: No <Arianna Reyes 11:13> Recent Travel Out of the Country Within the Last 8 Weeks: No <Arianna Reyes 02/01/18 11:13> - Immunization History Tetanus Immunization: <5 Years <Arianna Reyes - 02/01/18 11:13> Medications and Allergies Allergies Allergy/AdvReac Type Severity Reaction Status Date / Time diatrizoate meglumine Allergy Severe CAN'T Verified 02/01/18 09:29 BREATHE epoetin mirta Allergy Severe Headache Verified 02/01/18 09:29 gadobenic acid Allergy Severe CAN'T Verified 02/01/18 09:29 BREATHE gadodiamide Allergy Severe CAN'T Verified 02/01/18 09:29 BREATHE gadoteridol Allergy Severe CAN'T Verified 02/01/18 09:29 BREATHE iodine Allergy Severe Hives Verified 02/01/18 09:29 iodixanol Allergy Severe CAN'T Verified 02/01/18 09:29 BREATHE iohexol Allergy Severe CAN'T Verified 02/01/18 09:29 BREATHE morphine Allergy Severe RESPIRATORY Verified 02/01/18 09:29 DISTRESS potassium iodide Allergy Severe Hives Verified 02/01/18 09:29 povidone-iodine Allergy Severe Hives Verified 02/01/18 09:29 sodium iodide Allergy Severe Hives Verified 02/01/18 09:29 sodium iodide Allergy Severe Hives Verified 02/01/18 09:29 vancomycin Allergy Severe Hives Verified 02/01/18 09:29 plastic tape Allergy Severe Hives Uncoded 02/01/18 09:29 <Aubrey Morales - 02/01/18 15:02> Home Medications Medication Instructions Recorded Confirmed Type calcitriol 1 mcg PO DAILY 01/16/18 01/16/18 History calcium acetate 1,334 mg PO TID 01/16/18 01/16/18 History clonidine HCl 0.3 mg PO BID 01/16/18 01/16/18 History hydralazine 50 mg PO TID 01/16/18 01/16/18 History mupirocin 1 applic TOPICAL BID 01/16/18 01/16/18 History <Aubrey Morales - 02/01/18 15:02> Active Medications: Active Medications Acetaminophen (Tylenol) 650 mg PO UNSCH PRN PRN Reason: SEE LABEL COMMENTS Acetaminophen (Tylenol) 650 mg PO Q4H PRN PRN Reason: Temp > 100.4 Clonidine HCl (Catapres) 0.1 mg PO UNSCH PRN PRN Reason: SEE LABEL COMMENTS Diphenhydramine HCl (Benadryl) 25 mg PO UNSCH PRN PRN Reason: SEE LABEL COMMENTS Gelatin (Gelfoam 12 Mm/7 Mm Topical) 1 foam TOPICAL PRN PRN PRN Reason: help stop bleeding from site Gentamicin Sulfate (Gentamicin Inj) 20 mg OTHER WITH DIALYSIS PRN PRN Reason: Dwell Gentamycin Lock Heparin Sodium (Porcine) (Heparin Inj) 8,000 units OTHER WITH DIALYSIS PRN PRN Reason: for machine prime Heparin Sodium (Porcine) (Heparin Inj) 1,000 units OTHER WITH DIALYSIS PRN PRN Reason: Dwell Heparin to Fill Catheter Albumin Human (Flexbumin 25% Inj) 100 mls @ 60 mls/hr IV.SIG WITH DIALYSIS PRN PRN Reason: hypotension / volume replace Sodium Chloride (Ns Inj) 1,000 mls @ 0 mls/hr OTHER .Q0M PRN PRN Reason: for prime and rinse back Sodium Chloride (Ns Inj) 1,000 mls @ 200 mls/hr OTHER .Q5H PRN PRN Reason: for dialyzer flush PRN Sodium Chloride (Ns Inj) 1,000 mls @ 0 mls/hr IV.CONT .Q0M PRN PRN Reason: hypotension / volume replace Mannitol (Mannitol Inj) 12.5 gm IV.PUSH UNSCH PRN PRN Reason: hypotension / volume replace Nitroglycerin (Nitrostat Sl) 0.4 mg SL Q5M PRN PRN Reason: CHEST PAIN Ondansetron HCl (Zofran Inj) 4 mg IV.PUSH UNSCH PRN PRN Reason: NAUSEA OR VOMITING Ondansetron HCl (Zofran Inj) 4 mg IV.PUSH Q6H PRN PRN Reason: NAUSEA OR VOMITING Sodium Chloride (Ns Flush) 2 ml IV.FLUSH PRN PRN PRN Reason: FLUSH AFTER USING IV ACCESS Sodium Chloride (Ns Flush) 5 ml IV.FLUSH PRN PRN PRN Reason: flush each lumen during HD <Aubrey Morales - 02/01/18 15:02> Active Medications Calcium Gluconate 1 gm/ Sodium (Chloride) 110 mls @ 110 mls/hr IV.SIG ONCE ONE Stop: 02/01/18 11:37 Calcium Gluconate 1 gm/ (Dextrose) 110 mls @ 110 mls/hr IV.SIG ONCE ONE Stop: 02/01/18 11:41 Sodium Chloride (Ns Flush) 2 ml IV.FLUSH PRN PRN PRN Reason: FLUSH AFTER USING IV ACCESS <Arianna Reyes - 02/01/18 11:13> Exam Vital signs: Vital Signs 02/01/18 07:41 02/01/18 12:51 Temperature 98.5 F Pulse Rate 102 H Respiratory Rate 20 Blood Pressure 179/75 H Pulse Oximetry 95 97 Intake & Output 01/31/18 02/01/18 02/01/18 18:59 06:59 18:59 Intake Total 110 / 110 Balance 110 / 110 Weight 80 kg Intake: IV 110 / 110 Calcium Gluconate Inj 1 GM In 110 / 110 NS Inj 100 ML @ 110 mls/hr IV. SIG ONCE ONE Rx#:[id number] <Aubrey Morales - 02/01/18 15:02> Vital Signs 02/01/18 07:41 Temperature 98.5 F Pulse Rate 102 H Respiratory Rate 20 Blood Pressure 179/75 H Pulse Oximetry 95 Intake & Output 01/31/18 02/01/18 02/01/18 18:59 06:59 18:59 Weight 80 kg <Arianna Reyes - 02/01/18 11:13> Narrative: General: Elderly appearing female laying in bed, appears mildly uncomfortable Skin: Warm and dry without obvious lesion or defect CV: Regular rate and rhythm Pulmonary: Moderate air movement bilaterally with bibasilar crackles GI: Abdomen soft, nontender, nondistended MSK: Status post right BKA without obvious signs of infection or inflammation at the stump. Pitting edema of the left ankle 1+ <Aubrey Morales 02/01/18 15:02> GENERAL: 72 year old F, laying down in bed, uncomfortable, shaking due to discomfort. IN mild distress. SKIN: Warm and dry. Non-diaphoretic. HEAD: Atraumatic. Normocephalic. EYES: Pupils equal and round. EMOI. No scleral icterus. No injection or drainage. ENT: No nasal bleeding or discharge. Mucous membranes pink and moist. NECK: Trachea midline. +JVD worse on left compared to right. CARDIOVASCULAR: Regular rate and rhythm. RESPIRATORY: No accessory muscle use. Clear to auscultation. Breath sounds equal. Crackles in bilateral lower lung baptiste. GASTROINTESTINAL: + Bowel sounds in all 4 quadrants. Abdomen soft, non-tender to palpation. MUSCULOSKELETAL: Extremities without clubbing, cyanosis. Pitting edema of right ankle. Right BKA without obvious signs of infection. NEUROLOGICAL: Awake and alert. No obvious cranial nerve deficits. Motor grossly within normal limits. Five out of 5 muscle strength in the arms and legs. <Arianna Reyes - 02/01/18 13:35> Results - Labs Result diagrams: 02/01/18 09:37 02/01/18 09:37 <Aubrey Morales - 02/01/18 15:02> Abnormal lab results 02/01/18 02/01/18 02/01/18 Range/Units 09:28 09:37 09:37 WBC 11.1 H (4.0-11.0) th/mm3 RBC 2.58 L (4.00-5.30) mil/mm3 Hgb 8.4 L (11.6-15.3) gm/dL Hct 25.4 L (35.0-46.0) % Neut % (Auto) 83.6 H (16.0-70.0) % Lymph % (Auto) 8.7 L (9.0-44.0) % Neut # (Auto) 9.3 H (1.8-7.7) th/mm3 Potassium 6.0 H (3.5-5.1) meq/L Chloride 110 H (98-107) meq/L Carbon Dioxide 16.7 L (21.0-32.0) meq/L BUN 99 H (7-18) mg/dL Creatinine 10.21 H* (0.50-1.00) mg/dL Estimated GFR 4 L (>89) mL/min POC Glucose 119 H (68-110) mg/dl Random Glucose 110 H (74-106) mg/dL Calcium 6.4 L* (8.5-10.1) mg/dL Prot Corrected Calcium 6.3 L* (8.5-10.1) mg/dL AST 11 L (15-37) U/L B-Natriuretic Peptide (0-100) pg/mL Urine Protein (Neg-Trace) mg/dL Urine Occult Blood (Negative) Ur Leukocyte Esterase (Negative) Urine Bacteria (None) /hpf 02/01/18 02/01/18 Range/Units 09:37 10:07 WBC (4.0-11.0) th/mm3 RBC (4.00-5.30) mil/mm3 Hgb (11.6-15.3) gm/dL Hct (35.0-46.0) % Neut % (Auto) (16.0-70.0) % Lymph % (Auto) (9.0-44.0) % Neut # (Auto) (1.8-7.7) th/mm3 Potassium (3.5-5.1) meq/L Chloride (98-107) meq/L Carbon Dioxide (21.0-32.0) meq/L BUN (7-18) mg/dL Creatinine (0.50-1.00) mg/dL Estimated GFR (>89) mL/min POC Glucose (68-110) mg/dl Random Glucose (74-106) mg/dL Calcium (8.5-10.1) mg/dL Prot Corrected Calcium (8.5-10.1) mg/dL AST (15-37) U/L B-Natriuretic Peptide 572 H (0-100) pg/mL Urine Protein 100 H (Neg-Trace) mg/dL Urine Occult Blood Small H (Negative) Ur Leukocyte Esterase Small H (Negative) Urine Bacteria Rare H (None) /hpf Short CBC 02/01/18 Range/Units 09:37 WBC 11.1 H (4.0-11.0) th/mm3 Hgb 8.4 L (11.6-15.3) gm/dL Hct 25.4 L (35.0-46.0) % Plt Count 227 (150-450) th/mm3 BMP 02/01/18 09:37 Sodium 139 Potassium 6.0 H Chloride 110 H Carbon Dioxide 16.7 L BUN 99 H Creatinine 10.21 H* Calcium 6.4 L* Cardiac Enzymes 02/01/18 02/01/18 Range/Units 09:37 09:37 Total Creatine Kinase 66 Cancelled (26-192) U/L Troponin I 0.05 (0.02-0.05) ng/mL Liver Function 02/01/18 Range/Units 09:37 Total Bilirubin 0.4 (0.2-1.0) mg/dL AST 11 L (15-37) U/L ALT 16 (10-53) U/L Alkaline Phosphatase 92 (45-117) U/L Albumin 3.4 (3.4-5.0) g/dL Urine 02/01/18 Range/Units 10:07 Urine Color Yellow (Yellw/Straw) Urine Clarity Clear (Clear) Urine pH 6.0 (5.0-8.5) Ur Specific Banner 1.010 (1.002-1.035) Urine Protein 100 H (Neg-Trace) mg/dL Urine Glucose (UA) 50 (Negative) mg/dL <Aubrey Morales - 02/01/18 15:02> Abnormal lab results 02/01/18 02/01/18 02/01/18 Range/Units 09:28 09:37 09:37 WBC 11.1 H (4.0-11.0) th/mm3 RBC 2.58 L (4.00-5.30) mil/mm3 Hgb 8.4 L (11.6-15.3) gm/dL Hct 25.4 L (35.0-46.0) % Neut % (Auto) 83.6 H (16.0-70.0) % Lymph % (Auto) 8.7 L (9.0-44.0) % Neut # (Auto) 9.3 H (1.8-7.7) th/mm3 Potassium 6.0 H (3.5-5.1) meq/L Chloride 110 H (98-107) meq/L Carbon Dioxide 16.7 L (21.0-32.0) meq/L BUN 99 H (7-18) mg/dL Creatinine 10.21 H* (0.50-1.00) mg/dL Estimated GFR 4 L (>89) mL/min POC Glucose 119 H (68-110) mg/dl Random Glucose 110 H (74-106) mg/dL Calcium 6.4 L* (8.5-10.1) mg/dL Prot Corrected Calcium 6.3 L* (8.5-10.1) mg/dL AST 11 L (15-37) U/L B-Natriuretic Peptide (0-100) pg/mL Urine Protein (Neg-Trace) mg/dL Urine Occult Blood (Negative) Ur Leukocyte Esterase (Negative) Urine Bacteria (None) /hpf 02/01/18 02/01/18 Range/Units 09:37 10:07 WBC (4.0-11.0) th/mm3 RBC (4.00-5.30) mil/mm3 Hgb (11.6-15.3) gm/dL Hct (35.0-46.0) % Neut % (Auto) (16.0-70.0) % Lymph % (Auto) (9.0-44.0) % Neut # (Auto) (1.8-7.7) th/mm3 Potassium (3.5-5.1) meq/L Chloride (98-107) meq/L Carbon Dioxide (21.0-32.0) meq/L BUN (7-18) mg/dL Creatinine (0.50-1.00) mg/dL Estimated GFR (>89) mL/min POC Glucose (68-110) mg/dl Random Glucose (74-106) mg/dL Calcium (8.5-10.1) mg/dL Prot Corrected Calcium (8.5-10.1) mg/dL AST (15-37) U/L B-Natriuretic Peptide 572 H (0-100) pg/mL Urine Protein 100 H (Neg-Trace) mg/dL Urine Occult Blood Small H (Negative) Ur Leukocyte Esterase Small H (Negative) Urine Bacteria Rare H (None) /hpf Short CBC 02/01/18 Range/Units 09:37 WBC 11.1 H (4.0-11.0) th/mm3 Hgb 8.4 L (11.6-15.3) gm/dL Hct 25.4 L (35.0-46.0) % Plt Count 227 (150-450) th/mm3 BMP 02/01/18 09:37 Sodium 139 Potassium 6.0 H Chloride 110 H Carbon Dioxide 16.7 L BUN 99 H Creatinine 10.21 H* Calcium 6.4 L* Cardiac Enzymes 02/01/18 02/01/18 Range/Units 09:37 09:37 Total Creatine Kinase 66 Cancelled (26-192) U/L Troponin I 0.05 (0.02-0.05) ng/mL Liver Function 02/01/18 Range/Units 09:37 Total Bilirubin 0.4 (0.2-1.0) mg/dL AST 11 L (15-37) U/L ALT 16 (10-53) U/L Alkaline Phosphatase 92 (45-117) U/L Albumin 3.4 (3.4-5.0) g/dL Urine 02/01/18 Range/Units 10:07 Urine Color Yellow (Yellw/Straw) Urine Clarity Clear (Clear) Urine pH 6.0 (5.0-8.5) Ur Specific Banner 1.010 (1.002-1.035) Urine Protein 100 H (Neg-Trace) mg/dL Urine Glucose (UA) 50 (Negative) mg/dL <Arianna Reyes - 02/01/18 11:13> - Imaging Impressions Chest X-Ray 02/01/18 09:28 CONCLUSION: 1. Cardiomegaly with improved vascular congestion. 2. Mild left lower lobe airspace disease, presumably atelectasis. Head CT 02/01/18 09:28 CONCLUSION: 1. Senescent changes without acute intracranial abnormality. . <Aubrey Morales - 02/01/18 15:02> Impressions Chest X-Ray 02/01/18 09:28 CONCLUSION: 1. Cardiomegaly with improved vascular congestion. 2. Mild left lower lobe airspace disease, presumably atelectasis. <Arianna Reyes - 02/01/18 11:13> Caprini VTE Risk Assessment Caprini VTE Risk Assessment: No/Low Risk (score <= 1) <Arianna Reyes - 02/01 13:38> Caprini Risk Assessment Model: Point Value = 1 Point Value = 2 Point Value = 3 Point Value = 5 Age 41-60 Minor surgery BMI > 25 kg/m2 Swollen legs Varicose veins or History of unexplained or recurrent spontaneous Oral contraceptives or hormone replacement Sepsis (< 1 month) Serious lung disease, including pneumonia (< 1 month) Abnormal pulmonary function Acute myocardial infarction Congestive heart failure (< 1 month) History of inflammatory bowel disease Medical patient at bed rest Age 61-74 Arthroscopic surgery Major open surgery (> 45 min) Laparoscopic surgery (> 45 min) Malignancy Confined to bed (> 72 hours) Immobilizing plaster cast Central venous access Age >= 75 History of VTE Family history of VTE Factor V Leiden Prothrombin [id number] Lupus anticoagulant Anticardiolipin antibodies Elevated serum homocysteine Heparin-induced thrombocytopenia Other congenital or acquired thrombophilia Stroke (< 1 month) Elective arthroplasty Hip, pelvis, or leg fracture Acute spinal cord injury (< 1 month) <Aubrey Morales - 02/01/18 15:02> Point Value = 1 Point Value = 2 Point Value = 3 Point Value = 5 Age 41-60 Minor surgery BMI > 25 kg/m2 Swollen legs Varicose veins or History of unexplained or recurrent spontaneous Oral contraceptives or hormone replacement Sepsis (< 1 month) Serious lung disease, including pneumonia (< 1 month) Abnormal pulmonary function Acute myocardial infarction Congestive heart failure (< 1 month) History of inflammatory bowel disease Medical patient at bed rest Age 61-74 Arthroscopic surgery Major open surgery (> 45 min) Laparoscopic surgery (> 45 min) Malignancy Confined to bed (> 72 hours) Immobilizing plaster cast Central venous access Age >= 75 History of VTE Family history of VTE Factor V Leiden Prothrombin [id number] Lupus anticoagulant Anticardiolipin antibodies Elevated serum homocysteine Heparin-induced thrombocytopenia Other congenital or acquired thrombophilia Stroke (< 1 month) Elective arthroplasty Hip, pelvis, or leg fracture Acute spinal cord injury (< 1 month) <Arianna Reyes - 02/01/18 11:13> Prophylaxis Regimen: Total Risk Factor Score Risk Level Prophylaxis Regimen 0-1 Low Early ambulation 2 Moderate Order ONE of the following: *Sequential Compression Device (SCD) *Heparin 5000 units SQ BID 3-4 Higher Order ONE of the following medications: *Heparin 5000 units SQ TID *Enoxaparin/Lovenox 40 mg SQ daily (WT < 150 kg, CrCl > 30 mL/min) *Enoxaparin/Lovenox 30 mg SQ daily (WT < 150 kg, CrCl > 10-29 mL/min) *Enoxaparin/Lovenox 30 mg SQ BID (WT < 150 kg, CrCl > 30 mL/min) AND/OR *Sequential Compression Device (SCD) 5 or more Highest Order ONE of the following medications: *Heparin 5000 units SQ TID (Preferred with Epidurals) *Enoxaparin/Lovenox 40 mg SQ daily (WT < 150 kg, CrCl > 30 mL/min) *Enoxaparin/Lovenox 30 mg SQ daily (WT < 150 kg, CrCl > 10-29 mL/min) *Enoxaparin/Lovenox 30 mg SQ BID (WT < 150 kg, CrCl > 30 mL/min) AND *Sequential Compression Device (SCD) <Aubrey Morales - 02/01/18 15:02> Total Risk Factor Score Risk Level Prophylaxis Regimen 0-1 Low Early ambulation 2 Moderate Order ONE of the following: *Sequential Compression Device (SCD) *Heparin 5000 units SQ BID 3-4 Higher Order ONE of the following medications: *Heparin 5000 units SQ TID *Enoxaparin/Lovenox 40 mg SQ daily (WT < 150 kg, CrCl > 30 mL/min) *Enoxaparin/Lovenox 30 mg SQ daily (WT < 150 kg, CrCl > 10-29 mL/min) *Enoxaparin/Lovenox 30 mg SQ BID (WT < 150 kg, CrCl > 30 mL/min) AND/OR *Sequential Compression Device (SCD) 5 or more Highest Order ONE of the following medications: *Heparin 5000 units SQ TID (Preferred with Epidurals) *Enoxaparin/Lovenox 40 mg SQ daily (WT < 150 kg, CrCl > 30 mL/min) *Enoxaparin/Lovenox 30 mg SQ daily (WT < 150 kg, CrCl > 10-29 mL/min) *Enoxaparin/Lovenox 30 mg SQ BID (WT < 150 kg, CrCl > 30 mL/min) AND *Sequential Compression Device (SCD) <Arianna Reyes - 02/01/18 11:13> Assessment and Plan - Assessment (1) End-stage renal disease on hemodialysis Code(s): N18.6 - End stage renal disease; Z99.2 - Dependence on renal dialysis Status: Acute (2) Acute uremia Code(s): N19 - Unspecified kidney failure Status: Acute (3) Acute hyperkalemia Code(s): E87.5 - Hyperkalemia Status: Acute (4) Hypocalcemia Code(s): E83.51 - Hypocalcemia Status: Acute (5) Nausea & vomiting Code(s): R11.2 - Nausea with vomiting, unspecified Status: Acute (6) Hypertension Code(s): I10 - Essential (primary) hypertension Status: Acute (7) Anemia Code(s): D64.9 - Anemia, unspecified Status: Acute (8) Hx of right BKA Code(s): Z89.511 - Acquired absence of right leg below knee Status: Acute (9) Nutrition, metabolism, and development symptoms Code(s): R63.8 - Other symptoms and signs concerning food and fluid intake Status: Acute (10) DVT prophylaxis Status: Acute <Aubrey Morales - 02/01/18 15:02> (1) End-stage renal disease on hemodialysis Code(s): N18.6 - End stage renal disease; Z99.2 - Dependence on renal dialysis Status: Acute Plan: Patient has a long-standing history of end-stage renal disease, on hemodialysis on a Tuesday schedule, which she receives through a right AVF. 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 She missed dialysis on Tuesday. BUN/Cr 99/10.21 with estimated GFR of 4 in the ED. Nephrology consulted. Patient to receive dialysis today. Avoid IVF due to fluid overload. Avoid nephrotoxic medications. Follow BUN/Cr. (2) Acute uremia Code(s): N19 - Unspecified kidney failure Status: Acute Plan: See plan for ESRD above (3) Acute hyperkalemia Code(s): E87.5 - Hyperkalemia Status: Acute Plan: Potassium 6.0 in the ED. EKG shows peaked T waves and right bundle branch block in precordial leads. She denies chest pain or palpitations at this time. Given dose of Kayexalate, sodium bicarb, calcium, and insulin with glucose in the ED. To undergo dialysis today. Repeat BMP ordered. (4) Hypocalcemia Code(s): E83.51 - Hypocalcemia Status: Acute Plan: Calcium level 6.4, protein corrected calcium 6.8. Repletion given ED. Repeat calcium level ordered. (5) Nausea & vomiting Code(s): R11.2 - Nausea with vomiting, unspecified Status: Acute Plan: Zofran 4 mg IV every 4 hours as needed for nausea. (6) Hypertension Code(s): I10 - Essential (primary) hypertension Status: Acute Plan: Patient has a history of hypertension for which he takes metoprolol and clonidine. Patient was hypertensive at 179/75 in the ED, likely due to fluid overload from not receiving dialysis 2 days ago. Will hold home medications she returns from dialysis. (7) Anemia Code(s): D64.9 - Anemia, unspecified Status: Acute Plan: Patient has a chronic history of anemia, likely due to ESRD. Baseline 7-9. Continue to monitor H&H. 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 Avoid further IVF at this time. Electrolytes: Hyperkalemia as mentioned above. Hypocalcemia as mentioned above. We will continue to monitor and replete as necessary. Diet: Renal diet as tolerated. (10) DVT prophylaxis Status: Acute Plan: Patient is a low risk for DVT. SCDs and compression hose ordered for left leg, due to right BKA. <Arianna Reyes - 02/01/18 13:36> - Attending Attestation The exam, history, and the medical decision-making described in the above note were completed with the assistance of the resident physician. I reviewed and agree with the findings presented. I attest that I had a [id number] encounter with the patient on the same day, and personally performed and documented my assessment and findings in the medical record. <Aubrey Morales - 02/01/18 15:02>
[2018-02-01] MEDS ORDERED: Sod Chloride 0.9% Inj 1,000 ML OTHER PRN ×2 (11:18)
[2018-02-01] MEDS ORDERED: Albumin Human 25% Inj 100 ML IV.SIG PRN (11:18)
[2018-02-01] MEDS ORDERED: Gelatin 12 MM/7 MM Topical Foam TOPICAL PRN (11:18)
[2018-02-01] MEDS ORDERED: Sod Chloride 0.9% Inj 1,000 ML IV.CONT PRN (11:18)
[2018-02-01] MEDS ORDERED: Acetaminophen 325 MG Tablet PO PRN ×2 (11:18→11:36)
[2018-02-01] MEDS ORDERED: Heparin 10,000 UNITS/10 ML Vial (for IV use) OTHER PRN ×2 (11:18)
[2018-02-01] MEDS: Calcium Gluconate Inj 1 GM in Dextrose 5% in Water Inj 100 ML IV.SIG ONE ×4 (11:39→12:13)
--- NOTE | 2018-02-01 12:46 | P.CONNP ---
<Ashlee Joshua - Last Filed: 02/01/18 15:16> History of Present Illness Service: Nephrology Consult date: 02/01/18 Requesting Physician: Stacia Madison Reason for Consult: End stage renal disease on hemodialysis Primary Care Provider: UNKNOWN Chief Complaint: weakness, SOB History of Present Illness: This is a 72-year-old female with past medical history of hypertension, chronic anemia, ischemic heart disease, end-stage renal disease on hemodialysis 3 times per week. Reported to hospital with complains of generalized weakness, pain all over, chills, fatigue, and nausea/ vomiting for the last 24 hours. Nephrology is consulted for management of end-stage renal disease. Dialysis days are on MW and she did not go on Tuesday secondary to above symptoms. Per son she felt better on Tuesday evening and then on Tuesday started to feel worse. Patient is fluid overloaded, dialysis arranged for today. Potassium level is elevated and calcium level low. PMFSH - History History Provided By: Patient, Family Member - Medical History Medical History: Medical History (Last Reviewed 02/01/18 @ 13:38 by Arianna Reyes DO, R1) A-V fistula Dialysis AV fistula malfunction Kidney disease Right BKA infection - Family History Family History: Family History (Last Reviewed 02/01/18 @ 13:37 by Arianna Reyes DO, R1) Other No family history of cardiac disease - Tobacco History Second Hand Smoke Exposure: No Smoking Status: Never smoker - Alcohol History How Often Do You Have a Drink Containing Alcohol: Never - Substance Use History Substance History: No History of Abuse - Travel History Recent Travel in the [place] Within the Last 8 Weeks: No Recent Travel Out of the Country Within the Last 8 Weeks: No - Immunization History Tetanus Immunization: <5 Years Medications and Allergies Allergies Allergy/AdvReac Type Severity Reaction Status Date / Time diatrizoate meglumine Allergy Severe CAN'T Verified 02/01/18 09:29 BREATHE epoetin mirta Allergy Severe Headache Verified 02/01/18 09:29 gadobenic acid Allergy Severe CAN'T Verified 02/01/18 09:29 BREATHE gadodiamide Allergy Severe CAN'T Verified 02/01/18 09:29 BREATHE gadoteridol Allergy Severe CAN'T Verified 02/01/18 09:29 BREATHE iodine Allergy Severe Hives Verified 02/01/18 09:29 iodixanol Allergy Severe CAN'T Verified 02/01/18 09:29 BREATHE iohexol Allergy Severe CAN'T Verified 02/01/18 09:29 BREATHE morphine Allergy Severe RESPIRATORY Verified 02/01/18 09:29 DISTRESS potassium iodide Allergy Severe Hives Verified 02/01/18 09:29 povidone-iodine Allergy Severe Hives Verified 02/01/18 09:29 sodium iodide Allergy Severe Hives Verified 02/01/18 09:29 sodium iodide Allergy Severe Hives Verified 02/01/18 09:29 vancomycin Allergy Severe Hives Verified 02/01/18 09:29 plastic tape Allergy Severe Hives Uncoded 02/01/18 09:29 Home Medications Medication Instructions Recorded Confirmed Type calcitriol 1 mcg PO DAILY 01/16/18 01/16/18 History calcium acetate 1,334 mg PO TID 01/16/18 01/16/18 History clonidine HCl 0.3 mg PO BID 01/16/18 01/16/18 History hydralazine 50 mg PO TID 01/16/18 01/16/18 History Active Medications: Active Medications Acetaminophen (Tylenol) 650 mg PO UNSCH PRN PRN Reason: SEE LABEL COMMENTS Acetaminophen (Tylenol) 650 mg PO Q4H PRN PRN Reason: Temp > 100.4 Clonidine HCl (Catapres) 0.1 mg PO UNSCH PRN PRN Reason: SEE LABEL COMMENTS Diphenhydramine HCl (Benadryl) 25 mg PO UNSCH PRN PRN Reason: SEE LABEL COMMENTS Gelatin (Gelfoam 12 Mm/7 Mm Topical) 1 foam TOPICAL PRN PRN PRN Reason: help stop bleeding from site Gentamicin Sulfate (Gentamicin Inj) 20 mg OTHER WITH DIALYSIS PRN PRN Reason: Dwell Gentamycin Lock Heparin Sodium (Porcine) (Heparin Inj) 8,000 units OTHER WITH DIALYSIS PRN PRN Reason: for machine prime Heparin Sodium (Porcine) (Heparin Inj) 1,000 units OTHER WITH DIALYSIS PRN PRN Reason: Dwell Heparin to Fill Catheter Albumin Human (Flexbumin 25% Inj) 100 mls @ 60 mls/hr IV.SIG WITH DIALYSIS PRN PRN Reason: hypotension / volume replace Sodium Chloride (Ns Inj) 1,000 mls @ 0 mls/hr OTHER .Q0M PRN PRN Reason: for prime and rinse back Sodium Chloride (Ns Inj) 1,000 mls @ 200 mls/hr OTHER .Q5H PRN PRN Reason: for dialyzer flush PRN Sodium Chloride (Ns Inj) 1,000 mls @ 0 mls/hr IV.CONT .Q0M PRN PRN Reason: hypotension / volume replace Mannitol (Mannitol Inj) 12.5 gm IV.PUSH UNSCH PRN PRN Reason: hypotension / volume replace Nitroglycerin (Nitrostat Sl) 0.4 mg SL Q5M PRN PRN Reason: CHEST PAIN Ondansetron HCl (Zofran Inj) 4 mg IV.PUSH UNSCH PRN PRN Reason: NAUSEA OR VOMITING Ondansetron HCl (Zofran Inj) 4 mg IV.PUSH Q6H PRN PRN Reason: NAUSEA OR VOMITING Sodium Chloride (Ns Flush) 2 ml IV.FLUSH PRN PRN PRN Reason: FLUSH AFTER USING IV ACCESS Sodium Chloride (Ns Flush) 5 ml IV.FLUSH PRN PRN PRN Reason: flush each lumen during HD Exam Vital signs: Vital Signs 02/01/18 07:41 Temperature 98.5 F Pulse Rate 102 H Respiratory Rate 20 Blood Pressure 179/75 H Pulse Oximetry 95 Intake & Output 01/31/18 02/01/18 02/01/18 18:59 06:59 18:59 Intake Total 110 / 110 Balance 110 / 110 Weight 80 kg Intake: IV 110 / 110 Calcium Gluconate Inj 1 GM In 110 / 110 NS Inj 100 ML @ 110 mls/hr IV. SIG ONCE ONE Rx#:[id number] Narrative: GENERAL: Lethargic with chills, family at bedside. SKIN: Warm and dry. NECK: Supple, trachea midline. JVD distention CARDIOVASCULAR: Regular rate and rhythm without murmurs, gallops, or rubs. Right AVF positive thrill and bruit. RESPIRATORY: Breath sounds diminished bilaterally. No accessory muscle use. GASTROINTESTINAL: Abdomen soft, non-tender, large MUSCULOSKELETAL: No cyanosis, or edema. right AKA BACK: Nontender without obvious deformity. No CVA tenderness. Results - Lab Results 02/01/18 09:37 02/01/18 09:37 Most recent lab results Calcium 6.4 mg/dL (8.5-10.1) L* 02/01/18 09:37 Magnesium 2.0 mg/dL (1.5-2.5) 02/01/18 09:37 Assessment and Plan - Assessment (1) Hypocalcemia Code(s): E83.51 - Hypocalcemia Status: Acute (2) End-stage renal disease on hemodialysis Code(s): N18.6 - End stage renal disease; Z99.2 - Dependence on renal dialysis Status: Acute (3) Hypertension Code(s): I10 - Essential (primary) hypertension Status: Acute - Plan End stage renal disease on hemodialysis on Tuesday, and Tuesday. right arm AVF with positive thrill and bruit. Plan Avoid gadolinium and IVF administration Hypocalcemia, IV replacement given will resume home dose of calcitriol Hyperkalemia, D50, insulin, sodium bicarbonate, and Kayexalate given. Hemodialysis today, K bath and calcium adjusted with dialysis will remove fluid as tolerated May need UF tomorrow will assess in AM Labs in AM <Aria Doshi - Last Filed: 02/02/18 21:39> History of Present Illness Primary Care Provider: UNKNOWN [facility] - Medical History Medical History: Medical History (Last Reviewed 02/01/18 @ 13:38 by Arianna Reyes DO, R1) A-V fistula Dialysis AV fistula malfunction Kidney disease Right BKA infection - Family History Family History: Family History (Last Reviewed 02/01/18 @ 13:37 by Arianna Reyes DO, R1) Other No family history of cardiac disease Exam Vital signs: Vital Signs 02/01/18 23:59 02/02/18 03:52 02/02/18 07:48 Temperature 99.3 F 98.3 F 98.7 F Pulse Rate 93 H 91 H 87 Respiratory Rate 15 16 16 Blood Pressure 190/80 H 159/70 H 178/74 H Pulse Oximetry 94 L 94 L 92 L 02/02/18 08:00 02/02/18 09:25 Temperature Pulse Rate 86 Respiratory Rate Blood Pressure Pulse Oximetry 96 Intake & Output 02/02/18 02/02/18 02/03/18 06:59 18:59 06:59 Intake Total 240 / 240 120 / 120 Balance 240 / 240 120 / 120 Weight 80 kg Intake: IV 120 / 120 Calcium Gluconate Inj 2 GM In 120 / 120 D5W Inj 100 ML @ 120 mls/hr IV. SIG ONCE ONE Rx#:[id number] Oral 240 / 240 Other: # Voids 1 Results - Lab Results 02/02/18 04:11 02/02/18 04:11 Most recent lab results Calcium 6.5 mg/dL (8.5-10.1) L* 02/02/18 04:11 Phosphorus 4.3 mg/dL (2.5-4.9) 02/02/18 04:11 Magnesium 2.0 mg/dL (1.5-2.5) 02/01/18 09:37 Assessment and Plan - Assessment (1) Hypocalcemia Code(s): E83.51 - Hypocalcemia Status: Acute (2) End-stage renal disease on hemodialysis Code(s): N18.6 - End stage renal disease; Z99.2 - Dependence on renal dialysis Status: Acute (3) Hypertension Code(s): I10 - Essential (primary) hypertension Status: Acute - Plan Patient seen and examined during HD, agree with above. Missed the HD and now has high K and uremia. D/W the patient and told not to miss the HD.
--- NOTE | 2018-02-01 12:47 | CT ---
EXAM DATE: 02/01/2018 9:43 AM EDT AGE/SEX: 72 years / Female INDICATIONS: Generalized weakness. CLINICAL DATA: This is the patient's initial encounter. Patient reports that signs and symptoms have been present for 2 days and indicates a pain score of 0/10. MEDICAL/SURGICAL HISTORY: Renal disease. None. RADIATION DOSE: 44.25 CTDI (mGy) COMPARISON: [facility] [place], CT BRAIN W/O CONTRAST, 06/03/2017. . TECHNIQUE: CT of the head without contrast. Using automated exposure control and adjustment of the mA and/or kV according to patient size, radiation dose was kept as low as reasonably achievable to ob tain optimal diagnostic quality images. DICOM format image data is available electronically for revi ew and comparison. FINDINGS: Cerebrum: Mild diffuse cerebral atrophy. The ventricles are normal for degree of atrophy. No evidenc e of midline shift, mass lesion, hemorrhage or acute infarction. No extraaxial fluid collections are seen. Posterior Fossa: The cerebellum and brainstem are intact. The 4th ventricle is midline. The cerebe llopontine angle is unremarkable. Extracranial: The visualized portion of the orbits is intact. Skull: The calvaria is intact. No evidence of skull fracture. CONCLUSION: 1. Senescent changes without acute intracranial abnormality. . Electronically signed by: Jacob Menjivar MD 02/01/2018 12:46 PM EDT
[2018-02-01 22:18] LABS: Hepatitis A IgM Antibody Nonreactive (Nonreactive); Hepatitits B Surface Antigen Nonreactive (Nonreactive)
[2018-02-02 03:55] VITALS: RESP 16
[2018-02-02 04:59] LABS: Albumin 2.9 g/dL (3.4-5.0); Calcium 6.5 mg/dL (8.5-10.1); Carbon Dioxide 30.9 meq/L (21.0-32.0); Phosphorus 4.3 mg/dL (2.5-4.9); Potassium 4.4 meq/L (3.5-5.1); Total Protein 6.6 g/dL (6.4-8.2)
[2018-02-02 05:50] LABS: Baso # (Auto) 0.1 th/mm3 (0.0-0.2); Baso % (Auto) 0.7 % (0.0-2.0); Eos # (Auto) 0.2 th/mm3 (0.0-0.4); Eos % (Auto) 2.7 % (0.0-4.0); Hematocrit 22.4 % (35.0-46.0); Hemoglobin 7.5 gm/dL (11.6-15.3); Lymph # (Auto) 0.9 th/mm3 (1.0-4.8); Lymph % (Auto) 11.8 % (9.0-44.0); Mean Corpuscular HGB Conc 33.5 % (32.0-36.0); Mean Corpuscular Volume 95.3 fL (80.0-100.0); Mean Platelet Volume 7.8 fL (7.0-11.0); Mono # (Auto) 0.6 th/mm3 (0.0-0.9); Mono % (Auto) 7.5 % (0.0-8.0); Neut # (Auto) 5.8 th/mm3 (1.8-7.7); Neut % (Auto) 77.3 % (16.0-70.0); Platelet Count 197 th/mm3 (150-450); Red Blood Count 2.35 mil/mm3 (4.00-5.30); Red Cell Distribution Width 15.8 % (11.6-17.2); White Blood Count 7.5 th/mm3 (4.0-11.0)
[2018-02-02 07:51] VITALS: BP 178/74; TEMP 98.7
--- NOTE | 2018-02-02 08:42 | P.PNNP ---
Subjective Interval history: Doing well. Shortness of breath has improved. No chest pain, nausea, vomiting or loose stools. <Ashlee Joshua - Last Filed: 02/02/18 08:37> Physical Exam Vital signs: Vital Signs 02/01/18 12:51 02/01/18 17:53 02/01/18 18:19 Temperature 98.5 F Pulse Rate 100 H Respiratory Rate 20 Blood Pressure 198/85 H 194/80 H Pulse Oximetry 97 95 02/01/18 20:00 02/01/18 23:59 02/02/18 03:52 Temperature 98.1 F 99.3 F 98.3 F Pulse Rate 93 H 93 H 91 H Respiratory Rate 17 15 16 Blood Pressure 134/63 190/80 H 159/70 H Pulse Oximetry 92 L 94 L 94 L 02/02/18 07:48 Temperature 98.7 F Pulse Rate 87 Respiratory Rate 16 Blood Pressure 178/74 H Pulse Oximetry 92 L Intake & Output 02/01/18 02/02/18 02/02/18 18:59 06:59 18:59 Intake Total 350 / 350 240 / 240 Balance 350 / 350 240 / 240 Weight 80 kg 80 kg Intake: IV 110 / 110 Calcium Gluconate Inj 1 GM In 110 / 110 NS Inj 100 ML @ 110 mls/hr IV. SIG ONCE ONE Rx#:[id number] Oral 240 / 240 240 / 240 Other: # Voids 1 Weight On Admission 80 kg Narrative: GENERAL: Lethargic with chills, family at bedside. SKIN: Warm and dry. NECK: Supple, trachea midline. JVD distention CARDIOVASCULAR: Regular rate and rhythm without murmurs, gallops, or rubs. Right AVF positive thrill and bruit. RESPIRATORY: Breath sounds diminished bilaterally. No accessory muscle use. GASTROINTESTINAL: Abdomen soft, non-tender, large MUSCULOSKELETAL: No cyanosis, or edema. right AKA BACK: Nontender without obvious deformity. No CVA tenderness. - Urinary Catheter Management Straight Cath placed during this visit: yes Reason for continuing: Not indwelling catheter Insertion date: 02/01/18 Insertion time: 10:08 <Ashlee Joshua - Last Filed: 02/02/18 08:37> - Urinary Catheter Management Straight Cath placed during this visit: no <Aria Doshi - Last Filed: 02/04/18 18:19> Assessment and Plan - Assessment (1) Hypocalcemia Code(s): E83.51 - Hypocalcemia Status: Acute (2) End-stage renal disease on hemodialysis Code(s): N18.6 - End stage renal disease; Z99.2 - Dependence on renal dialysis Status: Acute (3) Hypertension Code(s): I10 - Essential (primary) hypertension Status: Acute - Plan End stage renal disease on hemodialysis on Tuesday, and Tuesday. right arm AVF with positive thrill and bruit. Plan Avoid gadolinium and IVF administration Hypocalcemia, IV replacement given yesterday will repeat today. Hyperkalemia has resolved Hemodialysis yesterday tolerated well with removal of 3 liters of fluid Next hemodialysis will be planned for tomorrow. Shortness of breath and hyperkalemia has improved. Hypertensive, will order home dose of clonidine. <Ashlee Joshua - Last Filed: 02/02/18 08:37> - Assessment (1) Hypocalcemia Code(s): E83.51 - Hypocalcemia Status: Acute (2) End-stage renal disease on hemodialysis Code(s): N18.6 - End stage renal disease; Z99.2 - Dependence on renal dialysis Status: Acute (3) Hypertension Code(s): I10 - Essential (primary) hypertension Status: Acute - Plan BP is on higher side. Told to be compliant with meds and HD treatment. If discharge, will continue HD as out patient. <Aria Doshi - Last Filed: 02/04/18 18:19>
[2018-02-02] MEDS ORDERED: Metoprolol Tartrate 25 MG Tablet PO SCH (09:00)
[2018-02-02] MEDS ORDERED: hydrALAZINE 50 MG Tablet PO SCH (09:00)
[2018-02-02] MEDS ORDERED: Calcium Acetate 667 MG Capsule PO SCH (09:00)
[2018-02-02] MEDS ORDERED: Calcium Gluconate Inj 2 GM in Dextrose 5% in Water Inj 100 ML IV.SIG ONE ×2 (10:00)
[2018-02-02] MEDS ORDERED: Calcitriol 0.25 MCG Capsule PO SCH (10:30)
--- NOTE | 2018-02-02 10:48 | P.PNFP ---
Subjective Interval history: BP elevated overnight. Had clonidine BID from home added. Home BP meds were resumed for this morning. This AM, patient states she feels better, that all of her symptoms have resolved, no longer has SOB. Denies chest pain or N/V. <ChayalorenaPriscilla N - 02/02/18 10:56> Results - Labs Result diagrams: 02/02/18 04:11 02/02/18 04:11 <Aubrey Morales - 02/02/18 15:26> Abnormal lab results 02/01/18 02/02/18 02/02/18 Range/Units 21:28 04:11 04:11 RBC 2.35 L (4.00-5.30) mil/mm3 Hgb 7.5 L (11.6-15.3) gm/dL Hct 22.4 L (35.0-46.0) % Neut % (Auto) 77.3 H (16.0-70.0) % Lymph # (Auto) 0.9 L (1.0-4.8) th/mm3 BUN 52 H (7-18) mg/dL Creatinine 6.74 H (0.50-1.00) mg/dL Estimated GFR 6 L (>89) mL/min POC Glucose 174 H (68-110) mg/dl Random Glucose 112 H (74-106) mg/dL Calcium 6.5 L* (8.5-10.1) mg/dL Prot Corrected Calcium 6.8 L* (8.5-10.1) mg/dL AST 10 L (15-37) U/L Albumin 2.9 L (3.4-5.0) g/dL 02/02/18 Range/Units 04:36 RBC (4.00-5.30) mil/mm3 Hgb (11.6-15.3) gm/dL Hct (35.0-46.0) % Neut % (Auto) (16.0-70.0) % Lymph # (Auto) (1.0-4.8) th/mm3 BUN (7-18) mg/dL Creatinine (0.50-1.00) mg/dL Estimated GFR (>89) mL/min POC Glucose 113 H (68-110) mg/dl Random Glucose (74-106) mg/dL Calcium (8.5-10.1) mg/dL Prot Corrected Calcium (8.5-10.1) mg/dL AST (15-37) U/L Albumin (3.4-5.0) g/dL Short CBC 02/02/18 Range/Units 04:11 WBC 7.5 (4.0-11.0) th/mm3 Hgb 7.5 L (11.6-15.3) gm/dL Hct 22.4 L (35.0-46.0) % Plt Count 197 (150-450) th/mm3 BMP 02/02/18 04:11 Sodium 144 Potassium 4.4 D Chloride 105 Carbon Dioxide 30.9 D BUN 52 H Creatinine 6.74 H Calcium 6.5 L* Liver Function 02/02/18 Range/Units 04:11 Total Bilirubin 0.4 (0.2-1.0) mg/dL AST 10 L (15-37) U/L ALT 12 (10-53) U/L Alkaline Phosphatase 67 (45-117) U/L Albumin 2.9 L (3.4-5.0) g/dL <Aubrey Morales - 02/02/18 15:26> Abnormal lab results 02/01/18 02/02/18 02/02/18 Range/Units 21:28 04:11 04:11 RBC 2.35 L (4.00-5.30) mil/mm3 Hgb 7.5 L (11.6-15.3) gm/dL Hct 22.4 L (35.0-46.0) % Neut % (Auto) 77.3 H (16.0-70.0) % Lymph # (Auto) 0.9 L (1.0-4.8) th/mm3 BUN 52 H (7-18) mg/dL Creatinine 6.74 H (0.50-1.00) mg/dL Estimated GFR 6 L (>89) mL/min POC Glucose 174 H (68-110) mg/dl Random Glucose 112 H (74-106) mg/dL Calcium 6.5 L* (8.5-10.1) mg/dL Prot Corrected Calcium 6.8 L* (8.5-10.1) mg/dL AST 10 L (15-37) U/L Albumin 2.9 L (3.4-5.0) g/dL 02/02/18 Range/Units 04:36 RBC (4.00-5.30) mil/mm3 Hgb (11.6-15.3) gm/dL Hct (35.0-46.0) % Neut % (Auto) (16.0-70.0) % Lymph # (Auto) (1.0-4.8) th/mm3 BUN (7-18) mg/dL Creatinine (0.50-1.00) mg/dL Estimated GFR (>89) mL/min POC Glucose 113 H (68-110) mg/dl Random Glucose (74-106) mg/dL Calcium (8.5-10.1) mg/dL Prot Corrected Calcium (8.5-10.1) mg/dL AST (15-37) U/L Albumin (3.4-5.0) g/dL Short CBC 02/02/18 Range/Units 04:11 WBC 7.5 (4.0-11.0) th/mm3 Hgb 7.5 L (11.6-15.3) gm/dL Hct 22.4 L (35.0-46.0) % Plt Count 197 (150-450) th/mm3 BMP 02/02/18 04:11 Sodium 144 Potassium 4.4 D Chloride 105 Carbon Dioxide 30.9 D BUN 52 H Creatinine 6.74 H Calcium 6.5 L* Liver Function 02/02/18 Range/Units 04:11 Total Bilirubin 0.4 (0.2-1.0) mg/dL AST 10 L (15-37) U/L ALT 12 (10-53) U/L Alkaline Phosphatase 67 (45-117) U/L Albumin 2.9 L (3.4-5.0) g/dL <Priscilla Carey N - 02/02/18 10:47> - Imaging Impressions Head CT 02/01/18 09:28 CONCLUSION: 1. Senescent changes without acute intracranial abnormality. . <Priscilla Carey - 02/02/18 10:47> Physical Exam Vital signs: Vital Signs 02/01/18 17:53 02/01/18 18:19 02/01/18 20:00 Temperature 98.5 F 98.1 F Pulse Rate 100 H 93 H Respiratory Rate 20 17 Blood Pressure 198/85 H 194/80 H 134/63 Pulse Oximetry 95 92 L 02/01/18 23:59 02/02/18 03:52 02/02/18 07:48 Temperature 99.3 F 98.3 F 98.7 F Pulse Rate 93 H 91 H 87 Respiratory Rate 15 16 16 Blood Pressure 190/80 H 159/70 H 178/74 H Pulse Oximetry 94 L 94 L 92 L 02/02/18 08:00 02/02/18 09:25 Temperature Pulse Rate 86 Respiratory Rate Blood Pressure Pulse Oximetry 96 Intake & Output 02/01/18 02/02/18 02/02/18 18:59 06:59 18:59 Intake Total 350 / 350 240 / 240 120 / 120 Balance 350 / 350 240 / 240 120 / 120 Weight 80 kg 80 kg Intake: IV 110 / 110 120 / 120 Calcium Gluconate Inj 2 GM In 120 / 120 D5W Inj 100 ML @ 120 mls/hr IV. SIG ONCE ONE Rx#:[id number] Calcium Gluconate Inj 1 GM In 110 / 110 NS Inj 100 ML @ 110 mls/hr IV. SIG ONCE ONE Rx#:[id number] Oral 240 / 240 240 / 240 Other: # Voids 1 Weight On Admission 80 kg <Aubrey Morales - 02/02/18 15:26> Vital Signs 02/01/18 12:51 02/01/18 17:53 02/01/18 18:19 Temperature 98.5 F Pulse Rate 100 H Respiratory Rate 20 Blood Pressure 198/85 H 194/80 H Pulse Oximetry 97 95 02/01/18 20:00 02/01/18 23:59 02/02/18 03:52 Temperature 98.1 F 99.3 F 98.3 F Pulse Rate 93 H 93 H 91 H Respiratory Rate 17 15 16 Blood Pressure 134/63 190/80 H 159/70 H Pulse Oximetry 92 L 94 L 94 L 02/02/18 07:48 Temperature 98.7 F Pulse Rate 87 Respiratory Rate 16 Blood Pressure 178/74 H Pulse Oximetry 92 L Intake & Output 02/01/18 02/02/18 02/02/18 18:59 06:59 18:59 Intake Total 350 / 350 240 / 240 Balance 350 / 350 240 / 240 Weight 80 kg 80 kg Intake: IV 110 / 110 Calcium Gluconate Inj 1 GM In 110 / 110 NS Inj 100 ML @ 110 mls/hr IV. SIG ONCE ONE Rx#:[id number] Oral 240 / 240 240 / 240 Other: # Voids 1 Weight On Admission 80 kg <Priscilla Carey - 02/02/18 10:47> Narrative: GENERAL: Well appearing, alert, actively sitting up in bed. SKIN: Warm and dry. NECK: Supple, trachea midline. CARDIOVASCULAR: Regular rate and rhythm without murmurs, gallops, or rubs. Right AVF positive thrill and bruit. RESPIRATORY: Breath sounds equal bilaterally. No accessory muscle use. GASTROINTESTINAL: Abdomen soft, non-tender, large MUSCULOSKELETAL: No cyanosis, or edema. right AKA <Priscilla Carey - 02/02/18 10:56> - Urinary Catheter Management Straight Cath placed during this visit: no <Aubrey Morales - 02/02/18 15:26> yes <Priscilla Carey - 02/02/18 10:56> Reason for continuing: Not indwelling catheter <Priscilla Carey 02/02/18 10:47 > Insertion date: 02/01/18 <Priscilla Carey 02/02/18 10:47> Insertion time: 10:08 <Priscilla Carey [facility] 02/02/18 10:47> Assessment and Plan - Assessment (1) End-stage renal disease on hemodialysis Code(s): N18.6 - End stage renal disease; Z99.2 - Dependence on renal dialysis Status: Acute (2) Acute uremia Code(s): N19 - Unspecified kidney failure Status: Inactive (3) Acute hyperkalemia Code(s): E87.5 - Hyperkalemia Status: Resolved (4) Hypocalcemia Code(s): E83.51 - Hypocalcemia Status: Acute (5) Nausea & vomiting Code(s): R11.2 - Nausea with vomiting, unspecified Status: Resolved (6) Hypertension Code(s): I10 - Essential (primary) hypertension Status: Acute (7) Anemia Code(s): D64.9 - Anemia, unspecified Status: Acute (8) Hx of right BKA Code(s): Z89.511 - Acquired absence of right leg below knee Status: Acute (9) Nutrition, metabolism, and development symptoms Code(s): R63.8 - Other symptoms and signs concerning food and fluid intake Status: Acute (10) DVT prophylaxis Status: Acute <Aubrey Morales - 02/02/18 15:26> (1) End-stage renal disease on hemodialysis Code(s): N18.6 - End stage renal disease; Z99.2 - Dependence on renal dialysis Status: Acute Plan: BUN/Cr improved today, improvement in sx. Nephrology consulted. Plan for dialysis tomorrow outpatient. Counseled on importance of not missing dialysis. (2) Acute uremia Code(s): N19 - Unspecified kidney failure Status: Inactive Plan: Improved. See plan for ESRD above (3) Acute hyperkalemia Code(s): E87.5 - Hyperkalemia Status: Resolved Plan: Improved w/dialysis. (4) Hypocalcemia Code(s): E83.51 - Hypocalcemia Status: Acute Plan: Calcium gluconate and home calcium supplements started and continued. (5) Nausea & vomiting Code(s): R11.2 - Nausea with vomiting, unspecified Status: Resolved Plan: Resolved. (6) Hypertension Code(s): I10 - Essential (primary) hypertension Status: Acute Plan: Home meds restarted, BP improved from yesterday. (7) Anemia Code(s): D64.9 - Anemia, unspecified Status: Acute Plan: Patient has a chronic history of anemia, likely due to ESRD. Baseline 7-9. Stable. 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 (10) DVT prophylaxis Status: Acute Plan: Patient is a low risk for DVT. SCDs and compression hose ordered for left leg, due to right BKA. <Priscilla Carey - 02/02/18 10:52> - Attending Attestation Patient case discussed with resident physicians I have independently examined the patient I have read the above note and agree with the assessment and plan as discussed with me I was involved in all medical decision making for this patient Aubrey Morales MD <Aubrey Morales - 02/02/18 15:26>
[2018-02-02 11:02] VITALS: O2SAT 96
[2018-02-02 11:05] VITALS: PULSE 86
--- NOTE | 2018-02-02 14:49 | ECG ---
Date Performed: 02/01/2018 Time Performed: 09:24:53 PTAGE: 72 years EKG: Sinus rhythm MARKED RIGHT AXIS DEVIATION RIGHT BUNDLE BRANCH BLOCK ABNORMAL ECG INTERPRETATION BASED ON A DEFAULT AGE OF 40 YEARS PREVIOUS TRACING : 01/16/2018 11.05 Since the previous tracing, no significant change not ed DOCTOR: Olivier Bledsoe Interpretating Date/Time 02/02/2018 14:48:03
== END 2018-02-02 12:35 | disposition home or self-care (01) ==
LOC: NEPC 07:39 → NEDA 07:39 → NEPFCDU 17:14 → N03 17:32 → NEPFCDU 17:35 → NEDH 02-02 09:58 → NEPFCDU 02-02 09:59
PROVIDERS: ADMIT Family Medicine; ATTEND Family Medicine